=== PATIENT | female | born 2000 | race Caucasian/White ===

== ENCOUNTER → 2025-03-13 | Outpatient (CLI) | payer MEDICAID, SELFPAY ==
[2025-03-13 15:26] LABS: Hematocrit 36.6 % (37-47); Hemoglobin 12.4 g/dL (12.0-15.0); Immature Granulocytes Count 0.010 X10^3/uL (0.0-0.0); Mean Corp Hgb Conc 33.9 g/dL (32-36); Mean Corpuscular Volume 84.5 fL (81-99); Mean Platelet Vol. 11.3 fl (6.2-12.0); NRBC Flagged by Analyzer 0 % (0-5); Platelet Count 237 K/mm3 (150-450); RBC Distribution Width CV 12.7 % (11.6-14.6); RBC Distribution Width SD 39.0 fl (35.1-43.9); Red Blood Count 4.33 M/mm3 (4.2-5.4); White Blood Count 8.1 K/mm3 (4.4-11.0)
[2025-03-13 16:07] LABS: AST(SGOT) 18 U/L (<=31); Alanine Aminotransfer ALT/SGPT 19 U/L (<=34); Albumin, Serum 4.3 g/dL (3.5-5.0); Alkaline Phosphatase 61 U/L (35-104); Anion Gap 12 (5-15); BUN 18 mg/dL (4-19); BUN/Creat Ratio 22.8 RATIO (10-20); Calcium,Total 9.1 mg/dL (7.6-11.0); Carbon Dioxide 24.4 mmol/L (21.0-32.0); Chloride 103 mmol/L (98-108); Globulin 2.5 g/dL (2.2-4.2); Glucose 78 mg/dL (70-99); Potassium 3.9 mmol/L (3.3-5.1)
[2025-03-13 17:31] LABS: Ferritin 15 ng/mL (22-378); Vitamin B12 306 pg/mL (180-914); Vitamin D,25 Hydroxy 17.7 ng/mL (30-100)
[2025-03-15 19:04] LABS: Iron 60 ug/dL (50-170); Iron Binding Capacity,Total 363 ug/dL (250-450); Iron Binding Capacity,Unsat 303 ug/dL (228-428)
== END | disposition home or self-care (01) ==
LOC: MTLAB 13:31
PROVIDERS: PCP Internal Medicine; Referring Provider Internal Medicine; Visit Provider Internal Medicine
DX: D50.9 Iron deficiency anemia, unspecified (principal); E53.8 Deficiency of other specified B group vitamins; E55.9 Vitamin D deficiency, unspecified
CPT/HCPCS: 36415; 80053; 82306; 82607; 82728; 83540; 83550; 85025

== ENCOUNTER → 2025-03-20 | Outpatient (CLI) | payer MEDICAID, SELFPAY ==
--- OUTSIDE RECORDS SUMMARY | 2025-03-20 07:25 | XMS RPT_ITS | CCD ---
Author Organization [facility] Care Team Providers Care Licensed Psychologist Manager Name Role Phone HUMPHREYS, IRIS K Unavailable Unavailable REFERRED, SELF Unavailable Unavailable HUMPHREYS, IRIS K Unavailable Unavailable HUMPHREYS, IRIS K Unavailable Unavailable REFERRED, SELF Unavailable Unavailable HUMPHREYS, IRIS K Unavailable Unavailable KYLE HARVEY Unavailable Unavailable REFERRED, SELF Unavailable Unavailable HUMPHREYS, IRIS K Unavailable Unavailable PRIMARY [id number] RN1, [id number] Unavailable Un available Roberto Kylah Unavailable Unavailable Crawford, Kylah D Unavailable Unavailable Ubaldo Cope Unavailable Unavailable CrawfordKylah Unavailable Unavailable Crawford, Kylah D Unavailable Unavailable Ubaldo Cope Unavailable Unavailable Vangie Joseph Unavailable Unavailable HUBERT MADRIGAL RN ASHLND 1, [id number] Unavaila ble Unavailable Crawford, Kylah D Unavailable Unavailable Crawford, Kylah D Unavailable Unavailable Unavailable Unavailable Unavailable Kylah Connell Unavailable Ubaldo Cope Unavailable Kylah Connell Unavailable Latoya Rae Unavailable Unavailable Vangie Joseph Unavailable Fatou Bray Unavailable Unavailable Dr. Vangie Joseph Attending Unavailable Ms. Kylah Connell Primary Care Unavailab Dr. Vangie Caro Referring Unavailable Ms. Kylah Connell Primary Care Unavailab Dr. Vangie Caro Referring Unavailable Dr. Vangie Joseph Attending Unavailable Ms. Kylah Connell Primary Care Unavailab Dr. Latoya Guevara Referring Unav Dr. Latoya Bruce Attending Unav ailable Ko, Ms. Kylah Amira Primary Care Unavailab guru Joseph, Dr. Tucker Referring Unavailable Opal, Dr. Tucker Attending Unavailable Ko, Ms. Kylah Amira Primary Care Unavailab le Butch, Dr. Latoya Geller Referring Unav ailable Rae, Dr. Latoya Geller Attending Unav ailable Rae, Dr. Latoya Geller Admitting Unav ailable Opal, Dr. Tucker Attending Unavailable Connell, Ms. Kylah Amira Primary Care Unavailab le Ko CURB BUILDER-SMASH HAND, Kylah D Primary Care Provider [phone] Ko CURB BUILDER-JOSEFINA, Kylah D Unavailable Ko CURB BUILDER-JOSEFINA, Kylah D Unavailable Vangie Joseph Attending Unavailable Connell, Ms. Kylah Amira Primary Care Unavailab Vangie Caro Referring Unavailable Vangie Joseph Attending Unavailable Connell, Ms. Kylah Amira Primary Care Unavailab Vangie Caro Referring Unavailable Vangie Joseph Attending Unavailable Connell, Ms. Kylah Amira Primary Care Unavailab Vangie Caro Referring Unavailable Vangie Joseph Attending Unavailable Connell, Ms. Kylah Amira Primary Care Unavailab Vangie Caro Referring Unavailable Vangie Joseph Referring Unavailable Vangie Joseph Attending Unavailable Connell, Ms. Kyalh Amira Primary Care Unavailab guru Bray, Dr. Fatou Jain Admitting Un available Ashlee, Dr. Fatou Jain Attending Un available Bray, Dr. Fatou Jain Referring Un available Connell, Ms. Kylah Amira Primary Care Unavailab Vangie Caro Attending Unavailable Connell, Ms. Kylah Amira Primary Care Unavailab Vangie Caro Referring Unavailable Vangie Joseph Attending Unavailable Connell, Ms. Kylah Amira Primary Care Unavailab Vangie Caro Attending Unavailable Connell, Ms. Kylah Amira Primary Care Unavailab Vangie Caro Attending Unavailable Connell, Ms. Kylah Amira Primary Care Unavailab Vangie Caro Attending Unavailable Vangie Joseph Referring Unavailable Connell, Ms. Kylah Amira Primary Care Unavailab Vangie Caro Referring Unavailable Vangie Joseph Attending Unavailable Connell, Ms. Kylah Amira Primary Care Unavailab Vangie Caro Referring Unavailable Vangie Joseph Attending Unavailable Connell, Ms. Kylah Amira Primary Care Unavailab Vangie Caro Attending Unavailable Connell, Ms. Kylah Amira Primary Care Unavailab Vangie Caro Referring Unavailable Crawford SMASH HAND, Kylah Amira Primary Care Provider KO KYLAH Admitting Unavailable CONNELL, KYLAH Referring Unavailable KYLAH WILLARD Attending Unavailable CRAWFORD, KYLAH AMIRA Primary Care Unavailable CONNELL, KYLAH D Primary Care Unavailable CONNELL, KYLAH D Primary Care Unavailable Unavailable Primary Care Provider Unavailabl e Connell SMASH HAND, Kylah D Primary Care Provider CONNELL, KYLAH D Primary Care Unavailable CIBALLI, RAYGAN L Attending Unavailable SELF, SELF Referring Unavailable Connell CURB BUILDER-SMASH HAND, Kylah D Primary Care Provider Connell CURB BUILDER-SMASH HAND, Kylah D Unavailable Connell CURB BUILDER-SMASH HAND, Kylah D Unavailable DANIELLE GARVIN Attending Unavailab le Crawford SMASH HAND, Kylah Amira Primary Care Provider [phone] ZEUS PRADO Referring Unavailable CIBALLI, RAYGAN Attending Unavailable SELF, SELF Referring Unavailable CIBALLI, RAYGAN Attending Unavailable SELF, SELF Referring Unavailable CIBALLI, RAYGAN Attending Unavailable CONNELL, KYLAH D Primary Care Unavailable CIBALLI, RAYGAN Attending Unavailable CIBALLI, RAYGAN Referring Unavailable Connell CURB BUILDER-SMASH HAND, Kylah D Primary Care Provider Connell CURB BUILDER-SMASH HAND, Kylah D Unavailable Connell CURB BUILDER-SMASH HAND, Kylah D Unavailable DANIELLE GARVIN Attending Unavailab le CRAWFORD, KYLAH AMIRA Primary Care Unavailable DANIELLE GARVIN Attending Unavailab le CRAWFORD, KYLAH AMIRA Primary Care Unavailable CONNELL, KYLAH D Primary Care Unavailable MINESH WILKINSON Attending Unavailable CONNELL, KYLAH D Attending Unavailable CONNELL, KYLAH D Primary Care Unavailable CONNELL, KYLAH D Attending Unavailable CONNELL, KYLAH D Primary Care Unavailable RAUL DOTY Attending Unavailable CONNELL, KYLAH D Primary Care Unavailable RICHARD ARAIZA Attending Unavailable CONNELL, KYLAH D Primary Care Unavailable TavallozeNichoRichard Primary Care Unavailable Connell, Kylah D Referring Unavailable Connell, Kylah D Attending Unavailable Tavallaee, Richard Referring Unavailable Richard Araiza Attending Unavailable Richard Araiza Primary Care Unavailable Assessment, Health Risk Referring Unavaila ble Assessment, Health Risk Attending Unavaila ble Health, Employee Attending Provider [phone] Assessment, Health Risk Attending Provider Unava ilable Assessment, Health Risk Referring Provider Unava ilable Phill BETANCOURT, Dr. Ramos Primary Care Provider Phill BETANCOURT, Dr. Ramos Attending Provider Phill BETANCOURT, Dr. Ramos Referring Provider Allergies Allergy Classification Reported Allergen(s) Allergy Type Date of Onset Reaction(s) Facility (3 sources) OTHER; Translations: [OTHER] Propensity to adverse reactions (disorder) 0 [facility] Medications Current Medications Medication Drug Class(es) Dates Sig (Normalized) Sig (Original) [id number] 200 actuat albuterol 0.09 mg/actuat metered dose inhaler (20 sources) beta2-Adrenergic Agonist Start: 10-20-2021 take 2 puff(s) by inhalation every four hours albuterol 90 mcg/actuation inhaler Inhale 2 puffs every 4 hours if needed (costochondritis) . 0 10/20/2021 Active Start: 10-20-2021 take 2 puff(s) by in halation every four hours as needed Albuterol Sulfate HFA 108 (90 Base) MCG/ACT Inhalation Aerosol Solution INHALE 2 PUFFS EVERY 4 HOURS NEEDED Quantity: 1 Refills: 0 Ordered: 20-Oct-2021 Kylah Hubbard Start : 20-Oct-2021 Active alpha-tocopherol acetate 30 unt / ascorbic acid 100 mg / beta carotene 1000 unt / calcium carbonate 200 mg / calcium pantothenate 7 mg / cholecalciferol 400 unt / docusate sodium 25 mg / ferrous fumarate 29 mg / folic acid 1 mg / niacinamide 15 mg / pyridoxine hydrochloride 20 mg / riboflavin 3 mg / thiamine 3 mg / vitamin b12 0.012 mg / zinc oxide 20 mg oral tablet (1 source) Vitamin B12, Vitamin D, Vitamin C take 1 tablet by mouth once daily Plus Iron oral tablet ; 1 tab(s) orally once a day Quantity: 0 Refills: 0 Ordered: 02-Jun-2022 Hyacinth Bajwa Generic Substitution Allowed benzoyl peroxide 100 mg/ml medicated liquid soap (17 sources) Start: benzoyl peroxide (Benzac AC) 10 % external wash Indications: Acne, unspecified acne type Apply topically 2 times a day. 237 g 09/04/2024 Active Start: 04-21-2023 End: 04-20-2024 benzoyl peroxide (Benzac AC) 10 % external wash Indications: Acne, unspecified acne type APPLY TOPICALLY TWICE DAILY 237 g 3 05/22/2024 Active busPIRone hydrochloride 5 mg oral tablet (20 sources) Start: 10-03-2020 End: 05-03-2023 take 1 tablet by mouth three times daily as needed for anxiety busPIRone (Buspar) 5 mg tablet Indications: Anxiety Take 1 tablet (5 mg) by mouth 3 times a day as needed (anxiety). 90 tablet 02/28/2024 Active calcium carbonate 1500 mg / cholecalciferol 0.01 mg oral tablet (20 sources) Vitamin D Start: 05-03-2023 End: 08-23-2023 Calcium 600 + D,3, 600 mg-10 mcg (400 unit) tablet Start: 11-18-2020 Calcium 600+D 600-400 MG-UNIT TABS TAKE 1 TABLET Twice daily DO NOT TAKE AT SAME TIME IRON Quantity: 180 Refills: 3 Ordered: 20-Oct-2021 Kylah Merlos Start : 18-Nov-2020 Active Start: 11-18-2020 take 1 tablet by soren twice daily Calcium 600+D 600-400 MG-UNIT Oral Tablet TAKE 1 TABLET Twice daily DO NOT TAKE AT SAME TIME IRON Quantity: 180 Refills: 3 Ordered: 20-Oct-2021 Kylah Hubbard Start : 18-Nov-2020 Active Calcium Carbonate-Vit D-Min (Calcium 600+D Plus Minerals) 600-400 MG-UNIT tablet (5 sources) Start: 05-03-2023 take 1 tablet by mouth twice daily Calcium Carbonate-Vit D-Min (Calcium 600+D Plus Minerals) 600-400 MG-UNIT tablet Take 1 tablet by mouth Twice daily. 05/03/2023 Active calcium carbonate-vit D3-min 600 mg calcium- 400 unit tablet (11 sources) Start: 05-03-2023 take 1 tablet by mouth twice daily calcium carbonate-vit D3-min 600 mg calcium- 400 unit tablet Indications: Vitamin D deficiency Take 1 tablet by mouth 2 times a day. DO NOT TAKE AT SAME TIME IRON 180 each 3 05/03/2023 Active Start: 11-18-2020 End: 05-03-2023 take 1 tablet by mouth once in the morning calcium carbonate-vit D3-min 600 mg calcium- 400 unit tablet Take 1 tablet by mouth in the morning and 1 tablet in the evening. DO NOT TAKE AT SAME TIME IRON. 0 11/18/2020 05/03/2023 Discontinued (Reorder) Start: 11-18-2020 take 1 tablet by soren th once in the morning calcium carbonate-vit D3-min 600 mg calcium- 400 unit tablet Take 1 tablet by mouth in the morning and 1 tablet in the evening. DO NOT TAKE AT SAME TIME IRON. 0 11/18/2020 Active calcium carbonate-vit D3-min 600 mg-10 mcg (400 unit) Tab (2 sources) Start: 11-18-2020 take 1 tablet by mouth every twelve hours calcium carbonate-vit D3-min 600 mg-10 mcg (400 unit) Tab Take 1 tablet by mouth every 12 (twelve) hours . 11/18/2020 Active cholecalciferol 0.05 mg oral tablet (6 sources) Vitamin D Start: 09-19-2024 End: 09-19-2025 take 2 tablets by mouth once daily cholecalciferol (Vitamin D3) 50 MCG (1999 UT) tablet Indications: Vitamin D deficiency Take 2 tablets (100 mcg) by mouth once daily. 180 tablet 3 09/19/2024 09/19/2025 Active Start: 03-20-2024 End: 09-19-2024 take 1 tablet by mouth once daily cholecalciferol (Vitamin D3) 50 MCG (2000 UT) tablet Indications: Vitamin D deficiency Take 1 tablet (50 mcg) by mouth once daily. 90 tablet 3 03/20/2024 09/19/2024 Discontinued (Reorder) docusate sodium 100 mg oral capsule (1 source) Start: 07-20-2024 End: 07-30-2024 take 1 capsule by mouth twice daily docusate sodium (COLACE) 100 MG capsule Take 1 (one) capsule (100 mg total) by mouth 2 (two) times a day for 10 days . 20 capsule 07/20/2024 07/30/2024 Active drospirenone / Ethinyl Estradiol (20 sources) Progestin, Estrogen Start: 08-30-2023 End: 08-29-2024 drospirenone-ethin yl estradioL (Brittany, Ocella) 3-0.03 mg tablet Indications: Menorrhagia with regular cycle Take 1 tablet by mouth once daily. 28 tablet 11 08/30/2023 08/29/2024 Active Start: 09-15-2020 take 1 tablet by soren th once daily Drospirenone-Ethinyl Estradiol 3-0.02 MG Oral Tablet Take 1 tablet daily Quantity: 1 Refills: 12 Vangie Joseph MD Start : 15-Sep-2020 Active 28 Tablet Pack End: 08-23-2023 drospirenone-ethinyl estradi oL (Sabrina, Kusumanvi) 3-0.02 mg tablet Take 1 tablet by mouth once daily. 0 08/23/2023 Discontinued (Therapy completed) drospirenone-eth inyl estradioL (Sabrina, Gianvi) 3-0.02 mg tablet Take 1 tablet by mouth once daily. 0 Active take 1 tablet by soren th once daily Drospirenone-Ethinyl Estradiol 3-0.02 MG Oral Tablet Take 1 tablet daily Quantity: 1 Refills: 11 Ordered: 30-Oct-2021 Vangie Joseph MD Active take 1 tablet by soren th once daily Drospirenone-Ethinyl Estradiol 3-0.02 MG Oral Tablet Take 1 tablet daily Quantity: 1 Refills: 1 Ordered: 30-Sep-2021 Vangie Joseph MD Active Drospirenone-Eth inyl Estradiol TABS Quantity: 0 Refills: 0 Ordered: 23-Mar-2021 DO Active ergocalciferol 1.25 mg oral capsule (16 sources) Provitamin D2 Compound Start: 05-03-2023 ergocalciferol (ERGOCALCIFEROL) 1,250 mcg (50,000 unit) capsule Take 1 (one) capsule (50,000 Units total) by mouth twice weekly Per pt . 05/03/2023 Active Start: 05-03-2023 End: 03-20-2024 take 1 capsule by mouth every week ergocalciferol (Vitamin D-2) 1.25 MG (38645 UT) capsule Indications: Vitamin D deficiency Take 1 capsule (50,000 Units) by mouth 1 (one) time per week. 13 capsule 3 05/03/2023 03/20/2024 Discontinued (Therapy completed) take 1 capsule by mo ut every week Vitamin D (Ergocalciferol) 1.25 MG (32450 UT) Oral Capsule TAKE 2 CAPSULE Weekly Refills: 0 Active ferrous sulfate 325 mg oral tablet (20 sources) Start: 09-19-2024 take 1 tablet by mouth three times daily ferrous sulfate tablet Indications: Iron deficiency anemia, unspecified iron deficiency anemia type Take 1 tablet (325 mg) by mouth 3 times a day. 270 tablet 3 09/19/2024 Active Start: 11-14-2020 End: 09-19-2024 take 1 tablet by mouth three times daily ferrous sulfate 325 (65 FE) MG tablet Take 1 (one) tablet (325 mg total) by mouth 3 (three) times a day . 11/14/2020 Active Start: 11-14-2020 [facility] Ferrous Sulfate 325 (65 Fe) MG Oral Tablet Take 1 tablet twice daily Quantity: 180 Refills: 1 Ordered: 14-Nov-2020 Kylah Hubbard Start : 14-Nov-2020 Active Lactulose (2 sources) Osmotic Laxative Start: 07-20-2024 End: 11-06-2024 take 15 mL by mouth once daily lactulose (CHRONULAC) 20 gram/30 mL Soln Take 15 mL (10 g total) by mouth daily . 30 mL 3 07/20/2024 11/06/2024 Discontinued Start: 07-20-2024 take 15 mL by mouth once daily lactulose (CHRONULAC) 20 gram/30 mL Soln Take 15 mL (10 g total) by mouth daily . 30 mL 3 07/20/2024 Active linaclotide 0.145 mg oral capsule (1 source) Guanylate Cyclase-C Agonist Start: 11-06-2024 take 1 capsule by mouth once daily before breakfast linaCLOtide (Linzess) 145 mcg cap Take 1 (one) capsule (145 mcg total) by mouth every morning before breakfast . 30 capsule 11/06/2024 Active Start: 11-06-2024 take 1 capsule by [facility] once daily before breakfast linaCLOtide (Linzess) 145 mcg cap Take 1 (one) capsule (145 mcg total) by mouth every morning before breakfast . 30 capsule 11/06/2024 Active metroNIDAZOLE 500 mg oral tablet (3 sources) Nitroimidazole Antimicrobial Start: 03-23-2021 End: 03-30-2021 take 1 tablet by mouth twice daily metroNIDAZOLE 500 MG Oral Tablet Take 1 tablet twice daily Quantity: 14 Refills: 0 Ordered: 23-Mar-2021 Jamar Delcid DO Start : 23-Mar-2021 End : 30-Mar-2021 Active no EOTH omeprazole 40 mg delayed release oral capsule (10 sources) Proton Pump Inhibitor Start: 08-23-2023 End: 08-22-2024 take 1 capsule by mouth once daily before breakfast omeprazole (PRILOSEC) 40 MG capsule Take 1 (one) capsule (40 mg total) by mouth every morning before breakfast . 08/23/2023 Active semaglutide, weight loss, (Wegovy) 0.5 mg/0.5 mL pen injector (1 source) Start: 07-31-2024 semaglutide, weight loss, (Wegovy) 0.5 mg/0.5 mL pen injector Inject 0.5 mg under the skin every 7 days. 07/31/2024 Active Semaglutide-Weight Management (Wegovy) 0.5 MG/0.5ML Solution Auto-injector (1 source) Start: 07-31-2024 inject 0.5 mg by subcutaneous injection every week Semaglutide-Weigh t Management (Wegovy) 0.5 MG/0.5ML Solution Auto-injector Indications: Obesity (BMI 30.0-34.9) Inject 0.5 mg under the skin once a week. 2 mL 07/31/2024 Active sucralfate 1000 mg oral tablet (3 sources) Aluminum Complex Start: 09-14-2023 take 1 tablet by mouth four times daily before mealtime sucralfate (Carafate) 1 gram tablet Indications: Epigastric abdominal tenderness with rebound tenderness take 1 tablet by mouth four times a day BEFORE MEALS 120 tablet 0 09/14/2023 Active Start: 08-23-2023 take 1 tablet by soren th four times daily before mealtime sucralfate (Carafate) 1 gram tablet Indications: Epigastric abdominal tenderness with rebound tenderness Take 1 tablet (1 g) by mouth 4 times a day before meals. 120 tablet 0 08/23/2023 Active Wegovy 0.25 mg/0.5 mL Pen (2 sources) inject 0.25 mg by porter bcutaneous injection every week Wegovy 0.25 mg/0.5 mL Pen INJECT 0.25 MG UNDER THE SKIN ONCE A WEEK. Active Completed/Discontinued Medications Medication Drug Class(es) Dates Sig (Normalized) Sig (Original) amoxicillin 500 mg oral capsule (1 source) Penicillin-class Antibacterial Start: 12-17-2020 take 1 capsule by mouth twice daily Amoxicillin 500 MG Oral Capsule Take 1 capsule twice daily Quantity: 14 Refills: 0 Ordered: 17-Dec-2020 Kylah Hubbard Start : 17-Dec-2020 Active B-12 KIT (14 sources) End: 10-20-2021 B-12 KIT Quantity: 0 Refills: 0 Ordered: 20-Oct-2021 DO End : 20-Oct-2021 Complete B-12 KIT Quantit y: 0 Refills: 0 Ordered: 02-Jan-2021 DO Active betamethasone 0.5 mg/ml / clotrimazole 10 mg/ml topical cream (5 sources) Azole Antifungal, Corticosteroid Start: 12-26-2019 Clotrimazole-Betamethasone 1-0.05 % External Cream APPLY AND RUB IN A THIN FILM TO AFFECTED AREAS TWICE DAILY.(AM AND PM). Quantity: 1 Refills: 0 Kylah Hubbard Start : 26-Dec-2019 Active 45 GM Tube cephalexin 500 mg oral capsule (2 sources) Cephalosporin Antibacterial Start: 02-04-2020 take 1 capsule by mouth four times daily Cephalexin 500 MG Oral Capsule TAKE 1 CAPSULE 4 TIMES DAILY UNTIL GONE. Quantity: 28 Refills: 0 Vangie Joseph MD Start : 04-Feb-2020 Active clotrimazole 20 mg/ml vaginal cream (2 sources) Azole Antifungal Start: 04-08-2020 Clotrimazole 3 2 % Vaginal Cream INSERT 1 APPLICATORFUL INTRAVAGINALLY AT BEDTIME NIGHTLY. Quantity: 1 Refills: 0 Kylah Hubbard Start : 08-Apr-2020 Active 21 GM Tube 1 ml dexamethasone phosphate 4 mg/ml injection (1 source) Corticosteroid Start: 10-20-2021 Dexamethasone Sodium Phosphate 4 MG/ML Injection Solution INJECT 1 ML Intramuscular Quantity: 0 Refills: 0 Ordered: 20-Oct-2021 Kylah Hubbard Start : 20-Oct-2021 Complete doxycycline hyclate 100 mg oral tablet (2 sources) Tetracycline-clas s Drug Start: 01-05-2021 take 1 tablet by mouth once daily Doxycycline Hyclate 100 MG Oral Tablet TAKE 1 TABLET EVERY 12 HOURS DAILY. Quantity: 14 Refills: 0 Ordered: 05-Jan-2021 Vangie Joseph MD Start : 05-Jan-2021 Active FLUoxetine 10 mg oral capsule (7 sources) Serotonin Reuptake Inhibitor Start: 10-03-2020 take 1 capsule by mouth once daily FLUoxetine HCl - 10 MG Oral Capsule TAKE 1 CAPSULE Daily Quantity: 90 Refills: 3 Ordered: 02-Dec-2020 Kylah Hubbard Start : 03-Oct-2020 Active take 1 capsule by mouth once jody ly PROzac 20 MG Oral Capsule TAKE 1 CAPSULE Daily Refills: 0 Active ibuprofen 600 mg oral tablet (4 sources) Nonsteroidal Anti-inflammatory Drug Start: 08-24-2022 End: 05-03-2023 take 1 tablet by mouth every six hours ibuprofen 600 mg tablet Take 1 tablet (600 mg) by mouth every 6 hours. 0 08/24/2022 05/03/2023 Discontinued (Therapy completed) take 2 tablets by [facility] every eight hours as needed ibuprofen (ADVIL,MOTRIN) 200 MG tablet T daryl 2 (two) tablets (400 mg total) by mouth every 8 (eight) hours as needed . Active labetalol hydrochloride 200 mg oral tablet (2 sources) beta-Adrenergic Shanique End: 05-03-2023 take 1 tablet by mouth twice daily labetalol (Normodyne) 200 mg tablet Take 1 tablet (200 mg) by mouth 2 times a day. 0 05/03/2023 Discontinued (Therapy completed) 1 ml medroxyPROGESTERone acetate 150 mg/ml injection (3 sources) Progestin inject 1 mL by intramuscular injection every three months Depo-Provera 150 MG/ML Intramuscular Suspension INJECT 1 ML INTRAMUSCULARLY ONCE EVERY 3 MONTHS. Refills: 0 Active montelukast 10 mg oral tablet (3 sources) Leukotriene Receptor Antagonist Start: 05-29-2019 take 1 tablet by mouth at bedtime Montelukast Sodium 10 MG Oral Tablet TAKE 1 TABLET Bedtime Quantity: 90 Refills: 3 Kylah Hubbard Start : 29-May-2019 Active naproxen 500 mg oral tablet (8 sources) Nonsteroidal Anti-inflammatory Drug Start: 10-20-2021 take 1 tablet by mouth every twelve hours as needed Naproxen 500 MG Oral Tablet TAKE 1 TABLET EVERY 12 HOURS NEEDED. Quantity: 60 Refills: 0 Ordered: 20-Oct-2021 Kylah Hubbard Start : 20-Oct-2021 Active 24 hr NIFEdipine 60 mg extended release oral tablet (2 sources) Dihydropyridine Calcium Channel Shanique End: 05-03-2023 take 1 tablet by mouth twice daily NIFEdipine CC (Adalat CC) 60 mg 24 hr tablet Take 1 tablet (60 mg) by mouth 2 times a day. 0 05/03/2023 Discontinued (Therapy completed) nitrofurantoin, macrocrystals 25 mg / nitrofurantoin, monohydrate 75 mg oral capsule (1 source) Nitrofuran Antibacterial Start: 02-21-2022 take 1 capsule by mouth twice daily Nitrofurantoin Monohyd Macro 100 MG Oral Capsule TAKE 1 CAPSULE TWICE DAILY. Quantity: 20 Refills: 0 Ordered: 21-Feb-2022 Vangie Joseph MD Start : 21-Feb-2022 Active ondansetron 8 mg disintegrating oral tablet (20 sources) Serotonin-3 Receptor Antagonist Start: 02-19-2022 End: 05-03-2023 take 1 tablet by mouth every eight hours as needed ondansetron ODT (Zofran-ODT) 8 mg disintegrating tablet Take 1 tablet (8 mg) by mouth every 8 hours if needed for nausea. 0 02/19/2022 05/03/2023 Discontinued (Therapy completed) Start: 04-08-2020 take 1 tablet by soren th every eight hours Ondansetron HCl - 4 MG Oral Tablet TAKE 1 TABLET Every 8 hours PRN Nausea Quantity: 42 Refills: 0 Kylah Hubbard Start : 08-Apr-2020 Active PARoxetine hydrochloride 20 mg oral tablet (3 sources) Serotonin Reuptake Inhibitor Start: 05-29-2019 take 1 tablet by mouth once daily PARoxetine HCl - 20 MG Oral Tablet Take 1 tablet daily Quantity: 90 Refills: 3 Kylah Hubbard Start : 29-May-2019 Active phentermine hydrochloride 8 mg oral tablet (9 sources) Sympathomimetic Amine Anorectic Start: 05-22-2024 End: 06-21-2024 take 1 tablet by mouth once daily before breakfast Phentermine HCl 8 MG tablet Indications: Obesity (BMI 30.0-34.9) Take 1 tablet by mouth every morning before breakfast. 30 tablet 05/22/2024 06/07/2024 Discontinued (Side effects) Start: 04-24-2024 End: 04-24-2024 take 1 capsule by mouth once daily phentermine 30 MG capsule Indications: Obesity (BMI 30.0-34.9) Take 1 capsule by mouth daily. 30 capsule 04/24/2024 04/24/2024 Discontinued (Error) Start: 03-27-2024 End: 09-19-2024 take 1 tablet by mouth once daily phentermine (Adipex-P) 37.5 mg tablet Take 1 tablet (37.5 mg) by mouth once daily. 03/27/2024 09/19/2024 Discontinued (Therapy completed) predniSONE 10 mg oral tablet (8 sources) Start: 10-20-2021 take 3 tablets by mouth once daily predniSONE 10 MG Oral Tablet TAKE 3 TABLET Daily Quantity: 15 Refills: 0 Ordered: 20-Oct-2021 Kylah Hubbard Start : 20-Oct-2021 Active promethazine hydrochloride 25 mg oral tablet (1 source) Phenothiazine Start: 02-29-2020 take 1 tablet by mouth every six hours Promethazine HCl - 25 MG Oral Tablet TAKE 1 TABLET EVERY 6 HOURS NEEDED FOR NAUSEA. Quantity: 20 Refills: 2 Vangie Joseph MD Start : 29-Feb-2020 Active Semaglutide-Weight Management (Wegovy) 0.25 MG/0.5ML Solution Auto-injector (2 sources) Start: 06-07-2024 End: 07-31-2024 inject 0.25 mg by subcutaneous injection every week Semaglutide-Weight Management (Wegovy) 0.25 MG/0.5ML Solution Auto-injector Indications: Obesity (BMI 30.0-34.9) Inject 0.25 mg under the skin once a week. 0.5 mL 06/07/2024 07/31/2024 Discontinued (Dose adjustment (suppress cancel msg)) Start: 06-07-2024 inject 0.25 mg by porter bcutaneous injection every week Semaglutide-Weight Management (Wegovy) 0.25 MG/0.5ML Solution Auto-injector Indications: Obesity (BMI 30.0-34.9) Inject 0.25 mg under the skin once a week. 0.5 mL 06/07/2024 Active sulfamethoxazole 800 mg / trimethoprim 160 mg oral tablet (15 sources) Dihydrofolate Reductase Inhibitor Antibacterial, Sulfonamide Antimicrobial Start: 03-22-2022 take 1 tablet by mouth twice daily Sulfamethoxazole-Trimethoprim 800-160 MG Oral Tablet TAKE 1 TABLET TWICE DAILY UNTIL FINISHED. Quantity: 20 Refills: 0 Ordered: 22-Mar-2022 Vangie Joseph MD Start : 22-Mar-2022 Active Start: 05-05-2020 take 1 tablet by soren twice daily Sulfamethoxazole-Trimethoprim 800-160 MG Oral Tablet TAKE 1 TABLET TWICE DAILY UNTIL FINISHED. Quantity: 20 Refills: 0 Vangie Joseph MD Start : 05-May-2020 Active topiramate 25 mg oral tablet (2 sources) Start: 04-24-2024 End: 05-22-2024 take 1 tablet by mouth once daily Topiramate 25 MG tablet Indications: Obesity (BMI 30.0-34.9) Take 1 tablet by mouth daily. 30 tablet 04/24/2024 05/22/2024 Discontinued (Side effects) vitamin b12 1 mg/ml injectable solution (12 sources) Vitamin B12 Start: 03-11-2022 Cyanocobalamin 1000 MCG/ML Injection Solution INJECT 1 ML Intramuscular Quantity: 0 Refills: 0 Ordered: 11-Mar-2022 Kylah Hubbard Start : 11-Mar-2022 Complete Start: 10-20-2021 Cyanocobalamin 1000 MCG/ML Injection Solution INJECT 1 ML Intramuscular Quantity: 0 Refills: 0 Ordered: 20-Oct-2021 Kylah Hubbard Start : 20-Oct-2021 Complete Start: 06-26-2021 Cyanocobalamin 1000 MCG/ML Injection Solution INJECT 1 ML Intramuscular Quantity: 0 Refills: 0 Ordered: 26-Jun-2021 Kylah Hubbard Start : 26-Jun-2021 Complete Start: 05-13-2021 Cyanocobalamin 1000 MCG/ML Injection Solution INJECT 1 ML Intramuscular Quantity: 0 Refills: 0 Ordered: 13-May-2021 Kylah Hubbard Start : 13-May-2021 Complete Start: 03-23-2021 Cyanocobalamin 1000 MCG/ML Injection Solution INJECT 1 ML Intramuscular Quantity: 0 Refills: 0 Ordered: 23-Mar-2021 Britta Vásquez PA-C Start : 23-Mar-2021 Complete Start: 12-19-2020 inject 1 mL by intra muscular injection every month Cyanocobalamin 1000 MCG/ML Injection Solution INJECT 1 ML INTRAMUSCULARLY ONCE A MONTH Quantity: 0 Refills: 0 Ordered: 19-Dec-2020 Kylah Hubbard Start : 19-Dec-2020 Complete Start: 12-11-2019 Cyanocobalamin 1000 MCG/ML Injection Solution INJECT 1 ML Intramuscular Refills: 0 Roberto BOLIVARNPhongSMASH HANDKylah Start : 11-Dec-2019 Admin Requested Cyanocobalamin 1 000 MCG/ML Solution Inject intramuscularly every 30 days. Active NEGATED: Highlighted row has not occurred!No Current Medications (1 source) No Current Medic ations Problems Active Problems Problem Classification Problem Date Documented Da te Episodic/Chronic Abdominal pain (19 sources) Acute abdominal pain; Translations: [Abdominal pain, left lower quadrant] 08-23-2023 Episodic Allergic reactions (5 sources) Contact dermatitis due to plants; Translations: [Dermatitis due to plants, including poison ramesh, sumac, and oak] Episodic Anxiety disorders (20 sources) Generalized anxiety disorder; Translations: [Mixed anxiety and depressive disorder] Onset: 3 10-14-2022 Chronic Contraceptive and procreative management (20 sources) Patient encounter status; Translations: [Unspecified contraceptive management] Episodic Deficiency and other anemia (20 sources) Iron deficiency anemia; Translations: [Iron deficiency anemia, unspecified] Onset: 3 04-21-2023 Episodic Deficiency and other anemia (5 sources) Iron deficiency anemia, unspecified; Translations: [Iron deficiency anemia, unspecified] Onset: 3 Episodic Disorders of lipid metabolism (20 sources) Mixed hyperlipidemia; Translations: [Mixed hyperlipidemia] Onset: 3 04-21-2023 Chronic Esophageal disorders (10 sources) Gastroesophageal reflux disease; Translations: [Gastro-esophageal reflux disease without esophagitis] Onset: 4 08-23-2023 Chronic Essential hypertension (14 sources) Elevated blood pressure; Translations: [Unspecified essential hypertension] Chronic Headache; including migraine (20 sources) Refractory migraine with aura; Translations: [Migraine with aura, with intractable migraine, so stated, without mention of status migrainosus] Onset: 3 10-14-2022 Chronic Hemorrhoids (1 source) Hemorrhoids; Translations: [Unspecified hemorrhoids] 07-20-2024 Episodic Immunizations and screening for infectious disease (2 sources) Encounter for prophylactic Rho(D) immune globulin; Translations: [Encounter for prophylactic Rho(D) immune globulin] Onset: 2 Episodic Inflammatory diseases of female pelvic organs (9 sources) Bacterial vaginosis; Translations: [Vaginitis and vulvovaginitis, unspecified] Episodic Menstrual disorders (5 sources) Amenorrhea; Translations: [Absence of menstruation] Chronic Mood disorders (20 sources) Major depressive disorder; Translations: [Mild major depression, single episode] Onset: 3 10-14-2022 Chronic Mycoses (2 sources) Mycosis; Translations: [Yeast infection] Episodic Nutritional deficiencies (20 sources) Vitamin D deficiency; Translations: [Unspecified vitamin D deficiency] Onset: 3 04-21-2023 Chronic Nutritional deficiencies (20 sources) Cobalamin deficiency; Translations: [Other B-complex deficiencies] Onset: 3 04-21-2023 Episodic Other complications of ; puerperium affecting management of mother (1 source) Obesity complicating childbirth; Translations: [Obesity complicating childbirth] Onset: 3 Chronic Other complications of (4 sources) Urinary tract infection in ; Translations: [UTI in ] Episodic Other complications of (2 sources) Decreased movements, second trimester, not applicable or unspecified; Translations: [Decreased movements, second trimester, unsp] Onset: 2 Episodic Other endocrine disorders (12 sources) Menarche; Translations: [History of Menarche] Chronic Other gastrointestinal disorders (2 sources) Irritable bowel syndrome characterized by constipation; Translations: [Irritable bowel syndrome with constipation] Onset: 5 11-06-2024 Chronic Other gastrointestinal disorders (1 source) Irritable bowel syndrome with constipation; Translations: [Irritable bowel syndrome with constipation] Onset: 5 Chronic Other gastrointestinal disorders (1 source) Chronic constipation; Translations: [Other constipation] 07-20-2024 Episodic Other nutritional; endocrine; and metabolic disorders (6 sources) Obesity; Translations: [Obesity, unspecified] Onset: 3 04-21-2023 Chronic Other nutritional; endocrine; and metabolic disorders (6 sources) Obesity caused by energy imbalance; Translations: [Other obesity due to excess calories] Onset: 3 05-20-2023 Chronic Other nutritional; endocrine; and metabolic disorders (4 sources) Other obesity due to excess calories; Translations: [Other obesity due to excess calories] Onset: 3 Chronic Other nutritional; endocrine; and metabolic disorders (2 sources) Body mass index (BMI) 32.0-32.9, adult; Translations: [Body mass index (BMI) 32.0-32.9, adult] Onset: 3 Chronic Other nutritional; endocrine; and metabolic disorders (2 sources) Body mass index (BMI) 34.0-34.9, adult; Translations: [Body mass index (BMI) 34.0-34.9, adult] Onset: 4 Chronic Other nutritional; endocrine; and metabolic disorders (1 source) Body mass index 30+ - obesity; Translations: [Obesity, unspecified] 03-27-2024 Chronic Other nutritional; endocrine; and metabolic disorders (13 sources) Obese class I; Translations: [Obesity, unspecified] Onset: 4 03-27-2024 Chronic Other upper respiratory disease (20 sources) Seasonal allergy; Translations: [Allergic rhinitis, cause unspecified] Onset: 3 10-14-2022 Chronic Other upper respiratory infections (3 sources) Pharyngitis; Translations: [Acute pharyngitis] Episodic Residual codes; unclassified (5 sources) H/O: ; Translations: [History of ] Episodic Residual codes; unclassified (8 sources) Gestation period, 10 weeks; Translations: [ with 10 completed weeks gestation] Episodic Residual codes; unclassified (2 sources) Gestation period, 14 weeks; Translations: [14 weeks gestation of ] Episodic Residual codes; unclassified (1 source) Gestation period, 19 weeks; Translations: [19 weeks gestation of ] Episodic Residual codes; unclassified (1 source) Gestation period, 23 weeks; Translations: [23 weeks gestation of ] Episodic Residual codes; unclassified (1 source) Gestation period, 27 weeks; Translations: [27 weeks gestation of ] Episodic Residual codes; unclassified (1 source) Gestation period, 12 weeks; Translations: [ state, incidental] Episodic Residual codes; unclassified (1 source) Gestation period, 15 weeks; Translations: [ state, incidental] Episodic Residual codes; unclassified (1 source) Gestation period, 16 weeks; Translations: [ state, incidental] Episodic Residual codes; unclassified (1 source) Gestation period, 20 weeks; Translations: [ state, incidental] Episodic Residual codes; unclassified (2 sources) Gestation period, 24 weeks; Translations: [ state, incidental] Onset: 2 Episodic Residual codes; unclassified (1 source) Gestation period, 28 weeks; Translations: [ state, incidental] Episodic Residual codes; unclassified (1 source) Gestation period, 30 weeks; Translations: [ state, incidental] Episodic Residual codes; unclassified (1 source) Gestation period, 32 weeks; Translations: [ state, incidental] Episodic Residual codes; unclassified (1 source) Gestation period, 35 weeks; Translations: [ state, incidental] Episodic Residual codes; unclassified (2 sources) Gestation period, 36 weeks; Translations: [ state, incidental] Episodic Residual codes; unclassified (2 sources) Gestation period, 37 weeks; Translations: [ state, incidental] Episodic Residual codes; unclassified (2 sources) Gestation period, 38 weeks; Translations: [ state, incidental] Episodic Residual codes; unclassified (1 source) Weeks of gestation of not specified; Translations: [Weeks of gestation of not specified] Onset: 2 Episodic Residual codes; unclassified (1 source) 24 weeks gestation of ; Translations: [24 weeks gestation of ] Onset: 2 Episodic Residual codes; unclassified (1 source) 27 weeks gestation of ; Translations: [27 weeks gestation of ] Onset: 2 Episodic Unclassified (2 sources) BLOOD PRESSURE 08-20-2022 Comment on above: BLOOD PRESSURE Unclassified (2 sources) Patient encounter procedure 10-30-2021 Comment on above: YEARLY Unclassified (1 source) OB 08-20-2022 Comment on above: OB Unclassified (2 sources) IUP @ 38 WKS 08-21-2022 Comment on above: IUP @ 38 WKS Unclassified (1 source) BP CHECK 08-24-2022 Comment on above: BP CHECK Unclassified (1 source) 38 weeks gestation of 08-21-2022 Unclassified (1 source) Encounter for induction of labor 08-21-2022 Unclassified (1 source) Pre-eclampsia, 08-22-2022 Unclassified (1 source) Severe pre-eclampsia, 08-22-2022 Unclassified (1 source) Contact with and (suspected) exposure to COVID-19; Translations: [Contact with and (suspected) exposure to COVID-19] Onset: 3 Unclassified (1 source) Obesity, class 1; Translations: [Obesity, class 1] Onset: 4 Unclassified (2 sources) Closed fracture of distal end of left radius 08-14-2024 Unclassified (2 sources) New Patient Visit; Translations: [New Patient Visit] Onset: 5 Past or Other Problems Problem Classification Problem Date Documented Da te Episodic/Chronic Bacterial infection; unspecified site (20 sources) Chlamydial infection; Translations: [Unspecified chlamydial infection] Onset: 10-14-2022 Resolved: 03-20-2024 10-14-2022 Episodic Cancer of cervix (20 sources) Atypical squamous cells of undetermined significance on cervical Papanicolaou smear; Translations: [Papanicolaou smear of cervix with atypical squamous cells of undetermined significance (ASC-US)] Onset: 10-14-2022 10-14-2022 Episodic Conditions associated with dizziness or vertigo (1 source) Dizziness and giddiness; Translations: [Dizziness and giddiness] Onset: 07-09-2015 07-03-2024 Episodic Diabetes mellitus without complication (20 sources) Abnormal glucose level; Translations: [Other abnormal glucose] Onset: 10-14-2022 04-21-2023 Episodic Fracture of upper limb (6 sources) Closed fracture of distal end of left radius; Translations: [Unspecified fracture of the lower end of left radius, initial encounter for closed fracture] Onset: 08-14-2024 08-14-2024 Episodic Genitourinary symptoms and ill-defined conditions (20 sources) Abnormal urine; Translations: [Other nonspecific findings on examination of urine] Onset: 08-24-2022 Resolved: 03-20-2024 10-14-2022 Episodic Hypertension complicating ; childbirth and the puerperium (11 sources) Severe pre-eclampsia; Translations: [Severe pre-eclampsia, unspecified as to episode of care or not applicable] Onset: 04-01-2017 08-21-2022 Episodic Mood disorders (1 source) Mood disorders Onset: 05-31-2022 05-31-2022 Other aftercare (1 source) Post-discharge follow-up; Translations: [Hospital discharge follow-up] Other bone disease and musculoskeletal deformities (20 sources) Costal chondritis; Translations: [Tietze's disease] Onset: 10-14-2022 Resolved: 03-20-2024 10-14-2022 Episodic Other circulatory disease (20 sources) H/O: hypertension; Translations: [Personal history of other diseases of circulatory system] Onset: 10-14-2022 Resolved: 03-20-2024 10-14-2022 Episodic Other complications of ; puerperium affecting management of mother (1 source) Abnormality in heart rate and rhythm complicating labor and delivery; Translations: [Abnlt in heart rate and rhythm comp labor and delivery] Onset: 08-24-2022 Episodic Other complications of (20 sources) RhD negative; Translations: [Other specified complications of , antepartum condition or complication] Onset: 10-14-2022 10-14-2022 Episodic Other complications of (20 sources) Nausea and vomiting; Translations: [Unspecified vomiting of , unspecified as to episode of care or not applicable] Onset: 10-14-2022 Resolved: 03-20-2024 10-14-2022 Episodic Other complications of (1 source) Other specified related conditions, third trimester; Translations: [Oth related conditions, third trimester] Onset: 08-24-2022 Episodic Other complications of (3 sources) Vomiting of , unspecified; Translations: [Unspecified vomiting of , unspecified as to episode of care or not applicable] Onset: 10-14-2022 Resolved: 03-20-2024 03-20-2024 Episodic Other female genital disorders (20 sources) Vaginal discharge; Translations: [Leukorrhea, not specified as infective] Onset: 10-14-2022 Resolved: 03-20-2024 10-14-2022 Episodic Other inflammatory condition of skin (11 sources) Seborrheic dermatitis; Translations: [Seborrheic dermatitis, unspecified] Onset: 07-31-2019 04-06-2023 Episodic Other nutritional; endocrine; and metabolic disorders (8 sources) Weight gain; Translations: [Abnormal weight gain] Onset: 04-21-2023 04-21-2023 Episodic Other nutritional; endocrine; and metabolic disorders (2 sources) Abnormal weight gain; Translations: [Abnormal weight gain] Onset: 04-21-2023 Episodic Other nutritional; endocrine; and metabolic disorders (4 sources) Weight increased; Translations: [Abnormal weight gain] Onset: 04-21-2023 07-03-2024 Episodic Other and delivery including normal (20 sources) Urine test positive; Translations: [Delivery normal] Onset: 08-24-2022 Resolved: 03-20-2024 08-21-2022 Episodic Comment on above: 09/06/2016_39weeks 3 days_Male_7# 8oz01_39weeks 1day_Female_7# 10oz; 09/06/2016_39weeks 3 days_Male_7# 8oz01/_39weeks 1day_Female_7# 10oz01/_37weeks 2days_Male_6# 8oz; Other screening for suspected conditions (not mental disorders or infectious disease) (20 sources) Thyroid function tests abnormal; Translations: [Nonspecific abnormal results of function study of thyroid] Onset: 04-16-2022 04-21-2023 Episodic Other skin disorders (20 sources) Acne; Translations: [Other acne] Onset: 10-14-2022 04-21-2023 Episodic Other skin disorders (2 sources) Acne, unspecified; Translations: [Acne, unspecified] Onset: 10-14-2022 Episodic Residual codes; unclassified (2 sources) 38 weeks gestation of ; Translations: [38 weeks gestation of ] Onset: 08-20-2022 Episodic Residual codes; unclassified (1 source) 20 weeks gestation of ; Translations: [20 weeks gestation of ] Onset: 04-16-2022 Episodic Residual codes; unclassified (1 source) 16 weeks gestation of ; Translations: [16 weeks gestation of ] Onset: 04-16-2022 Episodic Residual codes; unclassified (1 source) Type A blood, Rh negative; Translations: [Type A blood, Rh negative] Onset: 08-24-2022 Episodic Unclassified (20 sources) Patient encounter status; Translations: [Contraceptive management] Unclassified (20 sources) Finding of menstrual bleeding; Translations: [Menstruation] Comment on above: Onset age 11 years; Unclassified (10 sources) Onset: 04-21-2023 Resolved: 09-19-2024 04-21-2023 Unclassified (1 source) Obesity, class 1; Translations: [Obesity, class 1] Onset: 07-31-2024 Urinary tract infections (20 sources) Urinary tract infectious disease; Translations: [Urinary tract infection, site not specified] Onset: 10-14-2022 Resolved: 03-20-2024 10-14-2022 Episodic NEGATED: Highlighted row has not occurred!Residual codes; unclassified (20 sources) Disease Episodic Results Test Name Value Interpretation Reference Range Facility Iron+Iron Binding Capacityon 03-15-2025 Iron [Mass/Vol] 60 ug/dL Normal 50-170 [facility] Comment on above: Order Comment: ADD I MARTÍN + IBC TO BLOOD WORK DONE ON 03/13/25 Performed By: #### L 100.0100, L506.1001, L503.0106, L503.6550, L503.6030, L500.4050 #### [facility] [address] [place], [address] IRON SATURATION 17.0 Normal 13-59 [facility] Comment on above: Order Comment: ADD I MARTÍN + IBC TO BLOOD WORK DONE ON 03/13/25 Performed By: #### L 100.0100, L506.1001, L503.0106, L503.6550, L503.6030, L500.4050 #### [facility] [address] [place], [address] TIBC 363 ug/dL Normal 250-450 [facility] Comment on above: Order Comment: ADD I MARTÍN + IBC TO BLOOD WORK DONE ON 03/13/25 Performed By: #### L 100.0100, L506.1001, L503.0106, L503.6550, L503.6030, L500.4050 #### [facility] [address] [place], [address] UIBC 303 ug/dL Normal 228-428 [facility] Comment on above: Order Comment: ADD I MARTÍN + IBC TO BLOOD WORK DONE ON 03/13/25 Performed By: #### L 100.0100, L506.1001, L503.0106, L503.6550, L503.6030, L500.4050 #### [facility] [address] [place], [address] Absolute lymphocyte countOrd ered By: Richard Araiza on 03-13-2025 Lymphocytes Auto (Unsp spec) [#/Vol] 2.28 10*3/uL 0.83-4.51 [facility] Absolute neutrophil countOrd ered By: Richard Araiza on 03-13-2025 Neutrophils (Bld) [#/Vol] 5.1 10*3/uL 2.0-7.7 [facility] Anion gap in Serum or Plasma Ordered By: Richard Araiza on 03-13-2025 Anion gap [Moles/Vol] 12 mmol/L 5-15 [facility] Automated lymphocyte count a s percentage of total leukocytesOrdered By: Richard Araiza on 03-13-2025 Lymphocytes/100 WBC Auto (Unsp spec) 28.3 % -41 [facility] BUN/creatinine ratioOrdered By: Richard Araiza on 03-13-2025 Urea nitrogen/Creatinine [Mass ratio] 22.8 mg/mg High - [facility] Basophil percentageOrdered B y: Richard Araiza on 03-13-2025 Basophils/100 WBC (Bld) 0.4 % 0-1 [facility] Bilirubin, totalOrdered By: Richard Araiza on 03-13-2025 Bilirubin [Mass/Vol] 0.30 mg/dL 0.00-1.30 [facility] CBC W/Diff, Automatedon 02-23-2024 Absolute Lymph 2.28 X10 3/uL Normal 0.83-4.51 [facility] Comment on above: Performed By: #### L 100.0100, L506.1001, L503.0106, L503.6550, L503.6030, L500.4050 #### [facility] [address] [place], [address] Absolute Neut 5.1 X10 3/uL Normal 2.0-7.7 [facility] Comment on above: Performed By: #### L 100.0100, L506.1001, L503.0106, L503.6550, L503.6030, L500.4050 #### [facility] [address] [place], [address] Basophils/100 WBC (Bld) 0.4 % Normal 0-1 [facility] Comment on above: Performed By: #### L 100.0100, L506.1001, L503.0106, L503.6550, L503.6030, L500.4050 #### [facility] [address] [place], [address] Eosinophils/100 WBC (Bld) 1.2 % Normal 0-5 [facility] Comment on above: Performed By: #### L 100.0100, L506.1001, L503.0106, L503.6550, L503.6030, L500.4050 #### [facility] [address] [place], [address] Erythrocyte distribution width (RBC) [Ratio] 12.7 % Normal 11.6-14.6 [facility] Comment on above: Performed By: #### L 100.0100, L506.1001, L503.0106, L503.6550, L503.6030, L500.4050 #### [facility] [address] [place], [address] Hematocrit (Bld) [Volume fraction] 36.6 % Low 37-47 [facility] Comment on above: Performed By: #### L 100.0100, L506.1001, L503.0106, L503.6550, L503.6030, L500.4050 #### [facility] [address] [place], [address] Hemoglobin (Bld) [Mass/Vol] 12.4 g/dL Normal 12.0-15.0 [facility] Comment on above: Performed By: #### L 100.0100, L506.1001, L503.0106, L503.6550, L503.6030, L500.4050 #### [facility] [address] [place], [address] IG% 0.100 Normal 0.0-0.9 [facility] Comment on above: Result Comment: IG% - Immature Granulocytes (promyelocytes, myelocytes and metamyelocytes) > 1% indicates that a LEFT SHIFT is Present. Performed By: #### L 100.0100, L506.1001, L503.0106, L503.6550, L503.6030, L500.4050 #### [facility] [address] [place], [address] Lymphocytes/100 WBC (Bld) 28.3 % Normal 19-41 [facility] Comment on above: Performed By: #### L 100.0100, L506.1001, L503.0106, L503.6550, L503.6030, L500.4050 #### [facility] [address] [place], [address] MCH (RBC) [Entitic mass] 28.6 pg Normal 27.0-32.0 [facility] Comment on above: Performed By: #### L 100.0100, L506.1001, L503.0106, L503.6550, L503.6030, L500.4050 #### [facility] [address] [place], [address] MCHC (RBC) [Mass/Vol] 33.9 g/dL Normal 32-36 [facility] Comment on above: Performed By: #### L 100.0100, L506.1001, L503.0106, L503.6550, L503.6030, L500.4050 #### [facility] [address] [place], [address] MCV (RBC) [Entitic vol] 84.5 fL Normal 81-99 [facility] Comment on above: Performed By: #### L 100.0100, L506.1001, L503.0106, L503.6550, L503.6030, L500.4050 #### [facility] [address] [place], [address] Monocytes/100 WBC (Bld) 6.5 % Normal 0-10 [facility] Comment on above: Performed By: #### L 100.0100, L506.1001, L503.0106, L503.6550, L503.6030, L500.4050 #### [facility] [address] [place], [address] Neutrophils/100 WBC (Bld) 63.5 % Normal 47-70 [facility] Comment on above: Performed By: #### L 100.0100, L506.1001, L503.0106, L503.6550, L503.6030, L500.4050 #### [facility] [address] [place], [address] Nucleated RBC (Bld) [#/Vol] 0 10*3/uL Normal 0-5 [facility] Comment on above: Performed By: #### L 100.0100, L506.1001, L503.0106, L503.6550, L503.6030, L500.4050 #### [facility] [address] [place], [address] Platelet mean volume (Bld) [Entitic vol] 11.3 fL Normal 6.2-12.0 [facility] Comment on above: Performed By: #### L 100.0100, L506.1001, L503.0106, L503.6550, L503.6030, L500.4050 #### [facility] [address] [place], [address] Platelets (Bld) [#/Vol] 237 10*3/uL Normal 150-450 [facility] Comment on above: Performed By: #### L 100.0100, L506.1001, L503.0106, L503.6550, L503.6030, L500.4050 #### [facility] [address] [place], [address] RBC (Bld) [#/Vol] 4.33 10*6/uL Normal 4.2-5.4 [facility] Comment on above: Performed By: #### L 100.0100, L506.1001, L503.0106, L503.6550, L503.6030, L500.4050 #### [facility] [address] [place], [address] RDW SD 39.0 fl Normal 35.1-43.9 [facility] Comment on above: Performed By: #### L 100.0100, L506.1001, L503.0106, L503.6550, L503.6030, L500.4050 #### [facility] [address] [place], [address] WBC (Bld) [#/Vol] 8.1 10*3/uL Normal 4.4-11.0 [facility] Comment on above: Performed By: #### L 100.0100, L506.1001, L503.0106, L503.6550, L503.6030, L500.4050 #### [facility] [address] [place], [address] Carbon dioxide, total [Moles /volume] in Central venous bloodOrdered By: Richard Araiza on 03-13-2025 CO2 [Moles/Vol] 24.4 mmol/L 21.0-32.0 [facility] Chloride assayOrdered By: Me lucio Araiza on 03-13-2025 Chloride [Moles/Vol] 103 mmol/L 98-108 [facility] Prof ilon 03-13-2025 Albumin [Mass/Vol] 4.3 g/dL Normal 3.5-5.0 [facility] Comment on above: Performed By: #### L 100.0100, L506.1001, L503.0106, L503.6550, L503.6030, L500.4050 #### [facility] [address] [place], [address] Albumin/Globulin [Mass ratio] 1.7 {ratio} Normal 0.9-2.4 [facility] Comment on above: Performed By: #### L 100.0100, L506.1001, L503.0106, L503.6550, L503.6030, L500.4050 #### [facility] [address] [place], [address] ALK PHOS 61 U/L Normal 35-104 [facility] Comment on above: Performed By: #### L 100.0100, L506.1001, L503.0106, L503.6550, L503.6030, L500.4050 #### [facility] [address] [place], [address] ALT [Catalytic activity/Vol] 19 U/L Normal <=34 [facility] Comment on above: Performed By: #### L 100.0100, L506.1001, L503.0106, L503.6550, L503.6030, L500.4050 #### [facility] [address] [place], [address] AST [Catalytic activity/Vol] 18 U/L Normal <=31 [facility] Comment on above: Performed By: #### L 100.0100, L506.1001, L503.0106, L503.6550, L503.6030, L500.4050 #### [facility] [address] [place], [address] Bilirubin [Mass/Vol] 0.30 mg/dL Normal 0.00-1.30 [facility] Comment on above: Performed By: #### L 100.0100, L506.1001, L503.0106, L503.6550, L503.6030, L500.4050 #### [facility] [address] [place], [address] BUN/CRE 22.8 RATIO High 10-20 [facility] Comment on above: Performed By: #### L 100.0100, L506.1001, L503.0106, L503.6550, L503.6030, L500.4050 #### [facility] [address] [place], [address] Calcium [Mass/Vol] 9.1 mg/dL Normal 7.6-11.0 [facility] Comment on above: Performed By: #### L 100.0100, L506.1001, L503.0106, L503.6550, L503.6030, L500.4050 #### [facility] [address] [place], [address] Chloride [Moles/Vol] 103 mmol/L Normal 98-108 [facility] Comment on above: Performed By: #### L 100.0100, L506.1001, L503.0106, L503.6550, L503.6030, L500.4050 #### [facility] [address] [place], [address] CO2 [Moles/Vol] 24.4 mmol/L Normal 21.0-32.0 [facility] Comment on above: Performed By: #### L 100.0100, L506.1001, L503.0106, L503.6550, L503.6030, L500.4050 #### [facility] [address] [place], [address] Creatinine [Mass/Vol] 0.77 mg/dL Normal 0.70-1.20 [facility] Comment on above: Performed By: #### L 100.0100, L506.1001, L503.0106, L503.6550, L503.6030, L500.4050 #### [facility] [address] [place], [address] GAP 12 Normal 5-15 [facility] Comment on above: Performed By: #### L 100.0100, L506.1001, L503.0106, L503.6550, L503.6030, L500.4050 #### [facility] [address] [place], [address] GFR/1.73 sq M.predicted among non-blacks MDRD (S/P/Bld) [Vol rate/Area] 110 mL/min/{1.73_m2} Normal >60 [facility] Comment on above: Result Comment: mL/m in/1.73m2 CKD-EPI Creatinine Equation (2020) Performed By: #### L 100.0100, L506.1001, L503.0106, L503.6550, L503.6030, L500.4050 #### [facility] [address] [place], [address] Globulin (S) [Mass/Vol] 2.5 g/dL Normal 2.2-4.2 [facility] Comment on above: Performed By: #### L 100.0100, L506.1001, L503.0106, L503.6550, L503.6030, L500.4050 #### [facility] [address] [place], [address] Glucose [Mass/Vol] 78 mg/dL Normal 70-99 [facility] Comment on above: Performed By: #### L 100.0100, L506.1001, L503.0106, L503.6550, L503.6030, L500.4050 #### [facility] [address] [place], [address] Potassium [Moles/Vol] 3.9 mmol/L Normal 3.3-5.1 [facility] Comment on above: Performed By: #### L 100.0100, L506.1001, L503.0106, L503.6550, L503.6030, L500.4050 #### [facility] [address] [place], [address] Sodium [Moles/Vol] 139 mmol/L Normal 133-145 [facility] Comment on above: Performed By: #### L 100.0100, L506.1001, L503.0106, L503.6550, L503.6030, L500.4050 #### [facility] [address] [place], [address] T PROT 6.8 g/dL Normal 5.9-8.4 [facility] Comment on above: Performed By: #### L 100.0100, L506.1001, L503.0106, L503.6550, L503.6030, L500.4050 #### [facility] [address] [place], [address] Urea nitrogen [Mass/Vol] 18 mg/dL Normal 4-19 [facility] Comment on above: Performed By: #### L 100.0100, L506.1001, L503.0106, L503.6550, L503.6030, L500.4050 #### [facility] [address] [place], [address] Eosinophil percentageOrdered By: Richard Ancelmoallaee on 03-13-2025 Eosinophils/100 WBC (Bld) 1.2 % 0-5 [facility] Erythrocyte distribution wid th ratioOrdered By: Richard Tavallaee on 03-13-2025 Erythrocyte distribution width (RBC) [Ratio] 12.7 % 11.6-14.6 [facility] Erythrocyte distribution wid th standard deviationOrdered By: Richard Tavallaee on 03-13-2025 Erythrocyte distribution width (RBC) [Ratio] 39.0 fl 35.1-43.9 [facility] Ferritinon 03-13-2025 Ferritin [Mass/Vol] 15 ng/mL Low 22-378 [facility] Comment on above: Performed By: #### L 100.0100, L506.1001, L503.0106, L503.6550, L503.6030, L500.4050 #### [facility] [address] [place], [address] Glomerular filtration rate ( GFR) estimation/1.73 sq m using serum, plasma, or whole bOrdered By: Richardkusum Araiza on 03-13-2025 GFR/1.73 sq M.predicted among non-blacks MDRD (S/P/Bld) [Vol rate/Area] 110 mL/min/{1.73_m2} >60 [facility] Comment on above: mL/min/1.73m2 CKD-EP I Creatinine Equation (2020) Hematocrit Auto (Bld) [Volum e fraction]Ordered By: Richard Araiza on 03-13-2025 Hematocrit (Bld) [Volume fraction] 36.6 % Low 37-47 [facility] Hemoglobin measurementOrdere d By: Richard Araiza on 03-13-2025 Hemoglobin (Bld) [Mass/Vol] 12.4 g/dL 12.0-15.0 [facility] Immature granulocytes/100 WB C Auto (Bld)Ordered By: Richard Araiza on 03-13-2025 Immature granulocytes/100 WBC (Bld) 0.100 % 0.0-0.9 [facility] Comment on above: IG% - Immature Granu locytes (promyelocytes, myelocytes and metamyelocytes) > 1% indicates that a LEFT SHIFT is Present. Iron measurement (mass/mass) Ordered By: Richard Araiza on 03-13-2025 Iron (Unsp spec) [Mass/Mass] 60 ug/dL 50-170 [facility] - Chemistry and C hemistry - challengeOrdered By: Richard Araiza on 03-13-2025 AST [Catalytic activity/Vol] 18 U/L <32 [facility] MCV (mean corpuscular volume ) determinationOrdered By: Richard Araiza on 03-13-2025 MCV (RBC) [Entitic vol] 84.5 fL 81-99 [facility] Mean corpuscular hemoglobin (MCH) determinationOrdered By: Richard Araiza on 03-13-2025 MCH (RBC) [Entitic mass] 28.6 pg 27.0-32.0 [facility] Mean corpuscular hemoglobin concentration (MCHC) determinationOrdered By: Richard Araiza on 03-13-2025 MCHC (RBC) [Mass/Vol] 33.9 g/dL 32-36 [facility] Mean platelet volume determi nationOrdered By: Richard Araiza on 03-13-2025 Platelet mean volume (Bld) [Entitic vol] 11.3 fL 6.2-12.0 [facility] Monocyte percentageOrdered B y: Richard Araiza on 03-13-2025 Monocytes/100 WBC (Bld) 6.5 % 0-10 [facility] Neutrophil percentageOrdered By: Richard Araiza on 03-13-2025 Neutrophils/100 WBC (Bld) 63.5 % 47-70 [facility] No Panel InformationOrdered By: Richard Araiza on 03-13-2025 Unsaturated Iron Binding Capacity 303 ug/dL 228-428 [facility] Nucleated red blood cell per centageOrdered By: Richard Araiza on 03-13-2025 Nucleated RBC/100 WBC (Bld) [Ratio] 0 % 0-5 [facility] Platelet countOrdered By: Me lucio Araiza on 03-13-2025 Platelets (Bld) [#/Vol] 237 10*3/uL 150-450 [facility] Potassium measurement (mass/ volume)Ordered By: Richard Araiza on 03-13-2025 Potassium (Unsp spec) [Mass/Vol] 3.9 mmol/L 3.3-5.1 [facility] RBC Auto (Bld) [#/Vol]Ordere d By: Richard Araiza on 03-13-2025 RBC (Bld) [#/Vol] 4.33 10*6/uL 4.2-5.4 [facility] Serum creatinine measurement (mass/volume)Ordered By: Richard Araiza on 03-13-2025 Creatinine [Mass/Vol] 0.77 mg/dL 0.70-1.20 [facility] Serum globulin measurementOr dered By: Richard Araiza on 03-13-2025 Globulin (S) [Mass/Vol] 2.5 g/dL 2.2-4.2 [facility] Serum glucose measurement (m ass/volume)Ordered By: Richard Araiza on 03-13-2025 Glucose [Mass/Vol] 78 mg/dL 70-99 [facility] Serum or plasma alanine fuentes otransferase (ALT) measurementOrdered By: Richard Araiza on 03-13-2025 ALT [Catalytic activity/Vol] 19 U/L <35 [facility] Serum or plasma albumin parag urement (mass/volume)Ordered By: Richard Araiza on 03-13-2025 Albumin [Mass/Vol] 4.3 g/dL 3.5-5.0 [facility] Serum or plasma albumin/glob ulin mass ratioOrdered By: Richard Araiza on 03-13-2025 Albumin/Globulin [Mass ratio] 1.7 {ratio} 0.9-2.4 [facility] Serum or plasma alkaline humberto sphatase measurementOrdered By: Richard Araiza on 03-13-2025 ALP [Catalytic activity/Vol] 61 U/L 35-104 [facility] Serum or plasma calcium parag urement (mass/volume)Ordered By: Richard Araiza on 03-13-2025 Calcium [Mass/Vol] 9.1 mg/dL 7.6-11.0 [facility] Serum or plasma ferritin berta surement (mass/volume)Ordered By: Richard Araiza on 03-13-2025 Ferritin [Mass/Vol] 15 ng/mL Low 22-378 [facility] Serum or plasma iron saturat ion measurement (mass fraction)Ordered By: Richard Araiza on 03-13-2025 Iron saturation [Mass fraction] 17.0 % 13-59 [facility] Serum or plasma urea nitroge n measurement (mass/volume)Ordered By: Richard Araiza on 03-13-2025 Urea nitrogen [Mass/Vol] 18 mg/dL 4-19 [facility] Sodium levelOrdered By: Nicho Araiza on 03-13-2025 Sodium [Moles/Vol] 139 mmol/L 133-145 [facility] Total proteinOrdered By: [facility] cassandra Araiza on 03-13-2025 Protein [Mass/Vol] 6.8 g/dL 5.9-8.4 [facility] Vitamin B12on 03-13-2025 Cobalamin (Vitamin B12) [Mass/Vol] 306 pg/mL Normal 180-914 [facility] Comment on above: Performed By: #### L 100.0100, L506.1001, L503.0106, L503.6550, L503.6030, L500.4050 #### [facility] [address] [place], [place], [id number] Vitamin B12 ser/plasOrdered By: Richard Araiza on 03-13-2025 Cobalamin (Vitamin B12) [Mass/Vol] 306 pg/mL 180-914 [facility] Vitamin D,25 Hydroxyon 03-13 Vitamin D 25-OH 17.7 ng/mL Low 30-100 [facility] Comment on above: Result Comment: Anjelica min D Status Deficiency: <20 ng/mL (50nmol/L) Insufficiency: 20-30 ng/mL (50-75 nmol/L) Sufficiency: 30-100 ng/mL (75-250 nmol/L) Toxicity: >100 ng/mL (>250 nmol/L) Performed By: #### L 100.0100, L506.1001, L503.0106, L503.6550, L503.6030, L500.4050 #### [facility] [address] [place], [place], [address] White blood cell (WBC) count Ordered By: Richard Araiza on 03-13-2025 WBC (Bld) [#/Vol] 8.1 10*3/uL 4.4-11.0 [facility] Hepatitis B Surface Antibody on 11-19-2024 HEP B Surf Ab REAC Normal [facility] Comment on above: Result Comment: <8.5 mIU/mL: Non-Reactive 8.5<= x <11.5 mIU/mL: Indeterminate >=11.5 mIU/mL: Reactive Non Reactive: Inconsistent with immunity less than <10 mIU/mL Reactive: Consistent with immunity greater than or equal to 10 mIU/mL Performed By: #### L 3890.6202 #### [facility] [place], [address] Serum hepatitis B virus surf fish antibody detectionOrdered By: [employer] on 11-19-2024 HBV surface Ab Ql (S) ROSIBEL [facility] Comment on above: <8.5 mIU/mL: Non-Krupa ctive8.5<= x <11.5 mIU/mL: Indeterminate>=11.5 mIU/mL: Reactive Non Reactive: Inconsistent with immunity less than <10 mIU/mL Reactive: Consistent with immunity greater than or equal to 10 mIU/mL CBC (INCLUDES DIFF/PLT)on Basophils (Bld) [#/Vol] 0.033 10*3/uL Normal 0-200 [facility] Comment on above: Performed By: #### 1 7306, 84391, 7600, 6399 #### [facility] [place] [address] [employer] Technician: Rashaun Monson MD Basophils/100 WBC (Bld) 0.5 % Normal [facility] Comment on above: Performed By: #### 1 7306, 81657, 7600, 6399 #### [facility] [place] [address] [employer] Technician: Rashaun Monson MD Eosinophils (Bld) [#/Vol] 0.098 10*3/uL Normal 15-500 [facility] Comment on above: Performed By: #### 1 7306, 55810, 7600, 6399 #### [facility] [place] [address] [employer] Technician: Rashaun Monson MD Eosinophils/100 WBC (Bld) 1.5 % Normal [facility] Comment on above: Performed By: #### 1 7306, 94275, 7600, 6399 #### [facility] [place] [address] [employer] Technician: Rashaun Monson MD Erythrocyte distribution width (RBC) [Ratio] 13.9 % Normal 11.0-15.0 [facility] Comment on above: Performed By: #### 1 7306, 91617, 7600, 6399 #### [facility] [place] [address] [employer] Technician: Rashaun Monson MD Hematocrit (Bld) [Volume fraction] 38.9 % Normal 35.0-45.0 [facility] Comment on above: Performed By: #### 1 73, 09037, 7600, 6399 #### [facility] [place] [address] [employer] Technician: Rashaun Monson MD Hemoglobin (Bld) [Mass/Vol] 12.9 g/dL Normal 11.7-15.5 [facility] Comment on above: Performed By: #### 1 73, 78875, 7600, 6399 #### [facility] [place] [address] [employer] Technician: Rashaun Monson MD Lymphocytes (Bld) [#/Vol] 1.866 10*3/uL Normal 850-3900 [facility] Comment on above: Performed By: #### 1 73, 40607, 7600, 6399 #### [facility] [place] [address] [employer] Technician: Rashaun Monson MD Lymphocytes/100 WBC (Bld) 28.7 % Normal [facility] Comment on above: Performed By: #### 1 7306, 59701, 7600, 6399 #### [facility] [place] [address] [employer] Technician: Rashaun Monson MD MCH (RBC) [Entitic mass] 27.9 pg Normal 27.0-33.0 [facility] Comment on above: Performed By: #### 1 7306, 08663, 7600, 6399 #### [facility] [place] [address] [employer] Technician: Rashaun Monson MD MCHC (RBC) [Mass/Vol] 33.2 g/dL Normal 32.0-36.[address] [facility] Comment on above: Result Comment: For adults, a slight decrease in the calculated MCHC value (in the range of 30 to 32 g/dL) is most likely not clinically significant; however, it should be interpreted with caution in correlation with other red cell parameters and the patient's clinical condition. Performed By: #### 1 73, 58627, 7600, 6399 #### [facility] [place] [address] [employer] Technician: Rashaun Monson MD MCV (RBC) [Entitic vol] 84.2 fL Normal 80.0-100.0 [facility] Comment on above: Performed By: #### 1 73, 02828, 7600, 6399 #### [facility] [place] [address] [employer] Technician: Rashaun Monson MD Monocytes (Bld) [#/Vol] 0.397 10*3/uL Normal 200-950 [facility] Comment on above: Performed By: #### 1 73, 31686, 7600, 6399 #### [facility] [place] [address] [employer] Technician: Rashaun Monson MD Monocytes/100 WBC (Bld) 6.1 % Normal [facility] Comment on above: Performed By: #### 1 73, 59231, 7600, 6399 #### [facility] [place] [address] [employer] Technician: Rashaun Monson MD Neutrophils (Bld) [#/Vol] 4.108 10*3/uL Normal 0926-9670 [facility] Comment on above: Performed By: #### 1 7306, 40085, 7600, 6399 #### [facility] [place] [address] [employer] Technician: Rashaun Monson MD Neutrophils/100 WBC (Bld) 63.2 % Normal [facility] Comment on above: Performed By: #### 1 73, 39148, 7600, 6399 #### [facility] [place] [address] [employer] Technician: Rashaun Monson MD Platelet mean volume (Bld) [Entitic vol] 12.3 fL Normal 7.5-12.5 [facility] Comment on above: Performed By: #### 1 7306, 15559, 7600, 6399 #### [facility] [place] [address] [employer] Technician: Rashaun Monson MD Platelets (Bld) [#/Vol] 230 10*3/uL Normal 140-400 [facility] Comment on above: Performed By: #### 1 7306, 92406, 7600, 6399 #### [facility] [place] [address] [employer] Technician: Rashaun Monson MD RBC (Bld) [#/Vol] 4.62 10*6/uL Normal 3.80-5.10 [facility] Comment on above: Performed By: #### 1 7306, 55137, 7600, 6399 #### [facility] [place] [address] [employer] Technician: Rashaun Monson MD WBC (Bld) [#/Vol] 6.5 10*3/uL Normal 3.8-10.8 [facility] Comment on above: Performed By: #### 1 7306, 80223, 7600, 6399 #### [facility] [place] [address] [employer] Technician: Rashaun Monson MD COMPREHENSIVE METABOLIC PANE L W/ANION GAPon 09-18-2024 ALBUMIN Normal [facility] Comment on above: Performed By: #### 1 7306, 12951, 7600, 6399 #### [facility] [place] [address] [employer] Technician: Rashaun Monson MD ALKALINE PHOSPHATASE Normal [facility] Comment on above: Performed By: #### 1 7306, 74851, 7600, 6399 #### [facility] [address], [address] [place] [address] Manufacturing Plant Technician: Rashaun Monson MD ALT Normal [facility] Comment on above: Performed By: #### 1 7306, 09993, 7600, 6399 #### [facility] [address], [address] [place] [address] Manufacturing [employer] Technician: Rashaun Monson MD AST Normal [facility] Comment on above: Performed By: #### 1 7306, 41055, 7600, 6399 #### [facility] [address], [address] [place] [address] Manufacturing [employer] Technician: Rashaun Monson MD BILIRUBIN, TOTAL Normal [facility] Comment on above: Performed By: #### 1 7306, 85710, 7600, 6399 #### [facility] [address], [address] [place] [address] Manufacturing [employer] Technician: Rashaun Monson MD CALCIUM Normal [facility] Comment on above: Performed By: #### 1 7306, 58279, 7600, 6399 #### [facility] [address], [address] [place] [address] Manufacturing Plant Technician: Rashaun Monson MD CARBON DIOXIDE Normal [facility] Comment on above: Performed By: #### 1 7306, 34696, 7600, 6399 #### [facility] [address], [address] [place] [address] Manufacturing Plant Technician: Rashaun Monson MD CHLORIDE Normal [facility] Comment on above: Performed By: #### 1 7306, 48184, 7600, 6399 #### [facility] [address], [address] [place] [address] Manufacturing Plant Technician: Rashaun Monson MD CREATININE Normal [facility] Comment on above: Performed By: #### 1 7306, 76715, 7600, 6399 #### [facility] [address], [address] [place] [address] Manufacturing Plant Technician: Rashaun Monson MD EGFR Normal [facility] Comment on above: Performed By: #### 1 7306, 26722, 7600, 6399 #### [facility] [place] [address] [address] , [address] [place] [address] Manufacturing Plant Technician: Rashaun Monson MD ELECTROLYTE BALANCE Normal [facility] Comment on above: Performed By: #### 1 7306, 92549, 7600, 6399 #### [facility] [place] [address] [address] , [address] [place] [address] Manufacturing Plant Technician: Rashaun Monson MD GLUCOSE Normal [facility] Comment on above: Performed By: #### 1 7306, 71573, 7600, 6399 #### [facility] [place] [address] [address] , [address] [place] [address] Manufacturing Plant Technician: Rashaun Monson MD POTASSIUM Normal [facility] Comment on above: Performed By: #### 1 7306, 99433, 7600, 6399 #### [facility] [place] [address] [address] , [address] [place] [address] Manufacturing Plant Technician: Rashaun Monson MD PROTEIN, TOTAL Normal [facility] Comment on above: Performed By: #### 1 7306, 00334, 7600, 6399 #### [facility] [place] [address] [address] , [address] [place] [address] Manufacturing Plant Technician: Rashaun Monson MD SODIUM Normal [facility] Comment on above: Performed By: #### 1 7306, 52568, 7600, 6399 #### [facility] [place] [address] [address] , [address] [place] [address] Manufacturing Plant Technician: Rashaun Monson MD UREA NITROGEN (BUN) Normal [facility] Comment on above: Performed By: #### 1 7306, 22636, 7600, 6399 #### [facility] [place] [address] [address] , [address] [place] [address] Manufacturing [employer] Technician: Rashaun Monson MD LIPID PANEL, STANDARD 08-26 CHOL/HDLC RATIO Normal [facility] Comment on above: Order Comment: FASTI NG:YES FASTING: YES Performed By: #### 1 7306, 14866, 7600, 6399 #### [facility] [address], [address] [place] [address] Manufacturing Plant Technician: Rashaun Monson MD CHOLESTEROL, TOTAL Normal [facility] Comment on above: Order Comment: FASTI NG:YES FASTING: YES Performed By: #### 1 7306, 87765, 7600, 6399 #### [facility] [address], [address] [place] [address] Manufacturing Plant Technician: Rashaun Monson MD HDL CHOLESTEROL Normal [facility] Comment on above: Order Comment: FASTI NG:YES FASTING: YES Performed By: #### 1 7306, 16194, 7600, 6399 #### [facility] [address], [address] [place] [address] Manufacturing Plant Technician: Rashaun Monson MD LDL-CHOLESTEROL Normal [facility] Comment on above: Order Comment: FASTI NG:YES FASTING: YES Performed By: #### 1 7306, 01556, 7600, 6399 #### [facility] [place] [address] [employer] Technician: Rashaun Monson MD NON HDL CHOLESTEROL Normal [facility] Comment on above: Order Comment: FASTI NG:YES FASTING: YES Performed By: #### 1 7306, 84007, 7600, 6399 #### [facility] [place] [address] [employer] Technician: Rashaun Monson MD TRIGLYCERIDES Normal [facility] Comment on above: Order Comment: FASTI NG:YES FASTING: YES Performed By: #### 1 7306, 87438, 7600, 6399 #### [facility] [place] [address] [employer] Technician: Rashaun Monson MD PTH, INTACT WITHOUT CALCIUMo n 09-18-2024 PARATHYROID HORMONE, INTACT Normal [facility] Comment on above: Performed By: #### 1 7306, 53292, 7600, 6399 #### [facility] [address], [address] [place] [address] Manufacturing Plant Technician: Rashaun Monson MD VITAMIN D,25-OH,TOTAL,IAon 0 09-18-2024 VITAMIN D,25-OH,TOTAL,IA Normal [facility] Comment on above: Performed By: #### 1 7306, 52168, 7600, 6399 #### [facility] Diagnostics [facility] [address], [address] [place] [address] Manufacturing Plant Technician: Rashaun Monson MD No Panel Informationon 08-14 1. Subtle lucency observed of the lunate fossa of the distal radius, on the oblique view of wrist series equivocal for a subtle nondisplaced fracture and further evaluation recommended with CT. MACRO: None. Signed by: Yajaira Acevedo 08/14/2024 10:27 AM Dictation workstation: [id number] MMODAL Interpreted By: Yajaira Acevedo, STUDY: Left wrist, 3 views. Left forearm, two views INDICATION: Signs/Symptoms:fall with pain. COMPARISON: None. ACCESSION NUMBER(S): [id number]; [id number] ORDERING CLINICIAN: MINESH WILKINSON FINDINGS: Subtle lucency observed of the lunate fossa of the distal radius, on the oblique view of wrist series equivocal for a subtle nondisplaced fracture and further evaluation recommended with CT. No additional fractures. No significant degenerative changes. Soft tissues are within normal limits. MMODAL Yajaira Acevedo MD - 08/14/2024 Interpreted By: Yajaira Acevedo, STUDY: Left wrist, 3 views. Left forearm, two views INDICATION: Signs/Symptoms:fall with pain. COMPARISON: None. ACCESSION NUMBER(S): [id number]; [id number] ORDERING CLINICIAN: MINESH WILKINSON FINDINGS: Subtle lucency observed of the lunate fossa of the distal radius, on the oblique view of wrist series equivocal for a subtle nondisplaced fracture and further evaluation recommended with CT. No additional fractures. No significant degenerative changes. Soft tissues are within normal limits. IMPRESSION: 1. Subtle lucency observed of the lunate fossa of the distal radius, on the oblique view of wrist series equivocal for a subtle nondisplaced fracture and further evaluation recommended with CT. MACRO: None. Signed by: Yajaira Acevedo 08/14/2024 10:27 AM Dictation workstation: [id number] [facility] Work Phone: Radiology Study observation (narrative) [facility] Work Phone: No Panel InformationOrdered By: Yajaira Acevedo on 08-14-2024 [facility] Work Phone: XR FOREARM LEFT 2 VIEWSon XR FOREARM LEFT 2 VIEWS Interpreted By: Yajaira Acevedo, STUDY: Left wrist, 3 views. Left forearm, two views INDICATION: Signs/Symptoms:fall with pain. COMPARISON: None. ACCESSION NUMBER(S): [id number]; [id number] ORDERING CLINICIAN: MINESH WILKINSON FINDINGS: Subtle lucency observed of the lunate fossa of the distal radius, on the oblique view of wrist series equivocal for a subtle nondisplaced fracture and further evaluation recommended with CT. No additional fractures. No significant degenerative changes. Soft tissues are within normal limits. IMPRESSION: 1. Subtle lucency observed of the lunate fossa of the distal radius, on the oblique view of wrist series equivocal for a subtle nondisplaced fracture and further evaluation recommended with CT. MACRO: None. Signed by: Yajaira Acevedo 08/14/2024 10:27 AM Dictation workstation: [id number] [facility] XR WRIST LEFT 3+ VIEWSon XR WRIST LEFT 3+ VIEWS Interpreted By: Yajaira Acevedo, STUDY: Left wrist, 3 views. Left forearm, two views INDICATION: Signs/Symptoms:fall with pain. COMPARISON: None. ACCESSION NUMBER(S): [id number]; [id number] ORDERING CLINICIAN: MINESH WILKINSON FINDINGS: Subtle lucency observed of the lunate fossa of the distal radius, on the oblique view of wrist series equivocal for a subtle nondisplaced fracture and further evaluation recommended with CT. No additional fractures. No significant degenerative changes. Soft tissues are within normal limits. IMPRESSION: 1. Subtle lucency observed of the lunate fossa of the distal radius, on the oblique view of wrist series equivocal for a subtle nondisplaced fracture and further evaluation recommended with CT. MACRO: None. Signed by: Yajaira Acevedo 08/14/2024 10:27 AM Dictation workstation: [id number] Normal [facility] CBC W Auto Differential pane l (Bld)on 03-19-2024 Basophils (Bld) [#/Vol] 0.03 x10*3/uL Normal 0.00-0.10 [facility] Comment on above: Performed By: #### 2 4331-1 #### ERUM KRUGER ([id number]) [facility] ([facility]) [address] [place] [address] 13936 Basophils/100 WBC (Bld) 0.6 % Normal 0.0-2.0 [facility] Comment on above: Performed By: #### 2 4331-1 #### ERUM KRUGER ([id number]) [facility] ([facility]) [address] [place] [address] 37577 Eosinophils (Bld) [#/Vol] 0.20 x10*3/uL Normal 0.00-0.70 [facility] Comment on above: Performed By: #### 2 4331-1 #### ERUM KRUGER ([id number]) [facility] ([facility]) [address] [place] [address] 34581 Eosinophils/100 WBC (Bld) 3.9 % Normal 0.0-6.0 [facility] Comment on above: Performed By: #### 2 4331-1 #### ERUM KRUGER ([id number]) [facility] ([facility]) [address] [place] [address] 62983 Erythrocyte distribution width (RBC) [Ratio] 13.7 % Normal 11.5-14.5 [facility] Comment on above: Performed By: #### 2 4331-1 #### ERMU KRUGER ([id number]) [facility] ([facility]) [address] [place] [address] 19595 Hematocrit (Bld) [Volume fraction] 39.0 % Normal 36.0-46.0 [facility] Comment on above: Performed By: #### 2 4331-1 #### ERUM KRUGER ([id number]) [facility] ([facility]) [address] [place] [address] 17689 Hemoglobin (Bld) [Mass/Vol] 12.9 g/dL Normal 12.0-16.0 [facility] Comment on above: Performed By: #### 2 4331-1 #### ERUM KRUGER ([id number]) [facility] ([facility]) [address] [place] [address] 96886 Immature granulocytes (Bld) [#/Vol] 0.00 x10*3/uL Normal 0.00-0.70 [facility] Comment on above: Performed By: #### 2 4331-1 #### ERUM KRUGER ([id number]) [facility] ([facility]) [address] [place] [address] 07513 Immature granulocytes/100 WBC (Bld) 0.0 % Normal 0.0-0.9 [facility] Comment on above: Result Comment: Janis ture Granulocyte Count (IG) includes promyelocytes, myelocytes and metamyelocytes but does not include bands. Percent differential counts (%) should be interpreted in the context of the absolute cell counts (cells/UL). Performed By: #### 2 4331-1 #### ERUM KRUGER ([id number]) [facility] ([facility]) [address] [place] [address] 76698 Lymphocytes (Bld) [#/Vol] 1.59 x10*3/uL Normal 1.20-4.80 [facility] Comment on above: Performed By: #### 2 4331-1 #### ERUM KRUGER ([id number]) [facility] ([facility]) [address] [place] [address] 91580 Lymphocytes/100 WBC (Bld) 30.6 % Normal 13.0-44.0 [facility] Comment on above: Performed By: #### 2 4331-1 #### ERUM KRUGER ([id number]) [facility] ([facility]) [address] [place] [address] 06607 MCH (RBC) [Entitic mass] 27.4 pg Normal 26.0-34.0 [facility] Comment on above: Performed By: #### 2 4331-1 #### ERUM KRUGER ([id number]) [facility] ([facility]) [address] [place] [address] 17718 MCHC (RBC) [Mass/Vol] 33.1 g/dL Normal 32.0-36.0 [facility] Comment on above: Performed By: #### 2 4331-1 #### ERUM KRUGER ([id number]) [facility] ([facility]) [address] [place] [address] 96272 MCV (RBC) [Entitic vol] 83 fL Normal 80-100 [facility] Comment on above: Performed By: #### 2 4331-1 #### ERUM KRUGER ([id number]) [facility] ([facility]) [address] [place] [address] 80638 Monocytes (Bld) [#/Vol] 0.45 x10*3/uL Normal 0.10-1.00 [facility] Comment on above: Performed By: #### 2 4331-1 #### ERUM KRUGER ([id number]) [facility] ([facility]) [address] [place] [address] 37441 Monocytes/100 WBC (Bld) 8.7 % Normal 2.0-10.0 [facility] Comment on above: Performed By: #### 2 4331-1 #### ERUM KRUGER ([id number]) [facility] ([facility]) [address] [place] [address] 52144 Neutrophils (Bld) [#/Vol] 2.92 x10*3/uL Normal 1.20-7.70 [facility] Comment on above: Result Comment: Perc ent differential counts (%) should be interpreted in the context of the absolute cell counts (cells/uL). Performed By: #### 2 4331-1 #### ERUM KRUGER ([id number]) [facility] ([facility]) [address] [place] [address] 79568 Neutrophils/100 WBC (Bld) 56.2 % Normal 40.0-80.0 [facility] Comment on above: Performed By: #### 2 4331-1 #### ERUM KRUGER ([id number]) [facility] ([facility]) [address] [place] [address] 47780 Nucleated RBC/100 WBC (Bld) [Ratio] 0.0 /100 WBCs Normal 0.0-0.0 [facility] Comment on above: Performed By: #### 2 4331-1 #### ERUM KRUGER ([id number]) [facility] ([facility]) [address] [place] [address] 64447 Platelets (Bld) [#/Vol] 248 x10*3/uL Normal 150-450 [facility] Comment on above: Performed By: #### 2 4331-1 #### ERUM KRUGER ([id number]) [facility] ([facility]) [address] [place] [address] 83707 RBC (Bld) [#/Vol] 4.71 x10*6/uL Normal 4.00-5.20 [facility] Comment on above: Performed By: #### 2 4331-1 #### ERUM KRUGER ([id number]) [facility] ([facility]) [address] [place] [address] 82643 WBC (Bld) [#/Vol] 5.2 x10*3/uL Normal 4.4-11.3 [facility] Comment on above: Performed By: #### 2 4331-1 #### ERUM KRUGER ([id number]) [facility] ([facility]) [address] [place] [address] 96323 Calcidiolon 03-19-2024 25-hydroxyvitamin D3 [Mass/Vol] 17 ng/mL Low 30-100 [facility] Comment on above: Order Comment: Defic iency: < 20 ng/mlInsufficiency: 20-29 ng/mlSufficiency: 30-100 ng/mlThis assay accurately quantifies the sum of Vitamin D3, 25-Hydroxy and Vitamin D2,25-Hydroxy. Performed By: #### 2 4331-1 #### ERUM KRUGER ([id number]) [facility] ([facility]) [address] [place] [address] Cobalaminson 03-19-2024 Cobalamin (Vitamin B12) [Mass/Vol] 208 pg/mL Low 211-911 [facility] Comment on above: Performed By: #### 2 4331-1 #### ERUM KRUGER ([id number]) [facility] ([facility]) [address] [place] [address] Comprehensive metabolic 2000 panelon 03-19-2024 Albumin BCP dye [Mass/Vol] 4.4 g/dL Normal 3.4-5.0 [facility] Comment on above: Performed By: #### 2 4331-1 #### ERUM KRUGER ([id number]) [facility] ([facility]) [address] [place] [address] ALP [Catalytic activity/Vol] 54 U/L Normal 33-110 [facility] Comment on above: Performed By: #### 2 4331-1 #### ERUM KRUGER ([id number]) [facility] ([facility]) [address] [place] [address] 19765 ALT With P-5'-P [Catalytic activity/Vol] 13 U/L Normal 7-45 [facility] Comment on above: Result Comment: Kareen ents treated with Sulfasalazine may generate falsely decreased results for ALT. Performed By: #### 2 4331-1 #### ERUM KRUGER ([id number]) [facility] ([facility]) [address] [place] [address] 46935 Anion gap [Moles/Vol] 10 mmol/L Normal 10-20 [facility] Comment on above: Performed By: #### 2 4331-1 #### ERUM KRUGER ([id number]) [facility] ([facility]) [address] [place] [address] 23417 AST With P-5'-P [Catalytic activity/Vol] 14 U/L Normal 9-39 [facility] Comment on above: Performed By: #### 2 4331-1 #### ERUM KRUGER ([id number]) [facility] ([facility]) [address] [place] [address] Bilirubin [Mass/Vol] 0.3 mg/dL Normal 0.0-1.2 [facility] Comment on above: Performed By: #### 2 4331-1 #### ERUM KRUGER ([id number]) [facility] ([facility]) [address] [place] [address] 04615 Calcium [Mass/Vol] 9.1 mg/dL Normal 8.6-10.3 [facility] Comment on above: Performed By: #### 2 4331-1 #### ERUM KRUGER ([id number]) [facility] ([facility]) [address] [place] [address] 93804 Chloride [Moles/Vol] 108 mmol/L High 98-107 [facility] Comment on above: Performed By: #### 2 4331-1 #### ERUM KRUGER ([id number]) [facility] ([facility]) [address] [place] [address] 41437 CO2 [Moles/Vol] 25 mmol/L Normal 21-32 [facility] Comment on above: Performed By: #### 2 4331-1 #### ERUM KRUGER ([id number]) [facility] ([facility]) [facility] [place] [address] Creatinine [Mass/Vol] 0.62 mg/dL Normal 0.50-1.05 [facility] Comment on above: Performed By: #### 2 4331-1 #### ERUM KRUGER ([id number]) [facility] ([facility]) [address] [place] [address] 02359 GFR/1.73 sq M.predicted MDRD (S/P/Bld) [Vol rate/Area] mL/min/{1.73_m2} Normal >60 [facility] Comment on above: Result Comment: Calc ulations of estimated GFR are performed using the 2020 CKD-EPI Study Refit equation without the race variable for the IDMS-Traceable creatinine methods. https://jasn.asnjournals.org/content/early/ASN.2020 178258 Performed By: #### 2 4331-1 #### ERUM KRUGER ([id number]) [facility] ([facility]) [address] [place] [address] 00411 Glucose [Mass/Vol] 89 mg/dL Normal 74-99 [facility] Comment on above: Performed By: #### 2 4331-1 #### ERUM KRUGER ([id number]) [facility] ([facility]) [address] [place] [address] 71987 Potassium [Moles/Vol] 4.1 mmol/L Normal 3.5-5.3 [facility] Comment on above: Performed By: #### 2 4331-1 #### ERUM KRUGER ([id number]) [facility] ([facility]) [address] [place] [address] 76578 Protein [Mass/Vol] 6.8 g/dL Normal 6.4-8.2 [facility] Comment on above: Performed By: #### 2 4331-1 #### ERUM KRUGER ([id number]) [facility] ([facility]) [address] [place] [address] 47116 Sodium [Moles/Vol] 139 mmol/L Normal 136-145 [facility] Comment on above: Performed By: #### 2 4331-1 #### ERUM KRUGER ([id number]) [facility] ([facility]) [address] [place] [address] 12387 Urea nitrogen [Mass/Vol] 17 mg/dL Normal 6-23 [facility] Comment on above: Performed By: #### 2 4331-1 #### ERUM KRUGER ([id number]) [facility] ([facility]) [address] [place] [address] 06454 Cortisolon 03-19-2024 Cortisol [Mass/Vol] 7.1 ug/dL Normal 2.5-20.0 [facility] Comment on above: Performed By: #### 3 016-3 #### ERUM KRUGER ([id number]) [facility] ([facility]) [address] [place] [address] 34341 Ferritinon 03-19-2024 Ferritin [Mass/Vol] 25 ng/mL Normal 8-150 [facility] Comment on above: Performed By: #### 3 016-3 #### ERUM KRUGER ([id number]) [facility] ([facility]) [address] [place] [address] 10667 Folateon 03-19-2024 Folate [Mass/Vol] 10.4 ng/mL Normal >5.0 [facility] Comment on above: Order Comment: Low < 3.4Borderline 3.4-5.0Normal >5.0Patients receiving more than 5 mg/day of biotin may have interference in test results. A sample should be taken no sooner than eight hours after previous dose. Contact the testing laboratory for additional information. Performed By: #### 2 4331-1 #### ERUM KRUGER ([id number]) [facility] ([facility]) [address] [place], [place] [address] HbA1c (Bld) [Mass fraction]o n 03-19-2024 Average glucose Estimated from glycated hemoglobin (Bld) [Mass/Vol] 91 mg/dL Normal Not Established [facility] Comment on above: Order Comment: TSH t esting is performed using different testing methodology at [facility] than at other [facility]. Direct result comparisons should only be made within the same method. Performed By: #### 3 016-3 #### ERUM KRUGER ([id number]) [facility] ([facility]) [address] [place] [address] 52948 Hemoglobin A1c/Hemoglobin.to randy 03-19-2024 HbA1c (Bld) [Mass fraction] 4.8 % Normal see below [facility] Comment on above: Order Comment: TSH t esting is performed using different testing methodology at [facility] than at other [facility]. Direct result comparisons should only be made within the same method. Performed By: #### 3 016-3 #### ERUM KRUGER ([id number]) [facility] ([facility]) [address] [place] [address] 47895 Iron and Iron binding capaci ty panelon 03-19-2024 Iron [Mass/Vol] 37 ug/dL Normal 35-150 [facility] Comment on above: Performed By: #### 3 016-3 #### ERUM KRUGER ([id number]) [facility] ([facility]) [address] [place] [address] Iron binding capacity [Mass/Vol] 381 ug/dL Normal 240-445 [facility] Comment on above: Performed By: #### 3 016-3 #### ERUM KRUGER ([id number]) [facility] ([facility]) [address] [place] [address] Iron binding capacity.unsaturated [Mass/Vol] 344 ug/dL Normal 110-370 [facility] Comment on above: Performed By: #### 3 016-3 #### ERUM KRUGER ([id number]) [facility] ([facility]) [address] [place] [address] 31503 Iron saturation [Mass fraction] 10 % Low 25-45 [facility] Comment on above: Performed By: #### 3 016-3 #### ERUM KRUGER ([id number]) [facility] ([facility]) [facility] [place] [address] Lipid 1996 panelon 4 Cholesterol [Mass/Vol] 169 mg/dL Normal 0-199 [facility] Comment on above: Result Comment: Age Desirable Borderline High High 0-19 Y 0 - 169 170 - 199 >/= 200 20-24 Y 0 - 189 190 - 224 >/= 225 >24 Y 0 - 199 200 - 239 >/= 240 All ranges are based on fasting samples. Specific therapeutic targets will vary based on patient-specific cardiac risk. Pediatric guidelines reference:Pediatrics 2011, 128(S5).Adult guidelines reference: NCEP ATPIII Guidelines,YANETH 2001, 258:2486-97 Venipuncture immediately after or during the administration of Metamizole may lead to falsely low results. Testing should be performed immediately prior to Metamizole dosing. Performed By: #### 3 016-3 #### ERUM KRUGER ([id number]) [facility] ([facility]) [facility] [place] [address] Cholesterol in HDL [Mass/Vol] 35.0 mg/dL Normal [facility] Comment on above: Result Comment: Age Very Low Low Normal High 0-19 Y < 35 < 40 40-45 ---- 20-24 Y ---- < 40 >45 ---- >24 Y ---- < 40 40-60 >60 Performed By: #### 3 016-3 #### ERUM KRUGER ([id number]) [facility] ([facility]) [facility] [place] [address] Cholesterol in LDL [Mass/Vol] 74 mg/dL Normal <=119 [facility] Comment on above: Result Comment: Near Borderline AGE Desirable Optimal High High Very High 0-19 Y 0 - 109 --- 110-129 >/= 130 ---- 20-24 Y 0 - 119 --- 120-159 >/= 160 ---- >24 Y 0 - 99 100-129 130-159 160-189 >/=190 Performed By: #### 3 016-3 #### ERUM KRUGER ([id number]) [facility] ([facility]) [address] [place] [address] 31905 Cholesterol in VLDL [Mass/Vol] 60 mg/dL High 0-40 [facility] Comment on above: Performed By: #### 3 016-3 #### ERUM KRUGER ([id number]) [facility] ([facility]) [address] [place] [address] 80575 CHOLESTEROL/HDL RATIO 4.8 Normal [facility] Comment on above: Result Comment: Ref Values Desirable < 3.4 High Risk > 5.0 Performed By: #### 3 016-3 #### ERUM KRUGER ([id number]) [facility] ([facility]) [address] [place] [address] 42260 NON HDL CHOLESTEROL 134 mg/dL Normal 0-149 [facility] Comment on above: Result Comment: Age Desirable Borderline High High Very High 0-19 Y 0 - 119 120 - 144 >/= 145 >/= 160 20-24 Y 0 - 149 150 - 189 >/= 190 ---- >24 Y 30 mg/dL above LDL Cholesterol goal Performed By: #### 3 016-3 #### ERUM KRUGER ([id number]) [facility] ([facility]) [facility] [place] [address] Triglyceride [Mass/Vol] 302 mg/dL High 0-149 [facility] Comment on above: Result Comment: Age Desirable Borderline High High Very High 0 D-90 D 19 - 174 ---- ---- ---- 91 D- 9 Y 0 - 74 75 - 99 >/= 100 ---- 10-19 Y 0 - 89 90 - 129 >/= 130 ---- 20-24 Y 0 - 114 115 - 149 >/= 150 ---- >24 Y 0 - 149 150 - 199 200- 499 >/= 500 Venipuncture immediately after or during the administration of Metamizole may lead to falsely low results. Testing should be performed immediately prior to Metamizole dosing. Performed By: #### 3 016-3 #### ERUM KRUGER ([id number]) [facility] ([facility]) [address] [place] [address] Parathyrin.intacton 03-19-20 Parathyrin.intact [Mass/Vol] 81.4 pg/mL Normal 18.5-88.0 [facility] Comment on above: Performed By: #### 3 016-3 #### ERUM KRUGER ([id number]) [facility] ([facility]) [address] [place] [address] Thyrotropinon 03-19-2024 TSH Qn 0.79 m[IU]/L Normal 0.44-3.98 [facility] Comment on above: Order Comment: TSH t esting is performed using different testing methodology at [facility] than at other [facility]. Direct result comparisons should only be made within the same method. Performed By: #### 2 4331-1 #### ERUM KRUGER ([id number]) [facility] ([facility]) [address] [place], [place] [address] Thyroxine.freeon 03-19-2024 Free T4 [Mass/Vol] 0.90 ng/dL Normal 0.61-1.12 [facility] Comment on above: Order Comment: Thyro xine Free testing is performed using different testing methodology at [facility] than at [facility]. Direct result comparisons should only be made within the same method.Biotin can cause falsely elevated free T4 results. Patients taking a Biotin dose of up to 10 mg/day should refrain from taking Biotin for 24 hours before sample collection. Patient taking a Biotin dose of >10 mg/day should consult with their physician or the laboratory before the blood draw. Performed By: #### 2 4331-1 #### ERUM KRUGER ([id number]) [facility] ([facility]) [address] [place] [address] Triiodothyronine.freeon 02-23 Free T3 [Mass/Vol] 3.4 pg/mL Normal 2.3-4.2 [facility] Comment on above: Performed By: #### 3 016-3 #### ERUM KRUGER ([id number]) [facility] ([facility]) [address] [place], [place] [address] US Pelvison 10-18-2023 1. Normal transabdominal pelvic ultrasound. MACRO: None Signed by: Rigo Watts 10/18/2023 2:58 PM Dictation workstation: [id number] [facility] MMODAL Interpreted By: Rigo Watts, STUDY: US PELVIS; 10/18/2023 9:02 am INDICATION: Signs/Symptoms:PELVIC PAIN. COMPARISON: None. ACCESSION NUMBER(S): [id number] ORDERING CLINICIAN: KYLAH CONNELL TECHNIQUE: Multiple multiplanar static martin scale, color and spectral waveform sonographic images of the pelvis were obtained. Transabdominal ultrasound was performed. FINDINGS: UTERUS: The uterus measures 5.3 cm x 4.2 cm x 8.4 cm. The uterine myometrium appears normal. ENDOMETRIUM: The endometrium measures a thickness of 0.9 cm, which is normal. RIGHT ADNEXA: The right ovary measures 2.8 cm x 2.1 cm x 3.4 cm and demonstrates normal flow. No gross right adnexal masses are seen, no hydrosalpinx. LEFT ADNEXA: The left ovary measures 2.2 cm x 1.9 cm x 3.3 cm and demonstrates normal flow. No gross left adnexal masses are seen, no hydrosalpinx. CUL DE SAC: No free fluid [facility] MMODAL Rigo Watts MD - 10/18/2023 Interpreted By: Rigo Watts, STUDY: US PELVIS; 10/18/2023 9:02 am INDICATION: Signs/Symptoms:PELVIC PAIN. COMPARISON: None. ACCESSION NUMBER(S): [id number] ORDERING CLINICIAN: KYLAH CONNELL TECHNIQUE: Multiple multiplanar static martin scale, color and spectral waveform sonographic images of the pelvis were obtained. Transabdominal ultrasound was performed. FINDINGS: UTERUS: The uterus measures 5.3 cm x 4.2 cm x 8.4 cm. The uterine myometrium appears normal. ENDOMETRIUM: The endometrium measures a thickness of 0.9 cm, which is normal. RIGHT ADNEXA: The right ovary measures 2.8 cm x 2.1 cm x 3.4 cm and demonstrates normal flow. No gross right adnexal masses are seen, no hydrosalpinx. LEFT ADNEXA: The left ovary measures 2.2 cm x 1.9 cm x 3.3 cm and demonstrates normal flow. No gross left adnexal masses are seen, no hydrosalpinx. CUL DE SAC: No free fluid IMPRESSION: 1. Normal transabdominal pelvic ultrasound. MACRO: None Signed by: Rigo Watts 10/18/2023 2:58 PM Dictation workstation: [id number] [facility] Work Phone: Radiology Study observation (narrative) [facility] Work Phone: US PelvisOrdered By: Rigo Watts on 10-18-2023 [facility] Work Phone: Androstenedioneon 04-23-2023 Androstenedione [Mass/Vol] 0.571 ng/mL Normal 0.260-2.140 [facility] Comment on above: Result Comment: INTERPRETIVE INFORMATION: Androstenedione, Females 18 years and older Post-menopausal: 0.13-0.82 ng/mL REFERENCE INTERVAL: Androstenedione by TMS Access complete set of age- and/or gender-specific reference intervals for this test in the [facility] Test Directory ([employer]). This test was developed and its performance characteristics determined by [facility]. It has not been cleared or approved by the US Food and Drug Administration. This test was performed in a CLIA certified laboratory and is intended for clinical purposes. Performed By: [facility] [address] [place] [address] [employer] Tender: Ahmet Russell MD, PhD CLIA Number: [id number] Performed By: #### 5 0190-8 #### ERUM KRUGER ([id number]) [facility] ([facility]) [address] [place] [address] 74450 CBC W Auto Differential pane l (Bld)on 04-23-2023 Basophils (Bld) [#/Vol] 0.02 x10*3/uL Normal 0.00-0.10 [facility] Comment on above: Performed By: #### 2 4331-1 #### ERUM KRUGER ([id number]) [facility] ([facility]) [address] [place] [address] 72219 Basophils/100 WBC (Bld) 0.4 % Normal 0.0-2.0 [facility] Comment on above: Performed By: #### 2 4331-1 #### ERUM KRUGER ([id number]) [facility] ([facility]) [address] [place] [address] 35274 Eosinophils (Bld) [#/Vol] 0.08 x10*3/uL Normal 0.00-0.70 [facility] Comment on above: Performed By: #### 2 4331-1 #### ERUM KRUGER ([id number]) [facility] ([facility]) [address] [place] [address] 50379 Eosinophils/100 WBC (Bld) 1.4 % Normal 0.0-6.0 [facility] Comment on above: Performed By: #### 2 4331-1 #### ERUM KRUGER ([id number]) [facility] ([facility]) [address] [place] [address] 87633 Erythrocyte distribution width (RBC) [Ratio] 13.1 % Normal 11.5-14.5 [facility] Comment on above: Performed By: #### 2 4331-1 #### ERUM KRUGER ([id number]) [facility] ([facility]) [address] [place] [address] 74634 Hematocrit (Bld) [Volume fraction] 39.5 % Normal 36.0-46.0 [facility] Comment on above: Performed By: #### 2 4331-1 #### ERUM KRUGER ([id number]) [facility] ([facility]) [address] [place] [address] 47244 Hemoglobin (Bld) [Mass/Vol] 13.0 g/dL Normal 12.0-16.0 [facility] Comment on above: Performed By: #### 2 4331-1 #### ERUM KRUGER ([id number]) [facility] ([facility]) [address] [place] [address] 80211 Immature granulocytes (Bld) [#/Vol] 0.00 x10*3/uL Normal 0.00-0.70 [facility] Comment on above: Performed By: #### 2 4331-1 #### ERUM KRUGER ([id number]) [facility] ([facility]) [address] [place] [address] 67943 Immature granulocytes/100 WBC (Bld) 0.0 % Normal 0.0-0.9 [facility] Comment on above: Result Comment: Janis ture Granulocyte Count (IG) includes promyelocytes, myelocytes and metamyelocytes but does not include bands. Percent differential counts (%) should be interpreted in the context of the absolute cell counts (cells/UL). Performed By: #### 2 4331-1 #### ERUM KRUGER ([id number]) [facility] ([facility]) [address] [place] [address] 39808 Lymphocytes (Bld) [#/Vol] 1.68 x10*3/uL Normal 1.20-4.80 [facility] Comment on above: Performed By: #### 2 4331-1 #### ERUM KRUGER ([id number]) [facility] ([facility]) [address] [place] [address] 24094 Lymphocytes/100 WBC (Bld) 29.8 % Normal 13.0-44.0 [facility] Comment on above: Performed By: #### 2 4331-1 #### ERUM KRUGER ([id number]) [facility] ([facility]) [address] [place] [address] 29018 MCH (RBC) [Entitic mass] 27.4 pg Normal 26.0-34.0 [facility] Comment on above: Performed By: #### 2 4331-1 #### ERUM KRUGER ([id number]) [facility] ([facility]) [address] [place] [address] 19062 MCHC (RBC) [Mass/Vol] 32.9 g/dL Normal 32.0-36.0 [facility] Comment on above: Performed By: #### 2 4331-1 #### ERUM KRUGER ([id number]) [facility] ([facility]) [address] [place] [address] 83297 MCV (RBC) [Entitic vol] 83 fL Normal 80-100 U [facility] Comment on above: Performed By: #### 2 4331-1 #### ERUM KRUGER ([id number]) [facility] ([facility]) [address] [place] [address] 25688 Monocytes (Bld) [#/Vol] 0.32 x10*3/uL Normal 0.10-1.00 [facility] Comment on above: Performed By: #### 2 4331-1 #### ERUM KRUGER ([id number]) [facility] ([facility]) [address] [place] [address] 45176 Monocytes/100 WBC (Bld) 5.7 % Normal 2.0-10.0 [facility] Comment on above: Performed By: #### 2 4331-1 #### ERUM KRUGER ([id number]) [facility] ([facility]) [address] [place] [address] 61472 Neutrophils (Bld) [#/Vol] 3.53 x10*3/uL Normal 1.20-7.70 [facility] Comment on above: Result Comment: Perc ent differential counts (%) should be interpreted in the context of the absolute cell counts (cells/uL). Performed By: #### 2 4331-1 #### ERUM KRUGER ([id number]) [facility] ([facility]) [address] [place] [address] 14956 Neutrophils/100 WBC (Bld) 62.7 % Normal 40.0-80.0 [facility] Comment on above: Performed By: #### 2 4331-1 #### ERUM KRUGER ([id number]) [facility] ([facility]) [address] [place] [address] 50047 Nucleated RBC/100 WBC (Bld) [Ratio] 0.0 /100 WBCs Normal 0.0-0.0 [facility] Comment on above: Performed By: #### 2 4331-1 #### ERUM KRUGER ([id number]) [facility] ([facility]) [address] [place] [address] 66096 Platelet mean volume (Bld) [Entitic vol] 11.4 fL Normal 7.5-11.5 [facility] Comment on above: Performed By: #### 2 4331-1 #### ERUM KRUGER ([id number]) [facility] ([facility]) [address] [place] [address] 07176 Platelets (Bld) [#/Vol] 263 x10*3/uL Normal 150-450 [facility] Comment on above: Performed By: #### 2 4331-1 #### ERUM KRUGER ([id number]) [facility] ([facility]) [address] [place] [address] 50877 RBC (Bld) [#/Vol] 4.75 x10*6/uL Normal 4.00-5.20 [facility] Comment on above: Performed By: #### 2 4331-1 #### ERUM KRUGER ([id number]) [facility] ([facility]) [address] [place] [address] 32745 WBC (Bld) [#/Vol] 5.6 x10*3/uL Normal 4.4-11.3 [facility] Comment on above: Performed By: #### 2 4331-1 #### ERUM KRUGER ([id number]) [facility] ([facility]) [address] [place] [address] 55464 Calcidiolon 04-23-2023 25-hydroxyvitamin D3 [Mass/Vol] 17 ng/mL Low 30-100 [facility] Comment on above: Order Comment: Defic iency: < 20 ng/ml Insufficiency: 20-29 ng/ml Sufficiency: 30-100 ng/ml This assay accurately quantifies the sum of Vitamin D3, 25-Hydroxy and Vitamin D2,25-Hydroxy. Performed By: #### 1 989-3 #### ERUM KRUGER ([id number]) [facility] ([facility]) [address] [place] [address] Cobalaminson 04-23-2023 Cobalamin (Vitamin B12) [Mass/Vol] 282 pg/mL Normal 211-911 [facility] Comment on above: Performed By: #### 2 132-9 #### ERUM KRUGER ([id number]) [facility] ([facility]) [address] [place] [address] Comprehensive metabolic 2000 panelon 04-23-2023 Albumin BCP dye [Mass/Vol] 4.2 g/dL Normal 3.4-5.0 [facility] Comment on above: Performed By: #### 2 4331-1 #### ERUM KRUGER ([id number]) [facility] ([facility]) [address] [place] [address] 96702 ALP [Catalytic activity/Vol] 57 U/L Normal 33-110 [facility] Comment on above: Performed By: #### 2 4331-1 #### ERUM KRUGER ([id number]) [facility] ([facility]) [address] [place] [address] 77099 ALT With P-5'-P [Catalytic activity/Vol] 12 U/L Normal 7-45 [facility] Comment on above: Result Comment: Kareen ents treated with Sulfasalazine may generate falsely decreased results for ALT. Performed By: #### 2 4331-1 #### ERUM KRUGER ([id number]) [facility] ([facility]) [address] [place] [address] 10340 Anion gap [Moles/Vol] 11 mmol/L Normal 10-20 [facility] Comment on above: Performed By: #### 2 4331-1 #### ERUM KRUGER ([id number]) [facility] ([facility]) [address] [place] [address] AST With P-5'-P [Catalytic activity/Vol] 14 U/L Normal 9-39 [facility] Comment on above: Performed By: #### 2 4331-1 #### ERUM KRUGER ([id number]) [facility] ([facility]) [address] [place] [address] Bilirubin [Mass/Vol] 0.4 mg/dL Normal 0.0-1.2 [facility] Comment on above: Performed By: #### 2 4331-1 #### ERUM KRUGER ([id number]) [facility] ([facility]) [address] [place] [address] 43025 Calcium [Mass/Vol] 9.1 mg/dL Normal 8.6-10.3 [facility] Comment on above: Performed By: #### 2 4331-1 #### ERUM KRUGER ([id number]) [facility] ([facility]) [address] [place] [address] Chloride [Moles/Vol] 107 mmol/L Normal 98-107 [facility] Comment on above: Performed By: #### 2 4331-1 #### ERUM KRUGER ([id number]) [facility] ([facility]) [address] [place] [address] CO2 [Moles/Vol] 25 mmol/L Normal 21-32 [facility] Comment on above: Performed By: #### 2 4331-1 #### ERUM KRUGER ([id number]) [facility] ([facility]) [address] [place] [address] 65928 Creatinine [Mass/Vol] 0.62 mg/dL Normal 0.50-1.05 [facility] Comment on above: Performed By: #### 2 4331-1 #### ERUM KRUGER ([id number]) [facility] ([facility]) [address] [place] [address] GFR/1.73 sq M.predicted MDRD (S/P/Bld) [Vol rate/Area] mL/min/{1.73_m2} Normal >60 [facility] Comment on above: Result Comment: Calc ulations of estimated GFR are performed using the 2020 CKD-EPI Study Refit equation without the race variable for the IDMS-Traceable Creatinine Methods. https://jasn.asnjournals.org/content/early/ASN.2020 426789 Performed By: #### 2 4331-1 #### ERUM KRUGER ([id number]) [facility] ([facility]) [address] [place] [address] 00715 Glucose [Mass/Vol] 84 mg/dL Normal 74-99 [facility] Comment on above: Performed By: #### 2 4331-1 #### ERUM KRUGER ([id number]) [facility] ([facility]) [address] [place] [address] 49139 Potassium [Moles/Vol] 4.2 mmol/L Normal 3.5-5.3 [facility] Comment on above: Performed By: #### 2 4331-1 #### ERUM KRUGER ([id number]) [facility] ([facility]) [address] [place] [address] 44667 Protein [Mass/Vol] 6.7 g/dL Normal 6.4-8.2 [facility] Comment on above: Performed By: #### 2 4331-1 #### ERUM KRUGER ([id number]) [facility] ([facility]) [address] [place] [address] 12264 Sodium [Moles/Vol] 139 mmol/L Normal 136-145 [facility] Comment on above: Performed By: #### 2 4331-1 #### ERUM KRUGER ([id number]) [facility] ([facility]) [address] [place] [address] 14057 Urea nitrogen [Mass/Vol] 16 mg/dL Normal 6-23 [facility] Comment on above: Performed By: #### 2 4331-1 #### ERUM KRUGER ([id number]) [facility] ([facility]) [address] [place] [address] Cortisolon 04-23-2023 Cortisol [Mass/Vol] 6.4 ug/dL Normal 2.5-20.0 [facility] Comment on above: Result Comment: Evan Accepted result Performed By: #### 2 143-6 #### ARCELIA Pandey ([id number]) [facility] ([facility]) [id number] [place] [address] 70210 Dehydroepiandrosteroneon DHEA [Mass/Vol] 2.217 ng/mL Normal 1.330-7.780 [facility] Comment on above: Result Comment: INTERPRETIVE INFORMATION: Dehydroepiandrosterone, Females 18 years and older: Postmenopausal: 0.60-5.73 ng/mL REFERENCE INTERVAL: Dehydroepiandrosterone by TMS Access complete set of age- and/or gender-specific reference intervals for this test in the [employer] [facility] ([employer]). This test was developed and its performance characteristics determined by [facility]. It has not been cleared or approved by the US Food and Drug Administration. This test was performed in a CLIA certified laboratory and is intended for clinical purposes. Performed By: [facility] [address] [place] [address] [employer] Tender: Ahmet Russell MD, PhD [place] Number: [id number] Performed By: #### 5 0190-8 #### ERUM KRUGER ([id number]) [facility] ([facility]) [address] [place] [address] 16845 Estrogenon 04-23-2023 Estrogen [Mass/Vol] 62 pg/mL Normal [facility] Comment on above: Order Comment: Perfo rmed at: - Lab[address] [id number] Director: Mckinley Gonzales MD, Phone: [phone] Result Comment: Prep ubertal < 40 Female Cycle: 1-10 Days 16 - 328 11-20 Days 34 - 501 21-30 Days 48 - 350 Post-Menopausal 40 - 244 Performed By: #### 5 0190-8 #### ERUM KRUGER ([id number]) [facility] ([facility]) [address] [place], [place] [address] Ferritinon 04-23-2023 Ferritin [Mass/Vol] 18 ng/mL Normal 8-150 [facility] Comment on above: Performed By: #### 2 276-4 #### ERUM KRUGER ([id number]) [facility] ([facility]) [address] [place] [address] Folateon 04-23-2023 Folate [Mass/Vol] 15.4 ng/mL Normal >5.0 [facility] Comment on above: Order Comment: Low < 3.4 Borderline 3.4-5.0 Normal >5.0 Patients receiving more than 5 mg/day of biotin may have interference in test results. A sample should be taken no sooner than eight hours after previous dose. Contact the testing laboratory for additional information. Performed By: #### 2 284-8 #### ERUM KRUGER ([id number]) [facility] ([facility]) [address] [place] [address] Follitropinon 04-23-2023 Follitropin Qn 6.3 IU/L Normal [facility] Comment on above: Result Comment: resu lt [facility] Ref Values Follicular 2.0-12.0 IU/L Mid-Cycle 12.0-25.0 IU/L Luteal Phase 2.0-12.0 IU/L Menopause 30.0-150.0 IU/L Pre-puberty 50% Adult IU/L Adult Male 2.0-10.0 IU/L Infants 0.0-1.0 IU/L Performed By: #### 5 0190-8 #### ERUM KRUGER ([id number]) [facility] ([facility]) [address] [place], [place] [address] HbA1c (Bld) [Mass fraction]o n 04-23-2023 Average glucose Estimated from glycated hemoglobin (Bld) [Mass/Vol] 97 mg/dL Normal Not Established [facility] Comment on above: Performed By: #### 4 548-4 #### ERUM KRUGER ([id number]) [facility] ([facility]) [address] [place] [address] Hemoglobin A1c/Hemoglobin.to randy 04-23-2023 HbA1c (Bld) [Mass fraction] 5.0 % Normal see below [facility] Comment on above: Performed By: #### 4 548-4 #### ERUM KRUGER ([id number]) [facility] ([facility]) [address] [place] [address] Iron and Iron binding capaci ty panelon 04-23-2023 Iron [Mass/Vol] 66 ug/dL Normal 35-150 [facility] Comment on above: Performed By: #### 5 0190-8 #### ERUM KRUGER ([id number]) [facility] ([facility]) [address] [place] [address] Iron binding capacity [Mass/Vol] 409 ug/dL Normal 240-445 [facility] Comment on above: Performed By: #### 5 0190-8 #### ERUM KRUGER ([id number]) [facility] ([facility]) [address] [place] [address] 81420 Iron binding capacity.unsaturated [Mass/Vol] 343 ug/dL Normal 110-370 [facility] Comment on above: Performed By: #### 5 0190-8 #### ERUM KRUGER ([id number]) [facility] ([facility]) [facility] [place] [address] Iron saturation [Mass fraction] 16 % Low 25-45 [facility] Comment on above: Performed By: #### 5 0190-8 #### ERUM KRUGER ([id number]) [facility] ([facility]) [address] [place] [address] 47007 Lipid 1996 panelon 3 Cholesterol [Mass/Vol] 172 mg/dL Normal 0-199 [facility] Comment on above: Result Comment: Age Desirable Borderline High High 0-19 Y 0 - 169 170 - 199 >/= 200 20-24 Y 0 - 189 190 - 224 >/= 225 >24 Y 0 - 199 200 - 239 >/= 240 All ranges are based on fasting samples. Specific therapeutic targets will vary based on patient-specific cardiac risk. Pediatric guidelines reference:Pediatrics 2011, 128(S5).Adult guidelines reference: NCEP ATPIII Guidelines,YANETH 2001, 258:2486-97 Venipuncture immediately after or during the administration of Metamizole may lead to falsely low results. Testing should be performed immediately prior to Metamizole dosing. Performed By: #### 2 4331-1 #### ERUM KRUGER ([id number]) [facility] ([facility]) [address] [place] [address] 25992 Cholesterol in HDL [Mass/Vol] 40.0 mg/dL Normal [facility] Comment on above: Result Comment: Age Very Low Low Normal High 0-19 Y < 35 < 40 40-45 ---- 20-24 Y ---- < 40 >45 ---- >24 Y ---- < 40 40-60 >60 Performed By: #### 2 4331-1 #### ERUM KRUGER ([id number]) [facility] ([facility]) [address] [place] [address] 37958 Cholesterol in LDL [Mass/Vol] 99 mg/dL Low 110-150 [facility] Comment on above: Result Comment: Near Borderline AGE Desirable Optimal High High Very High 0-19 Y 0 - 109 --- 110-129 >/= 130 ---- 20-24 Y 0 - 119 --- 120-159 >/= 160 ---- >24 Y 0 - 99 100-129 130-159 160-189 >/=190 Performed By: #### 2 4331-1 #### ERUM KRUGER ([id number]) [facility] ([facility]) [address] [place] [address] 02450 Cholesterol in VLDL [Mass/Vol] 33 mg/dL Normal 0-40 [facility] Comment on above: Performed By: #### 2 4331-1 #### ERUM KRUGER ([id number]) [facility] ([facility]) [address] [place] [address] 02507 CHOLESTEROL/HDL RATIO 4.3 Normal [facility] Comment on above: Result Comment: Ref Values Desirable < 3.4 High Risk > 5.0 Performed By: #### 2 4331-1 #### ERUM KRUGER ([id number]) [facility] ([facility]) [address] [place] [address] 67422 NON HDL CHOLESTEROL 132 mg/dL Normal 0-149 [facility] Comment on above: Result Comment: Age Desirable Borderline High High Very High 0-19 Y 0 - 119 120 - 144 >/= 145 >/= 160 20-24 Y 0 - 149 150 - 189 >/= 190 ---- >24 Y 30 mg/dL above LDL Cholesterol goal Performed By: #### 2 4331-1 #### ERUM KRUGER ([id number]) [facility] ([facility]) [address] [place], [place] [address] Triglyceride [Mass/Vol] 163 mg/dL High 0-149 [facility] Comment on above: Result Comment: Age Desirable Borderline High High Very High 0 D-90 D 19 - 174 ---- ---- ---- 91 D- 9 Y 0 - 74 75 - 99 >/= 100 ---- 10-19 Y 0 - 89 90 - 129 >/= 130 ---- 20-24 Y 0 - 114 115 - 149 >/= 150 ---- >24 Y 0 - 149 150 - 199 200- 499 >/= 500 Venipuncture immediately after or during the administration of Metamizole may lead to falsely low results. Testing should be performed immediately prior to Metamizole dosing. Performed By: #### 2 4331-1 #### ERUM KRUGER ([id number]) [facility] ([facility]) [address] [place] [address] Lutropinon 04-23-2023 Lutropin Qn 4.1 IU/L [facility] Comment on above: Result Comment: resu lt LH Reference Values Follicular Phase 1.9-12.5 IU/L Mid-Cycle 8.7-76.3 IU/L Luteal Phase 0.5-16.9 IU/L Post Menopause 5.0-55.2 IU/L Children 0- 6.0 IU/L Adult Male 18-70 years 1.5- 9.3 IU/L Adult Male >70 years 3.1-34.6 IU/L Performed By: #### 5 0190-8 #### ERUM KRUGER ([id number]) [facility] ([facility]) [address] [place], [place] [id number] Parathyrin.intacton 04-23-20 Parathyrin.intact [Mass/Vol] 46.8 pg/mL Normal 18.5-88.0 [facility] Comment on above: Result Comment: resu lt Performed By: #### 5 0190-8 #### ERUM KRUGER ([id number]) [facility] ([facility]) [facility] [place] [address] Progesteroneon 04-23-2023 Progesterone [Mass/Vol] 0.6 ng/mL Normal [facility] Comment on above: Result Comment: resu lt Ref Values Male <0.3- 1.2 Follicular Phase <0.3- 1.4 Luteal Phase 3.3-25.6 Mid-Luteal Phase 4.4-28.0 Postmenopausal <0.3- 0.7 Females: 1st Trimester 11.2- 90.0 2nd Trimester 25.6- 89.4 3RD Trimester 48.4-422.5 Patients receiving DHEA-S supplements may show false elevation of progesterone for results near 1.0 ng/mL. Contact laboratory at [phone] if alternative testing is needed. Performed By: #### 5 0190-8 #### ERUM KRUGER ([id number]) [facility] ([facility]) [address] [place] [address] Prolactinon 04-23-2023 Prolactin [Mass/Vol] 3.7 ug/L Normal 3.0-20.0 [facility] Comment on above: Result Comment: resu lt Performed By: #### 5 0190-8 #### ERUM KRUGER ([id number]) [facility] ([facility]) [address] [place] [address] Somatotropinon 04-23-2023 Somatotropin [Mass/Vol] 2.65 ng/mL Normal 0.05-8.00 [facility] Comment on above: Result Comment: Perf ormed By: [employer] [address] [place] [address] [employer] Tender: Ahmet Russell MD, PhD CLIA Number: [id number] Performed By: #### 5 0190-8 #### ERUM KRUGER ([id number]) [facility] ([facility]) [address] [place], [place] [phone] Testosterone Free/Testostero ne.total [Mass fraction]on 04-23-2023 Testosterone [Mass/Vol] 14 ng/dL Normal 2-45 U [facility] Comment on above: Result Comment: For additional information, please refer to http://education.Slyce/faq/ [email or web address] (This link is being provided for informational/ educational purposes only.) This test was developed and its analytical performance characteristics have been determined by [place]. It has not been cleared or approved by the U.S. Food and Drug Administration. This assay has been validated pursuant to the CLIA regulations and is used for clinical purposes. Performed By: #### 2 4331-1 #### ERUM KRUGER ([id number]) [facility] ([facility]) [address] [place], [place] [address] Testosterone Free [Mass/Vol] 1.6 pg/mL Normal 0.1-6.4 [facility] Comment on above: Result Comment: This test was developed and its analytical performance characteristics have been determined by [place]. It has not been cleared or approved by the U.S. Food and Drug Administration. This assay has been validated pursuant to the CLIA regulations and is used for clinical purposes. Performed By: #### 2 4331-1 #### ERUM KRUGER ([id number]) [facility] ([facility]) [address] [place], [place] [address] Thyrotropinon 04-23-2023 TSH Qn 0.83 m[IU]/L Normal 0.44-3.98 [facility] Comment on above: Order Comment: TSH t esting is performed using different testing methodology at [facility] than at other [facility]. Direct result comparisons should only be made within the same method. Performed By: #### 3 016-3 #### ERUM KRUGER ([id number]) [facility] ([facility]) [address] [place], [place] [address] Thyroxine.freeon 04-23-2023 Free T4 [Mass/Vol] 0.89 ng/dL Normal 0.61-1.12 [facility] Comment on above: Order Comment: Thyro xine Free testing is performed using different testing methodology at [facility] than at other [facility]. Direct result comparisons should only be made within the same method. Biotin can cause falsely elevated free T4 results. Patients taking a Biotin dose of up to 10 mg/day should refrain from taking Biotin for 24 hours before sample collection. Patient taking a Biotin dose of >10 mg/day should consult with their physician or the laboratory before the blood draw. Performed By: #### 3 024-7 #### ERUM KRUGER ([id number]) [facility] ([facility]) [address] [place] [address] Triiodothyronine.freeon 03-27 Free T3 [Mass/Vol] 3.4 pg/mL Normal 2.3-4.2 [facility] Comment on above: Result Comment: resu lt Performed By: #### 5 0190-8 #### ERUM KRUGER ([id number]) [facility] ([facility]) [facility] [place] [id number] [employer]OWER[employer] SUPERVISOR - Visiton 09-17-2022 [employer]OWER[employer] SUPERVISOR - Visit Chief Complaint Patient is here for her 4 week post visit. Patient had a vaginal delivery of a male infant on 08/13/22 at 37 weeks 2 days, infant weighted 6 # 8 oz. Patient is currently bottle feeding. Patient would not like to discuss control options. Patient has not resumed sexual activity. Patient denies post depression. Patient has no other concerns at this time. History of Present IllnessPatient presents for checkup. She is bottlefeeding. Her had a vasectomy. She is currently on blood pressure medications due to preeclampsia. She voices no complaints and is doing well. Review of Systems Review of Systems: Constitutional: No fever or chills Respiratory: No shortness of breath, or cough Cardiovascular: No chest pain or syncope Breasts: No breast pain, no masses, no nipple discharge Gastrointestinal: No nausea, vomiting, or diarrhea, no abdominal pain Genitourinary: No dysuria or frequency Gynecology: Negative except as noted in history of present illness All other: All other systems reviewed and negative for complaint Active Problems Abnormal fasting glucose (790.29) (R73.01) Abnormal urine (791.9) (R82.90) Acne (706.1) (L70.9) Anxiety (300.00) (F41.9) ASCUS with positive high risk HPV cervical (795.01,795.05) (R87.610,R87.810) Blood pressure check (V81.1) (Z01.30) Borderline abnormal thyroid function test (794.5) (R94.6) Chlamydia infection (079.98) (A74.9) Contraceptive management (V25.9) (Z30.9) Costochondritis (733.6) (M94.0) Depression, major, single episode, mild (296.21) (F32.0) Encounter for initial prescription of contraceptive pills (V25.01) (Z30.011) History of hypertension (V12.59) (Z86.79) Iron deficiency anemia (280.9) (D50.9) Migraine with aura, intractable (346.01) (G43.119) Mixed hyperlipidemia (272.2) (E78.2) Nausea and vomiting during (643.90) (O21.9) Rh negative, 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) (O26.899,Z67.91) Screen for STD (sexually transmitted disease) (V74.5) (Z11.3) Screening for cervical cancer (V76.2) (Z12.4) Seasonal allergies (477.9) (J30.2) UTI (urinary tract infection) (599.0) (N39.0) Vaginal discharge (623.5) (N89.8) Vitamin B12 deficiency (266.2) (E53.8) Vitamin D deficiency (268.9) (E55.9) Past Medical History History of Abnormal urine (791.9) (R82.90) History of Encounter for routine gynecological examination (V72.31) (Z01.419) 10/30/2021: ASC-US, HPV positive History of Menstruation Onset age 11 years History of Normal vaginal delivery (650) (O80) 09/06/2016_39weeks 3days_Male_7# 8oz 08/18/2020_39weeks 1day_Female_7# 10oz 08/13/2022_37weeks 2days_Male_6# 8oz Surgical History History of Colposcopy 11/25/2021 Family History Family history of cardiac arrhythmia (V17.49) (Z82.49) Family history of hypertension (V17.49) (Z82.49) Family history of asthma (V17.5) (Z82.5) Family history of cardiac arrest (V17.49) (Z82.49) Family history of cardiac disorder (V17.49) (Z82.49) Family history of cerebrovascular accident (CVA) (V17.1) (Z82.3) Family history of diabetes mellitus (V18.0) (Z83.3) Social History Denies alcohol consumption (V49.89) (Z78.9) Does not use illicit drugs (V49.89) (Z78.9) Never smoked tobacco (V49.89) (Z78.9) Sexually active Allergies No Known Drug Allergies Recorded By: Amanda Butterfield; 04/13/2019 12:24:42 PM Current Meds busPIRone HCl - 5 MG Oral Tablet; TAKE 1 TABLET 3 times daily PRN anxiety; Therapy: 03Oct2020 to (Evaluate:18Jan2022) Requested for: 20Oct2021; Last Rx:20Oct2021 Ordered Rx By: Kylah Connell; Dispense: 90 Days ; #:270 Tablet; Refill: 0;For: Anxiety; GRACE = N; Verified Transmission to [facility] #[id number]; Last Updated By: [employer]; 10/20/2021 9:22:32 AM Drospirenone-Ethinyl Estradiol 3-0.02 MG Oral Tablet; Take 1 tablet daily Requested for: 30Oct2021; Last Rx:30Oct2021 Ordered Rx By: Vangie Joseph; Dispense: 28 Days ; #:1 X 28 Tablet Pack; Refill: 11;For: Contraceptive management; RGACE = N; Verified Transmission to [facility] #[id number]; Last Updated By: [employer]; 10/30/2021 9:52:50 AM Albuterol Sulfate HFA 108 (90 Base) MCG/ACT Inhalation Aerosol Solution; INHALE 2 PUFFS EVERY 4 HOURS NEEDED; Therapy: 20Oct2021 to (Last Rx:20Oct2021) Requested for: 20Oct2021 Ordered Rx By: Kylah Connell; Dispense: 0 Days ; #:1 X 18 GM Inhaler; Refill: 0;For: Costochondritis; GRACE = N; Verified Transmission to [facility] #[id number]; Last Updated By: [employer]; 10/20/2021 9:22:30 AM Ferrous Sulfate 325 (65 Fe) MG Oral Tablet; TAKE 1 TABLET 3 TIMES DAILY; Therapy: 14Nov2020 to (Evaluate:15Oct2022) Requested for: 20Oct2021; Last Rx:20Oct2021 Ordered Rx By: Kylah Connell; Dispense: 90 Days ; #:270 Tablet; Refill: 3;For: Iron deficiency anemia; GRACE = N; Verified Transmission to [facility] #[id number]; Last Updated By: [employer]; 10/20/2021 9:09:18 AM Ondansetron 8 MG Oral Tablet Disintegrating; dissolve 1 tab under tongue every 8 hours as needed f (more content not included)... Normal [employer] SUPERVISOR - Office Visiton [employer] SUPERVISOR - Office Visit Diagnoses/Problems Assessed Blood pressure check (V81.1) (Z01.30) Provider Impressions 1. Pressure check Patient encouraged to monitor blood pressures at home and to continue the blood pressure medications. Patient to follow-up in 3 weeks for checkup Chief Complaint Patient is here for blood pressure check. Patient does have some questions regarding her blood pressure medication. History of Present IllnessPatient presents for blood pressure check [place] [facility] [place] She voices no complaints and is doing well. Is currently on Procardia and labetalol. Review of Systems Review of Systems: Constitutional: No fever or chills Respiratory: No shortness of breath, or cough Cardiovascular: No chest pain or syncope Breasts: No breast pain, no masses, no nipple discharge Gastrointestinal: No nausea, vomiting, or diarrhea, no abdominal pain Genitourinary: No dysuria or frequency Gynecology: Negative except as noted in history of present illness All other: All other systems reviewed and negative for complaint Active Problems Problems Abnormal fasting glucose (790.29) (R73.01) Abnormal urine (791.9) (R82.90) Acne (706.1) (L70.9) Anxiety (300.00) (F41.9) ASCUS with positive high risk HPV cervical (795.01,795.05) (R87.610,R87.810) Borderline abnormal thyroid function test (794.5) (R94.6) Chlamydia infection (079.98) (A74.9) Contraceptive management (V25.9) (Z30.9) Costochondritis (733.6) (M94.0) Depression, major, single episode, mild (296.21) (F32.0) Encounter for initial prescription of contraceptive pills (V25.01) (Z30.011) History of hypertension (V12.59) (Z86.79) Iron deficiency anemia (280.9) (D50.9) Migraine with aura, intractable (346.01) (G43.119) Mixed hyperlipidemia (272.2) (E78.2) Nausea and vomiting during (643.90) (O21.9) Rh negative, 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) (O26.899,Z67.91) Screen for STD (sexually transmitted disease) (V74.5) (Z11.3) Screening for cervical cancer (V76.2) (Z12.4) Seasonal allergies (477.9) (J30.2) UTI (urinary tract infection) (599.0) (N39.0) Vaginal discharge (623.5) (N89.8) Vitamin B12 deficiency (266.2) (E53.8) Vitamin D deficiency (268.9) (E55.9) Past Medical History Problems History of Abnormal urine (791.9) (R82.90) Resolved Date: 23 Mar 2021 History of Encounter for routine gynecological examination (V72.31) (Z01.419) Resolved Date: 19 Nov 2021 10/30/2021: ASC-US, HPV positive History of Menstruation Onset age 11 years History of Normal vaginal delivery (650) (O80) 09/06/2016_39weeks 3days_Male_7# 8oz 08/18/2020_39weeks 1day_Female_7# 10oz Surgical History Problems History of Colposcopy 11/25/2021 Family History Mother Family history of cardiac arrhythmia (V17.49) (Z82.49) Family history of hypertension (V17.49) (Z82.49) Sister Family history of asthma (V17.5) (Z82.5) Grandparent Family history of cardiac arrest (V17.49) (Z82.49) Family history of cardiac disorder (V17.49) (Z82.49) Family history of cerebrovascular accident (CVA) (V17.1) (Z82.3) Family history of diabetes mellitus (V18.0) (Z83.3) Social History Problems Denies alcohol consumption (V49.89) (Z78.9) Does not use illicit drugs (V49.89) (Z78.9) Never smoked tobacco (V49.89) (Z78.9) Sexually active Allergies Medication No Known Drug Allergies Recorded By: Amanda Butterfield; 04/13/2019 12:24:42 PM Current Meds Medication NameInstruction Albuterol Sulfate HFA 108 (90 Base) MCG/ACT Inhalation Aerosol SolutionINHALE 2 PUFFS EVERY 4 HOURS NEEDED busPIRone HCl - 5 MG Oral TabletTAKE 1 TABLET 3 times daily PRN anxiety Calcium 600+D 600-400 MG-UNIT TABSTAKE 1 TABLET Twice daily DO NOT TAKE AT SAME TIME IRON Drospirenone-Ethinyl Estradiol 3-0.02 MG Oral TabletTake 1 tablet daily Ferrous Sulfate 325 (65 Fe) MG Oral TabletTAKE 1 TABLET 3 TIMES DAILY. Ondansetron 8 MG Oral Tablet Disintegratingdissolve 1 tab under tongue every 8 hours as needed for nausea. Sulfamethoxazole-Trimet hoprim 800-160 MG Oral TabletTAKE 1 TABLET TWICE DAILY UNTIL FINISHED. Vitals Vital Signs Recorded: [id number] 03:17PM [id number] Fhctxjraj01 Height5 ft 6 in Erpcne64.3 kg BMI Zltaxovzpq60.57 kg/m2 BSA Calculated1.9 Tobacco Useb) No Physical Exam General: No acute distress Eye: Intraocular movements are intact HEENT: Normocephalic Respiratory: Respirations are nonlabored Gastrointestinal: Nondistended Musculoskeletal: Normal range of motion Neurologic: Alert and oriented x3 Psychiatric: Cooperative, appropriate mood and affect. Signatures Electronically signed by : Vangie Joseph MD; Aug 27 2022 3:26PM EST (Author) Normal [employer] Tobacco Screening.on 023 Tobacco use status [facility]PHS b) [address] [facility] [place] [address] Work Phone: Order Reconciliationon 08-24 Order Reconciliation Page 1 Discharge Reconciliation Document Reconciliation Type: Discharge requested on behalf of Jhoana Erickson (Advanced Practice Nurse) done by Jhoana Erickson ([facility]) Discharge - Reconciliation: 24-Aug-2022 13:16 by: Jhoana Erickson ([employer]) Home Medications EnteredHOME MEDICATIONS AT DISCHARGE DateReconciliation Comment/ Additional Information Plus Iron oral tablet 1 tab(s) orally once a day 02-Jun-2022 13:22 Discontinued; Discontinue from ORM Plus Iron oral tablet is not required Current OrdersDateHOME MEDICATIONS AT DISCHARGE DateReconciliation Comment/ Additional Information Acetaminophen Tablet (TYLENOL)DOSE = 975 mg Oral Every 6 HoursClinician Notes: Give with Ibuprofen. 21-Aug-2022 12:05 Acetaminophen is not required Benzocaine 20% - Menthol 0.5% Topical [place] (DERMOPLAST)DOSE = 1 application(s) Topical 4 Times a Day, PRN DiscomfortApply to Perianal Area 21-Aug-2022 12:05 Benzocaine 20% - Menthol 0.5% Topical is not required Bisacodyl Rectal Suppository (DULCOLAX)DOSE = 10 mg Rectal Daily, PRN Severe constipation 21-Aug-2022 12:05 Bisacodyl Rectal is not required Calcium Gluconate Injectable DOSE = 1 gram(s) IntraVenous Push Once, PRN Magnesium toxicityClinician Notes: IV push over 5 minutes 20-Aug-2022 23:24 Calcium Gluconate Injectable is not required Carboprost IntraMuscular (HEMABATE)DOSE = 250 microgram(s) IntraMuscular Once, PRN post bleeding in non-asthmatic patientClinician Notes: Consult provider prior to administration. 21-Aug-2022 12:05 Carboprost IntraMuscular is not required diphenhydrAMINE Capsule (BENADRYL)DOSE = 25 mg Oral Every 6 Hours, PRN Itching 21-Aug-2022 12:05 diphenhydrAMINE is not required hydrALAZINE (APRESOLINE) Injectable DOSE = 5 mg IntraVenous Push Once, PRN Acute-onset, severe HTN w/out known, suspected CADClinician Notes: Consult provider prior to administration. Push over more than 2 minutes. Systolic greater than or equal to 16 21-Aug-2022 12:05 hydrALAZINE (APRESOLINE) Injectable is not required Ibuprofen Tablet (ADVIL, MOTRIN)DOSE = 600 mg Oral Every 6 HoursClinician Notes: Give with Acetaminophen. 21-Aug-2022 12:05 ibuprofen 600 mg oral tablet 1 tab(s) orally every 6 hours 24-Aug-2022 13:15 Prescription is created for ibuprofen 600 mg oral tablet Labetalol Tablet (TRANDATE)DOSE = 200 mg Oral 2 Times a Day 24-Aug-2022 09:52 labetalol 200 mg oral tablet 1 tab(s) orally 2 times a day 24-Aug-2022 13:15 Prescription is created for labetalol 200 mg oral tablet Labetalol Injectable (TRANDATE)DOSE = 20 mg IntraVenous Push Once, PRN Acute-onset, sev HTN w/o active asthma, rob<60Clinician Notes: Consult provider prior to administration. Push over more than 2 minutes. Systolic greater than or equal to 160 OR 21-Aug-2022 12:05 Labetalol Injectable is not required Lactated Ringers Infusion IV Bag Volume = 1,000 mL Run at: 125 mL/hr IntraVenous 21-Aug-2022 12:05 Lactated Ringers Infusion is not required Lanolin Topical Ointment (LANSINOH)DOSE = 1 application(s) Topical Every 24 Hours, PRN Dry SkinApply to NippleClinician Notes: After and PRN 21-Aug-2022 12:05 Lanolin Topical is not required Loperamide Capsule (IMODIUM)DOSE = 4 mg Oral Every 2 Hours, PRN If Carboprost given or loose stoolsClinician Notes: Max dose of 16mg / 24 hours 21-Aug-2022 12:05 Loperamide is not required Magnesium Hydroxide -Al Hydrox -Simethicone Oral Liquid (MAALOX)DOSE = 30 mL Oral Every 4 Hours, PRN Indigestion 21-Aug-2022 12:05 Magnesium Hydroxide -Al Hydrox -Simethicone Oral Liquid is not required Magnesium Hydroxide Oral Liquid CONCENTRATE (MILK OF MAGNESIA)DOSE = 10 mL Oral Every 24 Hours, PRN Constipation#2 21-Aug-2022 12:05 Magnesium Hydroxide Oral Liquid CONCENTRATE is not required Magnesium Sulfate 20 gram/ Sterile Water 500 mL Infusion with Bolus from Bag IntraVenous INITIAL Bolus = 0 gram(s) infused over 20 minutesDose Rate: 2 g/hrAdmin Rate = 50 mL/hrClinician Notes: Continuous pulse ox throughout IV bolus. 20-Aug-2022 23:24 Magnesium Sulfate 20 gram/ Sterile Water 500 mL Infusion with Bolus from Bag is not required Measles -Mumps -Rubella (Live) MMR Vaccine DOSE = 0.5 mL SubCutaneous Once, PRN if patient screen is non- immune or equivocalClinician Notes: administer if patient screen is non- immune or equivocal 21-Aug-2022 12:05 Measles -Mumps -Rubella (Live) MMR Vaccine is not required medroxyPROGESTERone Injectable (PROVERA)DOSE = 150 mg IntraMuscular Once, PRN contraceptionClinician Notes: Before DischargeNotes from Pharmacy: Low Risk Hazardous Drug- Single Nitrile Glove 21-Aug-2022 12:05 medroxyPROGESTERone Injectable is not required Methylergonovine Injectable (METHERGINE)DOSE = 0.2 mg IntraMuscular Once, PRN PPH in pts w/o HTN or receiving ART for HIV mgmt.Clinician Notes: Consult provider prior to administration.Notes from Pharmacy: Reproductive Risk - Single Nitrile (more content not included)... Normal [facility] ANTIBODY IDENT.on 08-23-2022 ANTIBODY IDENT. ANTI-D Normal [facility] Comment on above: Result Comment: ANTI -D DUE TO RHOGAM Performed By: #### A BID #### [facility] [address] [place] [address] Clinical Event Note-BP Cuff and Home Monitoringon 08-23-2022 Clinical Event Note-BP Cuff and Home Monitoring Clinical Event: Clinical Event Note: TopicBP Cuff and Home Monitoring Details Patient meets criteria for home monitoring of blood pressure post discharge. Met with patient to assess for availability of home BP monitor. Patient does not have access to BP monitor at home. Pt agreed to order home BP monitor from [employer]. Large BP monitor delivered to room. Patient educated on how to use BP monitor, recording BPs on home monitoring log and s/sx to report to her provider. Pt verbalized understanding the above information. Electronic Signatures: Ana Luisa Vann (RN) (Signed 23-Aug-2022 11:06) Authored: Clinical Event Note Last Updated: 23-Aug-2022 11:06 by Ana Luisa Vann (RN) Normal [facility] Daily Progress Note - OB-Pos t-partumon 08-23-2022 Daily Progress Note - TY-Zcju-rwhpgz Current Stage: Stage: Post- Subjective Data: Post : Ambulate: Yes Flatus: Yes Tolerate Diet: Yes Lochia: Light Desired Contraception: planned vasectomy - Contraception options reviewed, including risks and benefits. : Pt seen at the bedside in NAD. Denies ROWLEY, N/V, RUQ pain, vision changes. Denies CP, SOB, calf pain, fever, passage of large clots. Objective Information: Objective Information: T PRBPMAPSpO2 [id number] 7% Date/Time08/23 16: 16: 16: 16: 16: 16:42 Range(36.1C - 37C ) (70 - 115 ) (10 - 18 ) (118 - 155 )/ (73 - 102 ) (89 - 120 ) (95% - 98% ) Highest temp of 37 C was recorded at 08/23 8:11 Pain reported at 08/23 12:45: 2 = Mild ---- Intake and Output ----- Mn/Dy/Year TimeIntakeOutputW[facility] Aug 22, 2022 10:00 [id number] The Intake and Output Totals for the last 24 hours are: IntakeOutputNet [id number] Physical Exam: Constitutional: alert, oriented Obstetric: abdomen appropriately tender, fundus firm below umbilicus Respiratory/Thorax: normal respiratory effort, on room air Gastrointestinal: +BS, +flatus Musculoskeletal: WILSON Extremities: no erythema, edema, or tenderness to palpation of b/l calves Neurological: no deficits Psychological: appropriate affect Skin: no rashes or lesions Assessment and Plan: Assessment: 21 y/o now PPD#2 (08/22) from sPEC s/p Mg - Dx by severe range BPs requiring IV treatment - s/p IV hydral 5/10, labetalol 20mg (2100 on 08/20) - Asx - Nifedipine 90mg daily , continue to monitor BPs, currently normotensive - HELLP labs neg x2, P:C 0.28 S/P on 08/21 - Doing well, pain well controlled with PO meds, afebrile, tolerating diet - Anti-emetics PRN and bowel regimen ordered - Continue routine care - PRN cs - PPBC: s/p vasectomy - Hgb 11.1 - Rh - , for PP rhogam if indicated Maternal Well Being - E.coli UTI x2 this , DICKSON negative this admission - f/u urine cx DVT ppx - DVT risk score 3 - Ambulation, SCDs Dispo - Anticipate discharge on PPD#3 if continues to meet milestones - Plan for BP check in 2-7d, visit in 4-6wks MARY Villegas Plan of Care Reviewed With: Plan of Care Reviewed With: patient Electronic Signatures: Amanda Krishnan (PAC) (Signed 23-Aug-2022 16:55) Authored: Current Stage, Subjective Data, Objective Data, Assessment and Plan, Note Completion Last Updated: 23-Aug-2022 16:55 by Amanda Krishnan (PAC) Normal [facility] Daily Progress Note - OB-Pos t-partumon 08-22-2022 Daily Progress Note - [id number]-mdgzlf Current Stage: Stage: Post- Subjective Data: Post : : No acute events overnight. Tolerating diet, VB light and improving. Pain well-controlled. Denies ROWLEY, vision changes, RUQ pain, N/V, CP, SOB Objective Information: Objective Information: T PRBPMAPSpO2 [id number] 8% Date/Time08/22 5: 6: 6: 6: 6: 6:45 Range(36.2C - 37C ) (77 - 127 ) (10 - 18 ) (115 - 172 )/ (56 - 117 ) (79 - 139 ) (94% - 100% ) Highest temp of 37 C was recorded at 08/21 8:30 Pain reported at 08/22 6:45: 2 = Mild ---- Intake and Output ----- Mn/Dy/Year [facility] 2022 6:00 [id number] Aug 21, 2022 10:00 [id number] Aug 21, 2022 2:00 [id number] The Intake and Output Totals for the last 24 hours are: [facility] [id number] Physical Exam: Constitutional: NAD Obstetric: Fundus firm, below umbilicus Head/Neck: Normal, cephalic, atraumatic Respiratory/Thorax: Normal work of breathing, lungs CTAB Cardiovascular: RRR Gastrointestinal: Soft, nondistended, nontender Musculoskeletal: Normal extremities Neurological: No focal deficits, reflexes 1+ Psychological: Appropriate mood and affect Skin: No rashes, no lesions Medications: Medications: Continuous Medications --------- 1. Lactated Ringers Infusion: 1000 mL IntraVenous 2. Magnesium Sulfate 20 gram/ Sterile Water 500 mL Infusion with Bolus from Ba g/hr IntraVenous Scheduled Medications --------- 1. Acetaminophen: 975 mg Oral Every 6 Hours 2. Diphtheria - Tetanus - Pertussis (BOOSTRIX) Vaccine: 0.5 mL IntraMuscular Once 3. Ibuprofen: 600 mg Oral Every 6 Hours 4. NIFEdipine (PROCARDIA XL) Extended Release: 60 mg Oral Daily PRN Medications --------- 1. Benzocaine 20% - Menthol 0.5% Topical: 1 application(s) Topical 4 Times a Day 2. Bisacodyl Rectal: 10 mg Rectal Daily 3. Calcium Gluconate Injectable: 1 gram(s) IntraVenous Push Once 4. Carboprost IntraMuscular: 250 microgram(s) IntraMuscular Once 5. diphenhydrAMINE: 25 mg Oral Every 6 Hours 6. hydrALAZINE (APRESOLINE) Injectable: 5 mg IntraVenous Push Once 7. Labetalol Injectable: 20 mg IntraVenous Push Once 8. Lanolin Topical: 1 application(s) Topical Every 24 Hours 9. Loperamide: 4 mg Oral Every 2 Hours 10. Magnesium Hydroxide -Al Hydrox -Simethicone Oral Liquid: 30 mL Oral Every 4 Hours 11. Magnesium Hydroxide Oral Liquid CONCENTRATE: 10 mL Oral Every 24 Hours 12. Measles -Mumps -Rubella (Live) MMR Vaccine: 0.5 mL SubCutaneous Once 13. medroxyPROGESTERone Injectable: 150 mg IntraMuscular Once 14. Methylergonovine Injectable: 0.2 mg IntraMuscular Once 15. Metoclopramide Injectable: 10 mg IntraVenous Push Every 6 Hours 16. miSOPROStol Rectal: 800 microgram(s) Rectal Once 17. NIFEdipine (PROCARDIA) Immediate Release: 10 mg Oral Once 18. Ondansetron Injectable: 4 mg IntraVenous Push Every 6 Hours 19. Polyethylene Glycol: 17 gram(s) Oral 2 Times a Day 20. Sodium Chloride 0.9% Injectable Flush: 10 mL IntraVenous Flush Every 12 Hours and as Needed 21. Tranexamic Acid Injectable: 1000 mg IntraVenous Push Once 22. Witch Chloé Topical: 1 application(s) Topical 5 Times a Day Conditional Medication Orders --------- 1. Oxytocin Injectable: 10 unit(s) IntraMuscular Once Assessment and Plan: Assessment: 21 y/o now PPD#1 (08/22) from [facility], now on 24 hours of PP Mg for sPEC. sPEC - Dx by severe range BPs requiring IV treatment - s/p IV hydral 5/10, labetalol 20mg (2100 on 08/20) - Asx - Increased to nifedipine 90mg daily this AM, continue to monitor BPs - HELLP labs neg x2, P:C 0.28 - Mg @ 2g/hr for 24hrs S/P on 08/21 - Doing well, pain well controlled with PO meds, afebrile, tolerating diet - Anti-emetics PRN and bowel regimen ordered - Continue routine care - PRN cs - PPBC: s/p vasectomy Maternal Well Being - E.coli UTI x2 this , DICKSON negative this admission DVT ppx - DVT risk score 2 - Ambulation when Mg discontinued, SCDs Dispo - Anticipate discharge on PPD#3 if continues to meet milestones - Plan for BP check in 2-7d, visit in 4-6wks Discussed with Dr. Handley. Demetrice Cruz MD OBGYN PGY-4 Vocayala/Ben Attestation: Note Completion: I am a: Resident/Fellow Attending AttestationI saw and evaluated the patient. I personally obtained the evans and critical portions of the history and physical exam or was physically present for evans and critical portions performed by the resident/fellow. I reviewed the resident/fellows documentation and discussed the patient with the resident/fellow. I agree with the resident/fellows medical decision making as documented in the note. I personally evaluated the patient [id number] Electronic (more content not included)... Normal [facility] Admission Risk Screen - OBon 08-21-2022 Admission Risk Screen - OB Allergies: Allergies: No Known Allergies: Patient Verification: New W ID Band Applied in my Departmentyes Patient Identity Verified Bydriver's license/state ID ID Band FULL Name, include Middle, spelling matches patient's ID used for verificationyes ID Band Matches Patient ID used for Verficationyes ID Band MRN Matches EMR MRNyes Visitor Restriction: Coronavirus Visitor Restriction: Reasonable restrictions to in-person visitors will be observed due to current coronavirus pandemic. Travel History: COVID-19 Screening Completedno exposure or symptoms Travel or Exposure Past 30 DaysNO travel to International locations in the past 30 days Advance Directive: Advance Directive/DNRno Advance Directive Information Givenpatient/family declined Oliveros Fall Screen: History of falling (immediate or previous)no (0) Secondary Diagnosisyes (15) Intravenous Therapy/ Heparin/Saline Lockyes (20) Gait/Transferringnormal /bedrest/wheelchair (0) Ambulatory Aidsnone/bedrest/nurse assist (0) Mental Statusoriented to own ability (0) Score: Low risk (<25). Moderate risk (25-44). High risk (>44).35 Oliveros InterventionsMODERATE INTERVENTIONS: *Low Interventions Plus: * falls risk band/sticker applied to patient, *yellow non-skid footwear, *instruct to call for assistance before getting out of bed, *bed/chair/bedside commode/toilet alarms, *sensory devices/ambulatory aides available and in reach, *medications reviewed for potential side effects and care planning. Functional screen: Functional Screen: In the recent/past 2-4 weeks, patient or family have noticedno issues that require a rehabilitation consult at this time Learning Assessment (Patient): Patient is Able to be Assessed for Learningyes Factors Influencing Readiness to Learnpain Factors that Impact Ability to Learnnone Devices/Methods Used to Communicateglasses Learning Preferencesskill demonstration; verbal instruction Cultural Considerationsnone Developmental Considerationsnone Hinduism Considerationsnone Learning Assessment (Other Learner): Other learner availableno Nutrition Risk Screen: Nutrition Risk Screenno indicators present Nutrition Consult needed this visitno Can Patient Participate in Room Serviceyes [facility]: [facility] [place] the past 12 months, you worried that your food would run out before you got money to buy pop Within the past 12 months, the food you bought just didn't last and you didn't have money to get pop Pain Screen: Pain Control Method: Laborepidural Pain Control Method: Postpartummedication Pain Scalenumerical 0-10 Pain Scale Educationteaching provided Acceptable Pain Level7 = Severe Expression of Pain (nonverbal)none Chronic Painno Skin - Gilbert Scale: Gilbert Scale (daily): Gilbert: Sensory Perception (response to environment)(4) no impairment Gilbert: Moisture (degree skin exposed to moisture)(4) rarely moist Gilbert: Activity (ability to walk)(3) walks occasionally Gilbert: Mobility (amount/control of body movement)(4) no limitation Gilbert: Nutrition (quality of food intake)(3) adequate Gilbert: Friction and Shear(3) no apparent problem Gilbert: Score21 Pressure Injury Present on Admissionno Spiritual Screen: Are there any cultural, spiritual, latter day practices/values/needs that are important for us to knowno Depression Screen: During the past month, have you often been bothered by feeling down, depressed or hopelessno During the past month, have you often had little interest or pleasure in doing thingsno Have you had any thoughts of harming anyone elseno [place] Suicide: Risk Screen Not Applicable/Able to Answerable to be screened In the Past Month: Have you wished you were or could go to sleep and not wake upno In the Past Month: Have you had any actual thoughts of killing yourselfno Lifetime: Have you ever done, started to do, or prepared to do anything to end your lifeno [place] Suicide Risknegative Family Violence Screen: Are you or have you been threatened or abused physically, emotionally, or sexually by anyoneyes 3 years old Do you feel UNSAFE going back to the place where you are livingno Clinical assessment: Are there any apparent signs of injuries/behaviors that could be related to abuse/neglectno Social Service Consult for abuse/neglect needed this visitno Vaccinations: Vaccination - Influenza Vaccination Screen: Is it flu season (between and October 22)Yes Screening for identified contraindications to influenza vaccination patient/caregiver refusal Vaccination - Pneumonia Vaccination Screen: Patient has received a previous pneumonia vaccine:no/unknown... Immunocompetent persons with underlying chronic conditions or reside in termite control servicer care facilitiesnone of these conditions Persons with Functional or Anatomic Asplenianone of these condit (more content not included)... Normal [facility] CBCon 08-21-2022 Erythrocyte distribution width (RBC) [Ratio] 13.1 % Normal 11.5 - 14.5 [facility] Comment on above: Performed By: #### C BC #### [facility] [address] [place] [address] Hematocrit (Bld) [Volume fraction] 32.8 % Low 36.0 - 46.0 [facility] Comment on above: Performed By: #### C BC #### [facility] [address] [place] [address] Hemoglobin (Bld) [Mass/Vol] 11.1 g/dL Low 12.0 - 16.0 [facility] Comment on above: Performed By: #### C BC #### [facility] [address] [place] [address] MCHC (RBC) [Mass/Vol] 33.8 g/dL Normal 32.0 - 36.0 [facility] Comment on above: Performed By: #### C BC #### [facility] [address] [place] [address] MCV (RBC) [Entitic vol] 87 fL Normal 80 - 100 U [facility] Comment on above: Performed By: #### C BC #### [facility] [address] [place] [address] NUCLEATED RBC 0.0 /100 WBC Normal 0.0-0.0 [facility] Comment on above: Performed By: #### C BC #### [facility] [address] [place] [address] Platelets (Bld) [#/Vol] 215 10*3/uL Normal 150 - 450 [facility] Comment on above: Performed By: #### C BC #### [facility] [address] [place] [address] RBC 3.75 x10E12/L Low 4.00 - 5.20 [facility] Comment on above: Performed By: #### C BC #### [facility] [address] [place] [address] WBC (Bld) [#/Vol] 13.0 10*3/uL High 4.4 - 11.3 [facility] Comment on above: Performed By: #### C BC #### [facility] [address] [place] [address] COMPREHENSIVE PANELon 2022 Albumin [Mass/Vol] 3.0 g/dL Low 3.4 - 5.0 [facility] Comment on above: Performed By: #### C MP #### [facility] [address] [place] [address] ALP [Catalytic activity/Vol] 69 U/L Normal 33 - 110 [facility] Comment on above: Performed By: #### C MP #### [facility] [address] [place] [address] ALT [Catalytic activity/Vol] 7 U/L Normal 7 - 45 [facility] Comment on above: Result Comment: Kareen ents treated with Sulfasalazine may generate falsely decreased results for ALT. Performed By: #### C MP #### [facility] [address] [place] [address] Anion gap [Moles/Vol] 14 mmol/L Normal 10 - 20 [facility] Comment on above: Performed By: #### C MP #### [facility] [address] [place] [address] AST [Catalytic activity/Vol] 11 U/L Normal 9 - 39 [facility] Comment on above: Performed By: #### C MP #### [facility] [address] [place] [address] Bilirubin [Mass/Vol] 0.2 mg/dL Normal 0.0 - 1.2 [facility] Comment on above: Performed By: #### C MP #### [facility] [address] [place] [address] Calcium [Mass/Vol] 7.5 mg/dL Low 8.6 - 10.6 [facility] Comment on above: Performed By: #### C MP #### [facility] [address] [place] [address] Chloride [Moles/Vol] 105 mmol/L Normal 98 - 107 [facility] Comment on above: Performed By: #### C MP #### [place] [address] [place] [address] Creatinine [Mass/Vol] 0.55 mg/dL Normal 0.50 - 1.05 [facility] Comment on above: Performed By: #### C MP #### [place] [address] [place] [address] eGFR FEMALE >90 Normal >90 [facility] Comment on above: Result Comment: CALC ULATIONS OF ESTIMATED GFR ARE PERFORMED USING THE 2020 CKD-EPI STUDY REFIT EQUATION WITHOUT THE RACE VARIABLE FOR THE IDMS-TRACEABLE CREATININE METHODS. https://jasn.asnjournals.org/content//ASN.2020 756284 Performed By: #### C MP #### [facility] [address] [place] [address] Glucose [Mass/Vol] 75 mg/dL Normal 74 - 99 [facility] Comment on above: Performed By: #### C MP #### [facility] [address] [place] [address] HCO3 (Bld) [Moles/Vol] 21 mmol/L Normal 21 - 32 [facility] Comment on above: Performed By: #### C MP #### [facility] [address] [place] [address] Potassium [Moles/Vol] 4.0 mmol/L Normal 3.5 - 5.3 [facility] Comment on above: Performed By: #### C MP #### [facility] [address] [place] [address] Protein [Mass/Vol] 5.1 g/dL Low 6.4 - 8.2 [facility] Comment on above: Performed By: #### C MP #### [facility] [address] [place] [address] Sodium [Moles/Vol] 136 mmol/L Normal 136 - 145 [facility] Comment on above: Performed By: #### C MP #### [facility] [address] [place] [address] Urea nitrogen [Mass/Vol] 10 mg/dL Normal 6 - 23 [facility] Comment on above: Performed By: #### C MP #### [facility] [address] [place] [address] Clinical Event Note-AROMon 0 08-21-2022 Clinical Event Note-AROM Clinical Event: Clinical Event Note: TopicAROM Details Denies ROWLEY, CP, SOB, RUQ pain, vision changes. Epidural infusing SVE 5/60/-2, AROM clear baseline 130s, mod variability, - accels, - decels cat every 2-5 min cat 1FHT, cEFM sPEC, cont nifed 30, asym, no s/s Mg toxicity Kayla Aguilera MD, PGY-3 Electronic Signatures: Kayla Aguilera ( (Resident)) (Signed 21-Aug-2022 04:53) Authored: Clinical Event Note Last Updated: 21-Aug-2022 04:53 by Kayla Aguilera (Resident)) Normal [facility] Clinical Event Note-Mag chec katie 08-21-2022 Clinical Event Note-Mag check Clinical Event: Clinical Event Note: TopicMag check Details S; Patient feeling tired but well. Denies ROWLEY, vision changes, CP, SOB, or RUQ pain. NAD A&O x3 RRR CTAB ROM grossly normal DTRs 2+ Appropriate affect A/P: 21 y/o now PPD 0 from , now on 24 hours of PP Mg for sPEC. sPEC -Diagnosed by severe range BPs requiring IV treatment -s/p IV hydral /10, labetalol 20mg (2100 on 08/20) -Continue nifed 60mg -HELLP labs neg x2, P:C 0.28 -Mg @ 2g/hr until 11:45 Stable for transfer to Mac 5 Karyna Vega MD, PGY-1 Electronic Signatures: Karyna Vega ( (Resident)) (Signed 21-Aug-2022 19:19) Authored: Clinical Event Note Last Updated: 21-Aug-2022 19:19 by Karyna Vega ( (Resident)) Normal [facility] Clinical Event Note-SVEon Clinical Event Note-SVE Clinical Event: Clinical Event Note: TopicSVE Details Desires epidural prior to AROM, but feeling pressure and desires SVE SVE /-2, latent baseline 130s, mod variability, + accels, - decels irregular ctx cat 1 FHT, cEFM sPEC, asym, continue Mg, UOP adequate Kayla Aguilera MD, PGY-3 Electronic Signatures: Kayla Aguilera ( (Resident)) (Signed 21-Aug-2022 02:38) Authored: Clinical Event Note Last Updated: 21-Aug-2022 02:38 by Kayla Aguilera ( (Resident)) Normal [facility] Covid 19 Resultson 3 SARS-CoV-2 (COVID-19) RNA PIOTR+probe Ql (Unsp spec) NEGATIVE COVID-19 Test Coronaviruses are common world-wide and are the cause of many common colds. SARS-COV2 is a new coronavirus that began circulating worldwide in 2019 so we are calling it COVID-19. It has been estimated that four out of five patients with COVID-19 will recover at home without the need for medical attention. Symptoms of COVID-19 may include cough, fever, shortness of breath, loss of taste or smell and other flu-like symptoms including chills, sore muscles, sore throat, and headache. Severe illness is more common in older people and people with other health problems such as high blood pressure, obesity, and immune system problems. If the test is positive, you have COVID-19. You will be contacted by the ordering physicians office and instructed to remain on home isolation, in accordance with CDC guidelines. You may also be contacted by the [facility] to see if any of your close contacts may have been exposed to the virus and need to quarantine. If the test is negative, you likely do not have COVID-19 at this time, but you still may have a different illness that can spread to other people (like Influenza, or the Flu) and could still be at risk for getting COVID-19. We recommend that you stay away from other people to limit the spread of illness until your symptoms are improving and you are fever-free for 24 hours without the use of fever lowering medications such as acetaminophen or ibuprofen. No test is 100% accurate so if you are still concerned you may have COVID-19, talk to your doctor about the need to continue to stay away from others. Medicines Unless your provider told you not to use the following: Acetaminophen (Tylenol and others) is generally safe. Anti-inflammatory medications, such as Ibuprofen (Advil or Motrin) or Naproxen (Aleve) can also be used. Vdee-bfe-erawarr cough and cold medicines can be used according to the instructions on the package. Some gouc-xup-ptclyij medicines also contain acetaminophen. Make sure you are not taking more than your recommended dose. For those not hospitalized, there is no specific treatment available for this illness. Antibiotics do not treat Coronaviruses. Follow-Up Follow up with your doctor by scheduling a virtual visit or consider follow-up at one of our urgent care fever clinics. If you are having difficulty breathing, or are very weak and having difficulty standing, this is a medical emergency. Call 911 or have someone take you to the nearest emergency room immediately. If possible, wear a facemask. Additional guidance from the CDC for patients who tested POSITIVE for COVID-19 How to isolate: Isolate yourself in a specific room at home and limit your contact with others. Use a separate bathroom from other members of the household, when possible. Leave home only to get essential medical care. Do not go to work, school or public areas. Avoid using public transportation, ride-sharing, or taxis. Restrict contact with pets and other animals. If you must care for your pet or be around animals while you are sick, wash your hands before and after your interaction and wear a facemask. Make sure that shared spaces in the home have good airflow, such as by an air conditioner or an opened window, weather permitting. Personal Hygiene Procedures: Wear a face mask when in the same room as other people or pets. If a face mask interferes with your breathing, others should wear a mask when sharing space with you. Frequent hand-washing: wash your hands with soap and water for at least 20 seconds. If soap and water are not available, use alcohol-based hand lockstitch topstitcher. Avoid touching your eyes, nose, and mouth with unwashed hands. Household Hygiene Procedures: Avoid sharing personal household items such as dishes, glassware, cups, eating utensils, towels or bedding with other people or pets in your home. After use, these items should be washed with soap and hot water. Disinfect all high-touch surfaces every day with antibacterial cleaning solutions such as Lysol wipes, bleach, cleansers, etc. High-touch surfaces include tabletops, doorknobs, bathroom fixtures, toilets, phones, keyboards, tablets and bedside tables. Immediately clean any surfaces that may have blood, poop or body fluids on them, using antibacterial cleaning solutions such as Lysol wipes, bleach, cleansers, etc. If clothing or bedding come into contact with blood, poop or body fluids, they should be washed immediately. Follow the directions on the laundry detergent and clothing labels but hot water is recommended when possible. Stopping home isolation precautions: If possible, consult your doctor before stopping home isolation precautions. According to the CDC, you can discontinue home isolation precautions when you have met both of these criteria: Your fever and respiratory symptoms have been gone for 24 brien (more content not included)... Normal [facility] Cult, Urineon 08-21-2022 Bacteria identified Cx Nom (U) [id number] 1200 [place] Work Phone: Daily Progress Note - OB-Pos t-partumon 08-21-2022 Daily Progress Note - [id number] Current Stage: Stage: Post- Subjective Data: Post : : Doing well, pain adequately controlled. Denies sx PEC, no shortness of breath or chest pain. Bottle feeding. Objective Information: Objective Information: T PRBPMAPSpO2 [id number] 98% Date/Time08/21 16: 18: 17: 17: 17: 18:25 Range(36.2C - 37C ) (77 - 127 ) (14 - 19 ) (115 - 172 )/ (56 - 117 ) (79 - 139 ) (94% - 100% ) Highest temp of 37 C was recorded at 08/21 8:30 Pain reported at 08/21 13:29: 0 = None ---- Intake and Output ----- Mn[facility] Aug 21, 2022 2:00 [id number] Aug 21, 2022 6:00 [id number] Aug 20, 2022 10:00 [id number] The Intake and Output Totals for the last 24 hours are: [facility] [id number] Physical Exam: Constitutional: NAD Head/Neck: Normal, cephalic, atraumatic Respiratory/Thorax: Normal work of breathing, lungs CTAB Cardiovascular: RRR Gastrointestinal: Soft non tender non distended, uterus firm below umbilicus Musculoskeletal: Normal extremities Neurological: No focal deficits, reflexes 2+ Psychological: Appropriate mood and affect Skin: No rashes, no lesions Recent Lab Results: Results: CBC: 08/21/2022 01:26 \ Hgb / \ 11.1 L / WBC Plt 13.0 H 215 / Hct \ / 32.8 L \ RBC: 3.75 L MCV: 87 CMP: 08/21/2022 05:28 NA+ Cl- BUN / 136 105 10 / --------- Glucose ---- 75 K+ HCO3- Creat \ 4.0 21 0.55 \ \ T Bili / \ 0.2 / AST x ---- x ALT 11 x ---- x 7 / Alk P \ / 69 \ Calcium : 7.5 L Anion Gap : 14 Albumin : 3.0 L T Protein : 5.1 L Assessment and Plan: Assessment: 21 y/o now PPD 0 from , now on 24 hours of PP Mg for sPEC. Post - Bottle feeding - Pain well controlled - Lochia light - Pain well controlled sPEC - Diagnosed by severe range BPs requiring IV treatment - s/p IV hydral 5/10, labetalol 20mg (2100 on 08/20) - nifedipine 30 mg ER daily (08/21), will increase to 60 mg daily given persistent mild range BPs - HELLP labs neg x2, P:C 0.28 - Mg @ 2g/hr Maternal Well Being - E.coli UTI x2 this , DICKSON pending Contraception - s/p partner vasectomy D/w Dr. Dereje Juárez MD PGY-3, Obstetrics and Gynecology Attestation: Note Completion: I am a: Resident/Fellow Attending AttestationI saw and evaluated the patient. I personally obtained the evans and critical portions of the history and physical exam or was physically present for evans and critical portions performed by the resident/fellow. I reviewed the resident/fellows documentation and discussed the patient with the resident/fellow. I agree with the resident/fellows medical decision making as documented in the note. I personally evaluated the patient [id number] Electronic Signatures: Mary Juárez (Resident)) (Signed 21-Aug-2022 18:50) Authored: Current Stage, Subjective Data, Objective Data, Assessment and Plan, Note Completion Nuzhat Reyez (Fellow)) (Signed 21-Aug-2022 23:45) Authored: Assessment and Plan, Note Completion Co-Signer: Current Stage, Subjective Data, Objective Data, Assessment and Plan, Note Completion Last Updated: 21-Aug-2022 23:45 by Nuzhat Reyez (Fellow)) Normal [facility] Delivery Recordon 08-21-2022 Delivery Record Lab Tests/Results: Labs: Labs: Blood Typed Date: 20-Aug-2022 Blood Type: A negative Blood Type Comments: Selected manually 'A negative' at 21-Aug-2022 00:31 Antibody Screen Results: negative Rhogam Comments: Selected manually 'A negative' at 21-Aug-2022 00:31 Chlamydia Date: 19-Feb-2022 Chlamydia Results: negative Chlamydia Comments: Selected manually 'negative' at 21-Aug-2022 00:31 Gonorrhea Date: 19-Feb-2022 Gonorrhea Results: negative Gonorrhea Comments: Selected manually 'negative' at 21-Aug-2022 00:31 Group B Strep Date: 06-Aug-2022 Strep Results: negative GCT (dd-mmm-yy): 11-Jun-2022 GCT result: 84 HBsAG Date: 10-Mar-2022 HBsAG Results: negative Hemoglobin A1C (dd-mmm-yy): 10-Mar-2022 Hemoglobin A1C: 5 % Estimated Average Glucose: 97 HIV Date: 10-Mar-2022 HIV Results: negative Rubella Date: 10-Mar-2022 Rubella Results: immune Rubella Comments: Result Value POSITIVE Syphilis (mmm-dd-yyyy): 21-Aug-2022 Syphilis Results: negative Urine Spot (dd-mmm-yy): 20-Aug-2022 Total Protein/Creatinine Ratio: 0.28 Delivery Information: Level Vial Sealer Information: Baby's Post Discharge Care Provider (Provider Name, Address and Phone Number) [facility] A Delivery Information: Baby A Delivery: Rupture of Membranes date/[id number] 04:40 Amniotic Fluid Colorclear Delivery Typevaginal delivery Delivery Locationlabor and delivery Delivery Date/[id number]-[id number]-9673 11:44 Length of Time of ROM (rounded down to nearest hour)7 Sexmale Identification Band [id number] Electronic Transponder [id number] ID Bands Verified bySophie Espana RN, Sophie Olson RN 4th ID band toFOB Weight (kg)2.94 kilogram(s) Length (cm)48.5 centimeter(s) Head Circumference (cm)36 centimeter(s) Delivery of Placenta (hh:mm)11:50 Baby A: Placenta disposalsent to pathology 1 Min: Heart Rat[place] than 100 beats/min Respiratory Rategood, crying Muscle Tonewell flexed Reflex Irritabilitycough or sneeze Colorbody pink, extremities blue 1 Minute Score, Baby A9 Apgars assessed byHarlan Mariscal RN 5 Min: Heart Rat[place]ore than 100 beats/min Respiratory Rategood, crying Muscle Tonewell flexed Reflex Irritabilitycough or sneeze Colorbody pink, extremities blue 5 Minute Score, Baby A9 Apgars assessed byHarlan Mariscal RN Resuscitation Efforts: Vigorous at Birthyes Baby A: Transfer Baby A: Transfer toRemains with mother Baby A: Labs sentCord Blood Workup (Type/Rh/Antibody), G6PD Delivery Team: Baby NurseS. Davey RIVERA Electronic Signatures: Sienna Espana (RN) (Signed 21-Aug-2022 13:25) Authored: Lab Tests/Results, [place] Delivery Information Last Updated: 21-Aug-2022 13:25 by Sienna Espana (RN) Normal [facility] Discharge Planning [id number] 0 08-21-2022 Discharge Planning Note2 Discharge Planning: Anticipated Discharge [id number] Discharge Planning Date and Time: 08/21/2022 @ 1940 Nursing Note/Admission/Health Maintenance: D: Patient admitted to the Mother/Infant unit from Labor & Delivery Patient admitted for or s/p: care Patient lives at home. Patient was independent with ambulation and ADL's prior to admission. Patients caregiver/help after discharge will be family. Home going needs anticipated at this time: none Upon arrival, admitting assessment completed. See flowsheets. Stable upon admission. Discharge folder handouts and/or brochures given to patient/caregiver and reviewed with them. E: Discharge planning initiated. P: Continue to assess home going/discharge needs. Coordinate with interdisciplinary team as needed. Signature: Sophie Mera RN Date and Time: 08/24/22 @ 1653 Nursing Note/Discharge: D: According to plan, patient discharged to home with and infant Instructions printed and reviewed, see Discharge Instructions sheet. Teaching provided on new medications, self care, signs and symptoms to report, PI sheets, and follow-up appointment. Patient verbalized understanding and denies any questions at time of discharge. Patient instructed to call MD/LIP with any additional questions after discharge. E: Discharge teaching complete and patient is prepared for discharge. P: Patient sent home with written and verbal instructions via transport in stable condition. Signature: Aurelia Gallagher RN Assessment: Discharge Planning Assessment [id number] Lives Withspouse; dependent child(osei)(1) Living Arrangementshouse(1) [facility]) Resource/Environmental Concernsnone(1) [place] Services Anticipated at Transitionnone(1) Discharge Documentation: Discharge/Transfer Date/[id number] 16:53 Discharged Accompanied Bysignificant other/partner Transportation Methodprivate car Discharge Modeambulatory Code StatusCode Status order at time of discharge: Full Code Discharge Order Writtenyes [place] DNR Form Sent with Patient and/or Familyn/a Valuables/Medications/B elongings Returnedyes Final Disposition.Home Electronic Signatures: Rocio Mera (RN) (Signed 21-Aug-2022 21:12) Authored: Discharge Planning, Assessment, Discharge Documentation Aurelia Gallagher (RN) (Signed 24-Aug-2022 17:33) Authored: Discharge Planning, Discharge Documentation Last Updated: 24-Aug-2022 17:33 by Aurelia Gallagher (RN) References: 1. Data Referenced From Patient Profile - OB v3 21-Aug-2022 00:14 Normal [facility] Discharge [id number] 023 Discharge Profile2 Discharge Orders: Anticipated Discharge Date: Anticipated Discharge [id number] DNAR: Code Status at Discharge: Full Code : Activity: Return to normal activity as tolerated. Provider FINAL REVIEW of Orders: Final Review: Final Review of Medication Reconciliation and Orders Completedby CURB BUILDER Reviewing ProviderYOBANI Donovan at 24-Aug-2022 13:14:56 Appointments: Follow-Up Appointment 01: Physician/Dept/ServiceO B: Vangie Joseph Scheduled Date/[id number]-[id number]-1574 15:15 [facility] [address] [place] [address] Phone [phone] CommentsPlease bring your insurance card, photo id, a list of medication in the original bottle, any co-pays you may have, and the discharge summary Other Clinician Instructions: Other Instructions: Nursing InstructionsThe [place] Academy of Pediatrics recommends that pacifier use is best avoided during the initiation of and used only after is well established. In some infants, early pacifier use may interfere with establishment of good practices, whereas in others it may indicate the presence of a problem that requires intervention. Use of a pacifier may cause problems with latching, and lead to decreased milk supply by missing feeding opportunities. Pacifiers may be used during painful procedures, but are not otherwise recommended while the infant is learning to breastfeed. Other Clinician InstructionsAny woman can have complications after a including a blood clot, a heart problem, hypertensive disorder/eclampsia, depression, hemorrhage, or infection. Notify all providers of your delivery date up to one year after .* Call 911 or go to nearest emergency room right away if you have: PAIN or pressure in chest; OBSTRUCTED breathing or shortness of breath; SEIZURES; THOUGHTS of hurting yourself or someone else; heart palpitations/racing; change in alertness/confusion. Call your provider if you have: BLEEDING, soaking through a pad/hour, or blood clots the size of an egg or bigger; INCISION (episiotomy stitches or site) that is not healing (increased redness, pain, drainage/pus, or separation) if you had one; RED or swollen leg/calf that is painful or warm to touch, especially in one leg more than the other; TEMPERATURE of 100.4 F or higher or chills; HEADACHE that does not get better with medicine, rest or hydration, or bad headache with vision changes like spots or flashing lights; increased swelling of face, hands or legs; severe cramps or upper right belly pain; red or swollen breast that is painful or warm to touch; an unusual, foul odor from your vaginal discharge; pain, burning, or difficulty during urination; severe constipation (more than 5 days); feelings of depression (such as depressed mood, loss of interest in enjoyable things, unable to care for yourself, trouble sleeping, lack of appetite, or feeling worthless). If you cant reach your provider or symptoms worsen, call 911 or go to nearest emergency room. *Information obtained from [facility]: Save Your Life: Get Care for These POST- Warning Signs Electronic Signatures: Lizzy Earl (PT ACC REP) (Signed 24-Aug-2022 16:47) Authored: Discharge Orders, Appointments Rocio Mera (RN) (Signed 21-Aug-2022 21:11) Authored: Discharge Orders, Other Clinician Instructions, Gold Form - Glazing Department Supervisor Summary Jhoana Erickson (CURB BUILDER-SMASH HAND) (Signed 24-Aug-2022 13:14) Authored: Discharge Orders, , Provider FINAL REVIEW of Orders Last Updated: 24-Aug-2022 16:47 by Lizzy Earl (PT ACC REP) Normal [facility] Laboratory - Blood bankon ABO group Nom (Bld) A MG-EYEGLASS FITTER-MAC [address] [place] Work Phone: Blood group antibody screen Ql Negative OP-CECKR-PJM [address] [place] Work Phone: Rh immune globulin screen (Bld) [Interp] Negative MG-OBGYN-M AC [address] [place] Work Phone: Comment on above: Review your Rh Negat regis female patient's potential need for Rh Immune Globulin (RhIg)administration. Laboratory - Chemistry and C hemistry - challengeon 08-21-2022 Albumin BCP dye [Mass/Vol] 3.0 g/dL below low threshold 3.4 - 5.0 LM-FLYAK-ZVX [address] [place] Work Phone: ALP [Catalytic activity/Vol] 69 U/L 33 - 110 XN-LNLWB-ZXY [address] [place] Work Phone: ALT With P-5'-P [Catalytic activity/Vol] 7 U/L 7 - 45 RS-SEKEU-YTY [address] [place] Work Phone: Comment on above: Patients treated wit h Sulfasalazine may generate falsely decreased results for ALT. Anion gap [Moles/Vol] 14 mmol/L 10 - 20 MG- OBGYN-MAC [address] [place] Work Phone: AST With P-5'-P [Catalytic activity/Vol] 11 U/L 9 - 39 OC-NFYUQ-ZQR [address] [place] Work Phone: Bilirubin [Mass/Vol] 0.2 mg/dL 0.0 - 1.2 MG-O BGYN-MAC [address] [place] Work Phone: Calcium [Mass/Vol] 7.5 mg/dL below low threshold 8.6 - 10.6 SA-BTAFR-NBS [address] [place] Work Phone: Chloride [Moles/Vol] 105 mmol/L 98 - 107 MG-O BGYN-MAC [address] [place] Work Phone: CO2 [Moles/Vol] 21 mmol/L 21 - 32 MG-OBGYN- MAC [address] [place] Work Phone: Creatinine [Mass/Vol] 0.55 mg/dL See Below MG- OBGYN-MAC [address] [place] Work Phone: Comment on above: Reference Range: 0.5 0 - 1.05 Glucose [Mass/Vol] 75 mg/dL 74 - 99 MG-OBG YN-MAC [address] [place] Work Phone: Potassium [Moles/Vol] 4.0 mmol/L 3.5 - 5.3 MG- OBGYN-MAC [address] [place] Work Phone: Protein [Mass/Vol] 5.1 g/dL below low threshold 6.4 - 8.2 FA-XQVAA-LUM [address] [place] Work Phone: Sodium [Moles/Vol] 136 mmol/L 136 - 145 MG-OBG YN-MAC [address] [place] Work Phone: Urea nitrogen [Mass/Vol] 10 mg/dL 6 - 23 JV-WRVJP-IQQ [address] [place] Work Phone: Laboratory - Hematology and Cell countson 08-21-2022 Erythrocyte distribution width (RBC) [Ratio] 13.1 % See Below LE-EIYAT-TEA [address] [place] Work Phone: Comment on above: Reference Range: 11. 5 - 14.5 Hematocrit (Bld) [Volume fraction] 32.8 % below low threshold See Below HQ-NDVEP-LHE [address] [place] Work Phone: Comment on above: Reference Range: 36. 0 - 46.0 Hemoglobin (Bld) [Mass/Vol] 11.1 g/dL below low threshold See Below ZX-VSAIB-WAH [address] [place] Work Phone: Comment on above: Reference Range: 12. 0 - 16.0 MCHC (RBC) [Mass/Vol] 33.8 g/dL See Below MG- OBGYN-MAC [address] [place] Work Phone: Comment on above: Reference Range: 32. 0 - 36.0 MCV (RBC) [Entitic vol] 87 fL 80 - 100 M G-OBGYN-MAC [address] [place] Work Phone: Platelets (Bld) [#/Vol] 215 10*3/uL 150 - 450 OM-OSAWE-ECU [address] [place] Work Phone: RBC (Bld) [#/Vol] 3.75 {x10E12/L} below low threshold See Below NR-ZSCWH-FHD [address] [place] Work Phone: Comment on above: Reference Range: 4.0 0 - 5.20 WBC (Bld) [#/Vol] 13.0 10*3/uL above high threshold 4.4 - 11.3 CD-VYPGR-ICM [address] [place] Work Phone: No Panel Informationon 08-21 KX-HATUG-SXC [address] [place] Work Phone: >90 >90 IX-KPUUI-WEM [address] [place] Work Phone: Comment on above: CALCULATIONS OF LORIE MATED GFR ARE PERFORMED USING THE 2020 CKD-EPI STUDY REFIT EQUATION WITHOUT THE RACE VARIABLE FOR THE IDMS-TRACEABLE CREATININE METHODS.https://jasn.asnjournals.org/content// ASN.7721284648 0.0 {/100_WBC} 0.0-0.0 MG-OBGYN-M AC [address] [place] Work Phone: ORDER RECD ZC-IEJAK-JEU [address] [place] Work Phone: Order Reconciliationon 08-21 Order Reconciliation Page 1 Transfer Reconciliation Document Reconciliation Type: Transfer requested on behalf of Awilda Cruz (Resident) done by Awilda Cruz ( (Resident)) Transfer - Reconciliation: 21-Aug-2022 12:02 by: Awilda Cruz ( (Resident)) Pre-Transfer OrdersDateReconciliatio n Comment/ Additional InformationPost Transfer OrdersDateStop Medications Acetaminophen Tablet (TYLENOL)DOSE = 975 mg Oral Once 21-Aug-2022 00:38 Acetaminophen Rectal Suppository (TYLENOL)DOSE = 650 mg Rectal Once, PRN Initial pain mgmt following deliveryClinician Notes: Administer in the OR. 20-Aug-2022 23:23 Discontinue/Cancel Acetaminophen Rectal Suppository (TYLENOL)DOSE = 650 mg Rectal Once, PRN Initial pain mgmt following deliveryClinician Notes: Administer in the OR. 20-Aug-2022 23:23 21-Aug-2022 12:02 Calcium Gluconate Injectable DOSE = 1 gram(s) IntraVenous Push Once, PRN Magnesium toxicityClinician Notes: IV push over 5 minutes 20-Aug-2022 23:24 Reviewed and Reconciled Calcium Gluconate Injectable DOSE = 1 gram(s) IntraVenous Push Once, PRN Magnesium toxicityClinician Notes: IV push over 5 minutes 20-Aug-2022 23:24 20-Aug-2023 23:59 Carboprost IntraMuscular (HEMABATE)DOSE = 250 microgram(s) IntraMuscular Once, PRN post bleeding in non-asthmatic patientClinician Notes: Consult provider prior to administration. 20-Aug-2022 23:23 Discontinue/Cancel Carboprost IntraMuscular (HEMABATE)DOSE = 250 microgram(s) IntraMuscular Once, PRN post bleeding in non-asthmatic patientClinician Notes: Consult provider prior to administration. 20-Aug-2022 23:23 21-Aug-2022 12:02 Diphtheria - Tetanus - Pertussis (BOOSTRIX) Vaccine DOSE = 0.5 mL IntraMuscular OnceClinician Notes: :: Prior to Discharge; Order entered from Admission Screen. 21-Aug-2022 00:22 Reviewed and Reconciled Diphtheria - Tetanus - Pertussis (BOOSTRIX) Vaccine DOSE = 0.5 mL IntraMuscular OnceClinician Notes: :: Prior to Discharge; Order entered from Admission Screen. 21-Aug-2022 00:22 21-Aug-2023 23:59 hydrALAZINE (APRESOLINE) Injectable DOSE = 5 mg IntraVenous Push Once, PRN Acute-onset, severe HTN w/out known, suspected CADClinician Notes: Consult provider prior to administration. Push over more than 2 minutes. Systolic greater than or equal to 16 20-Aug-2022 23:23 Discontinue/Cancel hydrALAZINE (APRESOLINE) Injectable DOSE = 5 mg IntraVenous Push Once, PRN Acute-onset, severe HTN w/out known, suspected CADClinician Notes: Consult provider prior to administration. Push over more than 2 minutes. Systolic greater than or equal to 16 20-Aug-2022 23:23 21-Aug-2022 12:02 Labetalol Injectable (TRANDATE)DOSE = 20 mg IntraVenous Push Once, PRN Acute-onset, sev HTN w/o active asthma/ rob<60Clinician Notes: Consult provider prior to administration. Push over more than 2 minutes. Systolic greater than or equal to 160 OR 20-Aug-2022 23:23 Discontinue/Cancel Labetalol Injectable (TRANDATE)DOSE = 20 mg IntraVenous Push Once, PRN Acute-onset, sev HTN w/o active asthma/ rob<60Clinician Notes: Consult provider prior to administration. Push over more than 2 minutes. Systolic greater than or equal to 160 OR 20-Aug-2022 23:23 21-Aug-2022 12:02 Levonorgestrel (LILETTA) 52 mg Implant Device (LILETTA)DOSE = 52 mg IntraUterine Once, PRN ContraceptionNotes from Pharmacy: Low Risk Hazardous Drug- Single Nitrile Glove 20-Aug-2022 23:23 Discontinue/Cancel Levonorgestrel (LILETTA) 52 mg Implant Device (LILETTA)DOSE = 52 mg IntraUterine Once, PRN ContraceptionNotes from Pharmacy: Low Risk Hazardous Drug- Single Nitrile Glove 20-Aug-2022 23:23 21-Aug-2022 12:02 Loperamide Capsule (IMODIUM)DOSE = 4 mg Oral Every 2 Hours, PRN If Carboprost given or loose stoolsClinician Notes: Max dose of 16mg / 24 hours 20-Aug-2022 23:23 Discontinue/Cancel Loperamide Capsule (IMODIUM)DOSE = 4 mg Oral Every 2 Hours, PRN If Carboprost given or loose stoolsClinician Notes: Max dose of 16mg / 24 hours 20-Aug-2022 23:23 21-Aug-2022 12:02 Magnesium Sulfate 20 gram/ Sterile Water 500 mL Infusion with Bolus from Bag IntraVenous INITIAL Bolus = 0 gram(s) infused over 20 minutesDose Rate: 2 g/hrAdmin Rate = 50 mL/hrClinician Notes: Continuous pulse ox throughout IV bolus. 20-Aug-2022 23:24 Reviewed and Reconciled Magnesium Sulfate 20 gram/ Sterile Water 500 mL Infusion with Bolus from Bag IntraVenous INITIAL Bolus = 0 gram(s) infused over 20 minutesDose Rate: 2 g/hrAdmin Rate = 50 mL/hrClinician Notes: Continuous pulse ox throughout IV bolus. 20-Aug-2022 23:24 20-Aug-2023 23:59 metFORMIN (GLUCOPHAGE) TabletDOSE = 500 mg Oral 2 Times a Day With Meals 21-Aug-2022 06:55 Methylergonovine Injectable (METHERGINE)DOSE = 0.2 mg IntraMuscular Once, PRN PPH in pts w/o HTN or receiving ART for HIV mgmt.Clinician Notes: Consult provider prior to administration.Notes from Pharmacy: Reproductive Risk - Single Nitrile Glove 20-Aug-2022 23:23 Discontinue/Cancel Me (more content not included)... Normal [facility] Order Reconciliation Page 1 Admission Reconciliation Document Reconciliation Type: Admission requested on behalf of Kayla Aguilera (Resident) done by Kayla Aguilera ( (Resident)) Admission - Reconciliation: 21-Aug-2022 05:38 by: Kayla Aguilera ( (Resident)) Home MedicationsEnteredLast Dose TakenReconciled with current Order Reconciliation Comment/ Additional Information Plus Iron oral tablet 1 tab(s) orally once a [id number] Reviewed and Held Additional Current Orders Acetaminophen Rectal Suppository (TYLENOL)DOSE = 650 mg Rectal Once, PRN Initial pain mgmt following deliveryClinician Notes: Administer in the OR. Calcium Gluconate Injectable DOSE = 1 gram(s) IntraVenous Push Once, PRN Magnesium toxicityClinician Notes: IV push over 5 minutes Carboprost IntraMuscular (HEMABATE)DOSE = 250 microgram(s) IntraMuscular Once, PRN post bleeding in non-asthmatic patientClinician Notes: Consult provider prior to administration. Diphtheria - Tetanus - Pertussis (BOOSTRIX) Vaccine DOSE = 0.5 mL IntraMuscular OnceClinician Notes: :: Prior to Discharge; Order entered from Admission Screen. hydrALAZINE (APRESOLINE) Injectable DOSE = 5 mg IntraVenous Push Once, PRN Acute-onset, severe HTN w/out known, suspected CADClinician Notes: Consult provider prior to administration. Push over more than 2 minutes. Systolic greater than or equal to 160 OR Diastolic greater than or equal to 110. Contraindication: coronary artery disease (CAD); Caution in suspected CAD. Labetalol Injectable (TRANDATE)DOSE = 20 mg IntraVenous Push Once, PRN Acute-onset, sev HTN w/o active asthma/ rob<60Clinician Notes: Consult provider prior to administration. Push over more than 2 minutes. Systolic greater than or equal to 160 OR Diastolic greater than or equal to 110. Contraindications: active asthma, heart disease, heart failure, maternal bradycardia < 60. Lactated Ringers Infusion IV Bag Volume = 1,000 mL Run at: 75 mL/hr IntraVenous Lactated Ringers IV Bolus DOSE = 500 mL Once, PRN resuscitationInfuse over 30 minute(s) Lactated Ringers IV Bolus DOSE = 500 mL Once, PRN If patient is given an EpiduralInfuse over 30 minute(s)Clinican Notes: Give 30 minutes prior to Epidural catheter placement Levonorgestrel (LILETTA) 52 mg Implant Device (LILETTA)DOSE = 52 mg IntraUterine Once, PRN ContraceptionNotes from Pharmacy: Low Risk Hazardous Drug- Single Nitrile Glove Loperamide Capsule (IMODIUM)DOSE = 4 mg Oral Every 2 Hours, PRN If Carboprost given or loose stoolsClinician Notes: Max dose of 16mg / 24 hours Magnesium Sulfate 20 gram/ Sterile Water 500 mL Infusion with Bolus from Bag IntraVenous INITIAL Bolus = 0 gram(s) infused over 20 minutesDose Rate: 2 g/hrAdmin Rate = 50 mL/hrClinician Notes: Continuous pulse ox throughout IV bolus. Blood pressure, pulse, respirations and pulse oximetry every 15 minutes first hour of Magnesium Sulfate administration, then every hour.Notes from Pharmacy: DOSE Rate = 2 g/hr = 50 mL/hr. Methylergonovine Injectable (METHERGINE)DOSE = 0.2 mg IntraMuscular Once, PRN PPH in pts w/o HTN or receiving ART for HIV mgmt.Clinician Notes: Consult provider prior to administration.Notes from Pharmacy: Reproductive Risk - Single Nitrile Glove miSOPROStol Rectal Tablet (Cytotec)DOSE = 800 microgram(s) Rectal Once, PRN post bleedingClinician Notes: Consult provider prior to administration.Notes from Pharmacy: Reproductive Risk - Single Nitrile Glove NIFEdipine (PROCARDIA XL) Extended Release Tablet, Extended ReleaseDOSE = 30 mg Oral Daily NIFEdipine (PROCARDIA) Immediate Release CapsuleDOSE = 10 mg Oral Once, PRN Acute-onset, severe HTN w/out IV access/ pref oralClinician Notes: Consult provider prior to administration. Systolic greater than or equal to 160 OR Diastolic greater than or equal to 110. Capsules administered orally and swallowed whole; Do not puncture or crush; Do not administer sublingually. Ondansetron Injectable (ZOFRAN)DOSE = 4 mg IntraVenous Push Once, PRN Nausea & Vomiting Oxytocin 30 units/ NaCL 0.9% 500 mL Infusion with Bolus from Bag IntraVenous (PITOCIN)INITIAL Bolus = 600 milliunits/min infused over 30 minutesDose Rate: 60 milliunits/minAdmin Rate = 60 mL/hrStop After 1 DosesClinician Notes: 600 milliunits/min x 30 mins., then 60 milliunits/min for the remainder of the bag. Begin infusion at delivery of (s).Notes from Pharmacy: DOSE Rate = 60 milliunits/min = 60 mL/hr.Reproductive Risk - Single Nitrile Glove Oxytocin 30 units/ NaCL 0.9% 500 mL Infusion with Bolus from Bag IntraVenous (PITOCIN)INITIAL Bolus = 600 milliunits/min infused over 30 minutesDose Rate: 60 milliunits/minAdmin Rate = 60 mL/hrStop After 1 DosesClinician Notes: Conditional order. 600 milliunits/min x 30 mins., then 60 milliunits/min for the remainder of the bag. Consult Provider prior to administration.Notes from Pharmacy: DOSE Rate = 60 (more content not included)... Normal [facility] Patient Profile - OB v3on Patient Profile - OB v3 Profile: Initial Info: How to be AddressedBeth (1) Spoken Language PreferredEnglish (1) Source of Informationpatient Reason for admission this visitexpected delivery Wants Family/Rep Notified of Admissionn/a; family present Notify PCPnotify PCP Informed of Patient Visiting Rightsyes Arrived Fromhospital Patient Belongingsnone Home Meds have been Reviewed and Verified with Patient/Familyyes Medications Brought to Hospitalno Info: Gravida3 (1) Term Deliveries2 (1) Deliveries0 (1) Abortions0 (1) Living Children2 (1) Patient stated [id number] Calculation of EGA based on patient stated EDD38.3 Records availableyes Trimester Care Initiatedfirst Care ProviderOpal BETANCOURT Current Riskspreeclampsia Previous live (any gestational age)yes Most Recent Live [id number] All Previous Delivery Type(s)vaginal delivery All Previous /Delivery Complicationspostpartum hemorrhage Planno Baby's Post Discharge Care Provider (Provider Name, Address and Phone Number) Christoph BETANCOURT/ [facility] Feedingbreastmilk and formula Benefits of Breast Milk DiscussionThe benefits of exclusive breast milk feeding and the risk of adding formula have been discussed with patient / mother. Discussion Date / [id number] 00:16 Previous Experienceno General Health: Current Weight in kg85.9 kilogram(s) Current Weight in chx656.3 pound(s) Weight Methodstated Scale Typestanding Pre Weight (lb)165 pound(s) Total Weight Gain (lb)24 pound(s) Height in feet5 feet Height in inches5.94 inch(es) Height in cm167.4 centimeter(s) Height Methodstated BMI (kg/m2)30.653 square meter Patient or Family Member Reaction to Anesthesiano previous reaction Blood Avoidance/Restrictionsn one Previous Transfusion Reactionnot applicable Rsp Based Care: How would you like to participate in your carekeep me informed What is the number one concern for you during this hospitalizationprior PPH and baby's response to mag What is the most important thing we can do to support you during this hospitalizationno Is there anything we need to know to best care for youdad to cut the cord Substance: Smoking Statusnever smoker (2) Alcohol Usedenies(2) Drug Usedenies (2) Health Mgmt: Symptoms/Conditions Managed at [place] Barriers to Managing Healthnone Relationship/Environ: Primary Source of Support/Comfortchild(re n); significant other(1) Lives Withspouse; dependent child(osei)(3) Living Arrangementshouse(3) Significant Exposurenone(1) Resource/Environmental Concernsnone [facility] Anticipated at Transitionnone Additional Information: Information Review: Allergies and Significant Events have been Reviewed and Verified with Patient/Familyyes Allergy, Intolerance, Adverse Event: Allergies: No Known Allergies: Active Electronic Signatures: Gena Samuel (NICOLE) (Signed 21-Aug-2022 00:18) Authored: Initial Info, Info, General Health, Rsp Based Care, Substance, Health Mgmt, Relationship/Environ, Additional Information Last Updated: 21-Aug-2022 00:18 by Gena Samuel (INCOLE) References: 1. Data Referenced From Patient Profile - OB v3 20-Aug-2022 15:24 2. Data Referenced From History and Physical - OB 20-Aug-2022 18:01 3. Data Referenced From Discharge Planning Note2 20-Aug-2022 15:28 Normal [facility] REQUEST-LEUKOREDUCED RED NEGRA LSon 08-21-2022 REQUEST-LEUKOREDUCED RED CELLS ORDER RECD Normal [facility] Comment on above: Performed By: #### C MP #### [facility] [address] [place] [id number] SYPHILIS SCREENING WITH REFL EXon 08-21-2022 SYPHILIS TOTAL AB Non-Reactive Normal NONREACTIVE [facility] Comment on above: Result Comment: No s ignificant level of Treponema pallidum antibody detected. Repeat testing in 2 to 4 weeks may be considered if early infection or incubating syphilis infection is suspected. Performed By: #### S YPHR #### [facility] [address] [place] [id number] SYPHILIS TOTAL AB Non-Reactive Normal NONREACTIVE [facility] Comment on above: Result Comment: No s ignificant level of Treponema pallidum antibody detected. Repeat testing in 2 to 4 weeks may be considered if early infection or incubating syphilis infection is suspected. Performed By: #### S YPHR #### [facility] [address] [place] [address] Lab Specimen Source Normal [facility] Comment on above: Performed By: #### S YPHR #### [facility] [address] [place] [address] T. pallidum IgG+IgM IA Ql (S) Non-Reactive See Below [id number] [address] [place] Work Phone: Comment on above: SOURCE: Reference Ra nge: NONREACTIVENo significant level of Treponema pallidum antibody detected. Repeat testing in 2 to 4 weeks may be considered if early infection or incubating syphilis infection is suspected. TYPE + SCREENon 08-21-2022 ABO TYPE A Normal [facility] Comment on above: Performed By: #### C MP #### [facility] [address] [place] [address] RH TYPE Negative Normal [facility] Comment on above: Result Comment: Revi ew your Rh Negative female patient's potential need for Rh Immune Globulin (RhIg)administration. Performed By: #### C MP #### [facility] [address] Surgical Pathology Depar tmenton 08-21-2022 [facility] Surgical Pathology Department Name KAREN NORIEGA Pathologist: DANIELA ZAMAN DO Date of Procedure: 08/21/2022 Date Received: 08/22/2022 Date Reported 08/25/2022 Submitting Physician: JANET LAWRENCE Location: [facility] Copy To/Referring/Attending: FATOU BRAY MD Other External # FINAL DIAGNOSIS A. PLACENTA: -- RELATIVELY SMALL, MATURE PLACENTA (327 GRAMS, LESS THAN 5TH PERCENTILE FOR 38 WEEKS). -- DECIDUAL ARTERIOPATHY (MURAL HYPERTROPHY). Electronically Signed Out By DANIELA ZAMAN DO/WALLACEB By the signature on this report, the individual or group listed as making the Final Interpretation/Diagnosi s certifies that they have reviewed this case. Diagnostic interpretation performed at [facility] [address] [place] [address] Clinical History: Gestational age: 38.3 Ob index: G 3, Full term 2, Cedric 0, Ab 0, Lvg 2 Maternal history: presenting as transfer from [facility] for sPEC. Pt found to have mild range BPs in the office yesterday so was sent in for delivery. She was found to be 2/50/-3 and IOL was started with CRB and cyto x1. She then developed severe range BPs requiring IV hydral 5/10 and IV labetalol 20mg. She was started on Mg and transferred to [facility] for further management. Rh neg, s/p rhogam. pre- BMI 27. Ecoli UTI x2 this , no DICKSON. Baby weight: 2.94 kg Apgars: 9 at 1 minute, 9 at 5 minutes Specific questions: Hypertensive disorder Specimens Submitted As: A: PLACENTA A: 0 CORD CLAMP Gross Description: Received fresh, labeled with the patient?s name and hospital number, with an accompanying placental record sheet, is a placenta. The placental membranes are translucent, and complete. The membrane insertion is 50% circumvallate. The point of membrane rupture is 7.5 cm from the nearest margin. The umbilical cord is pale-yellow, 25 cm in total length, and inserts in the placenta, 5.1 cm from the margin. There are up to 2 coils per 10 cm. On cut section, the cord has 3 vessels, and measures 1.5 x 1.1 cm. The placenta is discoid, 15.5 x 14.5 x 3.1 cm, and weighs 327 g without cord or membranes. The surface is blue-red, and translucent. The maternal surface is complete. The cut surface is dark red, and spongy. No additional gross abnormalities are noted. Risk Management Intern sections are submitted in 5 cassettes. IAD Summary of Cassettes: Specimen Label Site A 1 umbilical cord sections 2 membrane rolls 3 placental parenchyma, umbilical cord insertion site 4 placental parenchyma 5 placental parenchyma iad/08/23/2022 [facility] Department of Pathology [address] [place] [address] Normal [facility] Comment on above: Performed By: #### C MP #### [facility] [address] [place] [address] URINE CULTURE,BACTERIALon URINE CULTURE,BACTERIAL PATIENT: KAREN NORIEGA LOCATION: [place] [address] BILL#: [id number] : 89 AGE: SEX: F ORDERED BY: RIC VAZQUEZ SOURCE: URINE COLLECTED: 08/21/22 01:30 ANTIBIOTICS AT [facility].: RECEIVED : 08/21/22 03:26 SITE: [facility] R E S U L T S URINE CULTURE,BACTERIAL FINAL 08/22/22 08:54 NO GROWTH Normal [facility] Comment on above: Performed By: #### U RINC #### [facility] [address] [place] [address] Admission Risk Screen - OBon 08-20-2022 Admission Risk Screen - OB Allergies: Allergies: No Known Allergies: Patient Verification: New W ID Band Applied in my Departmentyes (1) Patient Identity Verified Bypatient(1) ID Band FULL Name, include Middle, spelling matches patient's ID used for verificationyes (1) ID Band Matches Patient ID used for Verficationyes (1) ID Band MRN Matches EMR MRNyes (1) Visitor Restriction: Coronavirus Visitor Restriction: Reasonable restrictions to in-person visitors will be observed due to current coronavirus pandemic. Travel History: COVID-19 Screening Completedno exposure or symptoms(1) Travel or Exposure Past 30 DaysNO travel to International locations in the past 30 days Advance Directive: Advance Directive/DNRno (1) Advance Directive Information Givenpatient/family declined (1) [place] Fall Screen: History of falling (immediate or previous)no (0) Secondary Diagnosisno (0) Intravenous Therapy/ Heparin/Saline Lockno (0) Gait/Transferringnormal /bedrest/wheelchair (0) Ambulatory Aidsnone/bedrest/nurse assist (0) Mental Statusoriented to own ability (0) Score: Low risk (<25). Moderate risk (25-44). High risk (>44).0 Oliveros InterventionsLOW INTERVENTIONS: *patient oriented to surroundings and call system, * patient/family falls education completed and documented, *patients fall status communicated during bedside handoff, *whiteboard updated, *mode of toileting discussed with patient, *bed in low position with brakes locked, *call light in reach, * non-skid footwear Functional screen: Functional Screen: In the recent/past 2-4 weeks, patient or family have noticedno issues that require a rehabilitation consult at this time Learning Assessment (Patient): Patient is Able to be Assessed for Learningyes (1) Factors Influencing Readiness to Learnmotivation to learn(2) Factors that Impact Ability to Learnnone(2) Devices/Methods Used to Communicatenone(2) Learning Preferencesverbal instruction; skill demonstration(2) Cultural Considerationsnone (2) Developmental Considerationsnone (2) Hinduism Considerationsnone (2) Learning Assessment (Other Learner): Other learner availableyes... Learnersignificant other Factors Influencing Readiness to Learnanxiety Factors that Impact Ability to Learnnone Devices/Methods Used to Communicatenone Learning Preferencesverbal instruction Cultural Considerationsnone Developmental Considerationsnone Hinduism Considerationsnone Nutrition Risk Screen: Nutrition Risk Screenno indicators present Nutrition Consult needed this visitno Can Patient Participate in Room Serviceyes Pain Screen: Pain Control Method: Laborepidural Pain Control Method: Postpartumnone Pain Scalenumerical 0-10 Pain Scale Educationteaching provided Acceptable Pain Level7 = Severe Presence of Painno Expression of Pain (nonverbal)none Lifestyle Changes/Adaptations in Response to Painno change Chronic Painno Skin - Gilbert Scale: Gilbert Scale (daily): Gilbert: Sensory Perception (response to environment)(4) no impairment Gilbert: Moisture (degree skin exposed to moisture)(4) rarely moist Gilbert: Activity (ability to walk)(4) walks frequently Gilbert: Mobility (amount/control of body movement)(4) no limitation Gilbert: Nutrition (quality of food intake)(4) excellent Gilbert: Friction and Shear(3) no apparent problem Gilbert: Score23 Pressure Injury Present on Admissionno Spiritual Screen: Are there any cultural, spiritual, latter day practices/values/needs that are important for us to knowno Do you want a visit/item from Pastoral Ca[facility]o Would you like your Relocation Commissioner/Enamel Cracker notifiedno Depression Screen: During the past month, have you often been bothered by feeling down, depressed or hopelessno (1) During the past month, have you often had little interest or pleasure in doing thingsno (1) Have you had any thoughts of harming anyone elseno (1) [place] Suicide: Risk Screen Not Applicable/Able to Answerable to be screened In the Past Month: Have you wished you were or could go to sleep and not wake upno In the Past Month: Have you had any actual thoughts of killing yourselfno Lifetime: Have you ever done, started to do, or prepared to do anything to end your lifeno [place] Suicide Risknegative Family Violence Screen: Are you or have you been threatened or abused physically, emotionally, or sexually by anyoneno (1) Do you feel UNSAFE going back to the place where you are livingno (1) Clinical assessment: Are there any apparent signs of injuries/behaviors that could be related to abuse/neglectno (1) Social Service Consult for abuse/neglect needed this visitno Vaccinations: Vaccination - Influenza Vaccination Screen: Is it flu season (between and October 22)Yes Screening for identified contraindications to influenza vaccination patient/caregiver refusal Vaccination - Pneumonia Vaccinati (more content not included)... Normal [facility] CBCon 08-20-2022 Erythrocyte distribution width (RBC) [Ratio] 13.0 % Normal 11.5 - 14.5 [facility] Comment on above: Performed By: #### C BC #### [place] [id number] Hematocrit (Bld) [Volume fraction] 34.0 % Low 36.0 - 46.0 [facility] Comment on above: Performed By: #### C BC #### [address] [address] Hemoglobin (Bld) [Mass/Vol] 11.4 g/dL Low 12.0 - 16.0 [facility] Comment on above: Performed By: #### C BC #### [address] [address] MCHC (RBC) [Mass/Vol] 33.5 g/dL Normal 32.0 - 36.0 [facility] Comment on above: Performed By: #### C BC #### [address] [address] MCV (RBC) [Entitic vol] 86 fL Normal 80 - 100 [facility] Comment on above: Performed By: #### C BC #### [address] [address] Platelets (Bld) [#/Vol] 207 10*3/uL Normal 150 - 450 [facility] Comment on above: Performed By: #### C BC #### [address] [address] RBC 3.94 x10E12/L Low 4.00 - 5.20 [facility] Comment on above: Performed By: #### C BC #### [address] [address] WBC (Bld) [#/Vol] 9.8 10*3/uL Normal 4.4 - 11.3 [facility] Comment on above: Performed By: #### C BC #### [place] [id number] COMPREHENSIVE PANELon 2022 Albumin [Mass/Vol] 3.4 g/dL Normal 3.4 - 5.0 [facility] Comment on above: Performed By: #### C MP #### [place] [id number] ALP [Catalytic activity/Vol] 86 U/L Normal 33 - 110 [facility] Comment on above: Performed By: #### C MP #### [address] [address] ALT [Catalytic activity/Vol] 9 U/L Normal 7 - 45 [facility] Comment on above: Result Comment: Kareen ents treated with Sulfasalazine may generate falsely decreased results for ALT. Performed By: #### C MP #### [place] [address] Anion gap [Moles/Vol] 12 mmol/L Normal 10 - 20 [facility] Comment on above: Performed By: #### C MP #### [address] [address] AST [Catalytic activity/Vol] 13 U/L Normal 9 - 39 [facility] Comment on above: Performed By: #### C MP #### [address] [address] Bilirubin [Mass/Vol] 0.3 mg/dL Normal 0.0 - 1.2 [facility] Comment on above: Performed By: #### C MP #### [address] [address] Calcium [Mass/Vol] 8.2 mg/dL Low 8.6 - 10.3 [facility] Comment on above: Performed By: #### C MP #### [address] [address] Chloride [Moles/Vol] 104 mmol/L Normal 98 - 107 [facility] Comment on above: Performed By: #### C MP #### [address] [address] Creatinine [Mass/Vol] 0.48 mg/dL Low 0.50 - 1.05 [facility] Comment on above: Performed By: #### C MP #### [address] [address] eGFR FEMALE >90 Normal >90 [facility] Comment on above: Result Comment: CALC ULATIONS OF ESTIMATED GFR ARE PERFORMED USING THE 2020 CKD-EPI STUDY REFIT EQUATION WITHOUT THE RACE VARIABLE FOR THE IDMS-TRACEABLE CREATININE METHODS. https://jasn.asnjournals.org/content/early/ASN.2020 032463 Performed By: #### C MP #### [address] [address] Glucose [Mass/Vol] 76 mg/dL Normal 74 - 99 [facility] Comment on above: Performed By: #### C MP #### [address] [address] HCO3 (Bld) [Moles/Vol] 22 mmol/L Normal 21 - 32 [facility] Comment on above: Performed By: #### C MP #### [address] [address] Potassium [Moles/Vol] 3.9 mmol/L Normal 3.5 - 5.3 [facility] Comment on above: Performed By: #### C MP #### [address] [address] Protein [Mass/Vol] 6.5 g/dL Normal 6.4 - 8.2 [facility] Comment on above: Performed By: #### C MP #### [address] [address] Sodium [Moles/Vol] 134 mmol/L Low 136 - 145 [facility] Comment on above: Performed By: #### C MP #### [address] [address] Urea nitrogen [Mass/Vol] 12 mg/dL Normal 6 - 23 [facility] Comment on above: Performed By: #### C MP #### [place] [address] CORONAVIRUS 2019, SCREEN ASY MPTOMATICon 08-20-2022 SARS-CoV-2 (COVID-19) RNA PIOTR+probe Ql (Unsp spec) Not detected Normal Not Detected [facility] Comment on above: Result Comment: . This test has received [facility] Emergency Use Authorization (EUA) and has been verified by [facility]. This test is only authorized for the duration of time that circumstances exist to justify the authorization of the emergency use of in vitro diagnostic tests for the detection of SARS-CoV-2 virus and/or diagnosis of COVID-19 infection under section 564(b)(1) of the Act, 21 U.S.C. 360bbb-3(b)(1), unless the authorization is terminated or revoked sooner. [facility] is certified under CLIA-88 as qualified to perform high complexity testing. Testing is performed in the [facility] laboratory located at [address] [place] [address]. SARS-CoV-2/Flu/RSV Multiplex Test: Fact sheet for providers: https://www.fda.gov/media/051932/download Fact sheet for patients: https://www.fda.gov/media/318310/download Performed By: #### T +S #### [place] [address] Lab Specimen Source Nasal, Nasopharyngeal Normal [facility] Comment on above: Performed By: #### T +S #### [place] [address] Coronavirus 2019 RNA by PCR, Screening Asymptomticon 08-20-2022 Coronavirus 2019 RNA by PCR, Screening Asymptomtic Not detected Normal See Below [facility] [address] Work Phone: Comment on above: SOURCE: Nasal, Nasop haryngealReference Range: Not Detected.This test has received FDA Emergency Use Authorization (EUA) and has been verified by [facility]. This test is only authorized for the duration of time that circumstances exist to justify the authorization of the emergency use of in vitro diagnostic tests for the detection of SARS-CoV-2 virus and/or diagnosis of COVID-19 infection under section 564(b)(1) of the Act, 21 U.S.C. 360bbb-3(b)(1), unless the authorization is terminated or revoked sooner. [facility] is certified under CLIA-88 as qualified to perform high complexity testing. Testing is performed in the [facility] laboratory located at [address] [place] [address].SARS-CoV-2/Flu/RSV Multiplex Test: Fact sheet for providers: https://www.fda.gov/media/366580/downloadFact sheet for patients: https://www.fda.gov/media/666675/download Discharge Planning [id number] 0 08-20-2022 Discharge Planning Note2 Discharge Planning: Anticipated Discharge [id number] Discharge Planning Date and Time: 08/20/22 1530 Discharge Planning initiated on admission and formally reevaluated at this time. Patient independent with ambulation and ADL's prior to admission. Additional home going needs anticipated at this time: none Handouts given to and reviewed with patient/caregiver per unit folder standards. Patient verbalizes understanding and denies any other post-discharge needs. Plan to continue to assess home going/discharge needs. Coordinate with interdisciplinary team as needed. Signature: Sofia Barajas RN Date and Time: #### According to plan, patient discharged home with #### Discharge instructions printed and reviewed. Teaching provided on new medications, self-care, signs and symptoms to report, and follow-up appointments. Patient verbalized understanding and denies any questions at time of discharge. Patient instructed to call provider with any additional questions after discharge. Signature: #### Assessment: Discharge Planning Assessment [id number] Lives Withspouse; dependent child(osei)(1) Living Arrangementshouse(1) Arrived Fromphysician office (1) Resource/Environmental Concernsnone(1) [place] Services Anticipated at Transitionnone(1) Electronic Signatures: Sofia Barajas (RN) (Signed 20-Aug-2022 15:29) Authored: Discharge Planning, Assessment Last Updated: 20-Aug-2022 15:29 by Sofia Barajas (RN) References: 1. Data Referenced From Patient Profile - OB v3 20-Aug-2022 15:24 Normal [facility] Laboratory - Blood bankon ABO group Nom (Bld) [facility] [address] Work Phone: [phone] Blood group antibody investigation (P/RBC) [Interp] ANTI-D [id number] [address] [place] Work Phone: Comment on above: ANTI-D DUE TO RHOGAM Blood group antibody screen Ql Positive [facility] [address] Work Phone: [phone] Rh immune globulin screen (Bld) [Interp] Negative [facility] [address] Work Phone: [phone] Comment on above: Review your Rh Negat regis female patient's potential need for Rh Immune Globulin (RhIg)administration. Laboratory - Chemistry and C hemistry - challengeon 08-20-2022 Albumin BCP dye [Mass/Vol] 3.4 g/dL 3.4 - 5.0 [facility] [address] Work Phone: [phone] ALP [Catalytic activity/Vol] 86 U/L 33 - 110 [facility] [address] Work Phone: [phone] ALT With P-5'-P [Catalytic activity/Vol] 9 U/L 7 - 45 [facility] [address] Work Phone: [phone] Comment on above: Patients treated wit h Sulfasalazine may generate falsely decreased results for ALT. Anion gap [Moles/Vol] 12 mmol/L 10 - 20 [facility] [address] Work Phone: [phone] AST With P-5'-P [Catalytic activity/Vol] 13 U/L 9 - 39 [facility] [address] Work Phone: [phone] Bilirubin [Mass/Vol] 0.3 mg/dL 0.0 - 1.2 [facility] [address] Work Phone: [phone] Calcium [Mass/Vol] 8.2 mg/dL below low threshold 8.6 - 10.3 [facility] [address] Work Phone: [phone] Chloride [Moles/Vol] 104 mmol/L 98 - 107 [facility] [address] Work Phone: [phone] CO2 [Moles/Vol] 22 mmol/L 21 - 32 [facility] [address] Work Phone: [phone] Creatinine [Mass/Vol] 0.48 mg/dL below low threshold See Below [facility] [address] Work Phone: [phone] Comment on above: Reference Range: 0.5 0 - 1.05 Glucose [Mass/Vol] 76 mg/dL 74 - 99 [facility] [address] Work Phone: [phone] Potassium [Moles/Vol] 3.9 mmol/L 3.5 - 5.3 [facility] [address] Work Phone: [phone] Protein [Mass/Vol] 6.5 g/dL 6.4 - 8.2 [facility] [address] Work Phone: [phone] Sodium [Moles/Vol] 134 mmol/L below low threshold 136 - 145 [facility] [address] Work Phone: [phone] Urea nitrogen [Mass/Vol] 12 mg/dL 6 - 23 [facility] [address] Work Phone: [phone] Laboratory - Hematology and Cell countson 08-20-2022 Erythrocyte distribution width (RBC) [Ratio] 13.0 % See Below [facility] [address] Work Phone: [phone] Comment on above: Reference Range: 11. 5 - 14.5 Hematocrit (Bld) [Volume fraction] 34.0 % below low threshold See Below [facility] [address] Work Phone: [phone] Comment on above: Reference Range: 36. 0 - 46.0 Hemoglobin (Bld) [Mass/Vol] 11.4 g/dL below low threshold See Below [facility] [address] Work Phone: [phone] Comment on above: Reference Range: 12. 0 - 16.0 MCHC (RBC) [Mass/Vol] 33.5 g/dL See Below [facility] [address] Work Phone: [phone] Comment on above: Reference Range: 32. 0 - 36.0 MCV (RBC) [Entitic vol] 86 fL 80 - 100 [facility] [address] Work Phone: [phone] Platelets (Bld) [#/Vol] 207 10*3/uL 150 - 450 [facility] [address] Work Phone: [phone] RBC (Bld) [#/Vol] 3.94 {x10E12/L} below low threshold See Below [facility] [address] Work Phone: [phone] Comment on above: Reference Range: 4.0 0 - 5.20 WBC (Bld) [#/Vol] 9.8 10*3/uL 4.4 - 11.3 [facility] [address] Work Phone: [phone] Panel Informationon 08-20 ORDER RECD [facility] [address] Work Phone: [phone] >90 >90 [facility] [address] Work Phone: [phone] Comment on above: CALCULATIONS OF LORIE MATED GFR ARE PERFORMED USING THE 2020 CKD-EPI STUDY REFIT EQUATION WITHOUT THE RACE VARIABLE FOR THE IDMS-TRACEABLE CREATININE METHODS.https://jasn.asnjournals.org/content/early/ ASN.1722931031 Normal [facility] [address] Work Phone: Patient Profile - OB v3on Patient Profile - OB v3 Profile: Initial Info: How to be AddressedBeth (1) Spoken Language PreferredEnglish Source of Informationpatient Reason for admission this visitexpected delivery Wants Family/Rep Notified of Admissionno Notify PCPdo not notify PCP Informed of Patient Visiting Rightsyes Limitations on Visitors/Phone Callsnone Temporary Family Living Arrangements (While Hospitalized)none needed [facility] [facility] [facility] To in Past 90 Daysnone Patient Belongingsremains with patient Home Meds have been Reviewed and Verified with Patient/Familyyes Medications Brought to Hospitalno Info: Gravida3 (2) Term Deliveries2 (2) Deliveries0 (2) Abortions0 (2) Living Children2 (2) Patient stated [id number] Calculation of EGA based on patient stated EDD38.2 Records availableyes Trimester Care Initiatedfirst Care ProviderDr. Joseph Current Risksnone Previous live (any gestational age)yes Most Recent Live [id number] All Previous Delivery Type(s)vaginal delivery All Previous /Delivery Complicationsnone, hemorrhage Planno Contraceptionnone Baby's Post Discharge Care Provider (Provider Name, Address and Phone Number) [facility] Feedingbreastmilk Benefits of Breast Milk DiscussionThe benefits of exclusive breast milk feeding and the risk of adding formula have been discussed with patient / mother. Discussion Date / [id number] 15:26 Previous Experienceyes General Health: Current Weight in kg86 kilogram(s) Current Weight in pro921.5 pound(s) Weight Methodactual (measured) Scale Typestanding Pre Weight (lb)165 pound(s) Total Weight Gain (lb)24 pound(s) Height in feet5 feet Height in inches5.91 inch(es) Height in cm167.4 centimeter(s) Height Methodstated BMI (kg/m2)30.689 square meter Patient or Family Member Reaction to Anesthesianever had anesthesia Blood Avoidance/Restrictionsn one Previous Transfusion Reactionnot applicable Rsp Based Care: How would you like to participate in your carehelp make decisions What is the number one concern for you during this hospitalizationsafe delivery What is the most important thing we can do to support you during this hospitalizationlisten to me Is there anything we need to know to best care for youno Substance: Smoking Statusnever smoker (2) Alcohol Usedenies(2) Drug Usedenies (2) Health Mgmt: Symptoms/Conditions Managed at Homenone Barriers to Managing Healthnone Relationship/Environ: Primary Source of Support/Comfortchild(re n); significant other Lives Withspouse; dependent child(osei) Living Arrangementshouse Significant Exposurenone Resource/Environmental Concernsnone [facility] Anticipated at Transitionnone Additional Information: Information Review: Allergies and Significant Events have been Reviewed and Verified with Patient/Familyyes Allergy, Intolerance, Adverse Event: Allergies: No Known Allergies: Active Electronic Signatures: Sofia Barajas (RN) (Signed 20-Aug-2022 15:28) Authored: Initial Info, Info, General Health, Rsp Based Care, Substance, Health Mgmt, Relationship/Environ, Additional Information Last Updated: 20-Aug-2022 15:28 by Sofia Barajas (RN) References: 1. Data Referenced From Patient Profile - OB v3 18-Aug-2020 06:35 2. Data Referenced From Triage Note - OB v4 20-Aug-2022 10:46 [facility] REQUEST-LEUKOREDUCED RED NEGRA LSon 08-20-2022 REQUEST-LEUKOREDUCED RED CELLS ORDER RECD [facility] Comment on above: Performed By: #### T +S #### [place] [address] Risk Screen - OB Triageon Risk Screen - OB Triage Allergies: Allergies: Allergies: No Known Allergies: Patient Verification: Patient Verification: New W ID Band Applied in my Departmentyes Patient Identity Verified Bypatient ID Band FULL Name, include Middle, spelling matches patient's ID used for verificationyes ID Band Matches Patient ID used for Verficationyes ID Band MRN Matches EMR MRNyes Travel History: Travel History: COVID-19 Screening Completedno exposure or symptoms Travel or Exposure Past 30 DaysNO travel to International locations in the past 30 days Advance Directives: Advance Directive: Advance Directive/DNRno Advance Directive Information Givenpatient/family declined Falls Risk: Oliveros Fall Screen: History of falling (immediate or previous)no (0) Secondary Diagnosisno (0) Intravenous Therapy/ Heparin/Saline Lockno (0) Gait/Transferringnormal /bedrest/wheelchair (0) Ambulatory Aidsnone/bedrest/nurse assist (0) Mental Statusoriented to own ability (0) Score: Low risk (<25). Moderate risk (25-44). High risk (>44).0 Oliveros InterventionsLOW INTERVENTIONS: *patient oriented to surroundings and call system, * patient/family falls education completed and documented, *patients fall status communicated during bedside handoff, *whiteboard updated, *mode of toileting discussed with patient, *bed in low position with brakes locked, *call light in reach, * non-skid footwear Learning Assessment (Patient): Learning Assessment (Patient): Patient is Able to be Assessed for Learningyes Factors Influencing Readiness to Learnmotivation to learn Factors that Impact Ability to Learnnone Devices/Methods Used to Communicatenone Learning Preferencesverbal instruction; skill demonstration Cultural Considerationsnone Developmental Considerationsnone Hinduism Considerationsnone Learning Assessment (Other Learner): Other learner availableno Depression/Suicide: Depression Screen: During the past month, have you often been bothered by feeling down, depressed or hopelessno During the past month, have you often had little interest or pleasure in doing thingsno Have you had any thoughts of harming anyone elseno [place] Suicide: Risk Screen Not Applicable/Able to Answerable to be screened In the Past Month: Have you wished you were or could go to sleep and not wake upno In the Past Month: Have you had any actual thoughts of killing yourselfno Lifetime: Have you ever done, started to do, or prepared to do anything to end your lifeno [place] Suicide Risknegative Family Violence: Abuse Screen: Are you or have you been threatened or abused physically, emotionally, or sexually by anyoneno Do you feel UNSAFE going back to the place where you are livingno Clinical assessment: Are there any apparent signs of injuries/behaviors that could be related to abuse/neglectno Electronic Signatures: Hyacinth Bajwa (NICOLE) (Signed 20-Aug-2022 10:52) Authored: Allergies, Patient Verification, Travel History, Advance Directives, Oliveros Fall Screen, Learning Assessment (Patient), Learning Assessment (Other Learner), Depression/Suicide, Family Violence Last Updated: 20-Aug-2022 10:52 by Hyacinth Bajwa (NICOLE) [facility] SYPHILIS SCREENING WITH REFL EXon 08-20-2022 Lab Specimen Source [facility] Comment on above: Performed By: #### S YPHR #### [facility] [address] [place] [address] T. pallidum IgG+IgM IA Ql (S) Non-Reactive See Below [id number] [address] [place] Work Phone: Comment on above: SOURCE: Reference Ra nge: NONREACTIVENo significant level of Treponema pallidum antibody detected. Repeat testing in 2 to 4 weeks may be considered if early infection or incubating syphilis infection is suspected. TOTAL PROTEIN, URINE SPOTon 08-20-2022 CREATININE,URINE 36.0 mg/dL Normal 20.0 - 320.0 [facility] Comment on above: Performed By: #### T +S #### [place] [id number] T. PROTEIN/CREAT RATIO 0.28 mg/mg Creat High 0.00 - 0.17 [facility] Comment on above: Performed By: #### T +S #### [address] [address] TOTAL PROT,URINE SPOT 10 mg/dL Normal 5 - 24 [facility] Comment on above: Performed By: #### T +S #### [address] [address] TYPE + SCREENon 08-20-2022 ABO TYPE A Normal [facility] Comment on above: Performed By: #### T +S #### [address] [address] RH TYPE Negative Normal [facility] Comment on above: Result Comment: Revi ew your Rh Negative female patient's potential need for Rh Immune Globulin (RhIg)administration. Performed By: #### T +S #### [address] [address] Total Protein, Urine Spoton 08-20-2022 Creatinine (U) [Mass/Vol] 36.0 mg/dL See Below [facility] [employer] Work Phone: Comment on above: Reference Range: 20. 0 - 320.0 Protein (U) [Mass/Vol] 10 mg/dL 5 - 24 [facility] [address] [employer] Work Phone: Protein/Creatinine (U) [Ratio] 0.28 {mg/mg_Creat} above high threshold See Below [facility] [address] Work Phone: Comment on above: Reference Range: 0.0 0 - 0.17 Triage Note - OB v4on 2022 Triage Note - OB v4 Triage: General Info: Time of Arrival on [id number]-0625 10:35 Patient arrived viaambulatory Arrived Fromphysician office Acuity Level4 Chief Complaintsent over from office for BP Source of Informationpatient Weight in kg86 kilogram(s) Weight in olc354.5 pound(s) Weight Methodactual (measured) Scale Typestanding Height in feet5 feet Height in inches5.94 inch(es) Height in cm167.4 centimeter(s) Height Methodstated BMI (kg/m2)30.689 square meter Blood Avoidance/Restrictionsn one Home Meds have been Reviewed and Verified with Patient/Familyyes Info: Gravida3 Term Deliveries2 Deliveries0 Abortions0 Living Children2 Patient stated [id number] Calculation of EGA based on patient stated EDD38.2 Records availableyes Trimester Care Initiatedfirst Care ProviderDr. Joseph Current Risksnone Previous live (any gestational age)yes All Previous /Delivery Complicationspostpartum hemorrhage Substance: Smoking Statusnever smoker Alcohol Usedenies Drug Usedenies Disposition/Disch: Dispositionadmitted to Labor and Delivery Patient Meets Criteria for Home Blood Pressure Monitorno Admission/Observation/D ischarge/Transfer Date/Vlph69-Huy-7911 15:10 Travel History: Travel or ExposureNO travel to International locations in the past 30 days Additional Information: Information Review: Allergies have been Reviewed and Verified with Patient/Familyyes Allergy, Intolerance, Adverse Event: Allergies: No Known Allergies: Active Electronic Signatures: Hyacinth Bajwa (NICOLE) (Signed 20-Aug-2022 15:31) Authored: General Info, Info, Substance, Disposition/Disch, Travel History, Additional Information Last Updated: 20-Aug-2022 15:31 by Hyacinth Bajwa (NICOLE) Normal [facility] URIC ACIDon 08-20-2022 Urate [Mass/Vol] 4.0 mg/dL Normal 2.3 - 6.7 [facility] Comment on above: Result Comment: Nannette puncture immediately after or during the administration of Metamizole may lead to falsely low results. Testing should be performed immediately prior to Metamizole dosing. Performed By: #### U YAYA #### [address] [address] Uric Acid, Serumon Urate [Mass/Vol] 4.0 mg/dL 2.3 - 6.7 [facility] [employer] Work Phone: Comment on above: Venipuncture immedia tely after or during the administration of Metamizole may lead to falsely low results. Testing should be performed immediately prior to Metamizole dosing. GROUP B STREP SCREENon 08-06 GROUP B STREP SCREEN PATIENT: KAREN NORIEGA LOCATION: [address]#: [id number] : 89 AGE: SEX: F ORDERED BY: VANGIE JOSEPH SOURCE: VAGINAL COLLECTED: 08/06/22 08:32 ANTIBIOTICS AT YAAKOV.: RECEIVED : 08/06/22 20:38 SITE: VAGINAL R E S U L T S GROUP B STREP SCREEN FINAL 08/08/22 09:37 NEGATIVE FOR GROUP B BETA STREP. Normal [facility] Comment on above: Performed By: #### G BSCR #### [facility] [address] [place] [address] Laboratory - Microbiology an d Antimicrobial susceptibilityon 08-06-2022 Bacteria identified Aer cx Nom (Genital specimen) [facility] [address] [employer] Work Phone: CBC ANEMIA PANEL WITH REFLEX ,PREGNANCYon 06-11-2022 Erythrocyte distribution width (RBC) [Ratio] 13.1 % Normal 11.5 - 14.5 [facility] Comment on above: Performed By: #### A NEMI #### [address] [address] Hematocrit (Bld) [Volume fraction] 33.9 % Low 36.0 - 46.0 [facility] Comment on above: Performed By: #### A NEMI #### [address] [address] Hemoglobin (Bld) [Mass/Vol] 11.8 g/dL Low 12.0 - 16.0 [facility] Comment on above: Performed By: #### A NEMI #### [address] [address] MCHC (RBC) [Mass/Vol] 34.8 g/dL Normal 32.0 - 36.0 [facility] Comment on above: Performed By: #### A NEMI #### [place] [id number] MCV (RBC) [Entitic vol] 87 fL Normal 80 - 100 [facility] Comment on above: Performed By: #### A NEMI #### [place] [id number] Platelets (Bld) [#/Vol] 208 10*3/uL Normal 150 - 450 [facility] Comment on above: Performed By: #### A NEMI #### [place] [id number] RBC 3.90 x10E12/L Low 4.00 - 5.20 [facility] Comment on above: Performed By: #### A NEMI #### [place] [id number] REFLEX ADDED, ANEMIA PANEL NONE Normal [facility] Comment on above: Performed By: #### A NEMI #### [place] [id number] WBC (Bld) [#/Vol] 9.0 10*3/uL Normal 4.4 - 11.3 [facility] Comment on above: Performed By: #### A NEMI #### [place] [id number] Clinical Event Noteon 2021 Clinical Event Note Clinical Event: Clinical Event Note: Details pt to triage 2 for Rhogam injection. consent and order obtained. Lot number [id number] expiration date of 03/20/2023. Administered in the right deltoid. pt tolerated well. bandaid applied Electronic Signatures: Reshma Sullivan (NICOLE) (Signed 11-Jun-2022 17:51) Authored: Clinical Event Note Last Updated: 11-Jun-2022 17:51 by Reshma Sullivan (RN) Normal [facility] GLUCOSE,1 HR SCREEN, PREGon 06-11-2022 Glucose [Mass/Vol] 84 mg/dL Normal <135 [facility] Comment on above: Result Comment: Diag nostic value with glucose loading dose of 50 g. Reference values from [place] [employer]. Diabetes Care 2015;38(Suppl.1):S8-S16 Performed By: #### G LUS1 #### [facility] [address] [place] [id number] Glucose, 1 Hour Screen, Preg nancyon 06-11-2022 Glucose 1 Hr post 50 g glucose PO [Mass/Vol] 84 mg/dL <135 [facility] [address] [employer] Work Phone: [phone] Comment on above: Diagnostic value wit h glucose loading dose of 50 g. Reference values from [place] [employer]. Diabetes Care 2015;38(Suppl.1):S8-S16 Laboratory - Blood bankon ABO group Nom (Bld) [facility] [address] [employer] Work Phone: [phone] Blood group antibody screen Ql Negative [facility] [address] [employer] Work Phone: [phone] Rh immune globulin screen (Bld) [Interp] Negative [facility] [address] [employer] Work Phone: [phone] Comment on above: Review your Rh Negat regis female patient's potential need for Rh Immune Globulin (RhIg)administration. Blood group antibody screen Ql Canceled [facility] [address] [employer] Work Phone: [phone] Laboratory - Hematology and Cell countson 06-11-2022 Erythrocyte distribution width (RBC) [Ratio] 13.1 % See Below [facility] [address] Work Phone: [phone] Comment on above: Reference Range: 11. 5 - 14.5 Hematocrit (Bld) [Volume fraction] 33.9 % below low threshold See Below [facility] [address] [employer] Work Phone: [phone] Comment on above: Reference Range: 36. 0 - 46.0 Hemoglobin (Bld) [Mass/Vol] 11.8 g/dL below low threshold See Below [facility] [address] Work Phone: [phone] Comment on above: Reference Range: 12. 0 - 16.0 MCHC (RBC) [Mass/Vol] 34.8 g/dL See Below [facility] [address] [employer] Work Phone: [phone] Comment on above: Reference Range: 32. 0 - 36.0 MCV (RBC) [Entitic vol] 87 fL 80 - 100 [facility] [address] [employer] Work Phone: [phone] Platelets (Bld) [#/Vol] 208 10*3/uL 150 - 450 [facility] [address] [employer] Work Phone: [phone] RBC (Bld) [#/Vol] 3.90 {x10E12/L} below low threshold See Below [facility] [address] [employer] Work Phone: [phone] Comment on above: Reference Range: 4.0 0 - 5.20 WBC (Bld) [#/Vol] 9.0 10*3/uL 4.4 - 11.3 [facility] [address] [employer] Work Phone: [phone] No Panel Informationon 06-11 NONE [facility] [address] [employer] Work Phone: [phone] RH IMMUNE GLOB.on 06-11-2022 RH IMMUNE GLOB. Canceled [facility] Comment on above: Order Comment: TEST RH IMMUNE GLOB. WAS CANCELLED, 06/11/2022 17:11 duplicate. Performed By: #### R HIG #### [place] [address] RH IMMUNE GLOB. Canceled [facility] Comment on above: Order Comment: TEST RH IMMUNE GLOB. WAS CANCELLED, 06/11/2022 17:04 duplicate. Performed By: #### R HIG #### [place] [id number] RH IMMUNE GLOB. ORDER RECD [facility] Comment on above: Performed By: #### T +S #### [address] [address] RH IMMUNE GLOB. Canceled Normal [facility] Comment on above: Order Comment: TEST RH IMMUNE GLOB. WAS CANCELLED, 06/11/2022 09:17 Tests to be done at [facility]. Adryan whitmorecortney rowlandonter needed. 06/11/2022 09:17 HS. Performed By: #### R [facility] #### [facility] [address] [place] [address] Rhogamon 06-11-2022 Rhogam Canceled [facility] [address] Work Phone: [phone] Rhogam ORDER RECD [facility] [address] Work Phone: [phone] Rhogam Canceled [facility] [address] [employer] Work Phone: [phone] Rhogam ORDER RECD [facility] [address] [employer] Work Phone: [phone] Rhogam Canceled [facility] [address] Work Phone: [phone] TYPE + SCREENon 06-11-2022 ABO TYPE A Normal [facility] Comment on above: Performed By: #### T +S #### [address] [address] RH TYPE Negative Normal [facility] Comment on above: Result Comment: Revi ew your Rh Negative female patient's potential need for Rh Immune Globulin (RhIg)administration. Performed By: #### T +S #### [address] [address] Daily Progress Note - OB-Ant enatal Testingon 06-02-2022 Daily Progress Note - OB- Testing Current Stage: Stage: Testing OB Dating: EDC/EGA: Final [id number] EGA27.3 Subjective Data: Antepartum: Antepartum: Presents for NST due to decreased movement in the last day. She currently feels movement since coming to labor and delivery. Objective Information: Objective Information: T PRBPMAPSpO2 [id number]/301583 8% Date/Time11/9 13: 13: 13: 13: 13: 13:19 Range(36.7C - 36.7C ) (86 - 86 ) (16 - 16 ) (136 - 136 )/ (76 - 76 ) (100 - 100 ) (98% - 98% ) Testing: NST Interpretation - Baby A: InterpretationReactive (2 15x15 accels) Assessment and Plan: Additional Dx: Decreased movements in second trimester, single or unspecified fetus: Entered Date: 02-Jun-2022 14:03 27 weeks gestation of : Entered Date: 02-Jun-2022 14:03 Assessment: 1. IUP at 27 weeks 3 days 2. Reactive NST 3. Decreased movement Electronic Signatures: Vangie Joseph) (Signed 02-Jun-2022 14:03) Authored: Current Stage, OB Dating, Subjective Data, Objective Data, Testing, Assessment and Plan, Note Completion Last Updated: 02-Jun-2022 14:03 by Vangie Joseph) [facility] Risk Screen - OB Triageon Risk Screen - OB Triage Allergies: Allergies: Allergies: No Known Allergies: Patient Verification: Patient Verification: New W ID Band Applied in my Departmentyes Patient Identity Verified Bypatient ID Band FULL Name, include Middle, spelling matches patient's ID used for verificationyes ID Band Matches Patient ID used for Verficationyes ID Band MRN Matches EMR MRNyes Travel History: Travel History: COVID-19 Screening Completedno exposure or symptoms Travel or Exposure Past 30 DaysNO travel to International locations in the past 30 days Advance Directives: Advance Directive: Advance Directive/DNRno Advance Directive Information Givenpatient/family declined Falls Risk: Oliveros Fall Screen: History of falling (immediate or previous)no (0) Secondary Diagnosisno (0) Intravenous Therapy/ Heparin/Saline Lockno (0) Gait/Transferringnormal /bedrest/wheelchair (0) Ambulatory Aidsnone/bedrest/nurse assist (0) Mental Statusoriented to own ability (0) Score: Low risk (<25). Moderate risk (25-44). High risk (>44).0 Oliveros InterventionsLOW INTERVENTIONS: *patient oriented to surroundings and call system, * patient/family falls education completed and documented, *patients fall status communicated during bedside handoff, *whiteboard updated, *mode of toileting discussed with patient, *bed in low position with brakes locked, *call light in reach, * non-skid footwear Learning Assessment (Patient): Learning Assessment (Patient): Patient is Able to be Assessed for Learningyes Factors Influencing Readiness to Learninterest in learning Factors that Impact Ability to Learnnone Devices/Methods Used to Communicatenone Learning Preferencesskill demonstration Cultural Considerationsnone Developmental Considerationsnone Hinduism Considerationsnone Learning Assessment (Other Learner): Other learner availableno Depression/Suicide: Depression Screen: During the past month, have you often been bothered by feeling down, depressed or hopelessno During the past month, have you often had little interest or pleasure in doing thingsno Have you had any thoughts of harming anyone elseno [place] Suicide: Risk Screen Not Applicable/Able to Answerable to be screened In the Past Month: Have you wished you were or could go to sleep and not wake upno In the Past Month: Have you had any actual thoughts of killing yourselfno Lifetime: Have you ever done, started to do, or prepared to do anything to end your lifeno [place] Suicide Risknegative Family Violence: Abuse Screen: Are you or have you been threatened or abused physically, emotionally, or sexually by anyoneno Do you feel UNSAFE going back to the place where you are livingno Clinical assessment: Are there any apparent signs of injuries/behaviors that could be related to abuse/neglectno Electronic Signatures: Hyacinth Bajwa (NICOLE) (Signed 02-Jun-2022 14:11) Authored: Allergies, Patient Verification, Travel History, Advance Directives, Oliveros Fall Screen, Learning Assessment (Patient), Learning Assessment (Other Learner), Depression/Suicide, Family Violence Last Updated: 02-Jun-2022 14:11 by Hyacinth Bajwa (NICOLE) [facility] Triage Note - OB v4on 2021 Triage Note - OB v4 Triage: General Info: Time of Arrival on [id number]-4850 12:55 [facility] Ac[facility] Level2 Time Acuity Level [id number]-Acc-8444 12:55 Chief Complaintdecreased movement Source of Informationpatient Pre Weight (lb)165 pound(s) Height in feet5 feet Height in inches5.94 inch(es) Height in cm167.4 centimeter(s) Height Methodstated Home Meds have been Reviewed and Verified with Patient/Familyyes Info: Gravida3 Term Deliveries2 Deliveries0 Abortions0 Living Children2 Patient stated [id number] Calculation of EGA based on patient stated EDD27.3 Records availableyes Trimester Care Initiatedfirst Substance: Smoking Statusnever smoker Alcohol Usedenies Drug Usedenies Disposition/Disch: Dispositiondischarged from facility, home with own care Patient Meets Criteria for Home Blood Pressure Monitorno Admission/Observation/D ischarge/Transfer Date/Pmwh42-Daj-7081 13:52 Discharged Accompanied Byspouse Discharge Modeambulatory Transportation Methodprivate car Travel History: Travel or ExposureNO travel to International locations in the past 30 days Additional Information: Information Review: Allergies have been Reviewed and Verified with Patient/Familyyes Allergy, Intolerance, Adverse Event: Allergies: No Known Allergies: Active Electronic Signatures: Hyacinth Bajwa (NICOLE) (Signed 02-Jun-2022 14:08) Authored: General Info, Info, Substance, Disposition/Disch, Travel History, Additional Information Last Updated: 02-Jun-2022 14:08 by Hyacinth Bajwa (NICOLE) [facility] No Panel Informationon 04-16 Normal [facility] [employer] Work Phone: Cult, Urineon 03-19-2022 Bacteria identified Cx Nom (U) Abnormal [facility] [employer] Work Phone: Office Visit (Internal Medic ine)on 03-11-2022 Follow-up visit Diagnoses/Problems Assessed 15 weeks gestation of (V22.2) (Z3A.15) Vitamin B12 deficiency (266.2) (E53.8) Iron deficiency anemia (280.9) (D50.9) Anxiety (300.00) (F41.9) Depression, major, single episode, mild (296.21) (F32.0) Abnormal fasting glucose (790.29) (R73.01) Mixed hyperlipidemia (272.2) (E78.2) Vitamin D deficiency (268.9) (E55.9) Orders Abnormal fasting glucose, Anxiety, Depression, major, single episode, mild, Iron deficiency anemia, Mixed hyperlipidemia, Vitamin B12 deficiency, Vitamin D deficiency Complete Blood Count + Differential; Status:Active; Requested for:[id number]; Perform:Lab Services - Lab To Draw (Blood Test); Due:[id number];Ordered; For:Abnormal fasting glucose, Anxiety, Depression, major, single episode, mild, Iron deficiency anemia, Mixed hyperlipidemia, Vitamin B12 deficiency, Vitamin D deficiency; Ordered By:Kylah Crawford; Comprehensive Metabolic Panel; Status:Active; Requested for:[id number]; Perform:Lab Services - Lab To Draw (Blood Test); Due:[id number];Ordered; For:Abnormal fasting glucose, Anxiety, Depression, major, single episode, mild, Iron deficiency anemia, Mixed hyperlipidemia, Vitamin B12 deficiency, Vitamin D deficiency; Ordered By:Kylah Crawford; Ferritin, Serum; Status:Active; Requested for:[id number]; Perform:Lab Services - Lab To Draw (Blood Test); Due:[id number];Ordered; For:Abnormal fasting glucose, Anxiety, Depression, major, single episode, mild, Iron deficiency anemia, Mixed hyperlipidemia, Vitamin B12 deficiency, Vitamin D deficiency; Ordered By:Kylah Crawford; Folate, Serum; Status:Active; Requested for:[id number]; Perform:Lab Services - Lab To Draw (Blood Test); Due:[id number];Ordered; For:Abnormal fasting glucose, Anxiety, Depression, major, single episode, mild, Iron deficiency anemia, Mixed hyperlipidemia, Vitamin B12 deficiency, Vitamin D deficiency; Ordered By:Kylah Crawford; Hemoglobin A1C; Status:Active; Requested for:[id number]; Perform:Lab Services - Lab To Draw (Blood Test); Due:[id number];Ordered; For:Abnormal fasting glucose, Anxiety, Depression, major, single episode, mild, Iron deficiency anemia, Mixed hyperlipidemia, Vitamin B12 deficiency, Vitamin D deficiency; Ordered By:Kylah Crawford; Iron + TIBC, Serum; Status:Active; Requested for:[id number]; Perform:Lab Services - Lab To Draw (Blood Test); Due:[id number];Ordered; For:Abnormal fasting glucose, Anxiety, Depression, major, single episode, mild, Iron deficiency anemia, Mixed hyperlipidemia, Vitamin B12 deficiency, Vitamin D deficiency; Ordered By:Kylah Crawford; Lipid Panel; Status:Active; Requested for:[id number]; Perform:Lab Services - Lab To Draw (Blood Test); Due:09Jun2023;Ordered; For:Abnormal fasting glucose, Anxiety, Depression, major, single episode, mild, Iron deficiency anemia, Mixed hyperlipidemia, Vitamin B12 deficiency, Vitamin D deficiency; Ordered By:Kylah Crawford; TSH WITH REFLEX TO FREE T4 IF ABNORMAL; Status:Active; Requested for:[id number]; Perform:Lab Services - Lab To Draw (Blood Test); Due:09Jun2023;Ordered; For:Abnormal fasting glucose, Anxiety, Depression, major, single episode, mild, Iron deficiency anemia, Mixed hyperlipidemia, Vitamin B12 deficiency, Vitamin D deficiency; Ordered By:Kylah Crawford; Vitamin B12, Serum; Status:Active; Requested for:11Mar2023; Perform:Lab Services - Lab To Draw (Blood Test); Due:09Jun2023;Ordered; For:Abnormal fasting glucose, Anxiety, Depression, major, single episode, mild, Iron deficiency anemia, Mixed hyperlipidemia, Vitamin B12 deficiency, Vitamin D deficiency; Ordered By:Kylah Crawford; Vitamin D 25-Hydroxy; Status:Active; Requested for:11Mar2023; Perform:Lab Services - Lab To Draw (Blood Test); Due:09Jun2023;Ordered; For:Abnormal fasting glucose, Anxiety, Depression, major, single episode, mild, Iron deficiency anemia, Mixed hyperlipidemia, Vitamin B12 deficiency, Vitamin D deficiency; Ordered By:Kylah Crawford; Vitamin B12 deficiency Administered: Cyanocobalamin 1000 MCG/ML Injection Solution Rx By: Kylah Crawford;For: Vitamin B12 deficiency; Dose of 1 ML; Intramuscular; GRACE = N; Administered by: Daniela Dolan TRUCK 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 SHE IS REFUSING 6 MONTH F/U TO RECHECK IRON. SHE WILL CALL IF SHE CHANGES HER MIND. WE DISCUSSED MOST COMMON SIDE EFFECTS OF PRESCRIBED MEDICATIONS. INDICATIONS, RISK, COMPLICATIONS, AND ALTERNATIVES OF MEDICATION/THERAPEUTICS WERE EXPLAINED AND DISCUSSED. PLEASE MONITOR CLOSELY FOR ANY UNTOWARD SIDE EFFECTS OR COMPLICATIONS OF MEDICATIONS. PATIENT IS STRONGLY ADVISED TO BE COMPLIANT WITH RECOMMENDATIONS. QUESTIONS AND CONCERNS WERE ADDRESSED. INSTRUCTED TO CALL, RETURN SOONER, OR GO TO THE ER, IF SYMPTOMS PERSIST OR WORSEN. THEY VOICED UNDERSTANDING AND DENIES FURTHER QUESTIONS AT THIS TIME. TIME CODE 1. PREPARATION FOR PATIENT'S VISIT (REVIEWING (more content not included)... Normal [employer] Tobacco Screening.on 022 Fall risk assessment a) No falls within the last year [facility] Work Phone: Tobacco use status CPHS b) No M [facility] Work Phone: Complete Blood Count + Diffe karla 03-10-2022 Basophils/100 WBC (Bld) 0.3 % 0.0 - 2.0 M [facility] Work Phone: Erythrocyte distribution width (RBC) [Ratio] 13.7 % See Below [facility] Work Phone: Comment on above: Reference Range: 11. 5 - 14.5 Hematocrit (Bld) [Volume fraction] 35.3 % below low threshold See Below [facility] Work Phone: Comment on above: Reference Range: 36. 0 - 46.0 Hemoglobin (Bld) [Mass/Vol] 12.5 g/dL See Below [facility] Work Phone: Comment on above: Reference Range: 12. 0 - 16.0 Lymphocytes/100 WBC (Bld) 20.6 % See Below [facility] Work Phone: Comment on above: Reference Range: 13. 0 - 44.0 MCHC (RBC) [Mass/Vol] 35.4 g/dL See Below [facility] Work Phone: Comment on above: Reference Range: 32. 0 - 36.0 MCV (RBC) [Entitic vol] 83 fL 80 - 100 M [facility] Work Phone: [phone] Monocytes/100 WBC (Bld) 4.5 % 2.0 - 10.0 M [facility] Work Phone: Neutrophils/100 WBC (Bld) 74.1 % See Below [facility] Work Phone: [phone] Comment on above: Reference Range: 40. 0 - 80.0 Platelets (Bld) [#/Vol] 217 10*3/uL 150 - 450 [facility] Work Phone: [phone] RBC (Bld) [#/Vol] 4.26 {x10E12/L} See Below [facility] Work Phone: [phone] Comment on above: Reference Range: 4.0 0 - 5.20 WBC (Bld) [#/Vol] 7.8 10*3/uL 4.4 - 11.3 [facility] Work Phone: [phone] Complete Blood Count + Differential 0.00 {x10E9/L} See Below [facility] Work Phone: Comment on above: Reference Range: 0.0 0 - 0.10 Reference Range: 0.0 0 - 0.70 Complete Blood Count + Differential 0.30 {x10E9/L} See Below [facility] Work Phone: Comment on above: Reference Range: 0.1 0 - 1.00 Complete Blood Count + Differential 1.60 {x10E9/L} See Below [facility] Work Phone: Comment on above: Reference Range: 1.2 0 - 4.80 Complete Blood Count + Differential 5.80 {x10E9/L} See Below [facility] Work Phone: Comment on above: Reference Range: 1.2 0 - 7.70 Percent differential counts (%) should be interpreted in the context of the absolute cell counts (cells/L). Complete Blood Count + Differential 0.5 % 0.0 - 6.0 [facility] Work Phone: Complete Blood Count + Differential 0.1 {/100_WBC} [facility] Work Phone: Ferritin, Serumon 03-10-2022 Ferritin [Mass/Vol] 39 ug/L 8 - 150 [facility] Work Phone: HIV 1/2 ANTIGEN/ANTIBODY SCR EEN WITH REFLEX TO CONFIRMATIONon 03-10-2022 HIV 1+2 Ab Qn (S) Non-Reactive See Below [facility] Work Phone: Comment on above: SOURCE: Reference Ra nge: NONREACTIVE HIV Ag/Ab screen is performed using the [employer] HIV Ag/Ab Combo assay which detects the presence of HIV p24 antigen as well as antibodies to HIV-1 (Group M and O) and HIV-2..No laboratory evidence of HIV infection. If acute HIV infection is suspected, consider testing for HIV RNA by PCR (viral load). Hemoglobin A1Con 03-10-2022 Glucose [Mass/Vol] 97 mg/dL [facility] Work Phone: HbA1c (Bld) [Mass fraction] 5.0 % [facility] Work Phone: Comment on above: Diagnosis of Diabete s-Adults Non-Diabetic: < or = 5.6% Increased risk for developing diabetes: 5.7-6.4% Diagnostic of diabetes: > or = 6.5%. Monitoring of Diabetes Age (y) Therapeutic Goal (%) Adults: >18 <7.0 Pediatrics: 13-18 <7.5 7-12 <8.0 0- 6 7.5-8.5 [place] [employer]. Diabetes Care 33(S1), Jul 2009. Hepatitis B Surface Antigeno n 03-10-2022 Hepatitis B Surface Antigen Non-Reactive See Below [facility] Work Phone: Comment on above: SOURCE: Reference Ra nge: NONREACTIVE Biotin interference may cause falsely decreased results. Patients taking a Biotin dose of up to 5 mg/day should refrain from taking Biotin for 24 hours before sample collection. Providers may contact their local laboratory for further information. SOURCE: Reference Ra nge: NONREACTIVE Results from patients taking biotin supplements or receiving high-dose biotin therapy should be interpreted with caution due to possible interference with this test. Providers may contact their local laboratory for further information. Laboratory - Blood bankon ABO group Nom (Bld) A [facility] Work Phone: Blood group antibody screen Ql Negative [facility] Work Phone: Rh immune globulin screen (Bld) [Interp] Negative [facility] Work Phone: Comment on above: Review your Rh Negat regis female patient's potential need for Rh Immune Globulin (RhIg)administration. Laboratory - Chemistry and C hemistry - challengeon 03-10-2022 Albumin BCP dye [Mass/Vol] 3.8 g/dL 3.4 - 5.0 [facility] Work Phone: ALP [Catalytic activity/Vol] 35 U/L 33 - 110 [facility] Work Phone: ALT With P-5'-P [Catalytic activity/Vol] 8 U/L 7 - 45 [facility] Work Phone: Comment on above: Patients treated wit h Sulfasalazine may generate falsely decreased results for ALT. Anion gap [Moles/Vol] 10 mmol/L 10 - 20 [facility] Work Phone: AST With P-5'-P [Catalytic activity/Vol] 10 U/L 9 - 39 [facility] Work Phone: Bilirubin [Mass/Vol] 0.3 mg/dL 0.0 - 1.2 [facility] Work Phone: [phone] Calcium [Mass/Vol] 8.5 mg/dL below low threshold 8.6 - 10.3 [facility] Work Phone: Chloride [Moles/Vol] 108 mmol/L above high threshold 98 - 107 [facility] Work Phone: CO2 [Moles/Vol] 24 mmol/L 21 - 32 [facility] Work Phone: Creatinine [Mass/Vol] 0.44 mg/dL below low threshold See Below [facility] Work Phone: Comment on above: Reference Range: 0.5 0 - 1.05 Glucose [Mass/Vol] 82 mg/dL 74 - 99 [facility] Work Phone: Iron [Mass/Vol] 55 ug/dL 35 - 150 [facility] Work Phone: Iron binding capacity [Mass/Vol] 348 ug/dL 240 - 445 [facility] Work Phone: Potassium [Moles/Vol] 3.9 mmol/L 3.5 - 5.3 [facility] Work Phone: Protein [Mass/Vol] 6.2 g/dL below low threshold 6.4 - 8.2 [facility] Work Phone: Sodium [Moles/Vol] 138 mmol/L 136 - 145 [facility] Work Phone: Urea nitrogen [Mass/Vol] 15 mg/dL 6 - 23 [facility] Work Phone: Lipid Panelon 03-10-2022 Cholesterol [Mass/Vol] 186 mg/dL 0 - 199 [facility] Work Phone: Comment on above: . AGE DESIRABLE BORD JOSE M HIGH HIGH 0-19 Y 0 - 169 170 - 199 >/= 200 20-24 Y 0 - 189 190 - 224 >/= 225 >24 Y 0 - 199 200 - 239 >/= 240 All ranges are based on fasting samples. Specific therapeutic targets will vary based on patient-specific cardiac risk.. Pediatric guidelines reference:Pediatrics 2011, 128(S5). Adult guidelines reference: NCEP ATPIII Guidelines, YANETH 2001, 258:2486-97. Venipuncture immediately after or during the administration of Metamizole may lead to falsely low results. Testing should be performed immediately prior to Metamizole dosing. Cholesterol in HDL [Mass/Vol] 61.0 mg/dL [facility] Work Phone: Comment on above: . AGE VERY LOW LOW N ORMAL HIGH 0-19 Y < 35 < 40 40-45 ---- 20-24 Y ---- < 40 >45 ---- >24 Y ---- < 40 40-60 >60. Cholesterol in LDL [Mass/Vol] 103 mg/dL 0 - 119 [facility] Work Phone: Comment on above: . NEAR BORD AGE ASHLEY RABLE OPTIMAL HIGH HIGH VERY HIGH 0-19 Y 0 - 109 --- 110-129 >/= 130 ---- 20-24 Y 0 - 119 --- 120-159 >/= 160 ---- >24 Y 0 - 99 100-129 130-159 160-189 >/=190. Cholesterol non HDL [Mass/Vol] 125 mg/dL 0 - 149 [facility] Work Phone: Comment on above: AGE DESIRABLE BORDER LINE HIGH HIGH VERY HIGH 0-19 Y 0 - 119 120 - 144 >/= 145 >/= 160 20-24 Y 0 - 149 150 - 189 >/= 190 ---- >24 Y 30 MG/DL ABOVE LDL CHOLESTEROL GOAL. Cholesterol.total/Ary sterol in HDL [Mass ratio] 3.0 {ratio} [facility] Work Phone: Comment on above: REF VALUESDESIRABLE < 3.4HIGH RISK > 5.0 Triglyceride [Mass/Vol] 110 mg/dL 0 - 149 M [facility] Work Phone: Comment on above: . AGE DESIRABLE BORD JOSE M HIGH HIGH VERY HIGH 0 D-90 D 19 - 174 ---- ---- ----91 D- 9 Y 0 - 74 75 - 99 >/= 100 ---- 10-19 Y 0 - 89 90 - 129 >/= 130 ---- 20-24 Y 0 - 114 115 - 149 >/= 150 ---- >24 Y 0 - 149 150 - 199 200- 499 >/= 500. Venipuncture immediately after or during the administration of Metamizole may lead to falsely low results. Testing should be performed immediately prior to Metamizole dosing. Lipid Panel 22 mg/dL 0 - 40 [facility] Work Phone: No Panel Informationon 03-10 >90 >90 [facility] Work Phone: Comment on above: CALCULATIONS OF LORIE MATED GFR ARE PERFORMED USING THE 2020 CKD-EPI STUDY REFIT EQUATION WITHOUT THE RACE VARIABLE FOR THE IDMS-TRACEABLE CREATININE METHODS.https://jasn.asnjournals.org/content/early/ ASN.8502232603 16 % below low threshold 25 - 45 [facility] Work Phone: Rubella IgG Antibodyon 03-10 Rubella virus IgG IA Ql Positive M [facility] Work Phone: Comment on above: INTERPRETATIVE COMME NT NEGATIVE: No IgG antibodies specific to Rubella detected. It is likely that the patient has not had a previous exposure to Rubella through infection or vaccination. Alternatively, the patient may have been exposed to Rubella but a failure to respond may indicate immunodeficiency. EQUIVOCAL:Equivocal results; obtain additional sample for retesting. POSITIVE: IgG antibody to Rubella detected. This may indicate that the patient was exposed to Rubella through infection or vaccination.The interpretation of serological tests should take into accountthe immunological status of the patient. Test results forpatients, including immunocompromised patients, neonates, andpediatric patients, reflect their capacity to respondimmunologically to the virus as well as their exposure to thepathogen. Patients treated with IVIG may demonstrate alteredresults in serological assays. SYPHILIS SCREENING WITH REFL EXon 03-10-2022 T. pallidum IgG+IgM IA Ql (S) Non-Reactive See Below [facility] Work Phone: Comment on above: Reference Range: NON REACTIVENo significant level of Treponema pallidum antibody detected. Repeat testing in 2 to 4 weeks may be considered if early infection or incubating syphilis infection is suspected. Vitamin B12, Serumon 022 Cobalamin (Vitamin B12) [Mass/Vol] 262 pg/mL 211 - 911 [facility] Work Phone: Cult, Urineon 02-19-2022 Bacteria identified Cx Nom (U) Abnormal [facility] [address] Work Phone: GC + Chlamydia By Amplified Detectionon 02-19-2022 C. trachomatis rRNA PIOTR+probe Ql (Unsp spec) Negative Negative [facility] [employer] Work Phone: [phone] Comment on above: The APTIMA Combo 2 a ssay is FDA-approved for Chlamydia trachomatis and Neisseria gonorrhoeae testing on female endocervical and vaginal swabs, ThinPrep liquid pap samples, male urine samples and urethral swabs. Performance characteristics for Chlamydia trachomatis and Neisseria gonorrhoeae testing on specific mxd-QME-ibemlafo sample types (female urine samples) have been validated by [facility]. This laboratory is certified by CLIA to perform high complexity testing. Samples from all other sites are not validated for this method. N. gonorrhoeae rRNA PIOTR+probe Ql (Unsp spec) Negative Negative [facility] [employer] Work Phone: [phone] Comment on above: SOURCE: Urine The AP CAMILO Combo 2 assay is FDA-approved for Chlamydia trachomatis and Neisseria gonorrhoeae testing on female endocervical and vaginal swabs, ThinPrep liquid pap samples, male urine samples and urethral swabs. Performance characteristics for Chlamydia trachomatis and Neisseria gonorrhoeae testing on specific zld-AAE-vayawlao sample types (female urine samples) have been validated by [facility]. This laboratory is certified by CLIA to perform high complexity testing. Samples from all other sites are not validated for this method. 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 Amenorrhea Follow-up in 4 weeks for new OB visit, cultures and labs. Chief Complaint PT HERE TODAY AMENORRHEA. PT STATES SHE IS HAVING SOME NAUSEA AND BREAST TENDERNESS. PT DENIES BLEEDING, CRAMPING, AND VOMITING. PT HAS NO CONCERNS AT THIS TIME. LMP 11/15/21 IN OFFICE HCG POSITIVE History of Present IllnessPatient presents stating she has not had a menstrual flow since October. She has some breast tenderness and nausea. Denies any vaginal bleeding or abdominal pain. Review of Systems Review of Systems: Constitutional: No fever or chills Respiratory: No shortness of breath, or cough Cardiovascular: No chest pain or syncope Breasts: No masses, no nipple discharge Gastrointestinal: No vomiting, or diarrhea, no abdominal pain Genitourinary: No dysuria or frequency Gynecology: Negative except as noted in history of present illness All other: All other systems reviewed and negative for complaint Active Problems Problems Abnormal fasting glucose (790.29) (R73.01) Abnormal urine (791.9) (R82.90) Acne (706.1) (L70.9) Anxiety (300.00) (F41.9) ASCUS with positive high risk HPV cervical (795.01,795.05) (R87.610,R87.810) Borderline abnormal thyroid function test (794.5) (R94.6) Chlamydia infection (079.98) (A74.9) Contraceptive management (V25.9) (Z30.9) Costochondritis (733.6) (M94.0) Depression, major, single episode, mild (296.21) (F32.0) Encounter for initial prescription of contraceptive pills (V25.01) (Z30.011) History of hypertension (V12.59) (Z86.79) Iron deficiency anemia (280.9) (D50.9) Migraine with aura, intractable (346.01) (G43.119) Mixed hyperlipidemia (272.2) (E78.2) 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, 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) (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.899,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.91) Screen for STD (sexually transmitted disease) (V74.5) (Z11.3) Screening for cervical cancer (V76.2) (Z12.4) Seasonal allergies (477.9) (J30.2) Vaginal discharge (623.5) (N89.8) Vitamin B12 deficiency (266.2) (E53.8) Vitamin D deficiency (268.9) (E55.9) Past Medical History Problems History of Abnormal urine (791.9) (R82.90) Resolved Date: 23 Mar 2021 History of Encounter for routine gynecological examination (V72.31) (Z01.419) Resolved Date: 19 Nov 2021 10/30/2021: ASC-US, HPV positive History of Menstruation Onset age 11 years History of Normal vaginal delivery (650) (O80) 09/06/2016_39weeks 3days_Male_7# 8oz 08/18/2020_39weeks 1day_Female_7# 10oz Surgical History Problems History of Colposcopy 11/25/2021 Family History Mother Family history of cardiac arrhythmia (V17.49) (Z82.49) Family history of hypertension (V17.49) (Z82.49) Sister Family history of asthma (V17.5) (Z82.5) Grandparent Family history of cardiac arrest (V17.49) (Z82.49) Family history of cardiac disorder (V17.49) (Z82.49) Family history of cerebrovascular accident (CVA) (V17.1) (Z82.3) Family history of diabetes mellitus (V18.0) (Z83.3) Social History Problems Denies alcohol consumption (V49.89) (Z78.9) Does not use illicit drugs (V49.89) (Z78.9) Never smoked tobacco (V49.89) (Z78.9) Sexually active Allergies Medication No Known Drug Allergies Recorded By: Amanda Butterfield; 04/13/2019 12:24:42 PM Current Meds Medication NameInstruction Albuterol Sulfate HFA 108 (90 Base) MCG/ACT Inhalation Aerosol SolutionINHALE 2 PUFFS EVERY 4 HOURS NEEDED busPIRone HCl - 5 MG Oral TabletTAKE 1 TABLET 3 times daily PRN anxiety Calcium 600+D 600-400 MG-UNIT Oral TabletTAKE 1 TABLET Twice daily DO NOT TAKE AT SAME TIME IRON Drospirenone-Ethinyl Estradiol 3-0.02 MG Oral TabletTake 1 tablet daily Ferrous Sulfate 325 (65 Fe) MG Oral TabletTAKE 1 TABLET 3 TIMES DAILY. Naproxen 500 MG Oral TabletTAKE 1 TABLET EVERY 12 HOURS NEEDED. predniSONE 10 MG Oral TabletTAKE 3 TABLET Daily Vitals Vital Signs Recorded: 18Jan2022 01:51PM [id number] Mflolvfks62 Height5 ft 6 in Ozgxag49.3 kg BMI Nrerftfjif31.15 kg/m2 BSA Calculated1.86 [id number] Physical Exam PHYSICAL EXAMINATION: Well-developed, well nourished, in no acute distress, alert and oriented x three, is pleasant and cooperative. HEENT: Clear. Pupils equal, round and reactive to light and accommodation. Extraocular muscles are intact. Oral mucosa pink without exudate. NECK: No lymphadenopathy, no thyromegaly. LUNGS: Clear bilaterally. HEART: Regular rate and rhythm without murmurs. ABDOMEN: Normoactive bowel sounds, soft and nontender, no guarding or rebound tenderness, no CVA tenderness. EXTREMITIES: No clubbing, cyanosis or edema. NEUROLOGIC: Cranial nerves II-XII grossly intact. : Normal external female genitalia, normal vulva, normal vagina. Normal urethral meatus, urethra and bladder. Vaginal ultrasound shows a live intrauterine at (more content not included)... 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 Pap showing ASCUS with positive high risk HPV Personally reviewed the path report from the colposcopy which is negative for dysplasia. Recommend close surveillance with Pap smears every 6 months for several years. Chief Complaint Pt here today to go over colposcopy results. Pt has no concerns at this time. History of Present IllnessPatient presents to review recent cervical biopsies due to Pap smear showing ASCUS with positive high risk HPV. She voices no complaints and is doing well. Review of Systems Review of Systems: Constitutional: No fever or chills Respiratory: No shortness of breath, or cough Cardiovascular: No chest pain or syncope Breasts: No breast pain, no masses, no nipple discharge Gastrointestinal: No nausea, vomiting, or diarrhea, no abdominal pain Genitourinary: No dysuria or frequency Gynecology: Negative except as noted in history of present illness All other: All other systems reviewed and negative for complaint Active Problems Problems Abnormal fasting glucose (790.29) (R73.01) Abnormal urine (791.9) (R82.90) Acne (706.1) (L70.9) Anxiety (300.00) (F41.9) ASCUS with positive high risk HPV cervical (795.01,795.05) (R87.610,R87.810) Borderline abnormal thyroid function test (794.5) (R94.6) Chlamydia infection (079.98) (A74.9) Contraceptive management (V25.9) (Z30.9) Costochondritis (733.6) (M94.0) Depression, major, single episode, mild (296.21) (F32.0) Encounter for initial prescription of contraceptive pills (V25.01) (Z30.011) History of hypertension (V12.59) (Z86.79) Iron deficiency anemia (280.9) (D50.9) Migraine with aura, intractable (346.01) (G43.119) Mixed hyperlipidemia (272.2) (E78.2) Rh negative, 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) (O26.899,Z67.91) Screen for STD (sexually transmitted disease) (V74.5) (Z11.3) Screening for cervical cancer (V76.2) (Z12.4) Seasonal allergies (477.9) (J30.2) Vaginal discharge (623.5) (N89.8) Vitamin B12 deficiency (266.2) (E53.8) Vitamin D deficiency (268.9) (E55.9) Past Medical History Problems History of Abnormal urine (791.9) (R82.90) Resolved Date: 23 Mar 2021 History of Encounter for routine gynecological examination (V72.31) (Z01.419) Resolved Date: 19 Nov 2021 10/30/2021: ASC-US, HPV positive History of Menstruation Onset age 11 years History of Normal vaginal delivery (650) (O80) 09/06/2016_39weeks 3days_Male_7# 8oz 08/18/2020_39weeks 1day_Female_7# 10oz Surgical History Problems History of Colposcopy 11/25/2021 Family History Mother Family history of cardiac arrhythmia (V17.49) (Z82.49) Family history of hypertension (V17.49) (Z82.49) Sister Family history of asthma (V17.5) (Z82.5) Grandparent Family history of cardiac arrest (V17.49) (Z82.49) Family history of cardiac disorder (V17.49) (Z82.49) Family history of cerebrovascular accident (CVA) (V17.1) (Z82.3) Family history of diabetes mellitus (V18.0) (Z83.3) Social History Problems Denies alcohol consumption (V49.89) (Z78.9) Does not use illicit drugs (V49.89) (Z78.9) Never smoked tobacco (V49.89) (Z78.9) Sexually active Allergies Medication No Known Drug Allergies Recorded By: Amanda Butterfield; 04/13/2019 12:24:42 PM Current Meds Medication NameInstruction Albuterol Sulfate HFA 108 (90 Base) MCG/ACT Inhalation Aerosol SolutionINHALE 2 PUFFS EVERY 4 HOURS NEEDED busPIRone HCl - 5 MG Oral TabletTAKE 1 TABLET 3 times daily PRN anxiety Calcium 600+D 600-400 MG-UNIT Oral TabletTAKE 1 TABLET Twice daily DO NOT TAKE AT SAME TIME IRON Drospirenone-Ethinyl Estradiol 3-0.02 MG Oral TabletTake 1 tablet daily Ferrous Sulfate 325 (65 Fe) MG Oral TabletTAKE 1 TABLET 3 TIMES DAILY. Naproxen 500 MG Oral TabletTAKE 1 TABLET EVERY 12 HOURS NEEDED. predniSONE 10 MG Oral TabletTAKE 3 TABLET Daily Vitals Vital Signs Recorded: 01Dec2021 09:00AM Gjhwnaam451 Qeoocfpyh30 Height5 ft 6 in Fstiaj10 kg BMI Xprxcpsycu78.33 kg/m2 BSA Calculated1.83 Physical Exam General: No acute distress Eye: Intraocular movements are intact HEENT: Normocephalic Respiratory: Respirations are nonlabored Gastrointestinal: Nondistended Musculoskeletal: Normal range of motion Neurologic: Alert and oriented x3 Psychiatric: Cooperative, appropriate mood and affect. Results/Data Surgical [id number] 11:26Vangie Gilliam NameResultFlagReference Case Surgical Pathology(Report) Name KAREN NORIEGARandy Pathologist: VIJAYA FRANKS MD Date of Procedure: 11/25/2021 Date Received: 11/25/2021 Date Reported 11/30/2021 Submitting Physician: VANGIE JOSEPH MD Location: [facility] Other External # FINAL DIAGNOSIS A. ENDOCERVIX, CURETTAGE: -- FRAGMENTS OF BENIGN ENDOCERVICAL EPITHELIUM. -- FRAGMENTS OF INACTIVE ENDOMETRIUM WITH STROMAL BREAKDOWN. B. CERVIX, 2 O'CLOCK, BIOPSY: (more content not included)... Normal [facility] LMPon 11-25-2021 Last menstrual period start date 22Nov2021 [facility] [employer] Work Phone: [phone] Panel Informationon 11-25 [facility] [employer] Work Phone: [phone] [employer] - Procedure Visiton 0 11-25-2021 [employer] - Procedure Visit Diagnoses/Problems ASCUS with positive high risk HPV cervical (795.01,795.05) (R87.610,R87.810) Provider Impressions 1. Pap showing ASCUS with positive high risk HPV 2. Colposcopy performed today Follow-up in 1 week to review biopsy results. Chief Complaint Patient is here for colp procedure. Last pap showed ASC-US, HPV positive. This is patients first abnormal pap. LMP: 11/22/21. History of Present IllnessShe presents for colposcopy due to Pap smear showing ASCUS with positive high risk HPV. Review of Systems Review of Systems: Constitutional: No fever or chills Respiratory: No shortness of breath, or cough Cardiovascular: No chest pain or syncope Breasts: No breast pain, no masses, no nipple discharge Gastrointestinal: No nausea, vomiting, or diarrhea, no abdominal pain Genitourinary: No dysuria or frequency Gynecology: Negative except as noted in history of present illness All other: All other systems reviewed and negative for complaint Active Problems Problems Abnormal fasting glucose (790.29) (R73.01) Abnormal urine (791.9) (R82.90) Acne (706.1) (L70.9) Anxiety (300.00) (F41.9) Borderline abnormal thyroid function test (794.5) (R94.6) Chlamydia infection (079.98) (A74.9) Contraceptive management (V25.9) (Z30.9) Costochondritis (733.6) (M94.0) Depression, major, single episode, mild (296.21) (F32.0) Encounter for initial prescription of contraceptive pills (V25.01) (Z30.011) History of hypertension (V12.59) (Z86.79) Iron deficiency anemia (280.9) (D50.9) Migraine with aura, intractable (346.01) (G43.119) Mixed hyperlipidemia (272.2) (E78.2) Rh negative, 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) (O26.899,Z67.91) Screen for STD (sexually transmitted disease) (V74.5) (Z11.3) Screening for cervical cancer (V76.2) (Z12.4) Seasonal allergies (477.9) (J30.2) Vaginal discharge (623.5) (N89.8) Vitamin B12 deficiency (266.2) (E53.8) Vitamin D deficiency (268.9) (E55.9) Past Medical History Problems History of Abnormal urine (791.9) (R82.90) Resolved Date: 23 Mar 2021 History of Encounter for routine gynecological examination (V72.31) (Z01.419) Resolved Date: 19 Nov 2021 10/30/2021: ASC-US, HPV positive History of Menstruation Onset age 11 years History of Normal vaginal delivery (650) (O80) 09/06/2016_39weeks 3days_Male_7# 8oz 08/18/2020_39weeks 1day_Female_7# 10oz Surgical History Problems History of Colposcopy 11/25/2021 Family History Mother Family history of cardiac arrhythmia (V17.49) (Z82.49) Family history of hypertension (V17.49) (Z82.49) Sister Family history of asthma (V17.5) (Z82.5) Grandparent Family history of cardiac arrest (V17.49) (Z82.49) Family history of cardiac disorder (V17.49) (Z82.49) Family history of cerebrovascular accident (CVA) (V17.1) (Z82.3) Family history of diabetes mellitus (V18.0) (Z83.3) Social History Problems Denies alcohol consumption (V49.89) (Z78.9) Does not use illicit drugs (V49.89) (Z78.9) Never smoked tobacco (V49.89) (Z78.9) Sexually active Allergies Medication No Known Drug Allergies Recorded By: Amanda Butterfield; 04/13/2019 12:24:42 PM Current Meds Medication NameInstruction Albuterol Sulfate HFA 108 (90 Base) MCG/ACT Inhalation Aerosol SolutionINHALE 2 PUFFS EVERY 4 HOURS NEEDED busPIRone HCl - 5 MG Oral TabletTAKE 1 TABLET 3 times daily PRN anxiety Calcium 600+D 600-400 MG-UNIT Oral TabletTAKE 1 TABLET Twice daily DO NOT TAKE AT SAME TIME IRON Drospirenone-Ethinyl Estradiol 3-0.02 MG Oral TabletTake 1 tablet daily Ferrous Sulfate 325 (65 Fe) MG Oral TabletTAKE 1 TABLET 3 TIMES DAILY. Naproxen 500 MG Oral TabletTAKE 1 TABLET EVERY 12 HOURS NEEDED. predniSONE 10 MG Oral TabletTAKE 3 TABLET Daily Vitals Vital Signs Recorded: 25Nov2021 11:05AM Zxidxvgn978 Wskjalqhz80 Height5 ft 6 in Yglvbd91 kg BMI Qmkwcshthl08.33 kg/m2 BSA Calculated1.83 [id number] Procedure Colposcopy Indication: atypical squamous cells of undetermined significance and HPV +: . Procedure Note: Evaluation of Vulva and Vagina: Normal Cervix Fully Visualized? Yes SCJ Fully Visualized? Yes Any Acetowhite Changes? Yes Procedures: endocervical curettage was performed and biopsies taken of the cervix. Hemostasis was obtained with Monsel's solution and silver nitrate. Patient Status: the patient tolerated the procedure well. Complications: there were no complications. Colposcopic Impression: low grade. Low grade features: thin/translucent acetowhite. Signatures Electronically signed by : Vangie Joseph MD; Nov 25 2021 11:27AM EST (Author) Normal Touchworks LMPon 10-30-2021 Last menstrual period start date 19Oct2021 [facility] [address] [employer] Work Phone: Laboratory - Cytologyon Cytology report Cyto stain.thin prep Doc (Cvx/Vag) [facility] [employer] Work Phone: [employer] - Office Visiton [employer] - Office Visit Diagnoses/Problems Assessed Encounter for routine gynecological examination () (Z01.419) Contraceptive management (V25.9) (Z30.9) Orders Renew: Drospirenone-Ethinyl Estradiol 3-0.02 MG Oral Tablet; 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 Annual 2. Contraceptive counseling Will renew the control pills. Follow-up in 1 year or as needed. Chief Complaint Patient is here for yearly exam. Patient does not do self breast exams regularly. LMP 10/19/21 Pt has no questions at this time. CONTROL RENEWED History of Present IllnessPresents for annual exam. She voices no complaints and is doing well. Denies any bowel or bladder problems. Denies any breast problems. She is doing well on the control pills. Review of Systems Review of Systems: Constitutional: No fever or chills Respiratory: No shortness of breath, or cough Cardiovascular: No chest pain or syncope Breasts: No breast pain, no masses, no nipple discharge Gastrointestinal: No nausea, vomiting, or diarrhea, no abdominal pain Genitourinary: No dysuria or frequency Gynecology: Negative except as noted in history of present illness All other: All other systems reviewed and negative for complaint Active Problems Problems Abnormal fasting glucose (790.29) (R73.01) Abnormal urine (791.9) (R82.90) Acne (706.1) (L70.9) Anxiety (300.00) (F41.9) Borderline abnormal thyroid function test (794.5) (R94.6) Chlamydia infection (079.98) (A74.9) Contraceptive management (V25.9) (Z30.9) Costochondritis (733.6) (M94.0) Depression, major, single episode, mild (296.21) (F32.0) Encounter for initial prescription of contraceptive pills (V25.01) (Z30.011) Encounter for routine gynecological examination (V7.) (Z01.419) History of hypertension (V12.59) (Z86.79) Iron deficiency anemia (280.9) (D50.9) Migraine with aura, intractable (346.01) (G43.119) Mixed hyperlipidemia (272.2) (E78.2) Rh negative, 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) (O26.899,Z67.91) Screen for STD (sexually transmitted disease) (V74.5) (Z11.3) Screening for cervical cancer (V76.2) (Z12.4) Seasonal allergies (477.9) (J30.2) Vaginal discharge (623.5) (N89.8) Vitamin B12 deficiency (266.2) (E53.8) Vitamin D deficiency (268.9) (E55.9) Past Medical History Problems History of Abnormal urine (791.9) (R82.90) Resolved Date: 23 Mar 2021 History of Menstruation Onset age 11 years History of Normal vaginal delivery (650) (O80) 09/06/2016_39weeks 3days_Male_7# 8oz 08/18/2020_39weeks 1day_Female_7# 10oz Surgical History Problems No history of surgery Family History Mother Family history of cardiac arrhythmia (V17.49) (Z82.49) Family history of hypertension (V17.49) (Z82.49) Sister Family history of asthma (V17.5) (Z82.5) Grandparent Family history of cardiac arrest (V17.49) (Z82.49) Family history of cardiac disorder (V17.49) (Z82.49) Family history of cerebrovascular accident (CVA) (V17.1) (Z82.3) Family history of diabetes mellitus (V18.0) (Z83.3) Social History Problems Denies alcohol consumption (V49.89) (Z78.9) Does not use illicit drugs (V49.89) (Z78.9) Never smoked tobacco (V49.89) (Z78.9) Sexually active Allergies Medication No Known Drug Allergies Recorded By: Amanda Butterfield; 04/13/2019 12:24:42 PM Current Meds Medication NameInstruction Albuterol Sulfate HFA 108 (90 Base) MCG/ACT Inhalation Aerosol SolutionINHALE 2 PUFFS EVERY 4 HOURS NEEDED busPIRone HCl - 5 MG Oral TabletTAKE 1 TABLET 3 times daily PRN anxiety Calcium 600+D 600-400 MG-UNIT Oral TabletTAKE 1 TABLET Twice daily DO NOT TAKE AT SAME TIME IRON Drospirenone-Ethinyl Estradiol 3-0.02 MG Oral TabletTake 1 tablet daily Ferrous Sulfate 325 (65 Fe) MG Oral TabletTAKE 1 TABLET 3 TIMES DAILY. Naproxen 500 MG Oral TabletTAKE 1 TABLET EVERY 12 HOURS NEEDED. predniSONE 10 MG Oral TabletTAKE 3 TABLET Daily Vitals Vital Signs Recorded: 30Oct2021 09:25AM Povfgssz593 Pbdoyufgi08 [id number] Physical Exam PHYSICAL EXAMINATION: Well-developed, well nourished, in no acute distress, alert and oriented x three, is pleasant and cooperative. HEENT: Clear. Pupils equal, round and reactive to light and accommodation. Extraocular muscles are intact. Oral mucosa pink without exudate. NECK: No lymphadenopathy, no thyromegaly. BREASTS: Symmetric, no palpable masses. No nipple discharge or retraction. LUNGS: Clear bilaterally. HEART: Regular rate and rhythm without murmurs. ABDOMEN: Normoactive bowel sounds, soft and nontender, no guarding or rebound tenderness, no CVA tenderness. EXTREMITIES: No clubbing, cyanosis or edema. NEUROLOGIC: Cranial nerves II-XII grossly intact. : Normal external (more content not included)... Normal [facility] Office Visit (Internal Medic ine)on 10-20-2021 Follow-up visit Diagnoses/Problems Assessed Depression, major, single episode, mild (296.21) (F32.0) Anxiety (300.00) (F41.9) Costochondritis (733.6) (M94.0) Vitamin B12 deficiency (266.2) (E53.8) Iron deficiency anemia (280.9) (D50.9) Mixed hyperlipidemia (272.2) (E78.2) Abnormal fasting glucose (790.29) (R73.01) Borderline abnormal thyroid function test (794.5) (R94.6) Vitamin D deficiency (268.9) (E55.9) Migraine with aura, intractable (346.01) (G43.119) Orders Abnormal fasting glucose Hemoglobin A1C; Status:Active; Requested for:19Feb2022; Perform:Lab Services - Lab To Draw (Blood Test); Due:20May2022;Ordered; For:Abnormal fasting glucose; Ordered By:Kylah Crawford; Anxiety Renew: busPIRone HCl - 5 MG Oral Tablet; TAKE 1 TABLET 3 times daily PRN anxiety Rx By: Kylah Crawford; Dispense: 90 Days ; #:270 Tablet; Refill: 0;For: Anxiety; GRACE = N; [facility] [place] ; Last Updated By: [address] [employer]; 10/20/2021 9:22:32 AM Costochondritis Start: Albuterol Sulfate HFA 108 (90 Base) MCG/ACT Inhalation Aerosol Solution; INHALE 2 PUFFS EVERY 4 HOURS NEEDED Rx By: Kylah Crawford; Dispense: 0 Days ; #:1 X 18 GM Inhaler; Refill: 0;For: Costochondritis; GRACE = N; [facility] [place] ; Last Updated By: [address] [employer]; 10/20/2021 9:22:30 AM Xray Chest 2 View PA + Lateral; Status:Hold For - Scheduling; Requested for:20Oct2021; Perform:[facility]; Due:18Jan2022;Ordered; For:Costochondritis; Ordered By:Kylah Crawford; Radiologist to Determine Optimal Study : Y What are the patient's signs and symptoms? : COSTOCHONDRITIS PAIN Start: Naproxen 500 MG Oral Tablet; TAKE 1 TABLET EVERY 12 HOURS NEEDED Rx By: Kylah Crawford; Dispense: 30 Days ; #:60 Tablet; Refill: 0;For: Costochondritis; GRACE = N; Verified Transmission to [facility] [employer] ; Last Updated By: [address] [employer]; 10/20/2021 9:22:29 AM Start: predniSONE 10 MG Oral Tablet; TAKE 3 TABLET Daily Rx By: Kylah Crawford; Dispense: 5 Days ; #:15 Tablet; Refill: 0;For: Costochondritis; GRACE = N; Verified [facility] to [facility] ; Last Updated By: [address] [employer]; 10/20/2021 9:22:30 AM Administer: Dexamethasone Sodium Phosphate 4 MG/ML Injection Solution; INJECT 1 ML Intramuscular; To Be Done: 20Oct2021 Rx By: Kylah Crawford;For: Costochondritis; GRACE = N; Request Administration Iron deficiency anemia Renew: Ferrous Sulfate 325 (65 Fe) MG Oral Tablet; TAKE 1 TABLET 3 TIMES DAILY Rx By: Kylah Crawford; Dispense: 90 Days ; #:270 Tablet; Refill: 3;For: Iron deficiency anemia; GRACE = N; Verified Transmission to [address]; Last Updated By: Una Javier; 10/20/2021 9:09:18 AM Complete Blood Count + Differential; Status:Active; Requested for:19Feb2022; Perform:Lab Services - Lab To Draw (Blood Test); Due:20May2022;Ordered; For:Iron deficiency anemia; Ordered By:Kylah Crawford; Comprehensive Metabolic Panel; Status:Active; Requested for:19Feb2022; Perform:Lab Services - Lab To Draw (Blood Test); Due:20May2022;Ordered; For:Iron deficiency anemia; Ordered By:Kylah Crawford; Ferritin, Serum; Status:Active; Requested for:19Feb2022; Perform:Lab Services - Lab To Draw (Blood Test); Due:20May2022;Ordered; For:Iron deficiency anemia; Ordered By:Kylah Crawford; Iron + TIBC, Serum; Status:Active; Requested for:19Feb2022; Perform:Lab Services - Lab To Draw (Blood Test); Due:20May2022;Ordered; For:Iron deficiency anemia; Ordered By:Kylah Crawford; Mixed hyperlipidemia Lipid Panel; Status:Active; Requested for:19Feb2022; Perform:Lab Services - Lab To Draw (Blood Test); Due:20May2022;Ordered; For:Mixed hyperlipidemia; Ordered By:Kylah Crawford; Vitamin B12 deficiency Administer: Cyanocobalamin 1000 MCG/ML Injection Solution; INJECT 1 ML Intramuscular; To Be Done: 20Oct2021 Rx By: Kylah Crawford;For: Vitamin B12 deficiency; GRACE = N; Request Administration Vitamin B12, Serum; Status:Active; Requested for:19Feb2022; Perform:Lab Services - Lab To Draw (Blood Test); Due:20May2022;Ordered; For:Vitamin B12 deficiency; Ordered By:Kylah Crawford; Vitamin D deficiency Renew: Calcium 600+D 600-400 MG-UNIT Oral Tablet; TAKE 1 TABLET Twice daily DO NOT TAKE AT SAME TIME IRON Rx By: Klyah Crawford; Dispense: 90 Days ; #:180 Tablet; Refill: 3;For: Vitamin D deficiency; GRACE = N; [facility] [facility]; Last Updated By: Una Javier; 10/20/2021 9:22:31 AM Patient Discussion/Summary F/U 4 MONTHS WITH FASTING LABS OK FOR MONTHLY B12 INJECTIONS Provider Impressions USE ICE TO AFFECTED AREA 20 MINUTES ON/20 MINUTES OFF. TAKE PO NAPROXEN AND PREDNISONE. CXR ORDERED. WE DISCUSSED MOST COMMON SIDE EFFECTS OF PRESCRIBED MEDICATIONS. INDICATIONS, RISK, COMPLICATIONS, AND ALTERNATIVES OF MEDICATION/THERAPEUTICS WERE EXPLAINED AND DISCUSSED. PLEASE MONITOR CLOSELY FOR ANY UNTOWARD SIDE EFFECTS OR COMPLICATIONS OF MEDICATIONS. PATIENT IS STRONGLY ADVISED (more content not included)... Normal [employer] Tobacco Screening.on 022 Adult depression screening assessment No [facility] Work Phone: Fall risk assessment a) No falls within the last year [facility] Work Phone: Tobacco use status CPHS b) No M [facility] Work Phone: Complete Blood Count + Dalila jakublizette 10-19-2021 Basophils/100 WBC (Bld) 0.4 % 0.0 - 2.0 M [facility] Work Phone: Erythrocyte distribution width (RBC) [Ratio] 14.0 % See Below [facility] Work Phone: Comment on above: Reference Range: 11. 5 - 14.5 Hematocrit (Bld) [Volume fraction] 41.9 % See Below [facility] Work Phone: Comment on above: Reference Range: 36. 0 - 46.0 Hemoglobin (Bld) [Mass/Vol] 14.2 g/dL See Below [facility] Work Phone: Comment on above: Reference Range: 12. 0 - 16.0 Lymphocytes/100 WBC (Bld) 22.4 % See Below [facility] Work Phone: Comment on above: Reference Range: 13. 0 - 44.0 MCHC (RBC) [Mass/Vol] 33.9 g/dL See Below [facility] Work Phone: [phone] Comment on above: Reference Range: 32. 0 - 36.0 MCV (RBC) [Entitic vol] 83 fL 80 - 100 M [facility] Work Phone: [phone] Monocytes/100 WBC (Bld) 4.2 % 2.0 - 10.0 M [facility] Work Phone: [phone] Neutrophils/100 WBC (Bld) 72.2 % See Below [facility] Work Phone: [phone] Comment on above: Reference Range: 40. 0 - 80.0 Platelets (Bld) [#/Vol] 226 10*3/uL 150 - 450 [facility] Work Phone: [phone] RBC (Bld) [#/Vol] 5.04 {x10E12/L} See Below [facility] Work Phone: [phone] Comment on above: Reference Range: 4.0 0 - 5.20 WBC (Bld) [#/Vol] 7.6 10*3/uL 4.4 - 11.3 [facility] Work Phone: [phone] Complete Blood Count + Differential 0.00 {x10E9/L} See Below [facility] Work Phone: Comment on above: Reference Range: 0.0 0 - 0.10 Complete Blood Count + Differential 0.10 {x10E9/L} See Below [facility] Work Phone: Comment on above: Reference Range: 0.0 0 - 0.70 Complete Blood Count + Differential 0.30 {x10E9/L} See Below [facility] Work Phone: Comment on above: Reference Range: 0.1 0 - 1.00 Complete Blood Count + Differential 1.70 {x10E9/L} See Below [facility] Work Phone: Comment on above: Reference Range: 1.2 0 - 4.80 Complete Blood Count + Differential 5.50 {x10E9/L} See Below [facility] Work Phone: Comment on above: Reference Range: 1.2 0 - 7.70 Percent differential counts (%) should be interpreted in the context of the absolute cell counts (cells/L). Complete Blood Count + Differential 0.8 % 0.0 - 6.0 [facility] Work Phone: Complete Blood Count + Differential 0.1 {/100_WBC} [facility] Work Phone: Laboratory - Chemistry and C hemistry - challengeon 10-19-2021 Iron [Mass/Vol] 69 ug/dL 35 - 150 [facility] Work Phone: Iron binding capacity [Mass/Vol] 450 ug/dL above high threshold 240 - 445 [facility] Work Phone: No Panel Informationon 10-19 15 % below low threshold 25 - 45 [facility] Work Phone: T3 - Free Triiodothyronine, Serumon 10-19-2021 Free T3 [Mass/Vol] 3.4 pg/mL 2.3 - 4.2 [facility] Work Phone: T4 - Free Thyroxine, Serumon 10-19-2021 Free T4 [Mass/Vol] 0.82 ng/dL See Below [facility] Work Phone: Comment on above: Reference Range: 0.6 1 - 1.12 Thyroxine Free testing is performed using different testing methodology at [facility] than at other [facility]. Direct result comparisons should only be made within the same method.. Biotin can cause falsely elevated free T4 results. Patients taking a Biotin dose of up to 10 mg/day should refrain from taking Biotin for 24 hours before sample collection. Patient taking a Biotin dose of >10 mg/day should consult with their physician or the laboratory before the blood draw. TSH - Thyroid Stimulating Ho rmone, Serumon 10-19-2021 TSH Qn 0.70 m[IU]/L See Below [facility] Work Phone: Comment on above: Reference Range: 0.4 4 - 3.98 TSH testing is performed using different testing methodology at [facility] than at other [facility]. Direct result comparisons should only be made within the same method. Vitamin B12, Serumon 022 Cobalamin (Vitamin B12) [Mass/Vol] 231 pg/mL 211 - 911 [facility] Work Phone: Vitamin D 25-Hydroxyon 10-19 25-hydroxyvitamin D3 [Mass/Vol] 32 ng/mL [facility] Work Phone: Comment on above: .DEFICIENCY: < 20 NG /MLINSUFFICIENCY: 20-29 NG/MLSUFFICIENCY: 30-100 NG/MLTHIS ASSAY ACCURATELY QUANTIFIES THE SUM OFVITAMIN D3, 25-HYDROXY AND VIT D2,25-HYDROXY. GC + Chlamydia By Amplified Detectionon 08-07-2021 C. trachomatis rRNA PIOTR+probe Ql (Unsp spec) Negative Negative [facility] [employer] Work Phone: Comment on above: The APTIMA Combo 2 a ssay is FDA-approved for Chlamydia trachomatis and Neisseria gonorrhoeae testing on female endocervical and vaginal swabs, ThinPrep liquid pap samples, male urine samples and urethral swabs. Performance characteristics for Chlamydia trachomatis and Neisseria gonorrhoeae testing on specific aei-DCG-iaicrbfm sample types (female urine samples) have been validated by [facility]. This laboratory is certified by CLIA to perform high complexity testing. Samples from all other sites are not validated for this method. N. gonorrhoeae rRNA PIOTR+probe Ql (Unsp spec) Negative Negative [facility] [address] Work Phone: Comment on above: SOURCE: Urine The AP CAMILO Combo 2 assay is FDA-approved for Chlamydia trachomatis and Neisseria gonorrhoeae testing on female endocervical and vaginal swabs, ThinPrep liquid pap samples, male urine samples and urethral swabs. Performance characteristics for Chlamydia trachomatis and Neisseria gonorrhoeae testing on specific ldc-GWH-ssgyyjwh sample types (female urine samples) have been validated by [facility]. This laboratory is certified by CLIA to perform high complexity testing. Samples from all other sites are not validated for this method. LMPon 08-07-2021 Last menstrual period start date 31Jul2021 [facility] [address] Work Phone: [phone] Cult, Urineon 03-23-2021 Bacteria identified Cx Nom (U) [facility] [address] Work Phone: [phone] GC + Chlamydia By Amplified Detectionon 03-23-2021 C. trachomatis rRNA PIOTR+probe Ql (Unsp spec) Negative Negative [facility] Work Phone: [phone] Comment on above: The APTIMA Combo 2 a ssay is FDA-approved for Chlamydia trachomatis and Neisseria gonorrhoeae testing on female endocervical and vaginal swabs, ThinPrep liquid pap samples, male urine samples and urethral swabs. Performance characteristics for Chlamydia trachomatis and Neisseria gonorrhoeae testing on specific lxa-FTH-rdqjklfz sample types (female urine samples) have been validated by [facility]. This laboratory is certified by CLIA to perform high complexity testing. Samples from all other sites are not validated for this method. N. gonorrhoeae rRNA PIOTR+probe Ql (Unsp spec) Negative Negative [facility] Work Phone: [phone] Comment on above: SOURCE: Urine The AP CAMILO Combo 2 assay is FDA-approved for Chlamydia trachomatis and Neisseria gonorrhoeae testing on female endocervical and vaginal swabs, ThinPrep liquid pap samples, male urine samples and urethral swabs. Performance characteristics for Chlamydia trachomatis and Neisseria gonorrhoeae testing on specific kwk-EGR-rxeyehxj sample types (female urine samples) have been validated by [facility]. This laboratory is certified by CLIA to perform high complexity testing. Samples from all other sites are not validated for this method. IO UA (automated w/o microsc opy)on 03-23-2021 IO UA (automated w/o microscopy) Bloody [facility] [address] Work Phone: [phone] IO UA (automated w/o microscopy) Red [facility] Work Phone: [phone] IO Wet Mounton 03-23-2021 IO Wet [place] none [facility] [address] Work Phone: [phone] IO [place] Negative [facility] [address] Work Phone: [phone] IO Wet [place] Positive [facility] [address] Work Phone: [phone] IO Wet [place] vaginal [facility] [address] Work Phone: [phone] LMPon 03-23-2021 Last menstrual period start date [id number] [facility] [address] Work Phone: [phone] Tobacco Screening.on 021 Fall risk assessment a) No falls within the last year [facility] Work Phone: Tobacco use status CPHS b) No M [facility] Work Phone: Complete Blood Count + Diffe rentialon 02-02-2021 Basophils/100 WBC (Bld) 0.7 % 0.0 - 2.0 [facility] Work Phone: Erythrocyte distribution width (RBC) [Ratio] 15.8 % above high threshold See Below [facility] Work Phone: Comment on above: Reference Range: 11. 5 - 14.5 Hematocrit (Bld) [Volume fraction] 39.3 % See Below [facility] Work Phone: Comment on above: Reference Range: 36. 0 - 46.0 Hemoglobin (Bld) [Mass/Vol] 12.9 g/dL See Below [facility] Work Phone: Comment on above: Reference Range: 12. 0 - 16.0 Lymphocytes/100 WBC (Bld) 32.4 % See Below [facility] Work Phone: Comment on above: Reference Range: 13. 0 - 44.0 MCHC (RBC) [Mass/Vol] 33.0 g/dL See Below [facility] Work Phone: Comment on above: Reference Range: 32. 0 - 36.0 MCV (RBC) [Entitic vol] 81 fL 80 - 100 M [facility] Work Phone: [phone] Monocytes/100 WBC (Bld) 8.4 % 2.0 - 10.0 M [facility] Work Phone: [phone] Neutrophils/100 WBC (Bld) 56.8 % See Below [facility] Work Phone: [phone] Comment on above: Reference Range: 40. 0 - 80.0 Platelets (Bld) [#/Vol] 222 10*3/uL 150 - 450 [facility] Work Phone: [phone] RBC (Bld) [#/Vol] 4.84 {x10E12/L} See Below [facility] Work Phone: [phone] Comment on above: Reference Range: 4.0 0 - 5.20 WBC (Bld) [#/Vol] 5.1 10*3/uL 4.4 - 11.3 [facility] Work Phone: [phone] Complete Blood Count + Differential 0.00 {x10E9/L} See Below [facility] Work Phone: [phone] Comment on above: Reference Range: 0.0 0 - 0.10 Complete Blood Count + Differential 0.10 {x10E9/L} See Below [facility] Work Phone: [phone] Comment on above: Reference Range: 0.0 0 - 0.70 Complete Blood Count + Differential 0.40 {x10E9/L} See Below [facility] Work Phone: [phone] Comment on above: Reference Range: 0.1 0 - 1.00 Complete Blood Count + Differential 1.70 {x10E9/L} See Below [facility] Work Phone: Comment on above: Reference Range: 1.2 0 - 4.80 Complete Blood Count + Differential 2.90 {x10E9/L} See Below [facility] Work Phone: Comment on above: Reference Range: 1.2 0 - 7.70 Percent differential counts (%) should be interpreted in the context of the absolute cell counts (cells/L). Complete Blood Count + Differential 1.7 % 0.0 - 6.0 [facility] Work Phone: Complete Blood Count + Differential 0.2 {/100_WBC} [facility] Work Phone: Ferritin, Serumon 02-02-2021 Ferritin [Mass/Vol] 10 ug/L 8 - 150 [facility] Work Phone: Laboratory - Chemistry and C hemistry - challengeon 02-02-2021 Albumin BCP dye [Mass/Vol] 4.3 g/dL 3.4 - 5.0 [facility] Work Phone: ALP [Catalytic activity/Vol] 52 U/L 33 - 110 [facility] Work Phone: ALT With P-5'-P [Catalytic activity/Vol] 14 U/L 7 - 45 [facility] Work Phone: Comment on above: Patients treated wit h Sulfasalazine may generate falsely decreased results for ALT. Anion gap [Moles/Vol] 11 mmol/L 10 - 20 [facility] Work Phone: AST With P-5'-P [Catalytic activity/Vol] 12 U/L 9 - 39 [facility] Work Phone: Bilirubin [Mass/Vol] 0.4 mg/dL 0.0 - 1.2 [facility] Work Phone: [phone] Calcium [Mass/Vol] 9.4 mg/dL 8.6 - 10.3 [facility] Work Phone: [phone] Chloride [Moles/Vol] 107 mmol/L 98 - 107 [facility] Work Phone: [phone] CO2 [Moles/Vol] 27 mmol/L 21 - 32 [facility] Work Phone: [phone] Creatinine [Mass/Vol] 0.75 mg/dL See Below [facility] Work Phone: Comment on above: Reference Range: 0.5 0 - 1.05 Glucose [Mass/Vol] 89 mg/dL 74 - 99 [facility] Work Phone: Iron [Mass/Vol] 40 ug/dL 35 - 150 [facility] Work Phone: Iron binding capacity [Mass/Vol] 430 ug/dL 240 - 445 [facility] Work Phone: Potassium [Moles/Vol] 3.9 mmol/L 3.5 - 5.3 [facility] Work Phone: Protein [Mass/Vol] 6.9 g/dL 6.4 - 8.2 [facility] Work Phone: Sodium [Moles/Vol] 141 mmol/L 136 - 145 [facility] Work Phone: Urea nitrogen [Mass/Vol] 21 mg/dL 6 - 23 [facility] Work Phone: Lipid Panelon 02-02-2021 Cholesterol [Mass/Vol] 185 mg/dL 0 - 199 [facility] Work Phone: Comment on above: . AGE DESIRABLE BORD JOSE M HIGH HIGH 0-19 Y 0 - 169 170 - 199 >/= 200 20-24 Y 0 - 189 190 - 224 >/= 225 >24 Y 0 - 199 200 - 239 >/= 240 All ranges are based on fasting samples. Specific therapeutic targets will vary based on patient-specific cardiac risk.. Pediatric guidelines reference:Pediatrics 2011, 128(S5). Adult guidelines reference: NCEP ATPIII Guidelines, YANETH 2001, 258:2486-97. Venipuncture immediately after or during the administration of Metamizole may lead to falsely low results. Testing should be performed immediately prior to Metamizole dosing. Cholesterol in HDL [Mass/Vol] 45.0 mg/dL [facility] Work Phone: Comment on above: . AGE VERY LOW LOW N ORMAL HIGH 0-19 Y < 35 < 40 40-45 ---- 20-24 Y ---- < 40 >45 ---- >24 Y ---- < 40 40-60 >60. Cholesterol in LDL [Mass/Vol] 121 mg/dL above high threshold 0 - 119 [facility] Work Phone: Comment on above: . NEAR BORD AGE ASHLEY RABLE OPTIMAL HIGH HIGH VERY HIGH 0-19 Y 0 - 109 --- 110-129 >/= 130 ---- 20-24 Y 0 - 119 --- 120-159 >/= 160 ---- >24 Y 0 - 99 100-129 130-159 160-189 >/=190. Cholesterol non HDL [Mass/Vol] 140 mg/dL 0 - 149 [facility] Work Phone: Comment on above: AGE DESIRABLE BORDER LINE HIGH HIGH VERY HIGH 0-19 Y 0 - 119 120 - 144 >/= 145 >/= 160 20-24 Y 0 - 149 150 - 189 >/= 190 ---- >24 Y 30 MG/DL ABOVE LDL CHOLESTEROL GOAL. Cholesterol.total/Ary sterol in HDL [Mass ratio] 4.1 {ratio} [facility] Work Phone: Comment on above: REF VALUESDESIRABLE < 3.4HIGH RISK > 5.0 Triglyceride [Mass/Vol] 93 mg/dL 0 - 149 M [facility] Work Phone: Comment on above: . AGE DESIRABLE BORD JOSE M HIGH HIGH VERY HIGH 0 D-90 D 19 - 174 ---- ---- ----91 D- 9 Y 0 - 74 75 - 99 >/= 100 ---- 10-19 Y 0 - 89 90 - 129 >/= 130 ---- 20-24 Y 0 - 114 115 - 149 >/= 150 ---- >24 Y 0 - 149 150 - 199 200- 499 >/= 500. Venipuncture immediately after or during the administration of Metamizole may lead to falsely low results. Testing should be performed immediately prior to Metamizole dosing. Lipid Panel 19 mg/dL 0 - 40 [facility] Work Phone: No Panel Informationon 02-02 >60 >60 [facility] Work Phone: Comment on above: CALCULATIONS OF LORIE MATED GFR ARE PERFORMED USING THE MDRD STUDY EQUATION FOR THE IDMS-TRACEABLE CREATININE METHODS. CLIN CHEM 2007;53:766-72 9 % below low threshold 25 - 45 [facility] Work Phone: T3 - Free Triiodothyronine, Serumon 02-02-2021 Free T3 [Mass/Vol] Canceled [facility] Work Phone: Free T3 [Mass/Vol] 3.2 pg/mL 2.3 - 4.2 [facility] Work Phone: T4 - Free Thyroxine, Serumon 02-02-2021 Free T4 [Mass/Vol] Canceled [facility] Work Phone: Comment on above: Thyroxine Free testi ng is performed using different testing methodology at [facility] than at other [facility]. Direct result comparisons should only be made within the same method.. Biotin can cause falsely elevated free T4 results. Patients taking a Biotin dose of up to 10 mg/day should refrain from taking Biotin for 24 hours before sample collection. Patient taking a Biotin dose of >10 mg/day should consult with their physician or the laboratory before the blood draw. Free T4 [Mass/Vol] 1.00 ng/dL See Below [facility] Work Phone: Comment on above: Reference Range: 0.6 1 - 1.12 Thyroxine Free testing is performed using different testing methodology at [facility] than at other [facility]. Direct result comparisons should only be made within the same method.. Biotin can cause falsely elevated free T4 results. Patients taking a Biotin dose of up to 10 mg/day should refrain from taking Biotin for 24 hours before sample collection. Patient taking a Biotin dose of >10 mg/day should consult with their physician or the laboratory before the blood draw. TSH - Thyroid Stimulating Ho rmone, Serumon 02-02-2021 TSH Qn Canceled [facility] Work Phone: Comment on above: TSH testing is perfo rmed using different testing methodology at [facility] than at other [facility]. Direct result comparisons should only be made within the same method. TSH Qn 0.85 m[IU]/L See Below [facility] Work Phone: Comment on above: Reference Range: 0.4 4 - 3.98 TSH testing is performed using different testing methodology at [facility] than at other [facility]. Direct result comparisons should only be made within the same method. Vitamin B12, Serumon 021 Cobalamin (Vitamin B12) [Mass/Vol] 306 pg/mL 211 - 911 [facility] Work Phone: Vitamin D 25-Hydroxyon 02-02 25-hydroxyvitamin D3 [Mass/Vol] 26 ng/mL Abnormal [facility] Work Phone: Comment on above: .DEFICIENCY: < 20 NG /MLINSUFFICIENCY: 20-29 NG/MLSUFFICIENCY: 30-100 NG/MLTHIS ASSAY ACCURATELY QUANTIFIES THE SUM OFVITAMIN D3, 25-HYDROXY AND VIT D2,25-HYDROXY. GC + Chlamydia By Amplified Detectionon 01-30-2021 C. trachomatis rRNA PIOTR+probe Ql (Unsp spec) Negative Negative [facility] [address] Work Phone: Comment on above: The APTIMA Combo 2 a ssay is FDA-approved for Chlamydia trachomatis and Neisseria gonorrhoeae testing on female endocervical and vaginal swabs, ThinPrep liquid pap samples, male urine samples and urethral swabs. Performance characteristics for Chlamydia trachomatis and Neisseria gonorrhoeae testing on specific yht-SQJ-fyvvouqc sample types (female urine samples) have been validated by [facility]. This laboratory is certified by CLIA to perform high complexity testing. Samples from all other sites are not validated for this method. N. gonorrhoeae rRNA PIOTR+probe Ql (Unsp spec) Negative Negative [facility] [address] Work Phone: Comment on above: SOURCE: Urine The AP CAMILO Combo 2 assay is FDA-approved for Chlamydia trachomatis and Neisseria gonorrhoeae testing on female endocervical and vaginal swabs, ThinPrep liquid pap samples, male urine samples and urethral swabs. Performance characteristics for Chlamydia trachomatis and Neisseria gonorrhoeae testing on specific lue-VDK-qwajwplj sample types (female urine samples) have been validated by [facility]. This laboratory is certified by CLIA to perform high complexity testing. Samples from all other sites are not validated for this method. GC + Chlamydia By Amplified Detectionon 01-02-2021 C. trachomatis rRNA PIOTR+probe Ql (Unsp spec) Positive Abnormal Negative [facility] [address] Work Phone: [phone] Comment on above: The APTIMA Combo 2 a ssay is FDA-approved for Chlamydia trachomatis and Neisseria gonorrhoeae testing on female endocervical and vaginal swabs, ThinPrep liquid pap samples, male urine samples and urethral swabs. Performance characteristics for Chlamydia trachomatis and Neisseria gonorrhoeae testing on specific lue-BSL-epftcfbn sample types (female urine samples) have been validated by [facility]. This laboratory is certified by CLIA to perform high complexity testing. Samples from all other sites are not validated for this method. N. gonorrhoeae rRNA PIOTR+probe Ql (Unsp spec) Negative Negative [facility] [address] Work Phone: [phone] Comment on above: SOURCE: Urine The AP CAMILO Combo 2 assay is FDA-approved for Chlamydia trachomatis and Neisseria gonorrhoeae testing on female endocervical and vaginal swabs, ThinPrep liquid pap samples, male urine samples and urethral swabs. Performance characteristics for Chlamydia trachomatis and Neisseria gonorrhoeae testing on specific uku-APC-esmvewir sample types (female urine samples) have been validated by [facility]. This laboratory is certified by CLIA to perform high complexity testing. Samples from all other sites are not validated for this method. IO Wet [place] 01-02-2021 IO Wet Mount Negative [facility] [address] Work Phone: [phone] LMPon 01-02-2021 Last menstrual period start date [id number] [facility] [address] Work Phone: [phone] Tobacco use status CPHS b) No [facility] [address] Work Phone: [phone] Tobacco Screening.on 021 Fall risk assessment a) No falls within the last year [facility] Work Phone: Tobacco use status CPHS b) [facility] [address] Work Phone: Tobacco Screening. b) No [facility] Work Phone: Tobacco Screening.on 021 Fall risk assessment b) One or more fall s in the last year [facility] Work Phone: Tobacco Screening. b) No [facility] Work Phone: Glucose, 1 [facility] Screen, [facility] Glucose 1 Hr post 50 g glucose PO [Mass/Vol] 104 mg/dL <135 [facility] [address] Work Phone: [phone] Comment on above: Diagnostic value wit h glucose loading dose of 50 g. Reference values from [place] [employer]. Diabetes Care 2015;38(Suppl.1):S8-S16 Hematology 05-22-2020 Blood group antibody screen Ql Negative [facility] [address] Work Phone: [phone] Hematocrit (Bld) [Volume fraction] 33.3 % below low threshold See Below [facility] [address] Work Phone: [phone] Comment on above: Reference Range: 36. 0 - 46.0 Hemoglobin (Bld) [Mass/Vol] 11.7 g/dL below low threshold See Below [facility] [address] Work Phone: [phone] Comment on above: Reference Range: 12. 0 - 16.0 MCV (RBC) [Entitic vol] 88 fL 80 - 100 [facility] [address] Work Phone: [phone] Platelets (Bld) [#/Vol] 204 {x10E9/L} 150 - 450 [facility] [address] Work Phone: [phone] RBC (Bld) [#/Vol] 3.79 {x10E12/L} below low threshold See Below [facility] [address] Work Phone: [phone] Comment on above: Reference Range: 4.0 0 - 5.20 WBC (Bld) [#/Vol] 8.2 {x10E9/L} 4.4 - 11.3 [facility] [address] Work Phone: [phone] Metabolic Panelon 05-22-2020 Glucose [Mass/Vol] 68 mg/dL below low threshold 74 - 99 [facility] [address] Work Phone: [phone] Otheron 05-22-2020 Erythrocyte distribution width (RBC) [Ratio] 14.2 % See Below [facility] [address] Work Phone: [phone] Comment on above: Reference Range: 11. 5 - 14.5 MCHC (RBC) [Mass/Vol] 35.0 g/dL See Below [facility] [address] Work Phone: [phone] Comment on above: Reference Range: 32. 0 - 36.0 NONE [facility] [address] Work Phone: [phone] Rhogamon 05-22-2020 Rhogam ORDER RECD [facility] [address] Work Phone: Otheron 04-04-2020 Interpreted by: MICHELLE TAYLOR04/04/20 11:11MRN: [id number] Name: JATINDER NORIEGABETH STUDY: OB COMPLETE 04/04/2020 10:30 am INDICATION:19 y/o F with DATES & ANATOMY EDC: 08/24/20. COMPARISON:None. ORDERING CLINICIAN:VANGIE JOSEPH TECHNIQUE:Routine ultrasound of the pelvis was performed. Evaluation of thefemale pelvis was performed by transabdominal approach. Staticimages were obtained for remote interpretation. FINDINGS: BPD 4.8 cm, 20 w 4 dHC 17 x 8 cm, 20 w 2 dAC 14.9 cm, 20 w 1 dFL 3.2 cm, 20 w 1 d Composite GA (by ultrasound) 19 w 5 dEDD (by ultrasound) 1EFW (estimated weight) 339 g at the 74th percentile by LMP PRESENTATION: CephalicPLACENTAL LOCATION: AnteriorFETAL HEART RATE: 147 bpmHEART (FOUR-CHAMBER): SeenTHREE-VESSEL CORD: SeenUMBILICAL CORD INSERTION: SeenFETAL BLADDER: SeenFETAL STOMACH: SeenFETAL SPINE: SeenFETAL KIDNEYS: SeenDIAPHRAGM: SeenLATERAL VENTRICLE: SeenAMNIOTIC FLUID INDEX: Within normal limits.CERVICAL LENGTH: 4.4 cm, closed. IMPRESSION:Single live intrauterine gestation corresponding to 19 w 5 d. EDDis 08/21/2020.Normal visualized anatomy.Electronically signed by: SALEEM TAYLOR 04/04/20 11:11 Normal [facility] [address] Work Phone: Cult, Urineon 04-01-2020 Bacteria identified Cx Nom (U) MICRSLT Abnormal [facility] [address] Work Phone: Comment on above: PATIENT: OLENA NORIEGA LOCATION: [facility]#: [id number] : 89 AGE: SEX: F ORDERED BY: MERLENE BERRIOS: URINE COLLECTED: 04/01/20 19:44ANTIBIOTICS AT YAAKOV.: RECEIVED : 04/02/20 13:31SITE: R E S U L T S URINE CULTURE,BACTERIAL FINAL 04/04/20 09:33 ISOLATE1 : Escherichia coli >100,000 CFU/ML Organism E coli Antibiotic BP INTRP Ampicillin S Ceftriaxone S Cefotaxime S Cefazolin S Ciprofloxacin S Nitrofurantoin S Gentamicin S Levofloxacin S Piperc/Tazobact S Trimeth/Sulfa S Tetracycline S S=SUSCEPTIBLE I=INTERMEDIATE R=RESISTANT SDD=SUSCEPTIBLE DOSE DEPENDENT NS=NONSUSCEPTIBLEX=REPORTED IN ERROR Ordering Provider: C HAD AGUSTINA [id number] URINALYSIS WITH CULTURE IF I NDICATEDon 04-01-2020 Appearance (U) HAZY CLEAR [facility] [address] Work Phone: [phone] Comment on above: Ordering Provider: C HAD AGUSTINA 22463 Color (U) Rosina See Below [facility] [address] Work Phone: [phone] Comment on above: Reference Range: STR AW,YELLOW Ordering Provider: C HAD AGUSTINA [id number] Glucose Ql (U) Negative NEGATIVE [facility] [address] Work Phone: [phone] Comment on above: Ordering Provider: C HAD AGUSTINA 01303 Ketones Ql (U) 20(1+) Abnormal NEGATIVE [facility] [address] Work Phone: [phone] Comment on above: Ordering Provider: C HAD AGUSTINA 61403 Leukocyte esterase Test strip Ql (U) MODERATE(2+) Abnormal NEGATIVE [facility] [address] Work Phone: [phone] Comment on above: Ordering Provider: C HAD AGUSTINA 28901 pH (U) 5.0 [pH] 5.0 - 8.0 [facility] [address] Work Phone: [phone] Comment on above: Ordering Provider: C HAD AGUSTINA 51605 Protein (U) [Mass/Vol] 30(1+) Abnormal NEGATIVE [facility] [address] Work Phone: [phone] Comment on above: Ordering Provider: C HAD AGUSTINA 04557 RBC (U) [#/Vol] SMALL(1+) Abnormal NEGATIVE [facility] [address] Work Phone: [phone] Comment on above: Ordering Provider: C HAD AGUSTINA 10745 Specific gravity (U) [Rel density] 1.020 1 See Below [facility] [address] Work Phone: [phone] Comment on above: Reference Range: 1.0 05 - 1.035 Ordering Provider: C HAD AGUSTINA 79843 URINALYSIS WITH CULTURE IF INDICATED Negative NEGATIVE [facility] [address] Work Phone: [phone] Comment on above: Ordering Provider: C HAD AGUSTINA 46306 URINALYSIS WITH CULTURE IF INDICATED 2.0 mg/dL above high threshold 0.0 - 1.9 [facility] [address] Work Phone: [phone] Comment on above: Due to a manufacturi ng issue, low positive urobilinogen results may be falsely positive. Correlate with urine bilirubin and additional clinical/laboratory findings to assess the risk of hemolytic anemia or liver disease. If clinically indicated, repeat testing with an alternate method is available by contacting the laboratory within 24 hours..Some pigments and medications may cause a false positive urobilinogen. Ordering Provider: C HAD AGUSTINA 43137 Urinalysis, Microscopicon Bacteria LM.HPF (Urine sed) [#/Area] 3+ Abnormal [facility] [address] Work Phone: [phone] Comment on above: Ordering Provider: C HAD AGUSTINA 06047 Urinalysis, Microscopic >182 Abnormal 0-5 [facility] [address] Work Phone: [phone] Comment on above: Ordering Provider: C HAD AGUSTINA 60607 Urinalysis, Microscopic OCC [facility] [address] Work Phone: [phone] Comment on above: Ordering Provider: C HAD AGUSTINA 25999 Urinalysis, Microscopic 4 {/HPF} 0-5 [facility] [address] Work Phone: [phone] Comment on above: Ordering Provider: C HAD AGUSTINA 05725 Urinalysis, Microscopic 2 {/HPF} [facility] [address] Work Phone: [phone] Comment on above: Ordering Provider: C HAD AGUSTINA 20918 Urinalysis, Microscopic 4+ [facility] [address] Work Phone: Comment on above: Ordering Provider: Mallorie BERRIOS 73817 GC + Chlamydia By Amplified Detectionon 03-19-2020 C. trachomatis rRNA PIOTR+probe Ql (Unsp spec) Negative Negative [facility] [address] Work Phone: N. gonorrhoeae rRNA PIOTR+probe Ql (Unsp spec) Negative Negative [facility] [address] Work Phone: Comment on above: SOURCE: Urine Cult, Urineon 02-29-2020 Bacteria identified Cx Nom (U) PATIENT: KAREN NORIEGA LOCATION: [facility] BILL#: [id number] : 89 AGE: SEX: F ORDERED BY: CAT JOSEPH: URINE COLLECTED: 02/29/20 09:10ANTIBIOTICS AT YAAKOV.: RECEIVED : 02/29/20 22:50SITE: Clean Catch/Voided R E S U L T S URINE CULTURE,BACTERIAL FINAL 03/03/20 11:37 ISOLATE1 : Escherichia coli >100,000 CFU/ML Or ganism E coli Antibiotic BP INTRP Am picillin S Ceftriaxone S Cefotaxime S Cefazolin S Ciprofloxacin S Nitrofurantoin S Gentamicin S Levofloxacin S Piperc/Tazobact S Trimeth/Sulfa S Tetracycline S S=SUSCEPTIBLE I=INTERMEDIATE R=RESISTANT SDD=SUSCEPTIBLE DOSE DEPENDENT NS=NONSUSCEPTIBLEX=REPO RTED IN ERROR Abnormal [facility] [address] Work Phone: Cult, Urineon 02-01-2020 Bacteria identified Cx Nom (U) PATIENT: KAREN NORIEGA LOCATION: [facility] BILL#: [id number] : 89 AGE: SEX: F ORDERED BY: CAT JOSEPH: URINE COLLECTED: 02/01/20 09:02ANTIBIOTICS AT YAAKOV.: RECEIVED : 02/02/20 00:48SITE: Clean Catch/Voided R E S U L T S URINE CULTURE,BACTERIAL FINAL 02/04/20 15:13 ISOLATE1 : Escherichia coli >100,000 CFU/ML Or ganism E coli Antibiotic BP INTRP Am picillin S Ceftriaxone S Cefotaxime S Cefazolin S Ciprofloxacin S Nitrofurantoin S Gentamicin S Levofloxacin S Piperc/Tazobact S Trimeth/Sulfa S Tetracycline S S=SUSCEPTIBLE I=INTERMEDIATE R=RESISTANT SDD=SUSCEPTIBLE DOSE DEPENDENT NS=NONSUSCEPTIBLEX=REPO RTED IN ERROR Abnormal [facility] [place] [address] [employer] Work Phone: GC + Chlamydia By Amplified Detectionon 02-01-2020 C. trachomatis rRNA PIOTR+probe Ql (Unsp spec) NOT DETECTED See Below [facility] [address] [employer] Work Phone: Comment on above: Reference Range: NOT DETECTEDPerformance characteristics for Chlamydia trachomatis testing on female urine samples has been validated by [facility]. Testing on this sample type is not FDA-approved, but such approval is not necessary. This laboratory is certified by CLIA to perform high complexity testing. N. gonorrhoeae rRNA PIOTR+probe Ql (Unsp spec) NOT DETECTED See Below [facility] [address] [employer] Work Phone: Comment on above: SOURCE: UrineReferen ce Range: NOT DETECTEDPerformance characteristics for Neisseria gonorrhoeae testing on female urine samples has been validated by [facility]. Testing on this sample type is not FDA-approved, but such approval is not necessary. This laboratory is certified by CLIA to perform high complexity testing. HIV Antigen/Antibody Screeno n 02-01-2020 HIV Antigen/Antibody Screen NONREACTIVE See Below [facility] [address] [employer] Work Phone: Comment on above: SOURCE: Reference Ra nge: NONREACTIVE HIV Ag/Ab screen is performed using the [employer] HIV Ag/Ab Combo assay which detects the presence of HIV p24 antigen as well as antibodies to HIV-1 (Group M and O) and HIV-2. SOURCE: Reference Ra nge: NONREACTIVE Results from patients taking biotin supplements or receiving high-dose biotin therapy should be interpreted with caution due to possible interference with this test. Providers may contact their local laboratory for further information. SOURCE: Reference Ra nge: NONREACTIVE Biotin interference may cause falsely decreased results. Patients taking a Biotin dose of up to 5 mg/day should refrain from taking Biotin for 24 hours before sample collection. Providers may contact their local laboratory for further information. Hematologyon 02-01-2020 ABO group Nom (Bld) A [facility] [employer] Work Phone: [phone] Blood group antibody screen Ql Negative [facility] [employer] Work Phone: [phone] Hematocrit (Bld) [Volume fraction] 37.2 % See Below [facility] [employer] Work Phone: [phone] Comment on above: Reference Range: 36. 0 - 46.0 Hemoglobin (Bld) [Mass/Vol] 12.7 g/dL See Below [facility] [employer] Work Phone: [phone] Comment on above: Reference Range: 12. 0 - 16.0 MCV (RBC) [Entitic vol] 83 fL 80 - 100 [facility] [employer] Work Phone: [phone] Platelets (Bld) [#/Vol] 203 {x10E9/L} 150 - 450 [facility] [employer] Work Phone: [phone] RBC (Bld) [#/Vol] 4.47 {x10E12/L} See Below [facility] [employer] Work Phone: [phone] Comment on above: Reference Range: 4.0 0 - 5.20 Rh immune globulin screen (Bld) [Interp] Negative [facility] [place] [address] [employer] Work Phone: [phone] Comment on above: Review your Rh Negat regis female patient's potential need for Rh Immune Globulin (RhIg)administration. WBC (Bld) [#/Vol] 6.4 {x10E9/L} 4.4 - 11.3 [facility] [address] [employer] Work Phone: [phone] IO HCG, Urine Test on 02-01-2020 HCG ( test) Ql (U) Positive Abnormal [facility] [employer] Work Phone: [phone] Comment on above: Medline [id number] 3Exp:01/21/2021 Otheron 02-01-2020 Erythrocyte distribution width (RBC) [Ratio] 13.8 % See Below [facility] [address] [employer] Work Phone: [phone] Comment on above: Reference Range: 11. 5 - 14.5 MCHC (RBC) [Mass/Vol] 34.0 g/dL See Below [facility] [employer] Work Phone: [phone] Comment on above: Reference Range: 32. 0 - 36.0 NONE [facility] [address] [employer] Work Phone: Rubella IgG Antibodyon 01-31 Rubella virus IgG IA Ql Positive [facility] [address] [employer] Work Phone: [phone] Comment on above: SOURCE: INTERPRETATI VE COMMENT NEGATIVE: No IgG antibodies specific to Rubella detected. It is likely that the patient has not had a previous exposure to Rubella through infection or vaccination. Alternatively, the patient may have been exposed to Rubella but a failure to respond may indicate immunodeficiency. EQUIVOCAL:Equivocal results; obtain additional sample for retesting. POSITIVE: IgG antibody to Rubella detected. This may indicate that the patient was exposed to Rubella through infection or vaccination.The interpretation of serological tests should take into accountthe immunological status of the patient. Test results forpatients, including immunocompromised patients, neonates, andpediatric patients, reflect their capacity to respondimmunologically to the virus as well as their exposure to thepathogen. Patients treated with IVIG may demonstrate alteredresults in serological assays. SYPHILIS SCREENING WITH REFL EXon 02-01-2020 T. pallidum IgG+IgM IA Ql (S) NONREACTIVE See Below [facility] [employer] Work Phone: [phone] Comment on above: SOURCE: Reference Ra nge: NONREACTIVENo significant level of Treponema pallidum antibody detected. Repeat testing in 2 to 4 weeks may be considered if early infection or incubating syphilis infection is suspected. Complete Blood Count + Diffe rentialon 12-10-2019 Basophils (Bld) [#/Vol] 0.00 {x10E9/L} See Rowena bowles [facility] Work Phone: Comment on above: Reference Range: 0.0 0 - 0.10 Basophils/100 WBC (Bld) 0.5 % 0.0 - 2.0 M [facility] Work Phone: Eosinophils (Bld) [#/Vol] 0.10 {x10E9/L} See Below [facility] Work Phone: Comment on above: Reference Range: 0.0 0 - 0.70 Eosinophils/100 WBC (Bld) 1.4 % 0.0 - 6.0 [facility] Work Phone: Erythrocyte distribution width (RBC) [Ratio] 14.1 % See Below [facility] Work Phone: Comment on above: Reference Range: 11. 5 - 14.5 Hematocrit (Bld) [Volume fraction] 40.7 % See Below [facility] Work Phone: Comment on above: Reference Range: 36. 0 - 46.0 Hemoglobin (Bld) [Mass/Vol] 13.8 g/dL See Below [facility] Work Phone: Comment on above: Reference Range: 12. 0 - 16.0 Lymphocytes (Bld) [#/Vol] 1.90 {x10E9/L} See Below [facility] Work Phone: Comment on above: Reference Range: 1.2 0 - 4.80 Lymphocytes/100 WBC (Bld) 27.0 % See Below [facility] Work Phone: Comment on above: Reference Range: 13. 0 - 44.0 MCHC (RBC) [Mass/Vol] 33.9 g/dL See Below [facility] Work Phone: Comment on above: Reference Range: 32. 0 - 36.0 MCV (RBC) [Entitic vol] 83 fL 80 - 100 M [facility] Work Phone: [phone] Monocytes (Bld) [#/Vol] 0.60 {x10E9/L} See Rowena bowles [facility] Work Phone: Comment on above: Reference Range: 0.1 0 - 1.00 Monocytes/100 WBC (Bld) 8.1 % 2.0 - 10.0 M [facility] Work Phone: Neutrophils (Bld) [#/Vol] 4.40 {x10E9/L} See Below [facility] Work Phone: Comment on above: Reference Range: 1.2 0 - 7.70 Percent differential counts (%) should be interpreted in the context of the absolute cell counts (cells/L). Neutrophils/100 WBC (Bld) 63.0 % See Below [facility] Work Phone: Comment on above: Reference Range: 40. 0 - 80.0 Platelets (Bld) [#/Vol] 225 {x10E9/L} 150 - 450 [facility] Work Phone: RBC (Bld) [#/Vol] 4.88 {x10E12/L} See Below [facility] Work Phone: Comment on above: Reference Range: 4.0 0 - 5.20 WBC (Bld) [#/Vol] 6.9 {x10E9/L} 4.4 - 11.3 [facility] Work Phone: Hemoglobin A1Con 12-10-2019 HbA1c (Bld) [Mass fraction] 100 {MG/DL} [facility] Work Phone: HbA1c (Bld) [Mass fraction] 5.1 % [facility] Work Phone: Comment on above: Diagnosis of Diabete s-Adults Non-Diabetic: < or = 5.6% Increased risk for developing diabetes: 5.7-6.4% Diagnostic of diabetes: > or = 6.5%. Monitoring of Diabetes Age (y) Therapeutic Goal (%) Adults: >18 <7.0 Pediatrics: 13-18 <7.5 7-12 <8.0 0- 6 7.5-8.5 [employer]. Diabetes Care 33(S1), Jul 2009. Metabolic Panelon 12-10-2019 ALP [Catalytic activity/Vol] 76 U/L 33 - 110 [facility] Work Phone: [phone] Anion gap [Moles/Vol] 10 mmol/L 10 - 20 [facility] Work Phone: [phone] Bilirubin [Mass/Vol] 0.5 mg/dL 0.0 - 1.2 [facility] Work Phone: [phone] Calcium [Mass/Vol] 9.3 mg/dL 8.6 - 10.3 [facility] Work Phone: [phone] Chloride [Moles/Vol] 107 mmol/L 98 - 107 [facility] Work Phone: [phone] CO2 [Moles/Vol] 25 mmol/L 21 - 32 [facility] Work Phone: [phone] Creatinine [Mass/Vol] 0.77 mg/dL See Below [facility] Work Phone: [phone] Comment on above: Reference Range: 0.5 0 - 1.05 Glucose [Mass/Vol] 91 mg/dL 74 - 99 [facility] Work Phone: [phone] Potassium [Moles/Vol] 3.8 mmol/L 3.5 - 5.3 [facility] Work Phone: [phone] Protein [Mass/Vol] 6.7 g/dL 6.4 - 8.2 [facility] Work Phone: [phone] Sodium [Moles/Vol] 138 mmol/L 136 - 145 [facility] Work Phone: [phone] Urea nitrogen [Mass/Vol] 17 mg/dL 6 - 23 [facility] Work Phone: Otheron 12-10-2019 Albumin BCP dye [Mass/Vol] 4.2 g/dL 3.4 - 5.0 [facility] Work Phone: [phone] ALT With P-5'-P [Catalytic activity/Vol] 13 U/L 7 - 45 [facility] Medicine Work Phone: [phone] Comment on above: Patients treated wit h Sulfasalazine may generate falsely decreased results for ALT. AST With P-5'-P [Catalytic activity/Vol] 25 U/L 9 - 39 [facility] Work Phone: [phone] [facility] Work Phone: Comment on above: CALCULATIONS OF LORIE MATED GFR ARE PERFORMED USING THE MDRD STUDY EQUATION FOR THE IDMS-TRACEABLE CREATININE METHODS. CLIN CHEM 2007;53:766-72 Thyroidon 12-10-2019 TSH Qn 0.96 {mIU/L} See Below [facility] Work Phone: Comment on above: Reference Range: 0.4 4 - 3.98 Note new pediatric reference range as of 09/27/2019. TSH testing is performed using different testing methodology at [facility] than at [facility]. Direct result comparisons should only be made within the same method. Vitamin B12, Serumon 020 Cobalamin (Vitamin B12) [Mass/Vol] 316 pg/mL 211 - 911 [facility] Work Phone: CMPon 04-12-2019 Albumin [Mass/Vol] 4.3 g/dL Normal 3.4-5.0 [facility] Comment on above: Performed By: #### 8 [id number] #### SUSANA Urinalysis Automated Subsection [facility] [place] [id number] Albumin/Globulin [Mass ratio] 1.7 {ratio} Normal 1.1-1.9 [facility] Comment on above: Performed By: #### 8 [id number] #### SUSANA Urinalysis Automated Subsection [facility] [place] [address] Alk Phos 64 Int._Unit/L Normal 33-110 [facility] Comment on above: Performed By: #### 8 [id number] #### SUSANA Urinalysis Automated Subsection [facility] [place] [address] ALT [Catalytic activity/Vol] 17 Int._Unit/L Normal 7-45 [facility] Comment on above: Performed By: #### 8 [id number] #### SUSANA Urinalysis Automated Subsection [facility] [place] [address] Anion gap [Moles/Vol] 13 mmol/L Normal 10-20 [facility] Comment on above: Performed By: #### 8 [id number] #### SUSANA Urinalysis Automated Subsection [address] [place] [address] AST [Catalytic activity/Vol] 15 Int._Unit/L Normal 9-39 [facility] Comment on above: Performed By: #### 8 [id number] #### SUSANA Urinalysis Automated Subsection [address] [place] [address] Bili Total 0.24 mg/dL Normal 0.00-1.20 [facility] Comment on above: Performed By: #### 8 [id number] #### SUSANA Urinalysis Automated Subsection [address] [place] [address] Calcium [Mass/Vol] 9.5 mg/dL Normal 8.5-10.7 [facility] Comment on above: Performed By: #### 8 [id number] #### SUSANA Urinalysis Automated Subsection [address] [place] [address] Chloride [Moles/Vol] 107 mmol/L Normal 98-107 [facility] Comment on above: Performed By: #### 8 [id number] #### SUSANA Urinalysis Automated Subsection [address] [place] [address] CO2 [Moles/Vol] 22.0 mmol/L Normal 21.0-32.0 [facility] Comment on above: Performed By: #### 8 [id number] #### SUSANA Urinalysis Automated Subsection [address] [place], [place] [id number] Creatinine [Mass/Vol] 0.7 mg/dL Normal 0.5-1.1 [facility] Comment on above: Performed By: #### 8 [id number] #### SUSANA Urinalysis Automated Subsection [address] [place] [address] Globulin (S) [Mass/Vol] 3.0 g/dL Normal 2.0-4.0 S [facility] Comment on above: Performed By: #### 8 [id number] #### SUSANA Urinalysis Automated Subsection [address] [place] [address] Glucose [Mass/Vol] 90 mg/dL Normal 70-99 [facility] Comment on above: Performed By: #### 8 [id number] #### SUSANA Urinalysis Automated Subsection [address] [place] [address] Potassium [Moles/Vol] 3.9 mmol/L Normal 3.5-5.3 [facility] Comment on above: Performed By: #### 8 [id number] #### S[facility] Urinalysis Automated Subsection [address] [place] [address] Protein [Mass/Vol] 6.8 g/dL Normal 6.4-8.2 [facility] Comment on above: Performed By: #### 8 [id number] #### SUSANA Urinalysis Automated Subsection [facility] [place] [address] Sodium [Moles/Vol] 138 mmol/L Normal 136-145 [facility] Comment on above: Performed By: #### 8 [id number] #### SUSANA Urinalysis Automated Subsection [facility] [place] [address] Urea nitrogen [Mass/Vol] 16 mg/dL Normal 6-23 [facility] Comment on above: Performed By: #### 8 [id number] #### SUSANA Urinalysis Automated Subsection [facility] [place] [address] Urea nitrogen/Creatinine [Mass ratio] 22.9 ratio Normal 5.4-30.0 [facility] Comment on above: Performed By: #### 8 [id number] #### SUSANA Urinalysis Automated Subsection [facility] [place] [address] Vit B12on 04-12-2019 Cobalamin (Vitamin B12) [Mass/Vol] 385 pg/mL Normal 180-914 [facility] Comment on above: Performed By: #### 2 [id number] #### SUSANA RemHemo [address] [place] [address] Vitamin D 25 Hydroxyon 04-12 Vitamin D 25 Hydroxy 25.0 ng/mL Low 30.0-100.0 [facility] Comment on above: Performed By: #### 2 [id number] #### SUSANA [address] [place] [address] eGFRon 04-12-2019 GFR/1.73 sq M predicted among non-blacks MDRD (S/P/Bld) [Vol rate/Area] mL/min/{1.73_m2} Normal [facility] Comment on above: Order Comment: Order added by Discern Expert. Performed By: #### 8 [id number] #### SUSANA Urinalysis Automated Subsection [address] [place] [address] Vit B12on 01-11-2019 Cobalamin (Vitamin B12) [Mass/Vol] 369 pg/mL Normal 180-914 [facility] Comment on above: Performed By: #### 8 [id number] #### SUSANA Urinalysis Automated Subsection [address] [place] [id number] Vitamin D 25 Hydroxyon 01-11 Vitamin D 25 Hydroxy 26.0 ng/mL Low 30.0-100.0 [facility] Comment on above: Performed By: #### 8 [id number] #### SUSANA Urinalysis Automated Subsection [address] [place] [address] MRI Brain w/ + w/o Contrasto n 11-15-2018 MRI Brain w/ + w/o Contrast Exam Date/Time: 11/15/2018 16:00 EDT Reason for Exam: MIGRAINE HEADACHES WITH AURA;Other (please specify) Report STUDY: MRI Brain w/ + w/o Contrast; 11/15/2018 4:00 pm INDICATION: Other (please specify). Blurred vision, tunnel vision, dizziness, head pain. COMPARISON: None. ACCESSION NUMBER(S): [id number] ORDERING CLINICIAN: Kylah Crawford TECHNIQUE: Axial T2, FLAIR, DWI, gradient echo T2 and sagittal and coronal T1 weighted images of brain were acquired. Post contrast T1 weighted images were acquired after administration of 16 mL gadobenate (Multihance) gadolinium based intravenous contrast. FINDINGS: CSF Spaces: The ventricles, sulci and basal cisterns are normal. Parenchyma: There is no diffusion restriction abnormality to suggest acute infarct. The brain parenchyma is normal with no infarct, hemorrhage or mass. Brain enhances normally. Paranasal Sinuses and Mastoids: Visualized paranasal sinuses and mastoid air cells are unremarkable. IMPRESSION: Normal MRI of the brain. FINAL REPORT Dictated: 11/15/2018 5:27 pm Shane Garay MD Signed (Electronic Signature): 11/15/2018 5:27 pm Signed by: Shane Garay MD Technologist: DC Normal [facility] Auto Diffon 10-03-2018 Basophils (Bld) [#/Vol] 0.0 E3/mcL Normal 0.0-0.2 S [facility] Comment on above: Order Comment: Order Added by Discern Expert. Performed By: #### 2 [id number] #### SUSANA Urinalysis Manual Subsection [facility] [place] [address] Basophils/100 WBC (Bld) 0.6 % Normal 0.0-2.0 S [facility] Comment on above: Order Comment: Order Added by Discern Expert. Performed By: #### 2 [id number] #### SUSANA Urinalysis Manual Subsection [facility] [place] [address] Eos Absolute 0.1 E3/mcL Normal 0.0-0.7 [facility] Comment on above: Order Comment: Order Added by Discern Expert. Performed By: #### 2 [id number] #### SUSANA Urinalysis Manual Subsection [facility] [place] [address] Eosinophils/100 WBC (Bld) 1.4 % Normal 0.0-11.0 [facility] Comment on above: Order Comment: Order Added by Discern Expert. Performed By: #### 2 [id number] #### SUSANA Urinalysis Manual Subsection [facility] [place] [address] Lymphocytes (Bld) [#/Vol] 1.8 E3/mcL Normal 1.2-3.4 [facility] Comment on above: Order Comment: Order Added by Discern Expert. Performed By: #### 2 [id number] #### SUSANA Urinalysis Manual Subsection [facility] [place] [address] Lymphocytes/100 WBC (Bld) 29.5 % Normal 20.0-55.0 [facility] Comment on above: Order Comment: Order Added by Discern Expert. Performed By: #### 2 [id number] #### SUSANA Urinalysis Manual Subsection [facility] [place] [address] Braxton Absolute 0.3 E3/mcL Normal 0.0-0.7 [facility] Comment on above: Order Comment: Order Added by Discern Expert. Performed By: #### 2 [id number] #### SUSANA Urinalysis Manual Subsection [address] [place] [address] Monocytes/100 WBC (Bld) 5.7 % Normal 0.0-10.0 [facility] Comment on above: Order Comment: Order Added by Discern Expert. Performed By: #### 2 [id number] #### SUSANA Urinalysis Manual Subsection [address] [place] [address] Neutro Absolute 3.9 E3/mcL Normal 1.4-6.5 [facility] Comment on above: Order Comment: Order Added by Discern Expert. Performed By: #### 2 [id number] #### SUSANA Urinalysis Manual Subsection [address] [place] [address] Neutro Auto 62.8 % Normal 37.0-75.0 [facility] Comment on above: Order Comment: Order Added by Discern Expert. Performed By: #### 2 [id number] #### SUSANA Urinalysis Manual Subsection [address] [place] [address] CBC w/ Auto Diffon 9 Erythrocyte distribution width (RBC) [Ratio] 14.1 % Normal 11.5-14.5 [facility] Comment on above: Performed By: #### 2 [id number] #### SUSANA Urinalysis Manual Subsection [address] [place] [address] Hematocrit (Bld) [Volume fraction] 42.3 % Normal 36.0-48.0 [facility] Comment on above: Performed By: #### 2 [id number] #### SUSANA Urinalysis Manual Subsection [address] [place] [address] Hemoglobin (Bld) [Mass/Vol] 14.2 g/dL Normal 12.0-16.0 [facility] Comment on above: Performed By: #### 2 [id number] #### SUSANA Urinalysis Manual Subsection [address] [place] [address] MCH (RBC) [Entitic mass] 28.2 pg Normal 27.0-31.0 [facility] Comment on above: Performed By: #### 2 [id number] #### SUSANA Urinalysis Manual Subsection [address] [place] [address] MCHC (RBC) [Mass/Vol] 33.5 g/dL Normal 33.0-37.0 [facility] Comment on above: Performed By: #### 2 [id number] #### SUSANA Urinalysis Manual Subsection [address] [place] [address] MCV (RBC) [Entitic vol] 84.2 fL Normal 78.0-100.0 [facility] Comment on above: Performed By: #### 2 [id number] #### SUSANA Urinalysis Manual Subsection [address] [place] [address] Platelet mean volume (Bld) [Entitic vol] 9.9 fL Normal 7.4-11.0 [facility] Comment on above: Performed By: #### 2 [id number] #### SUSANA Urinalysis Manual Subsection [facility] [place] [address] Platelets (Bld) [#/Vol] 229 E3/mcL Normal 130-400 [facility] Comment on above: Performed By: #### 2 [id number] #### SUSANA Urinalysis Manual Subsection [facility] [place] [address] RBC (Bld) [#/Vol] 5.02 E6/mcL Normal 3.90-5.40 [facility] Comment on above: Performed By: #### 2 [id number] #### SUSANA Urinalysis Manual Subsection [facility] [place] [address] WBC (Bld) [#/Vol] 6.1 E3/mcL Normal 3.6-11.0 [facility] Comment on above: Performed By: #### 2 [id number] #### SUSANA Urinalysis Manual Subsection [facility] [place] [address] CMPon 10-03-2018 Albumin [Mass/Vol] 4.7 g/dL Normal 3.4-5.0 [facility] Comment on above: Performed By: #### 8 [id number] #### SUSANA Urinalysis Automated Subsection [facility] [place] [address] Albumin/Globulin [Mass ratio] 2.0 {ratio} High 1.1-1.9 [facility] Comment on above: Performed By: #### 8 [id number] #### SUSANA Urinalysis Automated Subsection [facility] [place] [address] Alk Phos 57 Int._Unit/L Normal 33-110 [facility] Comment on above: Performed By: #### 8 [id number] #### SUSANA Urinalysis Automated Subsection [facility] [place] [address] ALT [Catalytic activity/Vol] 12 Int._Unit/L Normal 7-45 [facility] Comment on above: Performed By: #### 8 [id number] #### SUSANA Urinalysis Automated Subsection [facility] [place] [address] Anion gap [Moles/Vol] 5 mmol/L Low 10-20 [facility] Comment on above: Performed By: #### 8 [id number] #### SUSANA Urinalysis Automated Subsection [facility] [place] [address] AST [Catalytic activity/Vol] 13 Int._Unit/L Normal 9-39 [facility] Comment on above: Performed By: #### 8 [id number] #### SUSANA Urinalysis Automated Subsection [facility] [place] [address] Bili Total 0.47 mg/dL Normal 0.00-1.20 [facility] Comment on above: Performed By: #### 8 [id number] #### SUSANA Urinalysis Automated Subsection [facility] [place] [address] Calcium [Mass/Vol] 9.5 mg/dL Normal 8.5-10.7 [facility] Comment on above: Performed By: #### 8 [id number] #### SUSANA Urinalysis Automated Subsection [facility] [place] [address] Chloride [Moles/Vol] 110 mmol/L High 98-107 [facility] Comment on above: Performed By: #### 8 [id number] #### SUSANA Urinalysis Automated Subsection [facility] [place] [address] CO2 [Moles/Vol] 26.0 mmol/L Normal 21.0-32.0 [facility] Comment on above: Performed By: #### 8 [id number] #### SUSANA Urinalysis Automated Subsection [facility] [place] [address] Creatinine [Mass/Vol] 0.8 mg/dL Normal 0.5-1.1 [facility] Comment on above: Performed By: #### 8 [id number] #### SUSANA Urinalysis Automated Subsection [facility] [place] [address] Globulin (S) [Mass/Vol] 2.0 g/dL Normal 2.0-4.0 [facility] Comment on above: Performed By: #### 8 [id number] #### SUSANA Urinalysis Automated Subsection [address] [place] [address] Glucose [Mass/Vol] 95 mg/dL Normal 70-99 [facility] Comment on above: Performed By: #### 8 [id number] #### SUSANA Urinalysis Automated Subsection [address] [place] [address] Potassium [Moles/Vol] 3.8 mmol/L Normal 3.5-5.3 [facility] Comment on above: Performed By: #### 8 [id number] #### SUSANA Urinalysis Automated Subsection [address] [place] [address] Protein [Mass/Vol] 7.1 g/dL Normal 6.4-8.2 [facility] Comment on above: Performed By: #### 8 [id number] #### SUSANA Urinalysis Automated Subsection [address] [place] [address] Sodium [Moles/Vol] 137 mmol/L Normal 136-145 [facility] Comment on above: Performed By: #### 8 [id number] #### SUSANA Urinalysis Automated Subsection [address] [place] [address] Urea nitrogen [Mass/Vol] 15 mg/dL Normal 6-23 [facility] Comment on above: Performed By: #### 8 [id number] #### SUSANA Urinalysis Automated Subsection [address] [place] [address] Urea nitrogen/Creatinine [Mass ratio] 18.8 ratio Normal 5.4-30.0 [facility] Comment on above: Performed By: #### 8 [id number] #### SUSANA Urinalysis Automated Subsection [address] [place] [address] Ferritinon 10-03-2018 Ferritin [Mass/Vol] 9.0 ng/mL Normal 8.0-150.0 [facility] Comment on above: Performed By: #### 2 [id number] #### SUSANA Urinalysis Manual Subsection [facility] [place] [address] Folateon 10-03-2018 Folate Lvl 21.40 ng/mL Normal >=5.00 [facility] Comment on above: Result Comment: The WHO Technical Consultation on folate and vitamin B12 deficiencies has determined that deficient folate concentrations are considered to be less than 4ng/ml. Performed By: #### 2 [id number] #### SUSANA Urinalysis Manual Subsection [address] [place] [address] Free T4on 10-03-2018 Free T4 [Mass/Vol] 1.10 ng/dL Normal 0.58-1.64 [facility] Comment on above: Performed By: #### 2 [id number] #### SUSANA Urinalysis Manual Subsection [address] [place] [address] [id number] 10-03-2018 HbA1c (Bld) [Mass fraction] 5.0 % Normal 4.0-6.3 [facility] Comment on above: Performed By: #### 2 [id number] #### SUSANA Urinalysis Manual Subsection [address] [place] [address] Ironon 10-03-2018 Iron [Mass/Vol] 78 microgram/dL Normal 35-150 [facility] Comment on above: Performed By: #### 8 [id number] #### SUSANA Urinalysis Automated Subsection [address] [place] [address] Iron Testson 10-03-2018 Iron Sat 18 Normal 11-46 [facility] Comment on above: Performed By: #### 8 [id number] #### SUSANA Urinalysis Automated Subsection [address] [place] [address] TIBC 438 microgram/dL Normal >=250 [facility] Comment on above: Performed By: #### 8 [id number] #### SUSANA Urinalysis Automated Subsection [facility] [place] [address] Transferrin [Mass/Vol] 313 mg/dL Normal 200-360 [facility] Comment on above: Performed By: #### 8 [id number] #### SUSANA Urinalysis Automated Subsection [facility] [place] [address] Lipid Profileon 10-03-2018 Cholesterol [Mass/Vol] 144 mg/dL Normal 0-169 [facility] Comment on above: Result Comment: TOTA L CHOLEESTEROL: <200 NORMAL 200 - 239 BORDERLINE HIGH >240 HIGH Performed By: #### 8 [id number] #### SUSANA Urinalysis Automated Subsection [address] [place] [address] Cholesterol in HDL [Mass/Vol] 40 mg/dL Normal 40-45 [facility] Comment on above: Performed By: #### 8 [id number] #### SUSANA Urinalysis Automated Subsection [address] [place] [address] Cholesterol in LDL [Mass/Vol] 85 mg/dL Normal 0-130 [facility] Comment on above: Result Comment: <100 OPTIMAL 100-129 NEAR / ABOVE OPTIMAL 130-159 BORDERLINE HIGH 160-189 HIGH >190 VERY HIGH CALC LDL NOT VALID WHEN TRIGLYCERIDE IS >400 MG/DL Performed By: #### 8 [id number] #### SUSANA Urinalysis Automated Subsection [address] [place] [address] Cholesterol in VLDL [Mass/Vol] 19 mg/dL Normal 0-40 [facility] Comment on above: Performed By: #### 8 [id number] #### SUSANA Urinalysis Automated Subsection [address] [place] [address] Triglyceride [Mass/Vol] 93 mg/dL Normal 0-149 [facility] Comment on above: Result Comment: AGE DESIRABLE BORDERLINE HIGH 91 D - 9 Y 0 - 74 75 - 99 > 100 10 - 19 Y 0 - 89 90 - 129 > 130 20 -24 Y 0 - 114 115 - 149 > 150 > 25 0 - 149 150 - 199 200 - 499 Performed By: #### 8 [id number] #### SUSANA Urinalysis Automated Subsection [address] [place] [address] TSHon 10-03-2018 TSH Qn 0.56 mcIU/mL Normal 0.30-5.60 [facility] Comment on above: Performed By: #### 2 [id number] #### SUSANA Urinalysis Manual Subsection [facility] [place] [address] Vit B12on 10-03-2018 Cobalamin (Vitamin B12) [Mass/Vol] 223 pg/mL Normal 180-914 [facility] Comment on above: Performed By: #### 2 [id number] #### SUSANA Urinalysis Manual Subsection [facility] [place] [address] Vitamin D 25 Hydroxyon 10-03 Vitamin D 25 Hydroxy 24.0 ng/mL Low 30.0-100.0 [facility] Comment on above: Performed By: #### 2 [id number] #### SUSANA Urinalysis Manual Subsection [address] [place] [address] eGFRon 10-03-2018 GFR/1.73 sq M predicted among non-blacks MDRD (S/P/Bld) [Vol rate/Area] mL/min/{1.73_m2} Normal [facility] Comment on above: Order Comment: Order added by Discern Expert. Performed By: #### 8 [id number] #### SUSANA Urinalysis Automated Subsection [facility] [place] [address] C Urineon 10-01-2018 C Urine Final Report: 80,000 cfu/ml Enterobacter aerogenes ORGANISM: Entaer SUSCEPTIBILITY RESULTS Antibiotic BRANDON Dilutn BRANDON Interp ORGANISM: Entaer Amox/Cla : <=8/4 R* Amp : >16 R Amp/Sul : >16/8 R Cefaz : <=8 R* Cefo : <=2 S Ceftaz : <=1 S Ceftri : <=8 S Cefur : <=4 R* Cipro : <=1 S Gent : <=4 S Levo : <=2 S Sena : <=1 S Nitro : <=32 S Pip/Anton : <=16 S Tetra : >8 R Tobra : <=4 S SXT : <=2/38 S [facility] Comment on above: Performed By: #### 2 [id number] #### SUSANA Urinalysis Manual Subsection [facility] [place] [address] Auto Diffon 09-29-2018 Basophils (Bld) [#/Vol] 0.0 E3/mcL Normal 0.0-0.2 [facility] Comment on above: Order Comment: Order Added by Discern Expert. Performed By: #### 2 [id number] #### SUSANA RemHemo [address] [place] [address] Basophils/100 WBC (Bld) 0.6 % Normal 0.0-2.0 [facility] Comment on above: Order Comment: Order Added by Discern Expert. Performed By: #### 2 [id number] #### SUSANA RemHemo [address] [place] [address] Eos Absolute 0.0 E3/mcL Normal 0.0-0.7 [facility] Comment on above: Order Comment: Order Added by Discern Expert. Performed By: #### 2 [id number] #### SUSANA RemHemo [address] [place] [address] Eosinophils/100 WBC (Bld) 0.4 % Normal 0.0-11.0 [facility] Comment on above: Order Comment: Order Added by Discern Expert. Performed By: #### 2 [id number] #### SUSANA RemHemo [address] [place] [address] Lymphocytes (Bld) [#/Vol] 1.7 E3/mcL Normal 1.2-3.4 [facility] Comment on above: Order Comment: Order Added by Discern Expert. Performed By: #### 2 [id number] #### SUSANA RemHemo [address] [place] [address] Lymphocytes/100 WBC (Bld) 23.5 % Normal 20.0-55.0 [facility] Comment on above: Order Comment: Order Added by Discern Expert. Performed By: #### 2 [id number] #### SUSANA RemHemo [address] [place] [address] Braxton Absolute 0.4 E3/mcL Normal 0.0-0.7 [facility] Comment on above: Order Comment: Order Added by Discern Expert. Performed By: #### 2 [id number] #### SUSANA RemHemo [address] [place] [address] Monocytes/100 WBC (Bld) 5.3 % Normal 0.0-10.0 [facility] Comment on above: Order Comment: Order Added by Discern Expert. Performed By: #### 2 [id number] #### SUSANA RemHemo [address] [place] [address] Neutro Absolute 5.2 E3/mcL Normal 1.4-6.5 [facility] Comment on above: Order Comment: Order Added by Discern Expert. Performed By: #### 2 [id number] #### SUSANA RemHemo [address] [place] [address] Neutro Auto 70.2 % Normal 37.0-75.0 [facility] Comment on above: Order Comment: Order Added by Discern Expert. Performed By: #### 2 [id number] #### SUSANA RemHemo [address] [place] [address] BMPon 09-29-2018 Anion gap [Moles/Vol] 10 mmol/L Normal 10-20 [facility] Comment on above: Performed By: #### 2 [id number] #### SUSANA RemChem [address] [place] [address] Calcium [Mass/Vol] 9.5 mg/dL Normal 8.5-10.7 [facility] Comment on above: Performed By: #### 2 [id number] #### SUSANA RemChem [address] [place] [address] Chloride [Moles/Vol] 108 mmol/L High 98-107 [facility] Comment on above: Performed By: #### 2 [id number] #### SUASNA RemChem [address] [place] [address] CO2 [Moles/Vol] 24.0 mmol/L Normal 21.0-32.0 [facility] Comment on above: Performed By: #### 2 605455 #### SUSANA [employer] [address] [place] [address] Creatinine [Mass/Vol] 0.7 mg/dL Normal 0.5-1.1 [facility] Comment on above: Performed By: #### 2 750332 #### SUSANA [employer] [address] [place] [address] Glucose [Mass/Vol] 101 mg/dL High 70-99 [facility] Comment on above: Performed By: #### 2 473776 #### SUSANA [employer] [address] [place] [address] Potassium [Moles/Vol] 3.6 mmol/L Normal 3.5-5.3 [facility] Comment on above: Performed By: #### 2 [id number] #### SUSANA Pritchett[employer] [address] [place] [address] Sodium [Moles/Vol] 138 mmol/L Normal 136-145 [facility] Comment on above: Performed By: #### 2 [id number] #### SUSANA [employer] [address] [place] [address] Urea nitrogen [Mass/Vol] 12 mg/dL Normal 6-23 [facility] Comment on above: Performed By: #### 2 [id number] #### SSUANA [employer] [address] [place] [address] Urea nitrogen/Creatinine [Mass ratio] 17.1 ratio Normal 5.4-30.0 [facility] Comment on above: Performed By: #### 2 [id number] #### SUSANA [address]rit[address] [address] CBC w/ Auto Diffon Erythrocyte distribution width (RBC) [Ratio] 13.7 % Normal 11.5-14.5 [facility] Comment on above: Performed By: #### 2 590235 #### SUSANA PritchettHemo [address] [place] [address] Hematocrit (Bld) [Volume fraction] 39.8 % Normal 36.0-48.0 [facility] Comment on above: Performed By: #### 2 367421 #### SUSANA PritchettHemo [address] [place] [address] Hemoglobin (Bld) [Mass/Vol] 13.5 g/dL Normal 12.0-16.0 [facility] Comment on above: Performed By: #### 2 779700 #### SUSANAAshutosh PritchettHemo [address] [place] [address] MCH (RBC) [Entitic mass] 28.4 pg Normal 27.0-31.0 [facility] Comment on above: Performed By: #### 2 140686 #### SUSANA PritchettHemo [address] [place] [address] MCHC (RBC) [Mass/Vol] 34.0 g/dL Normal 33.0-37.0 [facility] Comment on above: Performed By: #### 2 [id number] #### SUSANA PritchettHemo [address] [place] [address] MCV (RBC) [Entitic vol] 83.6 fL Normal 78.0-100.0 [facility] Comment on above: Performed By: #### 2 656321 #### SUSANA YarelyHemo [address] [place] [address] Platelet mean volume (Bld) [Entitic vol] 9.8 fL Normal 7.4-11.0 [facility] Comment on above: Performed By: #### 2 240998 #### SUSANA Prit[address]ttH[address] [address] Platelets (Bld) [#/Vol] 226 E3/mcL Normal 130-400 [facility] Comment on above: Performed By: #### 2 [id number] #### SUSANA YarelyHemo [address] [place] [address] RBC (Bld) [#/Vol] 4.76 E6/mcL Normal 3.90-5.40 [facility] Comment on above: Performed By: #### 2 976468 #### SUSANA Paul[address] [address] WBC (Bld) [#/Vol] 7.4 E3/mcL Normal 3.6-11.0 [facility] Comment on above: Performed By: #### 2 894148 #### SUSANA YarelyHemo [address] [place] [address] Ethanolon 09-29-2018 Ethanol [Mass/Vol] mg/dL Normal <=10 [facility] Comment on above: Performed By: #### 2 [id number] #### SUSANAAshutosh PritchettHemo [address] [place] [address] Troponin-Ion 09-29-2018 Troponin I.cardiac [Mass/Vol] ng/mL Normal .00-.03 [facility] Comment on above: Performed By: #### 2 615891 #### SUSANA YarelyHemo [facility] [place] [address] U BhCG Qlton 09-29-2018 HCG.beta subunit Qn Negative Normal Neg [facility] Comment on above: Performed By: #### 2 [id number] #### SUSANA Urinalysis Manual Subsection [address] [place] [address] U Drug Screenon 09-29-2018 U Amph Scr Negative Normal Negative [facility] Comment on above: Performed By: #### 2 [id number] #### SUSANA RemHemo [address] [place] [address] U Niharika Scr Negative Normal Negative [facility] Comment on above: Performed By: #### 2 636309 #### SUSANA RemHemo [address] [place] [address] U Benzodia Scr Negative Normal Negative [facility] Comment on above: Performed By: #### 2 324421 #### SUSANA RemHemo [address] [place] [address] U Cannab Scr Negative Normal Negative [facility] Comment on above: Performed By: #### 2 550592 #### SUSANA RemHemo [address] [place] [address] U Cocaine Scr Negative Normal Negative [facility] Comment on above: Performed By: #### 2 [id number] #### SUSANA RemHemo [address] [place] [address] U Opiate Scr Negative Normal Negative [facility] Comment on above: Performed By: #### 2 590244 #### SUSANA RemHemo [address] [place] [address] U PCP Scr Negative Normal Negative [facility] Comment on above: Performed By: #### 2 759731 #### SUSANA RemHemo [address] [place] [address] UA Completeon 09-29-2018 Color (U) Yellow Normal Yellow [facility] Comment on above: Performed By: #### 8 [id number] #### SUSANA Urinalysis Automated Subsection [address] [place] [address] Glucose (U) [Mass/Vol] Negative Normal Negative [facility] Comment on above: Performed By: #### 8 [id number] #### SUSANA Urinalysis Automated Subsection [address] [place] [address] Ketones Ql (U) Negative Normal Negative [facility] Comment on above: Performed By: #### 8 [id number] #### SUSANA Urinalysis Automated Subsection [facility] [place] [address] RBC (U) [#/Vol] 0-3 Normal 0-3 [facility] Comment on above: Performed By: #### 8 [id number] #### SUSANA Urinalysis Automated Subsection [address] [place] [address] UA Blood Negative Normal Negative [facility] Comment on above: Performed By: #### 8 [id number] #### SUSANA Urinalysis Automated Subsection [facility] [place] [address] UA Bacteria Trace Abnormal None [facility] Comment on above: Performed By: #### 8 [id number] #### SUSANA Urinalysis Automated Subsection [facility] [place] [address] UA Clarity SltCloudy Abnormal Clear [facility] Comment on above: Performed By: #### 8 [id number] #### SUSANA Urinalysis Automated Subsection [address] [place] [address] UA Leuk Est 2+ Abnormal Negative [facility] Comment on above: Performed By: #### 8 [id number] #### SUSANA Urinalysis Automated Subsection [facility] [place] [address] UA Mucous Occasional Abnormal Trace [facility] Comment on above: Performed By: #### 8 [id number] #### SUSANA Urinalysis Automated Subsection [facility] [place] [address] UA Nitrite Negative Normal Negative [facility] Comment on above: Performed By: #### 8 [id number] #### SUSANA Urinalysis Automated Subsection [facility] [place] [address] UA pH 7.0 Normal 4.6-8.0 [facility] Comment on above: Performed By: #### 8 [id number] #### SUSANA Urinalysis Automated Subsection [facility] [place] [address] UA Protein Negative Normal Negative [facility] Comment on above: Performed By: #### 8 [id number] #### SUSANA Urinalysis Automated Subsection [address] [place] [address] UA Spec Grav 1.017 Normal 1.003-1.030 [facility] Comment on above: Performed By: #### 8 [id number] #### SUSANA Urinalysis Automated Subsection [address] [place] [address] UA Squam Epithelial 5-10 Abnormal 0-5 [facility] Comment on above: Performed By: #### 8 [id number] #### SUSANA Urinalysis Automated Subsection [address] [place] [address] UA Transitional Epithelial 0-2 Normal 0-2 [facility] Comment on above: Performed By: #### 8 [id number] #### SUSANA Urinalysis Automated Subsection [address] [place] [address] UA Urobilinogen Negative Normal [facility] Comment on above: Result Comment: Due to a manufacturing issue, low positive urobilinogen results may be fasely positive. Correlate with urine bilirubin and additional clinical/laboratory findings to assess the risk of hemolytic anemia or liver disease. If clinically indicated, repeat testing with an alternate method is available by contacting the laboratory within 24 hours. Performed By: #### 8 [id number] #### SUSANA Urinalysis Automated Subsection [address] [place] [address] UA WBC 20-50 Abnormal 0-5 [facility] Comment on above: Performed By: #### 8 [id number] #### SUSANA Urinalysis Automated Subsection [address] [place] [address] Urobilinogen Qn (U) Negative Normal Negative [facility] Comment on above: Performed By: #### 8 [id number] #### SUSANA Urinalysis Automated Subsection [address] [place] [address] XR Chest 2 Viewson 9 XR Chest 2 Views Exam Date/Time: 09/29/2018 10:42 EST Reason for Exam: Chest pain Report STUDY: XR Chest 2 Views; 09/29/2018 10:42 am INDICATION: Chest pain. COMPARISON: 08/10/2011 ACCESSION NUMBER(S): [id number] ORDERING CLINICIAN: Cuauhtemoc Esparza FINDINGS: PA and lateral views of the chest were obtained. Cardiac monitoring leads are seen over the chest. No focal infiltrate, pleural effusion or pneumothorax is identified. The cardiac silhouette is within normal limits for size. IMPRESSION: No focal infiltrate or pneumothorax. FINAL REPORT Dictated: 09/29/2018 10:55 am Faustino Grande MD Signed (Electronic Signature): 09/29/2018 10:55 am Signed by: Faustino Grande MD Technologist: [facility] eGFRon 09-29-2018 GFR/1.73 sq M predicted among non-blacks MDRD (S/P/Bld) [Vol rate/Area] mL/min/{1.73_m2} [facility] Comment on above: Order Comment: Order added by Discern Expert. Performed By: #### 1 [id number] #### SUSANA [place] [id number] Progress Noteon 09-02-2017 [employer] Authentication Interface Message Text Patient ID: Karen Noriega is a 17 y.o. female. Her chief complaint(s)include: Chest Pain (rib cage pain).Assessment:1. Costochondritis, acutePlan:Karen was seen today for chest pain.Diagnoses and all orders for this visit:Costochondritis, acute- naproxen (NAPROSYN) 500 MG tablet; Take 1 tablet PO twice a day X 5 days,then take 1 tablet PO Q AM X 5 days, then ! Tablet PO twice a day as needed.Discussed with Karen. Reassurance.Return for well check and as needed.Subjective:She is accompanied by her friend of family.Chest PainThis problem is new. The duration has been 1 day.The onset has been gradual. The course is gradually worsening.The patient's symptoms have included decreased appetite, difficulty sleeping andcongestion. The patient's symptoms have included no fever, no decreased fluidintake and no rhinorrhea. Location: left lower ribcage. The symptoms areaggravated by coughing and sneezing. The previous interventions includeibuprofen.Review of SystemsCardiovascular: Positive for chest pain.Objective:Physical ExamNursing note reviewed.Constitutional : Vital signs are normal. She appears well, well-developed andwell-nourished. She is cooperative. No distress.Pulmonary/Ches t: Effort normal. There is normal air entry. No accessory muscleusage or stridor. She has no decreased breath sounds. She has no wheezes. Shehas no rhonchi. She has no rales. Exhibits tenderness. Exhibits no deformity andno retraction.Vitals reviewed: Blood pressure 138/72, pulse 103, temperature 37.1 C (98.8 F), temperature source Temporal, weight 77.1 kg, last menstrual [id number]/02/2017. Normal [facility] Progress Noteon 05-13-2017 [employer] Authentication Interface Message Text Patient ID: Karen Noriega is a 16 y.o. female. Her chief complaint(s)include: Pharyngitis (headache).Assessment:1 . Acute pharyngitis, unspecified etiology2. Sore throatResults for orders placed or performed in visit on 05/13/17POCT rapid strep A antigenResult Value Ref Range Strep A Antigen None Detected None DetectedPlan:Karen was seen today for pharyngitis.Diagnoses and all orders for this visit:Acute pharyngitis, unspecified etiologySore throat- POCT rapid strep A antigen- Strep culture (Clinic Collect)supportive care, hydration, will call with resultsReturn if symptoms worsen or fail to improve.Subjective:The patient's reason for visit is Sore throat. She is accompanied by hermother.PharyngitisTh e onset has been acute. The duration has been 1 day. The pattern iscontinuous. The course is unchanging. Characterized by aching and pain withswallowing. Aggravated by eating and drinking.Symptoms are relieved by nothing.The patient's symptoms have included ear pain, congestion and rhinorrhea. Thepatient's symptoms have included no chills, no fatigue, no fever, no decreasedappetite, no decreased fluid intake, no headaches, no eye discharge, no eyeredness, no sneezing, no swollen lymph nodes, no neck pain, no neck stiffness,no chest pain, no difficulty breathing, no shortness of breath, no wheezing, nostridor, no cough, no abdominal pain, no nausea, no vomiting, no diarrhea, nodecreased urination, no muscle aches, no joint pain and no rash.The patient has been exposed to sick contacts with common cold at home . Thepatient's home management has included nothing.Primary Care Review of SystemsObjective:Physic al ExamConstitutional: Vital signs are normal. She appears well, well-developed andwell-nourished. She is active and cooperative. Non-toxic appearance. Nodistress.HENT:Head: Normocephalic and atraumatic.Right Ear: Tympanic membrane and external ear normal.Left Ear: Tympanic membrane and external ear normal.Nose: Congestion present.Mouth/Throat: Mucous membranes are moist. Dentition is normal. Pharynx swellingand pharynx erythema present. No oropharyngeal exudate. Tonsils are 1+ on theright. Tonsils are 1+ on the left. Tonsillar exudate. Pharynx is abnormal.Eyes: Conjunctivae are normal.Neck: Normal range of motion and full passive range of motion without pain. Necksupple. No adenopathy. No tenderness is present.Cardiovascular: Normal rate and regular rhythm.No murmur heard.Pulmonary/Chest: Effort normal and breath sounds normal. There is normal airentry. No stridor. No respiratory distress. Air movement is not decreased. Notransmitted upper airway sounds.Neurological: She is alert.Skin: Capillary refill takes less than 3 seconds. No rash noted. Skin is warmand dry.Vitals reviewed: Blood pressure 122/64, pulse 97, temperature 37.1 C (98.8 F),temperature source Temporal, weight 75.2 kg, last menstrual period 04/13/2017. Normal [facility] Strep Cultureon 05-13-2017 Strep Culture Is this specimen buffy ng sent to an external lab?->NoStrep Culture: Beta Streptococcus not Group A Source: THRSW Collected: 05/13/17 14:46 Site: Throat swab Received : 05/13/17 20:15Strep Culture FINAL 05/16/17 09:38 Beta Streptococcus not Group A Normal [facility] Comment on above: Performed By: #### S TREP ####[address] [id number] Lipid Panelon 04-01-2017 Cholesterol 151 mg/dL Normal 0-199 [facility] Comment on above: Order Comment: Is th is specimen being sent to an external lab?->No Result Comment: Ashley rable <200 mg/dLBorderline 200-239 mg/dLHigh Risk >239 mg/dL Performed By: #### L IPID ####[address] [id number] Cholesterol in VLDL mass conc 22 mg/dL Normal [facility] Comment on above: Order Comment: Is th is specimen being sent to an external lab?->No Performed By: #### L IPID ####[address] [id number] HDL Cholesterol 44 mg/dL Normal [facility] Comment on above: Order Comment: Is th is specimen being sent to an external lab?->No Result Comment: Male < 40mg/dL High RiskFemale < 50mg/dL High RiskMale & Female > 60mg/dL Low Risk Performed By: #### L IPID ####[address] [id number] LDL Cholesterol 85 mg/dl Normal 0-129 [facility] Comment on above: Order Comment: Is th is specimen being sent to an external lab?->No Result Comment: Ashley rable <130 mg/dLBorderline 130-159 mg/dLHigh Risk >159 mg/dl Performed By: #### L IPID ####[address] [id number] Triglyceride 110 mg/dL Normal [facility] Comment on above: Order Comment: Is th is specimen being sent to an external lab?->No Result Comment: Norm al <150 mg/dlBorderline 150-199 mg/dlHigh 200-500 mg/dlVery High >500 mg/dlResult invalid if not a fasting specimen. Performed By: #### L IPID ####[address] [id number] Progress Noteon 04-01-2017 [employer] Authentication Interface Message Text Patient ID: Karen Noriega is a 16 y.o. female. Her chief complaint(s)include: 16 YEAR WELL CHILD.Assessment:1. Encounter for routine child health examination without abnormal findings2. Exercise counseling3. Encounter for dietary counseling and surveillance4. Need for vaccination5. Screening for lipoid disorders6. History of high blood pressurePlan:Karen was seen today for 16 year well child.Diagnoses and all orders for this visit:Encounter for routine child health examination without abnormal findings- Behavioral/Emotional Assessment w Score - PHQ-9 - passed- Hearing Screening - passed- Anticipatory guidance discussed: health and nutrition, school and careergoals, safe driving/biking, avoid tobacco/drug/experiment ation, sexual healthand safety, mental health, dental hygiene, screen time, physical activity- patient not interested in STI screening or contraceptives at this timeExercise counselingEncounter for dietary counseling and surveillanceNeed for vaccination- HPV 9 valent vaccine IM susp- Meningococcal conjugate ACWY vaccine (MENACTRA)- meningococcal group B vaccine (BEXSERO)- components and side effects reviewed with mother - agreeable, will wait on hepA today.- needs second bexsero in 1 monthScreening for lipoid disorders- Lipid panelBlood pressure stable per report, SP usually in 130s - will monitor, recommendedfollow up with [facility] in about 1 month (around 05/01/2017) for 2nd men B shot; 1 year welldarío.Subjective:HP I Comments: 7 month old baby - Que Zheng (Patient of Dr. Hawthorne) -fathers baby uses drugs and is not involved in his care, lives with mother whohelps out with babyMaternal family history of heart disease - grand parens with heart attack andstroke before 55The patient's reason for visit is Well Check 16 Year. She is accompanied by hermother.16 YEAR WELL CHILDHome:Karen has an adult to turn to for help and is permitted and able to makeindependent decisions. Karen has no home risk identified.Education:[employer] Is in 12th grade and is doing well. (Wants to be a forensicanthropologist) Eating:Karen eats regular meals including fruits and vegetables, limits fast food(at work), drinks non-sweetened liquids (pop at work), has a calcium source, hasconcerns about body appearance and has dieted in the last year (trying to loosebaby weight). Karen does not eat breakfast (some days) and does not have aneating risk identified.Activities & Sports:She has friends, has a job (works every day), performs at least 1 hour ofphysical activity daily (self-defense class and runs) and engages in screen timeless than 2 hours daily.Drugs:She uses tobacco (has tried vaping). She does not use drugs and does not usealcohol.Safety:She has a violence free home and uses seat belt. She does not have peerrelationships free from violence and does not use phone/text while driving.Sex:Karen is sexually active and engages in vaginal sex. STD screening offeredand declined.Her sexual partners are males. She identifies as heterosexual. Pauline uses condoms. Typically, she uses condoms as her current contraceptivemethod. She has previously been : yesShe has not had an STD.Suicidality:She has ways to cope with stress and displays self-confidence. She has nodepression, has no anxiety, has no suicidal ideation and has no homicidalideation.Menst ruationLast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 Kylah D Crawford Work Phone: [address] Work Phone: 12-01-2021 09:00-0400 Systolic blood pressure 130 mm[Hg] Kylah D Crawford Work Phone: [address] Work Phone: 11-25-2021 11:05-0400 Body height 167.64 cm Kylah D Crawford Work Phone: [address] Work Phone: 11-25-2021 11:05-0400 Body mass index (BMI) [Ratio] 26.33 kg/m2 Kylah D Crawford Work Phone: [address] Work Phone: 11-25-2021 11:05-0400 Body surface area Derived from formula 1.83 m2 Kylah D Crawford Work Phone: [address] Work Phone: 11-25-2021 11:05-0400 Body weight 74 kg Kylah D Crawford Work Phone: [address] Work Phone: 11-25-2021 11:05-0400 Diastolic blood pressure 82 mm[Hg] Kylah D Crawford Work Phone: [address] Work Phone: 11-25-2021 11:05-0400 Systolic blood pressure 138 mm[Hg] Kylah D Crawofrd Work Phone: [address] Work Phone: 10-30-2021 09:25-0400 Diastolic blood pressure 90 mm[Hg] Kylah D Crawford Work Phone: [address] Work Phone: 10-30-2021 09:25-0400 Systolic blood pressure 132 mm[Hg] Kylah D Crawford Work Phone: [address] Work Phone: 10-20-2021 09:00-0400 Body height 167.64 cm Kylah D Crawford Work Phone: [facility] Work Phone: 10-20-2021 09:00-0400 Body mass index (BMI) [Ratio] 25.99 kg/m2 Kylah D Crawford Work Phone: [facility] Work Phone: 10-20-2021 09:00-0400 Body surface area Derived from formula 1.82 m2 Kylah D Crawford Work Phone: [facility] Work Phone: 10-20-2021 09:00-0400 Body weight 73.03 kg Kylah D Crawford Work Phone: [facility] Work Phone: 10-20-2021 09:00-0400 Diastolic blood pressure 78 mm[Hg] Kylah Kusum Crawford Work Phone: [facility] Work Phone: 10-20-2021 09:00-0400 Heart rate 84 /min Kylah Kusum Crawford Work Phone: [facility] Work Phone: 10-20-2021 09:00-0400 Systolic blood pressure 130 mm[Hg] Kylah Kusum Crawford Work Phone: [facility] Work Phone: 08-07-2021 10:59-0500 Body height 167.64 cm Kylah Kusum Crawford Work Phone: [place] [address] [place] Work Phone: 08-07-2021 10:59-0500 Body mass index (BMI) [Ratio] 26.65 kg/m2 Kylah Kusum Crawford Work Phone: [place] [address] [place] Work Phone: 08-07-2021 10:59-0500 Body surface area Derived from formula 1.84 m2 Kylah Kusum Crawford Work Phone: [place] [address] [place] Work Phone: 08-07-2021 10:59-0500 Body temperature 96.9 [degF] Kylah Noe Crawford Work Phone: [facility] [address] [place] Work Phone: 08-07-2021 10:59-0500 Body weight 74.9 kg Kylah Noe Crawford Work Phone: [place] [address] [place] Work Phone: 08-07-2021 10:59-0500 Diastolic blood pressure 82 mm[Hg] Kylah Kusum Crawford Work Phone: [place] [address] [place] Work Phone: 08-07-2021 10:59-0500 Systolic blood pressure 136 mm[Hg] Kylah Kusum Crawford Work Phone: [place] [address] [place] Work Phone: 03-23-2021 11:16-0400 Body height 167.64 cm Kylah D Crawford Work Phone: [place] [address] [place] Work Phone: 03-23-2021 11:16-0400 Body mass index (BMI) [Ratio] 26.47 kg/m2 Kylah Kusum Crawford Work Phone: [place] [address] [place] Work Phone: 03-23-2021 11:16-0400 Body surface area Derived from formula 1.84 m2 Kylah Kusum Crawford Work Phone: [place] [address] [place] Work Phone: 03-23-2021 11:16-0400 Body temperature 97.7 [degF] Kylah Kusum Crawford Work Phone: [place] [address] [place] Work Phone: 03-23-2021 11:16-0400 Body weight 74.4 kg Kylah Kusum Crawford Work Phone: [place] [address] [place] Work Phone: 03-23-2021 11:16-0400 Diastolic blood pressure 92 mm[Hg] Kylah Kusum Crawford Work Phone: [place] [address] [place] Work Phone: 03-23-2021 11:16-0400 Systolic blood pressure 140 mm[Hg] Kylah Noe Crawford Work Phone: [place] [address] [place] Work Phone: 01-30-2021 09:55-0400 Body height 167.64 cm Kylah D Crawford Work Phone: [place] [address] [place] Work Phone: 01-30-2021 09:55-0400 Body mass index (BMI) [Ratio] 27.26 kg/m2 Kylah D Crawford Work Phone: [place] [address] [place] Work Phone: 01-30-2021 09:55-0400 Body surface area Derived from formula 1.86 m2 Kylah D Crawford Work Phone: [place] [address] [place] Work Phone: 01-30-2021 09:55-0400 Body temperature 97.2 [degF] Kylah D Crawford Work Phone: [address] Work Phone: 01-30-2021 09:55-0400 Body weight 76.6 kg Kylah D Crawford Work Phone: [place] [address] [place] Work Phone: 01-30-2021 09:55-0400 Diastolic blood pressure 76 mm[Hg] Kylah D Crawford Work Phone: [place] [address] [place] Work Phone: 01-30-2021 09:55-0400 Systolic blood pressure 128 mm[Hg] Kylah D Crawford Work Phone: [place] [address] [place] Work Phone: 01-02-2021 09:57-0400 Body height 167.64 cm Kylah D Crawford Work Phone: [place] [address] [place] Work Phone: 01-02-2021 09:57-0400 Body mass index (BMI) [Ratio] 27.33 kg/m2 Kylah D Crawford Work Phone: [address] Work Phone: 01-02-2021 09:57-0400 Body surface area Derived from formula 1.86 m2 Kylah Orrkins Work Phone: [address] Work Phone: 01-02-2021 09:57-0400 Body temperature 97.8 [degF] Kylah Kusum OrrCrawford Work Phone: [address] Work Phone: 01-02-2021 09:57-0400 Body weight 76.8 kg Kylah Kusum OrrCrawford Work Phone: [address] Work Phone: 01-02-2021 09:57-0400 Diastolic blood pressure 82 mm[Hg] Kylah Orrkins Work Phone: [address] Work Phone: 01-02-2021 09:57-0400 Systolic blood pressure 140 mm[Hg] Kylah Orrkins Work Phone: [address] Work Phone: 12-02-2020 08:09-0400 Body height 167.64 cm Kylah Orrkins Work Phone: [facility] Work Phone: 12-02-2020 08:09-0400 Body mass index (BMI) [Ratio] 27.44 kg/m2 Kylah Orrkins Work Phone: [facility] Work Phone: 12-02-2020 08:09-0400 Body surface area Derived from formula 1.87 m2 Kylah Orrkins Work Phone: [facility] Work Phone: 12-02-2020 08:09-0400 Body weight 77.11 kg Kylah Orrkins Work Phone: [facility] Work Phone: 12-02-2020 08:09-0400 Diastolic blood pressure 74 mm[Hg] Kylah Crawford Work Phone: [facility] Work Phone: 12-02-2020 08:09-0400 Heart rate 80 /min Kylah Crawford Work Phone: [facility] Work Phone: 12-02-2020 08:09-0400 Systolic blood pressure 132 mm[Hg] Kylah Crawford Work Phone: [facility] Work Phone: 10-07-2020 12:18-0400 BMI (Body Mass Index) 28.22 kg/m2 Vangie Baig [address] [place] Work Phone: 10-07-2020 12:18-0400 Body Temperature 96.8 [degF] Vangie [address] [place] Work Phone: 10-07-2020 12:18-0400 Body weight 79.3 kg Vangie noe [address] [place] Work Phone: 10-07-2020 12:18-0400 BP Diastolic 80 mm[Hg] Vangie [address] [place] Work Phone: 10-07-2020 12:18-0400 BP Systolic 120 mm[Hg] Vangie [address] Work Phone: 10-07-2020 12:18-0400 BSA (Body Surface Area) 1.89 m2 Vangie Baig [address] Work Phone: 10-07-2020 12:18-0400 Height 167.64 cm Vangie [address] Work Phone: 10-03-2020 16:37-0500 BMI (Body Mass Index) 28.41 kg/m2 Vangie Opal Bernal [place] Work Phone: 10-03-2020 16:37-0500 Body weight 79.83 kg Vangie Bernal [place] Work Phone: 10-03-2020 16:37-0500 BP Diastolic 80 mm[Hg] Vangie Bernal [place] Work Phone: 10-03-2020 16:37-0500 BP Systolic 128 mm[Hg] Vangie Bernal [place] Work Phone: 10-03-2020 16:37-0500 BSA (Body Surface Area) 1.89 m2 Vangie Bernal [place] Work Phone: 10-03-2020 16:37-0500 Height 167.64 cm Vangie Bernal [place] Work Phone: 10-03-2020 16:37-0500 Pulse (Heart Rate) 80 /min Vangie Bernal [place] Work Phone: 09-15-2020 12:20-0500 BMI (Body Mass Index) 28.61 kg/m2 Vangie Bernal [place] Work Phone: 09-15-2020 12:20-0500 Body Temperature 96.8 [degF] Vangie Bernal [place] Work Phone: 09-15-2020 12:20-0500 Body weight 80.4 kg Vangie Bernal [place] Work Phone: 09-15-2020 12:20-0500 BP Diastolic 70 mm[Hg] Vangie Bernal [place] Work Phone: 09-15-2020 12:20-0500 BP Systolic 132 mm[Hg] Vangie Bernal [place] Work Phone: 09-15-2020 12:20-0500 BSA (Body Surface Area) 1.9 m2 Vangie [address] Work Phone: 09-15-2020 12:20-0500 Height 167.64 cm Vangie noe [address] Work Phone: 05-27-2020 16:06-0500 BMI (Body Mass Index) 29.36 kg/m2 Vangie Bernal [place] Work Phone: 05-27-2020 16:06-0500 Body Temperature 97.8 [degF] [address] Work Phone: 05-27-2020 16:06-0500 Body weight 82.5 kg Vangie Bernal [place] Work Phone: 05-27-2020 16:06-0500 BP Diastolic 72 mm[Hg] Vangie [address] Work Phone: 05-27-2020 16:06-0500 BP Systolic 146 mm[Hg] Vangie Bernal [place] Work Phone: 05-27-2020 16:06-0500 BSA (Body Surface Area) 1.92 m2 Vangie [address] Work Phone: 05-27-2020 16:06-0500 Height 167.64 cm Vnagie noe [address] Work Phone: 05-09-2020 11:15-0400 BMI (Body Mass Index) 29.18 kg/m2 Vangie Bernal [place] Work Phone: 05-09-2020 11:15-0400 Body Temperature 96.9 [degF] [address] Work Phone: Comment on above: Method: Temporal 05-09-2020 11:15-0400 Body weight 82 kg Vangie noe [address] Work Phone: 05-09-2020 11:15-0400 BP Diastolic 80 mm[Hg] Vangie Bernal [place] Work Phone: Comment on above: Location: LUE; Position: Sitting 05-09-2020 11:15-0400 BP Systolic 130 mm[Hg] Vangie Bernal [place] Work Phone: Comment on above: Location: LUE; Position: Sitting 05-09-2020 11:15-0400 BSA (Body Surface Area) 1.92 m2 Vangie Bernal [place] Work Phone: 05-09-2020 11:15-0400 Height 167.64 cm Vangie Bernal [place] Work Phone: 04-08-2020 11:30-0400 BMI (Body Mass Index) 28.89 kg/m2 Vangie Bernal [place] Work Phone: 04-08-2020 11:30-0400 Body weight 81.19 kg Vangie Bernal [place] Work Phone: 04-08-2020 11:30-0400 BP Diastolic 84 mm[Hg] Vangie Bernal [place] Work Phone: 04-08-2020 11:30-0400 BP Systolic 124 mm[Hg] Vangie Bernal [place] Work Phone: 04-08-2020 11:30-0400 BSA (Body Surface Area) 1.91 m2 Vangie Bernal [place] Work Phone: 04-08-2020 11:30-0400 Height 167.64 cm Vangie Bernal [place] Work Phone: 04-08-2020 11:30-0400 Pulse (Heart Rate) 100 /min Vangie Bernal [place] Work Phone: 04-04-2020 12:27-0400 BMI (Body Mass Index) 28.64 kg/m2 Vangie [address] Work Phone: 04-04-2020 12:27-0400 Body Temperature 97.3 [degF] [address] Work Phone: 04-04-2020 12:27-0400 Body weight 80.5 kg Vangie noe [address] Work Phone: 04-04-2020 12:27-0400 BP Diastolic 72 mm[Hg] Vangie [address] Work Phone: 04-04-2020 12:27-0400 BP Systolic 124 mm[Hg] Vangie [address]e [address] Work Phone: 04-04-2020 12:27-0400 BSA (Body Surface Area) 1.9 m2 Vangie [address] Work Phone: 04-04-2020 12:27-0400 Height 167.64 cm Vangie noe [address] Work Phone: 03-14-2020 11:10-0400 BMI (Body Mass Index) 28.36 kg/m2 Vangie Baig [address] Work Phone: 03-14-2020 11:10-0400 Body Temperature 97.8 [degF] Vangie [address] Work Phone: 03-14-2020 11:10-0400 Body weight 79.7 kg Vangie noe [address] Work Phone: 03-14-2020 11:10-0400 BP Diastolic 64 mm[Hg] Vangie [address]e [address] Work Phone: 03-14-2020 11:10-0400 BP Systolic 122 mm[Hg] Vangie [address]e [address] Work Phone: 03-14-2020 11:10-0400 BSA (Body Surface Area) 1.89 m2 Vangie Bernal [place] Work Phone: 03-14-2020 11:10-0400 Height 167.64 cm Vangie Bernal [place] Work Phone: 02-29-2020 11:02-0400 BMI (Body Mass Index) 28.54 kg/m2 Vangie Bernal [place] Work Phone: 02-29-2020 11:02-0400 Body Temperature 98 [degF] V[address] Work Phone: 02-29-2020 11:02-0400 Body weight 80.2 kg Vangie Bernal [place] Work Phone: 02-29-2020 11:02-0400 BP Diastolic 78 mm[Hg] Vangie Bernal [place] Work Phone: 02-29-2020 11:02-0400 BP Systolic 118 mm[Hg] Vangie Bernal [place] Work Phone: 02-29-2020 11:02-0400 BSA (Body Surface Area) 1.9 m2 Vangie Bernal [place] Work Phone: 02-29-2020 11:02-0400 Height 167.64 cm Vangie Bernal [place] Work Phone: 02-01-2020 10:59-0400 BMI (Body Mass Index) 29.46 kg/m2 Vangie Bernal [place] Work Phone: 02-01-2020 10:59-0400 Body Temperature 97.7 [degF] V[address] Work Phone: 02-01-2020 10:59-0400 Body weight 82.8 kg Vangie Maddox Work Phone: 02-01-2020 10:59-0400 BP Diastolic 74 mm[Hg] Vangie Maddox Work Phone: 02-01-2020 10:59-0400 BP Systolic 132 mm[Hg] Vangie Maddox Work Phone: 02-01-2020 10:59-0400 BSA (Body Surface Area) 1.92 m2 Vangie Maddox Work Phone: 02-01-2020 10:59-0400 Height 167.64 cm Vangie Maddox Work Phone: 05-29-2019 16:06-0500 BMI (Body Mass Index) 33.25 kg/m2 Kylah Crawford [facility] Work Phone: 05-29-2019 16:06-0500 Body weight 93.44 kg Kylah Crawford [facility] Work Phone: 05-29-2019 16:06-0500 BP Diastolic 74 mm[Hg] Kylah Crawford [facility] Work Phone: Comment on above: Location: RUE; Position: Sitting 05-29-2019 16:06-0500 BP Systolic 128 mm[Hg] Kylah Crawford [facility] Work Phone: Comment on above: Location: RUE; Position: Sitting 05-29-2019 16:06-0500 BSA (Body Surface Area) 2.03 m2 Kylah Crawford [facility] Work Phone: 05-29-2019 16:06-0500 Height 167.64 cm Kylah Roberto [facility] Work Phone: 05-29-2019 16:06-0500 Pulse (Heart Rate) 82 /min Kylah Roberto [facility] Work Phone: 05-29-2019 16:06-0500 98 1 Kylah Crawford [facility] Work Phone: Comment on above: 2-20 Weight Percentile 05-29-2019 16:06-0500 75 1 Kylah Crawford [facility] Work Phone: Comment on above: 2-20 Stature Percentile 05-29-2019 16:06-0500 96 1 Kylah Orrkins [facility] Work Phone: Comment on above: BMI Percentile 04-13-2019 10:30-0400 BP Diastolic 84 mm[Hg] [id number] HUBERT MADRIGAL RN ASHLND [address] [employer] Work Phone: 04-13-2019 10:30-0400 BP Systolic 122 mm[Hg] [id number] HUBERT MADRIGAL RN ASHLND [address] [employer] Work Phone: 04-13-2019 10:30-0400 Pulse (Heart Rate) 80 /min [id number] HUBERT MADRIGAL RN ASHLND [address] [employer] Work Phone: 04-13-2019 10:30-0400 Respiratory Rate 18 /min [id number] HUBERT MADRIGAL RN ASHLND 1 [employer] Work Phone: Encounters Encounter Date Encounter Type Care Provider Facility Start: 03-18-2025 ambulatory Richard Araiza Facil ity:[facility] Start: 03-13-2025 End: 03-13-[address] Richard Araiza MD [facility] [place] Work Phone: Start: 03-13-2025 End: 03-13-2025 ambulatory Richard Araiza Facility:[facility] Start: 11-19-2024 Registered [employer] HE[employer] RIS K ASSESSMENT -Employee Health Start: 11-19-2024 ambulatory Health Risk Assessment Facility:[facility] Start: 11-19-2024 Registered [employer]OY[employer] HE[employer] -Employee Health Start: 11-06-2024 End: 11-06-2024 Office outpatient visit 15 minutes Danielle Garvin [employer] Work Phone: [facility] Comment on above: Irritable bowel synd julia with constipation (Primary Dx) Start: 11-06-2024 End: 11-06-2024 ambulatory [facility] Start: 09-19-2024 End: 09-19-2024 ambulatory RICHARD M [facility] Ambulatory Start: 09-19-2024 End: 09-19-2024 Office outpatient visit 25 minutes Richard Araiza MD Work Phone: [facility] Comment on above: Iron deficiency anem ia, unspecified iron deficiency anemia type (Primary Dx); Vitamin B12 deficiency; Vitamin D deficiency Start: 08-16-2024 End: 08-16-2024 Office outpatient new 45 minutes Raul Doty MD Work Phone: [facility] Comment on above: Other closed intra-a rticular fracture of distal end of left radius, initial encounter (Primary Dx) Start: 08-16-2024 End: 08-16-2024 ambulatory [facility] Ambulatory Start: 08-14-2024 End: 08-14-2024 Emergency department patient visit Minesh Wilkinson DO Work Phone: [facility] Emergency Medicine Comment on above: Closed fracture of d istal end of left radius, unspecified fracture morphology, initial encounter (Primary Dx) Start: 07-31-2024 ambulatory KYLAH CONNELL [facility] Start: 07-31-2024 End: 07-31-2024 Office outpatient visit 15 minutes Rolando Rosario PA-C Work Phone: [facility] Comment on above: Obesity (BMI 30.0-34 .9) (Primary Dx) Start: 07-20-2024 End: 07-20-2024 [facility] Start: 07-20-2024 End: 07-20-2024 Office outpatient new 30 minutes Danielle Garvin [employer] Work Phone: [facility] Comment on above: Chronic constipation (Primary Dx); Abdominal pain, unspecified abdominal location; Hemorrhoids, unspecified hemorrhoid type Start: 06-14-2024 ambulatory DANIELLE GARVIN [facility] Ambulatory Start: 06-07-2024 End: 06-07-2024 Office outpatient visit 15 minutes Raygan L Ciballi PA-C Work Phone: [facility] Comment on above: Obesity (BMI 30.0-34 .9) (Primary Dx) Start: 06-07-2024 ambulatory KYLAH CONNELL [facility] Start: 05-22-2024 End: 05-22-2024 Office outpatient visit 15 minutes Raygan L Ciballi PA-C Work Phone: [facility] Comment on above: Obesity (BMI 30.0-34 .9) (Primary Dx) Start: 05-22-2024 ambulatory SELF SELF [facility] Start: 04-24-2024 End: 04-24-2024 Office outpatient visit 15 minutes Raygan L Ciballi PA-C Work Phone: [facility]ariat[facility] Comment on above: Obesity (BMI 30.0-34 .9) (Primary Dx) Start: 04-24-2024 ambulatory [facility] Start: 04-05-2024 End: 04-05-2024 Office outpatient visit 15 minutes Kylah Connell [employer] Work Phone: [facility] Comment on above: Depression, major, s abundio episode, mild (CMS-HCC) (Primary Dx); Anxiety Start: 04-05-2024 End: 04-05-2024 ambulatory [facility] Start: 03-27-2024 End: 03-27-2024 Office outpatient new 30 minutes Raygan L Ciballi PA-C Work Phone: [facility] Comment on above: Obesity (BMI 30-39.9 ) (Primary Dx) Start: 03-27-2024 ambulatory [facility] Start: 03-20-2024 End: 03-20-2024 Office outpatient visit 25 minutes Kylah Connell [employer] Work Phone: [facility] Comment on above: Vitamin D deficiency (Primary Dx); Iron deficiency anemia, unspecified iron deficiency anemia type; Mixed hyperlipidemia Start: 03-20-2024 End: 03-20-2024 ambulatory [facility] Ambulatory Start: 03-19-2024 ambulatory [facility] Start: 10-18-2023 End: 10-18-2023 Subsequent hospital visit by physician Bo Sanchez [facility] Comment on above: Pelvic pain Start: 08-23-2023 End: 08-23-2023 Office outpatient visit 25 minutes Kylah Connell [employer] Work Phone: [facility] Comment on above: Gastroesophageal ref lux disease, unspecified whether esophagitis present (Primary Dx); Epigastric abdominal tenderness with rebound tenderness Start: 05-20-2023 End: 05-24-2023 ambulatory [facility] Start: 05-20-2023 End: 05-20-2023 Nutrition therapy Kylah Connell [employer] Work Phone: [facility] Comment on above: Class 1 obesity due to excess calories without serious comorbidity with body mass index (BMI) of 32.0 to 32.9 in adult Start: 05-03-2023 End: 05-03-2023 Office outpatient visit 25 minutes Kylah Connell [employer] Work Phone: [facility] Comment on above: Anxiety (Primary Dx) ; Vitamin D deficiency; Vitamin B12 deficiency; Mixed hyperlipidemia; Iron deficiency anemia, unspecified iron deficiency anemia type Start: 04-23-2023 End: 04-23-2023 ambulatory [facility] Start: 04-21-2023 End: 04-21-2023 Office outpatient visit 25 minutes Kylah Connell [employer] Work Phone: [facility] Comment on above: Acne, unspecified ac ne type (Primary Dx); Borderline abnormal thyroid function test; Vitamin B12 deficiency; Vitamin D deficiency; Iron deficiency anemia, unspecified iron deficiency anemia type; Abnormal fasting glucose; Mixed hyperlipidemia; Weight gain; Class 1 obesity without serious comorbidity with body mass index (BMI) of 32.0 to 32.9 in adult, unspecified obesity type Start: 01-12-2023 ambulatory Vangie Joseph Facility:[id number] Start: 11-02-2022 ambulatory Vangie Joseph Facility:[id number] Start: 09-17-2022 ambulatory Vangie Joseph Facility:[id number] Start: 08-27-2022 FUV, Provider: Vangie Joseph, Status: Pen, Time: 3:15 PM Kylah Connell Work Phone: [id number] [address] [place] Work Phone: Start: 08-27-2022 Office outpatient vi sit 15 minutes Kylah Connell Work Phone: [employer] Work Phone: Start: 08-27-2022 ambulatory Vangie Joseph Facility:[id number] Start: 08-26-2022 Chart Update Kylah Connell Work Phone: [id number] [address] [place] Work Phone: Start: 08-21-2022 End: 08-24-2022 Evaluation and management of inpatient Fatou Bray [facility] 5 Rm [id number] Start: 08-20-2022 Chart Update Kylah Connell Work Phone: [employer] Work Phone: Start: 08-20-2022 End: 08-20-2022 ambulatory Ms. Kylah Melissa Ko Facility:[id number] Start: 08-20-2022 End: 08-20-2022 Evaluation and management of inpatient Latoya Rae [facility] L[facility]D 403 Start: 08-20-[address] Vangie Joseph [facility] ty:[id number] Start: 08-13-2022 EPVOB, Provider: Vangie Joseph, Status: Pen, Time: 8:30 AM Kylah Connell Work Phone: [employer] Work Phone: Start: 08-13-2022 Office outpatient vi sit 15 minutes Kylah D Connell Work Phone: [facility] [address] Work Phone: Start: 08-13-2022 ambulatory Vangie Joseph Facility:[id number] Start: 08-12-2022 AUDIT Kylah Connell Work Phone: [facility] [address] Work Phone: Start: 08-09-2022 Chart Update Kylah Connell Work Phone: [facility] [address] Work Phone: Start: 08-06-2022 Office outpatient vi sit 15 minutes Kylah Connell Work Phone: [facility] [address] [place] Work Phone: Start: 08-06-2022 ambulatory Vangie Joseph Facility:[id number] Start: 07-30-2022 EPVOB, Provider: Vangie Joseph, Status: Pen, Time: 9:30 AM Kylah Connell Work Phone: [facility] [employer] Work Phone: Start: 07-30-2022 ambulatory Vangie Joseph Facility:[id number] Start: 07-29-2022 AUDIT Kylah Connell Work Phone: [facility] [employer] Work Phone: Start: 07-09-2022 Office outpatient vi sit 15 minutes Kylah Connell Work Phone: [facility] [place] [address] [place] Work Phone: Start: 07-09-2022 ambulatory Vangie Joseph Facility:[id number] Start: 06-25-2022 Office outpatient vi sit 15 minutes Kylah Connell Work Phone: [facility] [place] [address] [place] Work Phone: Start: 06-25-2022 ambulatory Vangie Joseph Facility:[id number] Start: 06-11-2022 End: 06-11-2022 ambulatory Ms. Kylah Connell Facility:[id number] Start: 06-11-[address] Vangie Joseph [facility] ty:[id number] Start: 06-11-2022 Office outpatient vi sit 15 minutes Kylah D Crawford Work Phone: [facility] [address] Work Phone: Start: 06-04-2022 ambulatory Vangie Joseph Facility:[id number] Start: 06-02-2022 End: 06-02-2022 ambulatory Ms. Kylah Connell Facility:[id number] Start: 05-14-2022 Office outpatient vi sit 15 minutes Kylah Kusum Crawford Work Phone: [facility] [address] Work Phone: Start: 05-14-2022 ambulatory Vangie Joseph Facility:[id number] Start: 04-16-2022 Chart Update Kylah D Crawford Work Phone: [facility] [address] Work Phone: Start: 04-16-2022 ambulatory Ms. Kylah Connell Facility:[id number] Start: 03-19-2022 Office outpatient vi sit 15 minutes Kylah D Crawford Work Phone: [facility] [address] Work Phone: Start: 03-11-2022 Office outpatient vi sit 15 minutes Kylah D Crawford Work Phone: [facility] Work Phone: Start: 02-21-2022 AUDIT Kylah D Crawford Work Phone: [facility] [address] Work Phone: Start: 01-18-2022 Office outpatient vi sit 15 minutes Kylah D Crawford Work Phone: [facility] [address] Work Phone: Start: 12-01-2021 AUDIT Kylah D Crawford Work Phone: [facility] [address] Work Phone: Start: 12-01-2021 EPVOB, Provider: Vangie Joseph, Status: Art, Time: 9:00 AM Kylah Kusum Crawford Work Phone: [place] [address] [place] Work Phone: Start: 11-30-2021 Chart Update Kylah Kusum Crawford Work Phone: [place] [address] [place] Work Phone: Start: 11-25-2021 Patient encounter procedure Kylah Kusum OrrCrawford Work Phone: [place] [address] [place] Work Phone: Start: 11-16-2021 Chart Update Kylah Kusum Crawford Work Phone: [place] [address] [place] Work Phone: Start: 10-30-2021 Periodic preventive med est patient 18-39 yrs Kylah Crawford Work Phone: [place] [address] [place] Work Phone: Start: 10-20-2021 Office outpatient vi sit 25 minutes Kylah Kusum OrrCrawford Work Phone: [facility] Work Phone: Start: 10-16-2021 AUDIT Kylah Kusum Crawford Work Phone: [facility] Work Phone: Start: 09-30-2021 AUDIT Kylah Kusum Crawford Work Phone: [place] [address] [place] Work Phone: Start: 08-10-2021 Chart Update Kylah Kusum Crawford Work Phone: [place] [address] [place] Work Phone: Start: 08-07-2021 Office outpatient vi sit 15 minutes Kylah Kusum Crawford Work Phone: [place] [address] [place] Work Phone: Start: 06-26-2021 Patient encounter procedure Kylah Orrkins Work Phone: [facility] Work Phone: Start: 05-13-2021 Patient encounter procedure Kylah Kusum Crawford Work Phone: [facility] Work Phone: Start: 03-24-2021 Chart Update Kylah Kusum Crawford Work Phone: [facility] [address] Work Phone: Start: 03-23-2021 Office outpatient vi sit 15 minutes Kylah Noe Roberto Work Phone: [facility] [address] Work Phone: Start: 03-23-2021 Patient encounter procedure Kylah Kusum Roberto Work Phone: [facility] Work Phone: Start: 02-04-2021 Chart Update Kylah Noe Crawford Work Phone: [facility] Work Phone: Start: 02-03-2021 Chart Update Kylah Noe Crawford Work Phone: [facility] Work Phone: Start: 02-01-2021 Chart Update Kylah Kusum Roberto Work Phone: [facility] [address] Work Phone: Start: 01-05-2021 AUDIT Kylah Crawford Work Phone: [facility] [address] Work Phone: Start: 12-19-2020 Patient encounter procedure Kylah Crawford Work Phone: [facility] Work Phone: Start: 10-07-2020 Patient encounter procedure Vangie Joseph [facility] [address] Work Phone: Start: 10-03-2020 Patient encounter procedure Vangie Joseph [facility] [address] Work Phone: Start: 09-15-2020 Patient encounter procedure Vangie Joseph [facility] [address] Work Phone: Start: 08-27-2020 Patient encounter procedure Vangie Joseph [facility] [address] Work Phone: Start: 08-13-2020 Patient encounter procedure Vangie Bernal [place] Work Phone: Start: 08-06-2020 Patient encounter procedure Vangie Bernal [place] Work Phone: Start: 07-30-2020 Patient encounter procedure Vangie Bernal [place] Work Phone: Start: 07-16-2020 Patient encounter procedure Vangie [facility] Work Phone: Start: 07-04-2020 Patient encounter procedure Vangie [facility] Work Phone: Start: 06-18-2020 Patient encounter procedure Vangie [facility] Work Phone: Start: 06-06-2020 Patient encounter procedure Vangie [facility] Work Phone: Start: 05-27-2020 Patient encounter procedure Vangie [facility] Work Phone: Start: 05-09-2020 Patient encounter procedure Vangie [facility] Work Phone: Start: 05-02-2020 Patient encounter procedure Vangie Bernal [place] Work Phone: Start: 04-08-2020 Patient encounter procedure Vangie Bernal [place] Work Phone: Start: 04-04-2020 Patient encounter procedure Vangie Bernal [place] Work Phone: Start: 03-24-2020 Patient encounter procedure Vangie Bernal [place] Work Phone: Start: 03-14-2020 Patient encounter procedure Vangie Bernal [place] Work Phone: Start: 02-29-2020 Patient encounter procedure Vangie Bernal [place] Work Phone: Start: 02-01-2020 Patient encounter procedure Vangie Joseph [facility] [address] Work Phone: Start: 12-26-2019 Patient encounter procedure Vangie Joseph [facility] [address] Work Phone: Start: 12-20-2019 Patient encounter procedure Vangie Joseph [place] [address] [place] Work Phone: Start: 12-11-2019 Patient encounter procedure Kylah Crawford [facility] Work Phone: Start: 12-04-2019 Patient encounter procedure Kylah Crawford [facility] Work Phone: Start: 08-03-2019 Patient encounter procedure Kylah Crawford [facility] Work Phone: Start: 06-26-2019 Patient encounter procedure [id number] PRIMARY [id number] RN1 [facility] Work Phone: Start: 05-29-2019 Patient encounter procedure Kylah Crawford [facility] Work Phone: Start: 05-01-2019 Patient encounter procedure Kylah Crawford [facility] Work Phone: Start: 09-02-2017 End: 09-02-2017 Ambulatory [facility] Start: 05-13-2017 End: 05-13-2017 Ambulatory [facility] Start: 04-01-2017 End: 04-01-2017 Ambulatory [facility] Patient encounter status Kylah ramirez Work Phone: [facility] [address] Work Phone: End: 11-19-2021 Patient encounter status Kylah Crawford Work Phone: [facility] [address] Work Phone: Comment on above: 10/30/2021: ASC-US, HPV positive; RhD negative Kylah Crawford [facility] [address] Work Phone: Procedures Date Procedure Procedure Detail Performing Clinician Start: 03-13-2025 Total iron binding c apacity measurement Health Assessment Start: 03-13-2025 Vitamin D, 25-hydrox y measurement Health Assessment Comment on above: Vitamin D StatusDefi ciency: <20 ng/mL (50nmol/L)Insufficiency: 20-30 ng/mL (50-75 nmol/L)Sufficiency: 30-100 ng/mL (75-250 nmol/L)Toxicity: >100 ng/mL (>250 nmol/L) Start: 09-17-2024 Lipid 1996 panel - S vernell or Plasma Richard Araiza MD Work Phone: Start: 08-14-2024 Radex forearm 2 views C marybeth Wilkinson DO Work Phone: Start: 06-08-2024 Microscopic observat ion [Identifier] in Cervix by Cyto stain Minesh Wilkinson DO Work Phone: Start: 04-05-2024 Follow-up visit Follow-up KYLAH CHEEMA Start: 03-19-2024 Lipid 1996 panel - S vernell or Plasma Kylah Connell [employer] Work Phone: Start: 10-18-2023 Us pelvic nonobstetr ic real-time image complete Kylah Connell [employer] Work Phone: Start: 04-23-2023 ANDROSTENEDIONE KYLAH KIM Start: 04-23-2023 CBC W Auto Different ial panel - Blood KYLAH CONNELL Start: 04-23-2023 Comprehensive metabo lic 2000 panel - Serum or Plasma KYLAH CONNELL Start: 04-23-2023 CORTISOL KYLAH CONNELL Start: 04-23-2023 Cyanocobalamin vitamin b-12 KYLAH CONNELL Start: 04-23-2023 DHEA KYLAH CONNELL Start: 04-23-2023 ESTROGENS, TOTAL KYLAH CO NLEY Start: 04-23-2023 Ferritin [Mass/volum e] in Serum or Plasma KYLAH CONNELL Start: 04-23-2023 FOLATE KYLAH CONNELL Start: 04-23-2023 FOLLICLE STIMULATING HORMONE KYLAH CONNELL Start: 04-23-2023 GROWTH HORMONE KYLAH SEAMAN EY Start: 04-23-2023 Hemoglobin A1c/Hemoglobin.total in Blood KYLAH CONNELL Start: 04-23-2023 IRON AND TIBC KYLAH MCLEAN Y Start: 04-23-2023 Lipid panel KYLAH CONNELL Start: 04-23-2023 LUTEINIZING HORMONE KYLAH CONNELL Start: 04-23-2023 PROGESTERONE KYLAH CONNELL Start: 04-23-2023 PROLACTIN KYLAH CONNELL Start: 04-23-2023 PTH, INTACT KYLAH CONNELL Start: 04-23-2023 TESTOSTERONE,FREE AND TOTAL KYLAH CONNELL Start: 04-23-2023 Thyrotropin [Units/v olume] in Serum or Plasma KYLAH CONNELL Start: 04-23-2023 THYROXINE, FREE KYLAH KIM Start: 04-23-2023 TRIIODOTHYRONINE, FREE KYLAH CONNELL Start: 04-23-2023 VITAMIN D 25-HYDROXY,TOTAL KYLAH CONNELL Start: 04-23-2023 Lipid 1996 panel - S vernell or Plasma Kylah Connell [employer] Work Phone: Start: 09-17-2022 care only separate procedure Kylah Noe Connell Work Phone: Start: 08-21-2022 Antibody screen Vangie nazario Comment on above: Performed By: #### C MP #### [facility] [id number] [place] [id number] Start: 08-20-[address] Hossein Joseph Comment on above: Performed By: #### T +S #### [place] [id number] Start: 06-11-2022 End: 06-11-[address] Vangie Joseph Comment on above: Performed By: #### T +S #### [address] [id number] Order Comment: TEST ANTIBODY SCREEN GROUP TEST WAS CANCELLED, 06/11/2022 09:17 Tests to be done at [facility]. Adryan quiroga needed. 06/11/2022 09:17 HS. Performed By: #### A BSCG #### [facility] [id number] [place] [address] Start: 03-10-2022 Lipid 1996 panel - S vernell or Plasma Kylah Connell [employer] Work Phone: Start: 11-09-2021 Adult depression scr eening assessment Kylah Willard RD Start: 10-30-2021 Microscopic observat ion [Identifier] in Cervix by Cyto stain Kylah Connell [employer] Work Phone: Start: 10-07-2020 Ultrasound Pelvis Transabdominal With Transvaginal Vangie Joseph Start: 10-03-2020 Hemoglobin glycosylated a1c Vangie Joseph Start: 10-03-2020 TSH WITH REFLEX TO F REE T4 IF ABNORMAL Vangie Joseph Start: 05-02-2020 Antibody Screen Group Test Vangie Joseph Start: 05-02-2020 Complete Blood Count Anemia Panel with reflex Vangie Joseph Start: 05-02-2020 Culture bacterial quanttative colony count urine Vangie Joseph Start: 05-02-2020 Glucose post glucose dose Vangie Joseph Start: 05-02-2020 Rhogam Vangie Fuentes an Start: 02-01-2020 Antibody hiv-1 Vangie Al lman Start: 02-01-2020 Antibody rubella Vangie Joseph Start: 02-01-2020 Complete Blood Count Anemia Panel with reflex Vangie Joseph Start: 02-01-2020 Culture bacterial quanttative colony count urine Vangie Joseph Start: 02-01-2020 Hepatitis c antibody Ja alex Joseph Start: 02-01-2020 Iaad ia hepatitis b surface antigen Vangie Joseph Start: 02-01-2020 Iadna chlamydia trac homatis amplified probe tq Vangie Joseph Start: 02-01-2020 SYPHILIS SCREENING W ITH REFLEX Vangie Joseph Start: 02-01-2020 Type and Screen Vangie Boykin mansi Start: 12-11-2019 Comprehensive metabo lic 2000 panel Kylah Crawford Start: 12-11-2019 Cyanocobalamin vitamin b-12 Kylah Crawford Start: 12-04-2019 25 hydroxy includes fractions if performed Kylah Crawford Start: 12-04-2019 Lipid panel Kylah Crawford Start: 05-29-2019 1 25 dihydroxy inclu mignon fractions if performed Kylah Crawford Start: 05-29-2019 Blood count complete auto&auto difrntl wbc Kylah Crawford Start: 05-29-2019 Comprehensive metabo lic 2000 panel Kylah Crawford Start: 05-29-2019 Cyanocobalamin vitamin b-12 Kylah Crawford Start: 05-29-2019 Hemoglobin glycosylated a1c Kylah Crawford Start: 05-29-2019 TSH WITH REFLEX TO F REE T4 IF ABNORMAL Kylah Crawford Colposcopy Kylah Crawford Work Phone: Comment on above: 11/25/2021; History of No histor y of surgery [id number] HUBERT MADRIGAL RN ASHLND 1 No history of surgery Kylah Crawford Work Phone: Plan of Treatment Date Care Activity Detail Author Start: 2049 Zoster Vaccines (1 of 2) Zoster Vaccines (1 of 2) [facility] Start: 08-24-2032 DTaP/Tdap/Td Vaccines (9 - Td or Tdap) DTaP/Tdap/Td Vaccines (9 - Td or Tdap) [facility] Start: 08-24-2032 Tetanus vaccination [facility] Start: 09-17-2029 Lipid panel Lipid Panel [facility] Start: 03-19-2029 Lipid panel Lipid Panel [facility] Start: 04-23-2028 Lipid panel Lipid Panel [facility] Start: 06-08-2027 Screening for malignant neoplasm of cervix [facility] Start: 03-10-2027 Lipid panel Lipid Panel [facility] Start: 09-08-2026 DTaP/Tdap/Td Vaccines (8 - Td or Tdap) DTaP/Tdap/Td Vaccines (8 - Td or Tdap) [facility] Start: 09-08-2026 Tetanus vaccination TETANUS [facility] Start: 01-09-2025 End: 01-09-2025 Patient encounter procedure 01/09/2025 9:30 AM EDT Office Visit [facility] [address] [place] [id number] Danielle Garvin, [employer] [address] [place] [address] [facility] Start: 10-30-2024 Screening for malignant neoplasm of cervix [facility] Start: 09-19-2024 End: 09-19-2025 25-hydroxyvitamin D3 [Mass/volume] in Serum or Plasma Vitamin D 25-Hydroxy,Total (for eval of Vitamin D levels) Lab Routine Vitamin D deficiency Expected: 09/19/2024 (Approximate), Expires: 09/19/2025 [facility] Work Phone: Comment on above: Expected: 09/19/2024 (Approximate), Expi res: 09/19/2025 Start: 09-19-2024 End: 09-19-2025 CBC W Auto Differential panel - Blood CBC and Auto Differential Lab Routine Iron deficiency anemia, unspecified iron deficiency anemia type Expected: 09/19/2024 (Approximate), Expires: 09/19/2025 [facility] Work Phone: Comment on above: Expected: 09/19/2024 (Approximate), Expi res: 09/19/2025 Start: 09-19-2024 End: 09-19-2025 Cobalamin (Vitamin B12) [Mass/volume] in Serum or Plasma Vitamin B12 Lab Routine Vitamin B12 deficiency Expected: 09/19/2024 (Approximate), Expires: 09/19/2025 [facility] Service Area Work Phone: Comment on above: Expected: 09/19/2024 (Approximate), Expi res: 09/19/2025 Start: 09-19-2024 End: 09-19-2025 Comprehensive metabolic 2000 panel - Serum or Plasma Comprehensive Metabolic Panel Lab Routine Iron deficiency anemia, unspecified iron deficiency anemia type Vitamin B12 deficiency Vitamin D deficiency Expected: 09/19/2024 (Approximate), Expires: 09/19/2025 [facility] Work Phone: Comment on above: Expected: 09/19/2024 (Approximate), Expi res: 09/19/2025 Start: 09-19-2024 End: 09-19-2025 Ferritin [Mass/volume] in Serum or Plasma Ferritin Lab Routine Iron deficiency anemia, unspecified iron deficiency anemia type Expected: 09/19/2024 (Approximate), Expires: 09/19/2025 [facility] Work Phone: Comment on above: Expected: 09/19/2024 (Approximate), Expi res: 09/19/2025 Start: 09-07-2024 End: 09-07-2024 Patient encounter procedure 09/07/2024 1:30 PM EST Office Visit [facility] [address] [facility] [place] [id number] Danielle Garvin, JOSEFINA [address] [place] [address] [facility] Start: 09-04-2024 End: 09-04-2024 Patient encounter procedure 09/04/2024 2:20 PM EST Office Visit [facility] [address] [place] [address] Kylah Connell, [employer] [address] [place] [address] [facility] Medicine Start: 08-23-2024 End: 08-23-2024 Patient encounter procedure 08/23/2024 1:45 PM EST Office Visit [facility] [address] [place] [address] Raul Doty MD [address] [place] [address] [facility] Start: 08-17-2024 End: 08-17-2024 Patient encounter procedure 08/17/2024 10:15 AM EST Office Visit [facility] [address] [place] [address] Raul Doty MD [address] [place] [address] [facility] Start: 07-03-2024 End: 07-03-2024 Patient encounter procedure 07/03/2024 2:45 PM EST Office Visit [facility] [address] [place] [address], [place] [address] Rolando Rosario PA-C [address] [place] [phone] [facility] Start: 06-26-2024 End: 06-26-2024 Patient encounter procedure 06/26/2024 1:30 PM EST Office Visit [facility] [address] [facility] [place] [address] Rolando Rosario PA-C [address] [place] [address] [facility] Start: 06-20-2024 End: 03-20-2025 25-hydroxyvitamin D3 [Mass/volume] in Serum or Plasma Vitamin D 25-Hydroxy,Total (for eval of Vitamin D levels) Lab Routine Vitamin D deficiency Expected: 06/20/2024 (Approximate), Expires: 03/20/2025 [facility] Work Phone: Comment on above: Expected: 06/20/2024 (Approximate), Expi res: 03/20/2025 Start: 06-20-2024 End: 03-20-2025 CBC W Auto Differential panel - Blood CBC and Auto Differential Lab Routine Mixed hyperlipidemia Expected: 06/20/2024 (Approximate), Expires: 03/20/2025 [facility] Service Area Work Phone: Comment on above: Expected: 06/20/2024 (Approximate), Expi res: 03/20/2025 Start: 06-20-2024 End: 03-20-2025 Comprehensive metabolic 2000 panel - Serum or Plasma Comprehensive Metabolic Panel Lab Routine Mixed hyperlipidemia Expected: 06/20/2024 (Approximate), Expires: 03/20/2025 [facility] Work Phone: Comment on above: Expected: 06/20/2024 (Approximate), Expi res: 03/20/2025 Start: 06-20-2024 End: 03-20-2025 Lipid 1996 panel - Serum or Plasma Lipid Panel Lab Routine Mixed hyperlipidemia Expected: 06/20/2024 (Approximate), Expires: 03/20/2025 [facility] Work Phone: Comment on above: Expected: 06/20/2024 (Approximate), Expi res: 03/20/2025 Start: 06-20-2024 End: 03-20-2025 Parathyrin.intact [Mass/volume] in Serum or Plasma Parathyroid Hormone, Intact Lab Routine Vitamin D deficiency Expected: 06/20/2024 (Approximate), Expires: 03/20/2025 [facility] Work Phone: Comment on above: Expected: 06/20/2024 (Approximate), Expi res: 03/20/2025 Start: 06-19-2024 End: 06-19-2024 Patient encounter procedure 06/19/2024 8:40 AM EST Office Visit [facility] [address] [place] [phone] Kylah Connell, [employer] [address] [place] [address] [facility] Start: 05-22-2024 End: 05-22-2024 Patient encounter procedure [facility] Start: 05-03-2024 End: 05-03-2024 25-hydroxyvitamin D3 [Mass/volume] in Serum or Plasma Vitamin D 25-Hydroxy,Total (for eval of Vitamin D levels) Lab Routine Vitamin D deficiency Vitamin B12 deficiency Mixed hyperlipidemia Iron deficiency anemia, unspecified iron deficiency anemia type Expected: 05/03/2024 (Approximate), Expires: 05/03/2024 [facility] Work Phone: Comment on above: Expected: 05/03/2024 (Approximate), Expi res: 05/03/2024 Start: 05-03-2024 End: 05-03-2024 CBC W Auto Differential panel - Blood CBC and Auto Differential Lab Routine Vitamin D deficiency Vitamin B12 deficiency Mixed hyperlipidemia Iron deficiency anemia, unspecified iron deficiency anemia type Expected: 05/03/2024 (Approximate), Expires: 05/03/2024 [facility] Service Area Work Phone: Comment on above: Expected: 05/03/2024 (Approximate), Expi res: 05/03/2024 Start: 05-03-2024 End: 05-03-2024 Cobalamin (Vitamin B12) [Mass/volume] in Serum or Plasma Vitamin B12 Lab Routine Vitamin D deficiency Vitamin B12 deficiency Mixed hyperlipidemia Iron deficiency anemia, unspecified iron deficiency anemia type Expected: 05/03/2024 (Approximate), Expires: 05/03/2024 [facility] Work Phone: Comment on above: Expected: 05/03/2024 (Approximate), Expi res: 05/03/2024 Start: 05-03-2024 End: 05-03-2024 Comprehensive metabolic 2000 panel - Serum or Plasma Comprehensive Metabolic Panel Lab Routine Vitamin D deficiency Vitamin B12 deficiency Mixed hyperlipidemia Iron deficiency anemia, unspecified iron deficiency anemia type Expected: 05/03/2024 (Approximate), Expires: 05/03/2024 [facility] Work Phone: Comment on above: Expected: 05/03/2024 (Approximate), Expi res: 05/03/2024 Start: 05-03-2024 End: 05-03-2024 Ferritin [Mass/volume] in Serum or Plasma Ferritin Lab Routine Vitamin D deficiency Vitamin B12 deficiency Mixed hyperlipidemia Iron deficiency anemia, unspecified iron deficiency anemia type Expected: 05/03/2024 (Approximate), Expires: 05/03/2024 [facility] Work Phone: Comment on above: Expected: 05/03/2024 (Approximate), Expi res: 05/03/2024 Start: 05-03-2024 End: 05-03-2024 Hemoglobin A1c/Hemoglobin.total in Blood Hemoglobin A1C Lab Routine Vitamin D deficiency Vitamin B12 deficiency Mixed hyperlipidemia Iron deficiency anemia, unspecified iron deficiency anemia type Expected: 05/03/2024 (Approximate), Expires: 05/03/2024 [facility] Work Phone: Comment on above: Expected: 05/03/2024 (Approximate), Expi res: 05/03/2024 Start: 05-03-2024 End: 05-03-2024 Iron and Iron binding capacity panel - Serum or Plasma Iron and TIBC Lab Routine Vitamin D deficiency Vitamin B12 deficiency Mixed hyperlipidemia Iron deficiency anemia, unspecified iron deficiency anemia type Expected: 05/03/2024 (Approximate), Expires: 05/03/2024 [facility] Work Phone: Comment on above: Expected: 05/03/2024 (Approximate), Expi res: 05/03/2024 Start: 05-03-2024 End: 05-03-2024 Lipid 1996 panel - Serum or Plasma Lipid Panel Lab Routine Vitamin D deficiency Vitamin B12 deficiency Mixed hyperlipidemia Iron deficiency anemia, unspecified iron deficiency anemia type Expected: 05/03/2024 (Approximate), Expires: 05/03/2024 [facility] Work Phone: Comment on above: Expected: 05/03/2024 (Approximate), Expi res: 05/03/2024 Start: 05-03-2024 End: 05-03-2024 Parathyrin.intact [Mass/volume] in Serum or Plasma Parathyroid Hormone, Intact Lab Routine Vitamin D deficiency Vitamin B12 deficiency Mixed hyperlipidemia Iron deficiency anemia, unspecified iron deficiency anemia type Expected: 05/03/2024 (Approximate), Expires: 05/03/2024 [facility] Work Phone: Comment on above: Expected: 05/03/2024 (Approximate), Expi res: 05/03/2024 Start: 05-03-2024 End: 05-03-2024 TSH with reflex to Free T4 if abnormal TSH with reflex to Free T4 if abnormal Lab Routine Vitamin D deficiency Vitamin B12 deficiency Mixed hyperlipidemia Iron deficiency anemia, unspecified iron deficiency anemia type Expected: 05/03/2024 (Approximate), Expires: 05/03/2024 [facility] Work Phone: Comment on above: Expected: 05/03/2024 (Approximate), Expi res: 05/03/2024 Start: 04-24-2024 End: 04-24-2024 Patient encounter procedure 04/24/2024 1:45 PM EDT Office Visit [facility] [address] [place] [address] Rolando Rosario PA-C [address] [place] [address] [facility] Start: 03-25-2024 COVID-19 VACCINE ( season) COVID-19 VACCINE ( season) [facility] Start: 03-25-2024 COVID-19 VACCINE ( season) COVID-19 VACCINE ( season) [facility] Start: 03-25-2024 COVID-19 VACCINE ( season) COVID-19 VACCINE ( season) [facility] Start: 03-25-2024 Influenza vaccination INFLUENZA VACCINE (#1) [facility] Start: 12-05-2023 End: 12-05-2023 Patient encounter procedure 12/05/2023 8:30 AM EDT Office Visit [facility] [address] [place] [phone] Vangie Joseph MD [address] [place] [address] [facility] [address] [place] [id number] [facility] Start: 08-30-2023 End: 08-30-2023 Patient encounter procedure 08/30/2023 10:30 AM EST Office Visit [facility] [address] [place] [phone] Vangie Joseph MD [address] [place] [address] [facility] [address] [place] [id number] [facility] Start: 06-22-2023 End: 06-22-2023 Nutrition therapy 06/22/2023 3:30 PM EST Nutrition [facility] [address] [place] [phone] Kylah Willard, SAMANTHA [facility] Start: 05-03-2023 End: 05-03-2023 Patient encounter procedure 05/03/2023 3:00 PM EDT Office Visit [facility] [address] [place] [phone] Kylah Connell, [employer] [address] [place] [address] [facility] Start: 04-21-2023 End: 04-21-2024 25-hydroxyvitamin D3 [Mass/volume] in Serum or Plasma Vitamin D 25-Hydroxy,Total (for eval of Vitamin D levels) Lab Routine Acne, unspecified acne type Borderline abnormal thyroid function test Vitamin B12 deficiency Vitamin D deficiency Iron deficiency anemia, unspecified iron deficiency anemia type Abnormal fasting glucose Mixed hyperlipidemia Weight gain Expected: 04/21/2023 (Approximate), Expires: 04/21/2024 [facility] Work Phone: Comment on above: Expected: 04/21/2023 (Approximate), Expi res: 04/21/2024 Start: 04-21-2023 End: 04-21-2024 Androstenedione [Mass/volume] in Serum or Plasma Androstenedione Lab Routine Acne, unspecified acne type Borderline abnormal thyroid function test Vitamin B12 deficiency Vitamin D deficiency Iron deficiency anemia, unspecified iron deficiency anemia type Abnormal fasting glucose Mixed hyperlipidemia Weight gain Expected: 04/21/2023 (Approximate), Expires: 04/21/2024 [facility] Work Phone: Comment on above: Expected: 04/21/2023 (Approximate), Expi res: 04/21/2024 Start: 04-21-2023 End: 04-21-2024 CBC W Auto Differential panel - Blood CBC and Auto Differential Lab Routine Acne, unspecified acne type Borderline abnormal thyroid function test Vitamin B12 deficiency Vitamin D deficiency Iron deficiency anemia, unspecified iron deficiency anemia type Abnormal fasting glucose Mixed hyperlipidemia Weight gain Expected: 04/21/2023 (Approximate), Expires: 04/21/2024 [facility] Service Area Work Phone: Comment on above: Expected: 04/21/2023 (Approximate), Expi res: 04/21/2024 Start: 04-21-2023 End: 04-21-2024 Cobalamin (Vitamin B12) [Mass/volume] in Serum or Plasma Vitamin B12 Lab Routine Acne, unspecified acne type Borderline abnormal thyroid function test Vitamin B12 deficiency Vitamin D deficiency Iron deficiency anemia, unspecified iron deficiency anemia type Abnormal fasting glucose Mixed hyperlipidemia Weight gain Expected: 04/21/2023 (Approximate), Expires: 04/21/2024 [facility] Work Phone: Comment on above: Expected: 04/21/2023 (Approximate), Expi res: 04/21/2024 Start: 04-21-2023 End: 04-21-2024 Comprehensive metabolic 2000 panel - Serum or Plasma Comprehensive Metabolic Panel Lab Routine Acne, unspecified acne type Borderline abnormal thyroid function test Vitamin B12 deficiency Vitamin D deficiency Iron deficiency anemia, unspecified iron deficiency anemia type Abnormal fasting glucose Mixed hyperlipidemia Weight gain Expected: 04/21/2023 (Approximate), Expires: 04/21/2024 [facility] Work Phone: Comment on above: Expected: 04/21/2023 (Approximate), Expi res: 04/21/2024 Start: 04-21-2023 End: 04-21-2024 Cortisol [Mass/volume] in Serum or Plasma Cortisol Lab Routine Acne, unspecified acne type Borderline abnormal thyroid function test Vitamin B12 deficiency Vitamin D deficiency Iron deficiency anemia, unspecified iron deficiency anemia type Abnormal fasting glucose Mixed hyperlipidemia Weight gain Expected: 04/21/2023 (Approximate), Expires: 04/21/2024 [facility] Work Phone: Comment on above: Expected: 04/21/2023 (Approximate), Expi res: 04/21/2024 Start: 04-21-2023 End: 04-21-2024 Dehydroepiandrosterone (DHEA) [Mass/volume] in Serum or Plasma DHEA Lab Routine Acne, unspecified acne type Borderline abnormal thyroid function test Vitamin B12 deficiency Vitamin D deficiency Iron deficiency anemia, unspecified iron deficiency anemia type Abnormal fasting glucose Mixed hyperlipidemia Weight gain Expected: 04/21/2023 (Approximate), Expires: 04/21/2024 [facility] Work Phone: Comment on above: Expected: 04/21/2023 (Approximate), Expi res: 04/21/2024 Start: 04-21-2023 End: 04-21-2024 Estrogen [Mass/volume] in Serum or Plasma Estrogens, Total Lab Routine Acne, unspecified acne type Borderline abnormal thyroid function test Vitamin B12 deficiency Vitamin D deficiency Iron deficiency anemia, unspecified iron deficiency anemia type Abnormal fasting glucose Mixed hyperlipidemia Weight gain Expected: 04/21/2023 (Approximate), Expires: 04/21/2024 [facility] Work Phone: Comment on above: Expected: 04/21/2023 (Approximate), Expi res: 04/21/2024 Start: 04-21-2023 End: 04-21-2024 Ferritin [Mass/volume] in Serum or Plasma Ferritin Lab Routine Acne, unspecified acne type Borderline abnormal thyroid function test Vitamin B12 deficiency Vitamin D deficiency Iron deficiency anemia, unspecified iron deficiency anemia type Abnormal fasting glucose Mixed hyperlipidemia Weight gain Expected: 04/21/2023 (Approximate), Expires: 04/21/2024 [facility] Work Phone: Comment on above: Expected: 04/21/2023 (Approximate), Expi res: 04/21/2024 Start: 04-21-2023 End: 04-21-2024 Folate [Mass/volume] in Serum or Plasma Folate Lab Routine Acne, unspecified acne type Borderline abnormal thyroid function test Vitamin B12 deficiency Vitamin D deficiency Iron deficiency anemia, unspecified iron deficiency anemia type Abnormal fasting glucose Mixed hyperlipidemia Weight gain Expected: 04/21/2023 (Approximate), Expires: 04/21/2024 [facility] Work Phone: Comment on above: Expected: 04/21/2023 (Approximate), Expi res: 04/21/2024 Start: 04-21-2023 End: 04-21-2024 Follitropin [Units/volume] in Serum or Plasma Follicle Stimulating Hormone Lab Routine Acne, unspecified acne type Borderline abnormal thyroid function test Vitamin B12 deficiency Vitamin D deficiency Iron deficiency anemia, unspecified iron deficiency anemia type Abnormal fasting glucose Mixed hyperlipidemia Weight gain Expected: 04/21/2023 (Approximate), Expires: 04/21/2024 [facility] Work Phone: Comment on above: Expected: 04/21/2023 (Approximate), Expi res: 04/21/2024 Start: 04-21-2023 End: 04-21-2024 Hemoglobin A1c/Hemoglobin.total in Blood Hemoglobin A1C Lab Routine Acne, unspecified acne type Borderline abnormal thyroid function test Vitamin B12 deficiency Vitamin D deficiency Iron deficiency anemia, unspecified iron deficiency anemia type Abnormal fasting glucose Mixed hyperlipidemia Weight gain Expected: 04/21/2023 (Approximate), Expires: 04/21/2024 [facility] Work Phone: Comment on above: Expected: 04/21/2023 (Approximate), Expi res: 04/21/2024 Start: 04-21-2023 End: 04-21-2024 Iron and Iron binding capacity panel - Serum or Plasma Iron and TIBC Lab Routine Acne, unspecified acne type Borderline abnormal thyroid function test Vitamin B12 deficiency Vitamin D deficiency Iron deficiency anemia, unspecified iron deficiency anemia type Abnormal fasting glucose Mixed hyperlipidemia Weight gain Expected: 04/21/2023 (Approximate), Expires: 04/21/2024 [facility] Work Phone: Comment on above: Expected: 04/21/2023 (Approximate), Expi res: 04/21/2024 Start: 04-21-2023 End: 04-21-2024 Lipid 1996 panel - Serum or Plasma Lipid Panel Lab Routine Acne, unspecified acne type Borderline abnormal thyroid function test Vitamin B12 deficiency Vitamin D deficiency Iron deficiency anemia, unspecified iron deficiency anemia type Abnormal fasting glucose Mixed hyperlipidemia Weight gain Expected: 04/21/2023 (Approximate), Expires: 04/21/2024 [facility] Work Phone: Comment on above: Expected: 04/21/2023 (Approximate), Expi res: 04/21/2024 Start: 04-21-2023 End: 04-21-2024 Lutropin [Units/volume] in Serum or Plasma Luteinizing Hormone Lab Routine Acne, unspecified acne type Borderline abnormal thyroid function test Vitamin B12 deficiency Vitamin D deficiency Iron deficiency anemia, unspecified iron deficiency anemia type Abnormal fasting glucose Mixed hyperlipidemia Weight gain Expected: 04/21/2023 (Approximate), Expires: 04/21/2024 [facility] Work Phone: Comment on above: Expected: 04/21/2023 (Approximate), Expi res: 04/21/2024 Start: 04-21-2023 End: 04-21-2024 Parathyrin.intact [Mass/volume] in Serum or Plasma Parathyroid Hormone, Intact Lab Routine Acne, unspecified acne type Borderline abnormal thyroid function test Vitamin B12 deficiency Vitamin D deficiency Iron deficiency anemia, unspecified iron deficiency anemia type Abnormal fasting glucose Mixed hyperlipidemia Weight gain Expected: 04/21/2023 (Approximate), Expires: 04/21/2024 [facility] Work Phone: Comment on above: Expected: 04/21/2023 (Approximate), Expi res: 04/21/2024 Start: 04-21-2023 End: 04-21-2024 Progesterone [Mass/volume] in Serum or Plasma Progesterone Lab Routine Acne, unspecified acne type Borderline abnormal thyroid function test Vitamin B12 deficiency Vitamin D deficiency Iron deficiency anemia, unspecified iron deficiency anemia type Abnormal fasting glucose Mixed hyperlipidemia Weight gain Expected: 04/21/2023 (Approximate), Expires: 04/21/2024 [facility] Work Phone: Comment on above: Expected: 04/21/2023 (Approximate), Expi res: 04/21/2024 Start: 04-21-2023 End: 04-21-2024 Prolactin [Mass/volume] in Serum or Plasma Prolactin Lab Routine Acne, unspecified acne type Borderline abnormal thyroid function test Vitamin B12 deficiency Vitamin D deficiency Iron deficiency anemia, unspecified iron deficiency anemia type Abnormal fasting glucose Mixed hyperlipidemia Weight gain Expected: 04/21/2023 (Approximate), Expires: 04/21/2024 [facility] Work Phone: Comment on above: Expected: 04/21/2023 (Approximate), Expi res: 04/21/2024 Start: 04-21-2023 End: 04-21-2024 Somatotropin [Mass/volume] in Serum or Plasma Growth Hormone Lab Routine Acne, unspecified acne type Borderline abnormal thyroid function test Vitamin B12 deficiency Vitamin D deficiency Iron deficiency anemia, unspecified iron deficiency anemia type Abnormal fasting glucose Mixed hyperlipidemia Weight gain Expected: 04/21/2023 (Approximate), Expires: 04/21/2024 [facility] Work Phone: Comment on above: Expected: 04/21/2023 (Approximate), Expi res: 04/21/2024 Start: 04-21-2023 End: 04-21-2024 Testosterone,Free and Total Testosterone,Free and Total Lab Routine Acne, unspecified acne type Borderline abnormal thyroid function test Vitamin B12 deficiency Vitamin D deficiency Iron deficiency anemia, unspecified iron deficiency anemia type Abnormal fasting glucose Mixed hyperlipidemia Weight gain Expected: 04/21/2023 (Approximate), Expires: 04/21/2024 [facility] Work Phone: Comment on above: Expected: 04/21/2023 (Approximate), Expi res: 04/21/2024 Start: 04-21-2023 End: 04-21-2024 Thyrotropin [Units/volume] in Serum or Plasma Thyroid Stimulating Hormone Lab Routine Acne, unspecified acne type Borderline abnormal thyroid function test Vitamin B12 deficiency Vitamin D deficiency Iron deficiency anemia, unspecified iron deficiency anemia type Abnormal fasting glucose Mixed hyperlipidemia Weight gain Expected: 04/21/2023 (Approximate), Expires: 04/21/2024 [facility] Work Phone: Comment on above: Expected: 04/21/2023 (Approximate), Expi res: 04/21/2024 Start: 04-21-2023 End: 04-21-2024 Thyroxine (T4) free [Mass/volume] in Serum or Plasma Thyroxine, Free Lab Routine Acne, unspecified acne type Borderline abnormal thyroid function test Vitamin B12 deficiency Vitamin D deficiency Iron deficiency anemia, unspecified iron deficiency anemia type Abnormal fasting glucose Mixed hyperlipidemia Weight gain Expected: 04/21/2023 (Approximate), Expires: 04/21/2024 [facility] Work Phone: Comment on above: Expected: 04/21/2023 (Approximate), Expi res: 04/21/2024 Start: 04-21-2023 End: 04-21-2024 Triiodothyronine (T3) Free [Mass/volume] in Serum or Plasma Triiodothyronine, Free Lab Routine Acne, unspecified acne type Borderline abnormal thyroid function test Vitamin B12 deficiency Vitamin D deficiency Iron deficiency anemia, unspecified iron deficiency anemia type Abnormal fasting glucose Mixed hyperlipidemia Weight gain Expected: 04/21/2023 (Approximate), Expires: 04/21/2024 [facility] Work Phone: Comment on above: Expected: 04/21/2023 (Approximate), Expi res: 04/21/2024 Start: 03-25-2023 COVID-19 Vaccine ( season) COVID-19 Vaccine () [facility] Start: 03-25-2023 Influenza vaccination [facility] Start: 03-15-2023 FUV, Provider: Kylah Crawford, Status: Pen, Time: 7:40 AM FUV, Provider: Kylah Crawford, Status: Pen, Time: 7:40 AM -[facility] Work Phone: Start: 03-15-2023 FUV, Provider: Kylah Connell, Status: Pen, Time: 7:40 AM FUV, Provider: Kylah Connell, Status: Pen, Time: 7:40 AM [employer] Work Phone: Start: 03-15-2023 Patient encounter procedure Outpatient [facility]3] Start: 15-Mar-2023 7:40 Kylah Connell Intent [facility]3] Start: 02-19-2023 Screening for Chlamydia trachomatis Chlamydia and Gonorrhea Screening [facility] Start: 01-12-2023 Patient encounter procedure ANNUAL, Provider: Vangie Joseph, Status: Art, Time: 8:30 AM [employer] Work Phone: Start: 11-09-2022 Depression screening using PHQ-9 (Patient Health Questionnaire 9) score [facility] Start: 11-02-2022 Patient encounter procedure [facility] Start: 10-30-2022 History and physical examination, annual for health maintenance Wellness Visit [facility] Start: 09-17-2022 PPV, Provider: Vangie Joseph, Status: Pen, Time: 2:15 PM PPV, Provider: Vangie Joseph, Status: Pen, Time: 2:15 PM [employer] Work Phone: Start: 08-27-2022 Patient encounter procedure [facility] Start: 08-23-2022 EPVOB, Provider: Vangie Joseph, Status: Pen, Time: 10:00 AM EPVOB, Provider: Vangie Joseph, Status: Pen, Time: 10:00 AM [facility] [address] Work Phone: Start: 08-23-2022 Patient encounter procedure [facility] Start: 08-21-2022 End: 08-21-2022 Placental Record [Baby A] Placental Record [Baby A] Date: 21-Aug-2022 [facility] Start: 08-20-2022 EPVOB, Provider: Vangie Joseph, Status: Pen, Time: 10:30 AM EPVOB, Provider: Vangie Joseph, Status: Pen, Time: 10:30 AM [facility] [address] Work Phone: Start: 08-13-2022 EPVOB, Provider: Vangie Joseph, Status: Pen, Time: 8:30 AM EPVOB, Provider: Vangie Joseph, Status: Pen, Time: 8:30 AM [facility] [address] Work Phone: Start: 07-30-2022 EPVOB, Provider: Vangie Joseph, Status: Pen, Time: 9:30 AM EPVOB, Provider: Vangie Joseph, Status: Pen, Time: 9:30 AM [facility] [address] Work Phone: Start: 07-09-2022 EPVOB, Provider: Vangie Joseph, Status: Pen, Time: 9:30 AM EPVOB, Provider: Vangie Joseph, Status: Pen, Time: 9:30 AM [facility] [address] Work Phone: Start: 06-25-2022 EPVOB, Provider: Vangie Joseph, Status: Pen, Time: 10:15 AM EPVOB, Provider: Vangie Joseph, Status: Pen, Time: 10:15 AM [facility] [address] [place] Work Phone: Start: 06-11-2022 EPVOB, Provider: Vangie Joseph, Status: Pen, Time: 8:45 AM EPVOB, Provider: Vangie Joseph, Status: Pen, Time: 8:45 AM [facility] [address] [place] Work Phone: Start: 06-04-2022 FUV, Provider: Vangie Joseph, Status: Pen, Time: 9:00 AM FUV, Provider: Vangie Joseph, Status: Pen, Time: 9:00 AM [facility] Work [facility]: Start: 05-14-2022 EPVOB, Provider: Vangie Joseph, Status: Pen, Time: 9:00 AM EPVOB, Provider: Vangie Joseph, Status: Pen, Time: 9:00 AM [facility] Work Phone: Start: 04-16-2022 EPVOB, Provider: Vangie Joseph, Status: Pen, Time: 10:00 AM EPVOB, Provider: Vangie Joseph, Status: Pen, Time: 10:00 AM [facility] Work [facility]: Start: 03-19-2022 EPVOB, Provider: Vangie Joseph, Status: Pen, Time: 8:30 AM EPVOB, Provider: Vangie Joseph, Status: Pen, Time: 8:30 AM [facility] Work [facility]: Start: 02-19-2022 EPVOB, Provider: Vangie Joseph, Status: Pen, Time: 8:45 AM EPVOB, Provider: Vangie Joseph, Status: Pen, Time: 8:45 AM [facility] Work [facility]: Start: 02-18-2022 FUV, Provider: Kylah Crawford, Status: Pen, Time: 8:40 AM FUV, Provider: Kylah Crawford, Status: Pen, Time: 8:40 AM [facility] Work Phone: Start: 12-01-2021 EPVOB, Provider: Vangie Joseph, Status: Pen, Time: 9:00 AM EPVOB, Provider: Vangie Joseph, Status: Pen, Time: 9:00 AM [facility] Work [facility]: Start: 10-30-2021 Patient encounter procedure ANNUAL, Provider: Vangie Joseph, Status: Pen, Time: 9:15 AM [facility] [employer] Work Phone: Start: 10-20-2021 FUV, Provider: Kylah Crawford, Status: Pen, Time: 9:00 AM FUV, Provider: Kylah Crawford, Status: Pen, Time: 9:00 AM [facility] Work Phone: Start: 09-16-2021 Patient encounter procedure ANNUAL, Provider: Vangie Joseph, Status: Pen, Time: 10:30 AM [facility] Work Phone: Start: 05-06-2021 FUV, Provider: Kylah Crawford, Status: Pen, Time: 9:40 AM FUV, Provider: Kylah Crawford, Status: Pen, Time: 9:40 AM [facility] Work Phone: Start: 02-06-2021 FUV, Provider: Vangie Joseph, Status: Pen, Time: 9:00 AM FUV, Provider: Vangie Joseph, Status: Pen, Time: 9:00 AM [place] [id number] [employer] Work Phone: Start: 02-03-2021 FUV, Provider: Kylah Crawford, Status: Pen, Time: 9:00 AM FUV, Provider: Kylah Crawford, Status: Pen, Time: 9:00 AM [facility] Work Phone: Start: 01-31-2021 Screening for Chlamydia trachomatis Chlamydia Screening [facility] Start: 01-15-2021 COVID-19 Vaccine (3 - Moderna series) COVID-19 Vaccine (3 - Moderna series) [facility] Start: 10-08-2020 Ultrasound Pelvis Transabdominal With Transvaginal [place] [id number] [employer] Work Phone: Start: 2020 Screening for malignant neoplasm of cervix [facility] Start: 2017 Hepatitis C screening Hepatitis C Screening [facility] Start: 2015 Screening for Chlamydia trachomatis CHLAMYDIA SCREEN [facility] Start: 2014 HIV screening [facility] Start: 1999 Hepatitis C screening HEPATITIS C VIRUS SCREENING [facility] Start: 1999 Screening for Chlamydia trachomatis GONORRHEA SCREEN [facility] Start: 1999 Yearly Adult Physical Yearly Adult Physical [facility] [address] Work Phone: Cyanocobalamin 1 000 MCG/ML Injection Solution Ordered: 11-Dec-2019 Held [facility] Work Phone: NEGATED: Highlighted row has been ruled out! Planned Goals not documented [facility] [address] [place] Work Phone: Immunizations Immunization Date Immunization Notes Care Provider Elvi sebastian 04-25-2024 Hepatitis B vaccine (recombinant), CpG adjuvanted Raygan Ciballi PA-C Work Phone: [facility] 04-16-2024 tuberculin skin test ; purified protein derivative solution, intradermal Raygan Ciballi PA-C Work Phone: [facility] 04-06-2024 influenza, seasonal, injectable, preservative free Raygan Ciballi PA-C Work Phone: [facility] 04-06-2024 tuberculin skin test ; purified protein derivative solution, intradermal Raygan Ciballi PA-C Work Phone: [facility] 08-24-2022 tetanus toxoid, redu jessica diphtheria toxoid, and acellular pertussis vaccine, adsorbed Ubaldo Cope Other Phone: [facility] 11-20-2020 Moderna COVID-19 Vac cine 100 MCG/0.5ML Intramuscular Suspension Kylah Crawford Work Phone: [facility] Comment on above: Series: 10-23-2020 Moderna COVID-19 Vac cine 100 MCG/0.5ML Intramuscular Suspension Kylah Crawford Work Phone: [facility] Comment on above: Series: 04-01-2017 Human Papillomavirus 9-valent vaccine Kylah Crawford Work Phone: [facility] Work Phone: 04-01-2017 meningococcal B vacc ine, recombinant, OMV, adjuvanted Kylah Crawford Work Phone: [facility] Work Phone: 04-01-2017 meningococcal B, unspecified formulation Kylah Connell [employer] Work Phone: [facility] Work Phone: 04-01-2017 meningococcal polysaccharide (groups A, C, Y and W-135) diphtheria toxoid conjugate vaccine (MCV4P) Kylah Crawford Work Phone: [facility] Work Phone: 09-08-2016 tetanus toxoid, redu jessica diphtheria toxoid, and acellular pertussis vaccine, adsorbed Kylah Crawford Work Phone: [facility] Work Phone: 10-11-2014 HPV, unspecified formulation Kylah Crawford Work Phone: [facility] Work Phone: 10-11-2014 human papilloma viru s vaccine, quadrivalent Kylah Connell [employer] Work Phone: [facility] Work Phone: 08-08-2014 HPV, unspecified formulation Kylah Crawford Work Phone: [facility] Work Phone: 08-08-2014 human papilloma viru s vaccine, quadrivalent Kylah Connell [employer] Work Phone: [facility] Work Phone: 03-12-2011 meningococcal polysaccharide (groups A, C, Y and W-135) diphtheria toxoid conjugate vaccine (MCV4P) Kylah Crawford Work Phone: [facility] Work Phone: 03-12-2011 tetanus toxoid, redu jessica diphtheria toxoid, and acellular pertussis vaccine, adsorbed Kylah Crawford Work Phone: [facility] Work Phone: 03-12-2011 varicella virus vaccine Kylah Crawford Work Phone: [facility] Work Phone: 05-19-2009 influenza virus vacc ine, split virus (incl. purified surface antigen) Kylah Connell [employer] Work Phone: [facility] Work Phone: 05-19-2009 influenza virus vacc ine, whole virus Kylah Crawford Work Phone: [facility] Work Phone: 05-19-2009 influenza, seasonal, injectable Kylah Connell [employer] Work Phone: [facility] Work Phone: 05-19-2009 influenza virus vacc ine, unspecified formulation Kylah Connell [employer] Work Phone: [facility] Work Phone: 06-03-2008 influenza virus vacc ine, unspecified formulation Kylah Connell [employer] Work Phone: [facility] Work Phone: 06-03-2008 influenza, seasonal, injectable Kylah Crawford Work Phone: [facility] Work Phone: 09-26-2003 diphtheria, tetanus toxoids and acellular pertussis vaccine Kylah Connell [employer] Work Phone: [facility] Work Phone: 09-26-2003 diphtheria, tetanus toxoids and acellular pertussis vaccine, unspecified formulation Kylah Crawford Work Phone: [facility] Work Phone: 09-26-2003 measles, mumps and rubella virus vaccine Kylah Crawford Work Phone: [facility] Work Phone: 09-26-2003 poliovirus vaccine, inactivated Kylah Crawford Work Phone: [facility] Work Phone: 09-26-2003 varicella virus vaccine Kylah Crawford Work Phone: [facility] Work Phone: 06-28-2001 diphtheria, tetanus toxoids and acellular pertussis vaccine Kylah Connlel [employer] Work Phone: [facility] Work Phone: 06-28-2001 diphtheria, tetanus toxoids and acellular pertussis vaccine, unspecified formulation Kylah Noe Crawford Work Phone: [facility] Work Phone: 06-28-2001 haemophilus influenz ae type b conjugate and Hepatitis B vaccine Kylah Noe Crawford Work Phone: [facility] Work Phone: 06-28-2001 haemophilus influenz ae type b vaccine, PRP-T conjugate Kylah Connell [employer] Work Phone: [facility] Work Phone: 06-28-2001 hepatitis B vaccine, pediatric or pediatric/adolescent dosage Kylah Connell [employer] Work Phone: [facility] Work Phone: 06-28-2001 measles, mumps and rubella virus vaccine Kylah Crawford Work Phone: [facility] Work Phone: 05-11-2000 diphtheria, tetanus toxoids and acellular pertussis vaccine Kylah Connell [employer] Work Phone: [facility] Work Phone: 05-11-2000 diphtheria, tetanus toxoids and acellular pertussis vaccine, unspecified formulation Kylah Orrkins Work Phone: [facility] Work Phone: 05-11-2000 poliovirus vaccine, inactivated Kylah Crawford Work Phone: [facility] Work Phone: 1999 diphtheria, tetanus toxoids and acellular pertussis vaccine Kylah Connell [employer] Work Phone: [facility] Work Phone: 1999 diphtheria, tetanus toxoids and acellular pertussis vaccine, unspecified formulation Kylah Crawford Work Phone: [facility] Work Phone: 1999 haemophilus influenz ae type b conjugate and Hepatitis B vaccine Kylah Kusum Crawford Work Phone: [facility] Work Phone: 1999 haemophilus influenz ae type b vaccine, PRP-T conjugate Kylah Connell [employer] Work Phone: [facility] Work Phone: 1999 hepatitis B vaccine, pediatric or pediatric/adolescent dosage Kylah Connell [employer] Work Phone: [facility] Work Phone: 1999 poliovirus vaccine, inactivated Kylah Crawford Work Phone: [facility] Work Phone: 1999 diphtheria, tetanus toxoids and acellular pertussis vaccine Kylah Connell [employer] Work Phone: [facility] Work Phone: 1999 diphtheria, tetanus toxoids and acellular pertussis vaccine, unspecified formulation Kylah Crawford Work Phone: [facility] Work Phone: 1999 poliovirus vaccine, inactivated Kylah Crawford Work Phone: [facility] Work Phone: 1999 diphtheria, tetanus toxoids and acellular pertussis vaccine, unspecified formulation Kylah Noe Crawford Work Phone: [facility] Work Phone: 1999 haemophilus influenz ae type b conjugate and Hepatitis B vaccine Kylah Crawford Work Phone: [facility] Work Phone: 1999 haemophilus influenz ae type b vaccine, PRP-T conjugate Kylah Ko [employer] Work Phone: [facility] Work Phone: 1999 hepatitis B vaccine, pediatric or pediatric/adolescent dosage Kylah Ko [employer] Work Phone: [facility] Work Phone: 1999 poliovirus vaccine, inactivated Kylah Noe Crawford Work Phone: [facility] Work Phone: Payers Date Payer Category Payer Self-pay 2024 [employer] [id number] 2024 Unknown [id number] 2020 Medicaid [employer] MED[employer] [id number] 2020-Present [phone] [address] [place] [address] [id number] 2020 Medicaid (Managed Care) 1.2. [id number] 2020 Unknown [id number] 2017 Unknown [id number] 2017 Unknown 1999 Unknown [id number] 2.16.840.1.225763.3.579.2. 1069 1999 Unknown [id number] 2.16.840.1.834143.3.579.2. 1069 1999 Unknown [id number] 2.16.840.1.841227.3.579.2. 1069 1999 Unknown [id number] 2.16.840.1.532410.3.579.2. 1069 1999 Unknown [id number] 2.16.840.1.207297.3.579.2. 1069 1999 Unknown [id number] 2.16.840.1.880105.3.579.2. 1069 1999 Unknown [id number] 2.16.840.1.275125.3.579.2. 356 1999 Unknown [id number] 2.16.840.1.655183.3.579.2. 356 1999 Unknown [id number] 2.16.840.1.368605.3.579.2. 356 1999 Unknown [id number] 2.16.840.1.393999.3.579.2. 356 1999 Unknown [id number] 2.16.840.1.779246.3.579.2. 356 1999 Unknown [id number] 2.16.840.1.374465.3.579.2. 356 1999 Unknown [id number] 2.16.840.1.103532.3.579.2. 356 1999 Unknown [id number] 2.16.840.1.144233.3.579.2. 356 1999 Unknown [id number] 2.16.840.1.939645.3.579.2. 356 1999 Unknown [id number] 2.16.840.1.873136.3.579.2. 356 1999 Unknown [id number] 2.16.840.1.810655.3.579.2. 356 1999 Unknown [id number] 2.16.840.1.542501.3.579.2. 356 1999 Unknown [id number] 2.16.840.1.361021.3.579.2. 356 1999 Unknown [id number] 2.16.840.1.741632.3.579.2. 356 1999 Unknown [id number] 2.16.840.1.343347.3.579.2. 903 1999 Unknown [id number] 2.16.840.1.273880.3.579.2. 1245 1999 Unknown [id number] 2.16.840.1.553490.3.579.2. 1245 1999 Unknown [id number] 2.16.840.1.951117.3.579.2. 983 1999 Unknown [id number] 2.16.840.1.646118.3.579.2. 983 1999 Unknown [id number] 2.16.840.1.948339.3.579.2. 983 1999 Unknown [id number] 2.16.840.1.406602.3.579.2. 983 1999 Unknown [id number] 2.16.840.1.883891.3.579.2. 983 1999 Unknown [id number] 2.16.840.1.211269.3.579.2. 903 1999 Unknown [id number] 2.16.840.1.479262.3.579.2. 903 1999 Unknown [id number] 2.16.840.1.346131.3.579.2. 1243 1999 Unknown [id number] 2.16.840.1.404007.3.579.2. 1244 1999 Unknown [id number] 2.16.840.1.014460.3.579.2. 1244 1999 Unknown [id number] 2.16.840.1.880895.3.579.2. 1244 1999 Unknown [id number] 2.16.840.1.622500.3.579.2. 1244 [facility] ANTHEM BL UE/PREF/HMO/PPO [id number]. [id number] Unknown [id number] 2.16.840.1.382510.3.579.2. 462 Unknown [id number] 2.16.840.1.688732.3.579.2. 462 Social History Date Type Detail Facility Assertion Unknown if ever smoked Women [address] Work Phone: Start: 04-21-2023 End: 11-06-2024 Sexually active Sexually active [facility] Work Phone: Tobacco smoking consumption unknown [facility] Start: 10-17-2022 End: 07-20-2024 Tobacco smoking status NHIS Never smoked tobacco [facility] Work Phone: Start: 10-17-2022 End: 07-20-2024 Tobacco use and exposure Smokeless tobacco non-user [facility] Work Phone: Start: 04-21-2023 End: 09-19-2024 Alcohol intake Lifetime non-drinker (finding) [facility] Work Phone: Start: 04-21-2023 End: 11-06-2024 Tobacco use panel [facility] Work Phone: Start: 2000 [facility] Start: 04-11-2023 End: 09-19-2024 Exposure to SARS-CoV-2 (event) Not sure [facility] Start: 11-09-2021 Gender identity Identifies as female gender (finding) [facility] Start: 11-09-2021 Sexual orientation Heterosexual (fin ding) [facility] Start: 03-10-2024 End: 08-14-2024 Exposure to SARS-CoV-2 (event) Unable to assess [facility] Work Phone: Start: 07-20-2024 Alcoholic beverage intake Current drinker of alcohol (finding) [facility] Start: 07-20-2024 Alcohol Comment occasional [facility] Start: 07-31-2024 End: 11-06-2024 Alcoholic beverage intake Ex-drinker (finding) [facility] Start: 2000 Sex Assigned At Female W [facility] NEGATED: Highlighted row - - -[facility] Work Phone: Functional Status Date Assessment Result Facility Functional observable [facility] NEGATED: Highlighted row Functional performance Functional status health issues are not documented Disease [place] [address] [employer] Work Phone: Mental Status Date Assessment Result Facility 08-21-2022 Cognitive functi ons [id number] [facility] NEGATED: Highlighted row Cognitive function [Interpretation] Cognitive status health issues are not documented Disease [place] [address] [place] Work Phone: Clinical Notes 03-23-2021 to 11-06-2024 Danielle Garvin CNP - 11/06/2024 10:02 AM Shravan Araiza MD - 09/19/2024 9:15 AM ESTAssessment & Plan Note - Raul Doty MD - 08/16/2024 4:49 PM ESTPatient Instructions<item> Note Date & Type Note Facility 11-06-2024 Note Karen Wadsworth 24 y.o. 2000 female Changes since last visit: Office follow-up for constipation and abdominal pain and bloating. Has been using MiraLAX and stool softeners daily as well as taking fiber Gummies twice a day. She did try the lactulose but it caused significant abdominal cramping and was unable to tolerate it. She reports now she is moving her bowels once a week but continues to have worsening abdominal cramping within the 2 days before she moves her bowels as well as persistent abdominal bloating. Continues to feel like she is not emptying completely when she does move her bowels. Denies any blood in the stool or unintentional weight loss. She remains on Wegovy for weight loss and denies any significant side effects from that. Past Medical History: Past Medical History: Diagnosis Date Abnormal vaginal Pap smear Acid reflux Anemia Anxiety disorder HTN (hypertension) Surgical History & Procedures: Past Surgical History: Procedure Laterality Date COLPOSCOPY 07/25/2021 Social History: Social History[1] Current Medications: Current Medications[2] Review of Systems Constitutional: Negative for fatigue and fever. Respiratory: Negative for choking and shortness of breath. Gastrointestinal: Positive for abdominal distention (Bloating), abdominal pain (Cramping) and constipation. Negative for blood in stool and diarrhea. Skin: Negative for color change and pallor. Neurological: Negative for dizziness and weakness. Physical Exam Constitutional: General: She is not in acute distress. Cardiovascular: Rate and Rhythm: Normal rate and regular rhythm. Heart sounds: No murmur heard. Pulmonary: Effort: Pulmonary effort is normal. No respiratory distress. Breath sounds: Normal breath sounds. No wheezing. Abdominal: General: Abdomen is flat. Bowel sounds are normal. There is no distension. Palpations: Abdomen is soft. Tenderness: There is no abdominal tenderness. Neurological: Mental Status: She is alert. No visits with results within 30 Day(s) from this visit. Latest known visit with results is: No results found for any previous visit. Assessment & Plan: Symptoms favoring IBS with constipation, has tried stool softeners MiraLAX, lactulose and fiber supplement with only mild improvement of constipation symptoms in the last couple months. Linzess 145 mcg p.o. daily 15 minutes before breakfast #30 prescription provided Call with symptom update in 2 weeks we will follow-up in 2 months, call with concerns Danielle Garvin, JOSEFINA Please note: Portions of this chart may have been created with [employer] voice recognition software. Occasional wrong-word or sound-like substitutions may have occurred due to inherent limitations of the voice recognition software. Please read the chart carefully and recognize, using context, where the substitutions have occurred. [1] Social History Socioeconomic History Marital status: Tobacco Use Smoking status: Never Smokeless tobacco: Never Vaping Use Vaping status: Never Used Substance and Sexual Activity Alcohol use: Not Currently Comment: occasional Drug use: Never Sexual activity: Yes Social History Narrative Merged History Encounter [2] Current Outpatient Medications Medication Sig Dispense Refill benzoyl peroxide 10 % Clsr Apply topically Uses as face wash home . busPIRone (BUSPAR) 5 MG tablet Take 1 (one) tablet (5 mg total) by mouth 3 (three) times a day as needed . calcium carbonate-vit D3-min 600 mg-10 mcg (400 unit) Tab Take 1 tablet by mouth every 12 (twelve) hours . ergocalciferol (ERGOCALCIFEROL) 1,250 mcg (50,000 unit) capsule Take 1 (one) capsule (50,000 Units total) by mouth twice weekly Per pt . ferrous sulfate 325 (65 FE) MG tablet Take 1 (one) tablet (325 mg total) by mouth 3 (three) times a day . ibuprofen (ADVIL,MOTRIN) 200 MG tablet Take 2 (two) tablets (400 mg total) by mouth every 8 (eight) hours as needed . omeprazole (PRILOSEC) 40 MG capsule Take 1 (one) capsule (40 mg total) by mouth every morning before breakfast . linaCLOtide (Linzess) 145 mcg cap Take 1 (one) capsule (145 mcg total) by mouth every morning before breakfast . 30 capsule 0 Wegovy 0.25 mg/0.5 mL Pen INJECT 0.25 MG UNDER THE SKIN ONCE A WEEK. (Patient not taking: Reported on 11/06/2024) No current facility-administered medications for this visit. AUTHENTICATED BY DANIELLE GARVIN, ON 11/06/2024 10:09:10 [facility] 11-06-2024 History of Present illness Narrative Karen Wadsworth 24 y.o. 2000 female Changes since last visit: Office follow-up for constipation and abdominal pain and bloating. Has been using MiraLAX and stool softeners daily as well as taking fiber Gummies twice a day. She did try the lactulose but it caused significant abdominal cramping and was unable to tolerate it. She reports now she is moving her bowels once a week but continues to have worsening abdominal cramping within the 2 days before she moves her bowels as well as persistent abdominal bloating. Continues to feel like she is not emptying completely when she does move her bowels. Denies any blood in the stool or unintentional weight loss. She remains on Wegovy for weight loss and denies any significant side effects from that. Past Medical History: Past Medical History: Diagnosis Date Abnormal vaginal Pap smear Acid reflux Anemia Anxiety disorder HTN (hypertension) Surgical History & Procedures: Past Surgical History: Procedure Laterality Date COLPOSCOPY 07/25/2021 Social History: Social History[1] Current Medications: Current Medications[2] Review of Systems Constitutional: Negative for fatigue and fever. Respiratory: Negative for choking and shortness of breath. Gastrointestinal: Positive for abdominal distention (Bloating), abdominal pain (Cramping) and constipation. Negative for blood in stool and diarrhea. Skin: Negative for color change and pallor. Neurological: Negative for dizziness and weakness. Physical Exam Constitutional: General: She is not in acute distress. Cardiovascular: Rate and Rhythm: Normal rate and regular rhythm. Heart sounds: No murmur heard. Pulmonary: Effort: Pulmonary effort is normal. No respiratory distress. Breath sounds: Normal breath sounds. No wheezing. Abdominal: General: Abdomen is flat. Bowel sounds are normal. There is no distension. Palpations: Abdomen is soft. Tenderness: There is no abdominal tenderness. Neurological: Mental Status: She is alert. No visits with results within 30 Day(s) from this visit. Latest known visit with results is: No results found for any previous visit. Assessment & Plan: Symptoms favoring IBS with constipation, has tried stool softeners MiraLAX, lactulose and fiber supplement with only mild improvement of constipation symptoms in the last couple months. Linzess 145 mcg p.o. daily 15 minutes before breakfast #30 prescription provided Call with symptom update in 2 weeks we will follow-up in 2 months, call with concerns Danielle Garvin CNP Please note: Portions of this chart may have been created with [employer] voice recognition software. Occasional wrong-word or sound-like substitutions may have occurred due to inherent limitations of the voice recognition software. Please read the chart carefully and recognize, using context, where the substitutions have occurred. [1] Social History Socioeconomic History Marital status: Tobacco Use Smoking status: Never Smokeless tobacco: Never Vaping Use Vaping status: Never Used Substance and Sexual Activity Alcohol use: Not Currently Comment: occasional Drug use: Never Sexual activity: Yes Social History Narrative Merged History Encounter [2] Current Outpatient Medications Medication Sig Dispense Refill benzoyl peroxide 10 % Clsr Apply topically Uses as face wash home . busPIRone (BUSPAR) 5 MG tablet Take 1 (one) tablet (5 mg total) by mouth 3 (three) times a day as needed . calcium carbonate-vit D3-min 600 mg-10 mcg (400 unit) Tab Take 1 tablet by mouth every 12 (twelve) hours . ergocalciferol (ERGOCALCIFEROL) 1,250 mcg (50,000 unit) capsule Take 1 (one) capsule (50,000 Units total) by mouth twice weekly Per pt . ferrous sulfate 325 (65 FE) MG tablet Take 1 (one) tablet (325 mg total) by mouth 3 (three) times a day . ibuprofen (ADVIL,MOTRIN) 200 MG tablet Take 2 (two) tablets (400 mg total) by mouth every 8 (eight) hours as needed . omeprazole (PRILOSEC) 40 MG capsule Take 1 (one) capsule (40 mg total) by mouth every morning before breakfast . linaCLOtide (Linzess) 145 mcg cap Take 1 (one) capsule (145 mcg total) by mouth every morning before breakfast . 30 capsule 0 Wegovy 0.25 mg/0.5 mL Pen INJECT 0.25 MG UNDER THE SKIN ONCE A WEEK. (Patient not taking: Reported on 11/06/2024) No current facility-administered medications for this visit. documented in this encounter [facility] 09-19-2024 History of Present illness Narrative Subjective Patient ID: Karen Wadsworth is a 24 y.o. female who presents for Follow-up (Fu labs today). FEELS FINE, NO COMPLANT Labs Review of Systems Constitutional: Negative. Negative for chills and fever. HENT: Negative. Negative for congestion. Eyes: Negative. Negative for discharge. Respiratory: Negative. Negative for cough, shortness of breath and wheezing. Cardiovascular: Negative. Negative for chest pain, palpitations and leg swelling. Gastrointestinal: Negative. Negative for abdominal distention, abdominal pain, constipation, diarrhea, nausea and vomiting. Endocrine: Negative. Genitourinary: Negative. Negative for dysuria and urgency. Musculoskeletal: Negative. Negative for back pain, joint swelling and neck stiffness. Skin: Negative. Negative for rash. Allergic/Immunologic: Negative. Negative for immunocompromised state. Neurological: Negative. Negative for light-headedness, numbness and headaches. Hematological: Negative. Negative for adenopathy. Psychiatric/Behavioral: Negative. Negative for agitation, behavioral problems and confusion. All other systems reviewed and are negative. Objective Physical Exam Vitals reviewed. Constitutional: General: She is not in acute distress. Appearance: Normal appearance. HENT: Head: Normocephalic and atraumatic. Nose: Nose normal. Eyes: Conjunctiva/sclera: Conjunctivae normal. Pupils: Pupils are equal, round, and reactive to light. Neck: Vascular: No carotid bruit. Cardiovascular: Rate and Rhythm: Normal rate and regular rhythm. Pulses: Normal pulses. Heart sounds: No gallop. Pulmonary: Effort: Pulmonary effort is normal. No respiratory distress. Breath sounds: Normal breath sounds. No wheezing. Abdominal: General: Bowel sounds are normal. Palpations: Abdomen is soft. Tenderness: There is no abdominal tenderness. Musculoskeletal: General: Normal range of motion. Cervical back: Normal range of motion. No rigidity. Lymphadenopathy: Cervical: No cervical adenopathy. Skin: General: Skin is warm. Findings: No rash. Neurological: General: No focal deficit present. Mental Status: She is alert and oriented to person, place, and time. Psychiatric: Mood and Affect: Mood normal. Behavior: Behavior normal. BP 139/81 (BP Location: Right arm, Patient Position: Sitting) Pulse 81 Ht 1.676 m (5' 6) Wt 89.8 kg (198 lb) BMI 31.96 kg/m Hemoglobin A1C Date/Time Value Ref Range Status 03/19/2024 12:52 PM 4.8 see below % Final Assessment/Plan Problem List Items Addressed This Visit Iron deficiency anemia - Primary Relevant Medications ferrous sulfate tablet Other Relevant Orders Ferritin CBC and Auto Differential Comprehensive Metabolic Panel Vitamin B12 deficiency Relevant Orders Vitamin B12 Comprehensive Metabolic Panel Vitamin D deficiency Relevant Medications cholecalciferol (Vitamin D3) 50 MCG (1999) tablet Other Relevant Orders Vitamin D 25-Hydroxy,Total (for eval of Vitamin D levels) Comprehensive Metabolic Panel HTN addressed as follow: MONITOR BP GOAL BP LOWER THAN 130/80 LOW SALT EXERCISE DAILY Labs reviewed with pt Fu 6 mo bw \ documented in this encounter [facility] Work Phone: 08-16-2024 Evaluation + Plan note Associated Problem(s): Closed fracture of distal end of left radius Assessment: 2 days status post day 08/14/2024 fall onto a palmar flexed distal radius. X-rays at [facility] showed possibility of a nondisplaced distal radius fracture along the volar lip of the lunate fossa. Plan: She came in with a wrist splint which is well-fitting. Continue to wear this full-time except for rare circumstance where she is washing her hand. Follow-up in 1 week for reevaluation with new x-rays. She did not require further pain medications. [facility] Work Phone: 08-16-2024 Miscellaneous Notes Associated Problem(s): Closed fracture of distal end of left radius Assessment: 2 days status post day 08/14/2024 fall onto a palmar flexed distal radius. X-rays at [facility] showed possibility of a nondisplaced distal radius fracture along the volar lip of the lunate fossa. Plan: She came in with a wrist splint which is well-fitting. Continue to wear this full-time except for rare circumstance where she is washing her hand. Follow-up in 1 week for reevaluation with new x-rays. She did not require further pain medications. documented in this encounter [facility] Work Phone: 08-16-2024 History of Present illness Narrative Assessment/Plan Encounter Diagnoses: No diagnosis found. Closed fracture of distal end of left radius Assessment: 2 days status post day 08/14/2024 fall onto a palmar flexed distal radius. X-rays at [facility] showed possibility of a nondisplaced distal radius fracture along the volar lip of the lunate fossa. Plan: She came in with a wrist splint which is well-fitting. Continue to wear this full-time except for rare circumstance where she is washing her hand. Follow-up in 1 week for reevaluation with new x-rays. She did not require further pain medications. Subjective Patient ID: Karen Wadsworth is a 23 y.o. female. Chief Complaint: New Patient Visit of the Left Forearm (RADIUS FRACTURE/DOI 08-14-24/X-RAYS 08-14-24) Last Surgery: No surgery found Last Surgery Date: No surgery found HPI 23-year-old who has 6 children in a blended family so most of them are young. Some are still in diapers. She slipped on the ice and fell backward onto a palmar flexed hand and wrist. X-rays at [facility] suggest a nondisplaced volar lip fracture of the radius at the lunate fossa. She was splinted. OBJECTIVE: ORTHO EXAM Left wrist/hand: Skin healthy and intact Mild diffuse swelling Volar flexion, dorsiflexion, pronation/supination limited by pain. She does get full pronation and supination but she has pain at the extremes. Volar flexion to 30 degrees and dorsiflexion to 30 degrees limited by pain. Radial and Ulnar Deviation f were 10 and 10 degrees bilaterally. Mild tenderness to palpation over distal radius Minimal tenderness to palpation over distal ulna or TFCC Minimal tenderness to palpation over the scaphoid She was neurovascularly intact distally except for some very minimal decrease sensation in the tip of her thumb which she states comes and goes. Neurovascular exam normal distally IMAGE RESULTS: XR wrist left 3+ views, XR forearm left 2 views Narrative: Interpreted By: Yajaira Acevedo, STUDY: Left wrist, 3 views. Left forearm, two views INDICATION: Signs/Symptoms:fall with pain. COMPARISON: None. ACCESSION NUMBER(S): [id number]; [id number] ORDERING CLINICIAN: MINESH WILKINSON FINDINGS: Subtle lucency observed of the lunate fossa of the distal radius, on the oblique view of wrist series equivocal for a subtle nondisplaced fracture and further evaluation recommended with CT. No additional fractures. No significant degenerative changes. Soft tissues are within normal limits. Impression: 1. Subtle lucency observed of the lunate fossa of the distal radius, on the oblique view of wrist series equivocal for a subtle nondisplaced fracture and further evaluation recommended with CT. MACRO: None. Signed by: Yajaira Acevedo 08/14/2024 10:27 AM Dictation workstation: [id number] ULTRASOUND None Procedures No orders of the defined types were placed in this encounter. documented in this encounter [facility] Work Phone: 07-31-2024 History of Present illness Narrative Regarding Weight Gain: Karen Wadsworth is a 23 y.o. y.o. female who presents today with the complaint of obesity. She states that she has had gradual weight gain and would like to have assistance with weight loss. She was completed 3 dose of 0.25 mg. She does report some nausea mostly in the morning. Denies any other side effects abdominal pain vomiting, diarrhea. She does have baseline constipation. She did start seeing a stationary fireman and taking miralax and another stool softener. This are helping so far. h does report good appetite control. She is very optimistic about this medicine. She has also been working on weight loss by: Diet changes: She is eating 2 times a day. With Wegovy she is not hungry in the morning. She is still eating some type of breakfast bar in the morning. Lunch is typically chicken lettuce wrap or cheese burger without bun. Dinner is variable but she is eating mostly a protein and sides. She is doing keto diet with her partner at home. Water is at goal. Exercise: She is walking mostly for her exercise. She is doing 3 times a week of structured walking for exercise. Otherwise pretty active throughout her normal daily routine. Behavior change/strategies to overcome barriers: increase in structured exercise She has used prescription medication for weight loss in the past. Including: Phentermine, Topiramate, Wegovy She denies heart disease She does have: see problem list Past Medical History Includes Her Wt Readings from Last 3 Encounters: 07/31/24 92.6 kg (204 lb 3.2 oz) 06/07/24 95.3 kg (210 lb) 05/22/24 96.5 kg (212 lb 12.8 oz) and current Body mass index is 31.98 kg/m . Reviewed today. REVIEW OF SYSTEMS: GENERAL: Negative for malaise, significant weight loss and fever HEAD: Negative for headache, swelling. NECK: Negative for lumps, goiter, pain and significant neck swelling RESPIRATORY: Negative for cough, wheezing or shortness of breath. CARDIOVASCULAR: Negative for chest pain, leg swelling or palpitations. GI: Negative for abdominal discomfort, blood in stools or black stools or change in bowel habit SKIN: Negative for lesions, rash, and itching. PSYCH: Negative for sleep disturbance, mood disorder and recent psychosocial stressors. PHYSICAL EXAM: Visit Vitals BP (!) 127/102 (BP Location: Left arm, BP Position: Sitting) Pulse 94 Ht 1.702 m (5' 7) Wt 92.6 kg (204 lb 3.2 oz) BMI 31.98 kg/m General appearance: obese, NAD Neuro: AOx3 Head: EOMI; no swelling or lesions of scalp or face ENT: no lumps or lymphadenopathy, thyroid normal to palpation; oropharynx clear, no swelling or erythema Skin: warm, no erythema or rashes Lungs: clear to percussion and auscultation Heart: regular rhythm and S1, S2 normal Abdomen: soft, non-tender, no masses, no organomegaly Extremities: Normal exam of the extremities. No swelling or pain. Psych: no hurried speech, no flight of ideas, normal affect PLAN Here today for medically managed weight loss therapy. 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 We have discussed with patient that all health optimization treatment is voluntary. Risks and benefits have been discussed of medically managed weight loss treatments. Patient elects to start/continue managed weight loss therapy and Wegovy. Jones was seen today for follow-up. Diagnoses and all orders for this visit: Obesity (BMI 30.0-34.9) - Sample of 0.25 mg given. - Refill sent for 0.5 mg - Labs will be done by PCP, will review when completed. - Discussed side effects to monitor and to report if occurs. She is interested in continuing to Wegovy in some way if insurance will not continue to cover - Discussed positive lifestyle changes - Follow up in one month At least 20 minutes was spent with patient face to face performing exam, discussing progress, diet, exercise, education and plan of care for the following month. Additional time was spent review of chart and documentation of today's visit. Rolando Rosario PA-C Bariatric Surgery documented in this encounter [facility] 07-20-2024 Note Karen Wadsworth 23 y.o. 2000 female Reason for Consult: Constipation and abdominal pain HPI: 23-year-old female with no significant past medical history with issues with constipation since 2020. She initially noticed problems with constipation towards the end of her and has had continued problems with constipation since then. She also endorses abdominal bloating, abdominal pain mainly in the right lower quadrant and stomachaches also. She drinks a lot of water and has incorporated more fiber into her diet with fiber bars etc. Stools are described as a 1-2 on the [place] stool scale and she may move her bowels every 3 to 5 days. Pain typically will resolve once she moves her bowels but she does continuously feel bloated and abdominal discomfort will worsen the further along she goes without moving her bowels before she will take a laxativesuch as MiraLAX or another gentle laxative. She has also tried abdominal massaging. She has never tried a stool softener consistently or taking a fiber supplement. She does take an iron supplement but not consistently and has not taken in the last couple months. She recently started on Wegovy for weight loss about a week ago and has noticed some nausea but denies any vomiting or worsening constipation symptoms. She denies any blood in the stool rectal pain burning or itching she does notice occasional hemorrhoids. She has never had a colonoscopy and denies any family history of inflammatory bowel disease. Past Medical History: History reviewed. No pertinent past medical history. Surgical History & Procedures: History reviewed. No pertinent surgical history. Social History: Social History Socioeconomic History Marital status: Tobacco Use Smoking status: Never Smokeless tobacco: Never Vaping Use Vaping status: Never Used Substance and Sexual Activity Alcohol use: Yes Comment: occasional Drug use: Never Sexual activity: Yes Family History Problem Relation Age of Onset No Known Problems Mother No Known Problems Father No Known Problems Sister No Known Problems Brother No Known Problems Maternal Aunt No Known Problems Maternal Uncle No Known Problems Paternal Aunt No Known Problems Paternal Uncle No Known Problems Maternal Grandmother No Known Problems Maternal Grandfather No Known Problems Paternal Grandmother No Known Problems Paternal Grandfather Current Medications: Current Outpatient Medications Medication Sig Dispense Refill benzoyl peroxide 10 % Clsr Apply topically Uses as face wash home . busPIRone (BUSPAR) 5 MG tablet Take 1 (one) tablet (5 mg total) by mouth 3 (three) times a day as needed . calcium carbonate-vit D3-min 600 mg-10 mcg (400 unit) Tab Take 1 tablet by mouth every 12 (twelve) hours . ergocalciferol (ERGOCALCIFEROL) 1,250 mcg (50,000 unit) capsule Take 1 (one) capsule (50,000 Units total) by mouth twice weekly Per pt . ferrous sulfate 325 (65 FE) MG tablet Take 1 (one) tablet (325 mg total) by mouth 3 (three) times a day . omeprazole (PRILOSEC) 40 MG capsule Take 1 (one) capsule (40 mg total) by mouth every morning before breakfast . docusate sodium (COLACE) 100 MG capsule Take 1 (one) capsule (100 mg total) by mouth 2 (two) times a day for 10 days . 20 capsule 0 ibuprofen (ADVIL,MOTRIN) 200 MG tablet Take 2 (two) tablets (400 mg total) by mouth every 8 (eight) hours as needed . lactulose (CHRONULAC) 20 gram/30 mL Soln Take 15 mL (10 g total) by mouth daily . 30 mL 3 Wegovy 0.25 mg/0.5 mL Pen INJECT 0.25 MG UNDER THE SKIN ONCE A WEEK. No current facility-administered medications for this visit. Review of Systems Constitutional: Negative for appetite change, fatigue, fever and unexpected weight change. HENT: Negative for mouth sores, trouble swallowing and voice change. Eyes: Negative for redness. Respiratory: Negative for cough, choking and shortness of breath. Cardiovascular: Negative for chest pain and palpitations. Gastrointestinal: Positive for abdominal pain (Right lower quadrant, and generalized), constipation (Stools 1-2 on BSS, every 3 to 5 days) and nausea (Since starting Wegovy). Negative for blood in stool, diarrhea and vomiting. Endocrine: Negative. Genitourinary: Negative for difficulty urinating. Musculoskeletal: Negative for arthralgias and joint swelling. Skin: Negative for color change and pallor. Allergic/Immunologic: Negative. Neurological: Negative for dizziness, syncope and light-headedness. Hematological: Negative. Psychiatric/Behavioral: Negative. Physical Exam Constitutional: General: She is not in acute distress. HENT: Head: Normocephalic and atraumatic. Right Ear: External ear normal. Left Ear: External ear normal. Nose: Nose normal. Mouth/Throat: Mouth: Mucous membranes are moist. Pharynx: No posterior oropharyngeal erythema. Eyes: General: No scleral icterus. Pupils: Pupils are equal, round, (more content not included)... [facility] 07-20-2024 History of Present illness Narrative Karen Wadsworth 23 y.o. 2000 female Reason for Consult: Constipation and abdominal pain HPI: 23-year-old female with no significant past medical history with issues with constipation since 2020. She initially noticed problems with constipation towards the end of her and has had continued problems with constipation since then. She also endorses abdominal bloating, abdominal pain mainly in the right lower quadrant and stomachaches also. She drinks a lot of water and has incorporated more fiber into her diet with fiber bars etc. Stools are described as a 1-2 on the [place] stool scale and she may move her bowels every 3 to 5 days. Pain typically will resolve once she moves her bowels but she does continuously feel bloated and abdominal discomfort will worsen the further along she goes without moving her bowels before she will take a laxative such as MiraLAX or another gentle laxative. She has also tried abdominal massaging. She has never tried a stool softener consistently or taking a fiber supplement. She does take an iron supplement but not consistently and has not taken in the last couple months. She recently started on Wegovy for weight loss about a week ago and has noticed some nausea but denies any vomiting or worsening constipation symptoms. She denies any blood in the stool rectal pain burning or itching she does notice occasional hemorrhoids. She has never had a colonoscopy and denies any family history of inflammatory bowel disease. Past Medical History: History reviewed. No pertinent past medical history. Surgical History & Procedures: History reviewed. No pertinent surgical history. Social History: Social History Socioeconomic History Marital status: Tobacco Use Smoking status: Never Smokeless tobacco: Never Vaping Use Vaping status: Never Used Substance and Sexual Activity Alcohol use: Yes Comment: occasional Drug use: Never Sexual activity: Yes Family History Problem Relation Age of Onset No Known Problems Mother No Known Problems Father No Known Problems Sister No Known Problems Brother No Known Problems Maternal Aunt No Known Problems Maternal Uncle No Known Problems Paternal Aunt No Known Problems Paternal Uncle No Known Problems Maternal Grandmother No Known Problems Maternal Grandfather No Known Problems Paternal Grandmother No Known Problems Paternal Grandfather Current Medications: Current Outpatient Medications Medication Sig Dispense Refill benzoyl peroxide 10 % Clsr Apply topically Uses as face wash home . busPIRone (BUSPAR) 5 MG tablet Take 1 (one) tablet (5 mg total) by mouth 3 (three) times a day as needed . calcium carbonate-vit D3-min 600 mg-10 mcg (400 unit) Tab Take 1 tablet by mouth every 12 (twelve) hours . ergocalciferol (ERGOCALCIFEROL) 1,250 mcg (50,000 unit) capsule Take 1 (one) capsule (50,000 Units total) by mouth twice weekly Per pt . ferrous sulfate 325 (65 FE) MG tablet Take 1 (one) tablet (325 mg total) by mouth 3 (three) times a day . omeprazole (PRILOSEC) 40 MG capsule Take 1 (one) capsule (40 mg total) by mouth every morning before breakfast . docusate sodium (COLACE) 100 MG capsule Take 1 (one) capsule (100 mg total) by mouth 2 (two) times a day for 10 days . 20 capsule 0 ibuprofen (ADVIL,MOTRIN) 200 MG tablet Take 2 (two) tablets (400 mg total) by mouth every 8 (eight) hours as needed . lactulose (CHRONULAC) 20 gram/30 mL Soln Take 15 mL (10 g total) by mouth daily . 30 mL 3 Wegovy 0.25 mg/0.5 mL Pen INJECT 0.25 MG UNDER THE SKIN ONCE A WEEK. No current facility-administered medications for this visit. Review of Systems Constitutional: Negative for appetite change, fatigue, fever and unexpected weight change. HENT: Negative for mouth sores, trouble swallowing and voice change. Eyes: Negative for redness. Respiratory: Negative for cough, choking and shortness of breath. Cardiovascular: Negative for chest pain and palpitations. Gastrointestinal: Positive for abdominal pain (Right lower quadrant, and generalized), constipation (Stools 1-2 on BSS, every 3 to 5 days) and nausea (Since starting Wegovy). Negative for blood in stool, diarrhea and vomiting. Endocrine: Negative. Genitourinary: Negative for difficulty urinating. Musculoskeletal: Negative for arthralgias and joint swelling. Skin: Negative for color change and pallor. Allergic/Immunologic: Negative. Neurological: Negative for dizziness, syncope and light-headedness. Hematological: Negative. Psychiatric/Behavioral: Negative. Physical Exam Constitutional: General: She is not in acute distress. HENT: Head: Normocephalic and atraumatic. Right Ear: External ear normal. Left Ear: External ear normal. Nose: Nose normal. Mouth/Throat: Mouth: Mucous membranes are moist. Pharynx: No posterior oropharyngeal erythema. Eyes: General: No scleral icterus. Pupils: Pupils are equal, round, and reactive to light. Cardiovascular: Rate and Rhythm: Normal rate and regular rhythm. Heart sounds: No murmur heard. No gallop. Pulmonary: Effort: Pulmonary effort is normal. No respiratory distress. Breath sounds: Normal breath sounds. No wheezing. Abdominal: General: Bowel sounds are normal. There is no distension. Palpations: Abdomen is soft. There is no mass. Tenderness: There is abdominal tenderness (Generalized). Musculoskeletal: General: No deformity. Normal range of motion. Cervical back: Normal range of motion and neck supple. Skin: General: Skin is warm and dry. Coloration: Skin is not jaundiced or pale. Neurological: General: No focal deficit present. Mental Status: She is alert and oriented to person, place, and time. Psychiatric: Mood and Affect: Mood normal. Behavior: Behavior normal. No visits with results within 30 Day(s) from this visit. Latest known visit with results is: No results found for any previous visit. Assessment & Plan: Chronic constipation- Abdominal pain and bloating- Abdominal pain typically will resolve with moving bowels and worsen his length of time in between moving her bowels Abdominal bloating is persistent, denies any blood in the stool or unintentional weight loss Started Wegovy for weight loss 1 week ago, newer onset nausea since denies any vomiting Has tried MiraLAX and gentle laxatives and increase dietary fiber Start taking stool softeners daily and use MiraLAX daily for no bowel movement, hold for loose stools or diarrhea Will trial lactulose--prescription sent to pharmacy Call with 2-week symptom update after trialing above, if no improvement in symptoms with the above regimen will consider starting Linzess or Trulance Follow-up in the office in 6 to 8 weeks, call with concerns Danielle Garvin CNP Please note: Portions of this chart may have been created with [employer] voice recognition software. Occasional wrong-word or sound-like substitutions may have occurred due to inherent limitations of the voice recognition software. Please read the chart carefully and recognize, using context, where the substitutions have occurred. documented in this encounter [facility] 07-20-2024 Instructions Danielle Garvin CNP - 07/20/2024 10:43 AM EST Constipation- -Increase/ensure plenty of water intake -Increase/ maintain activity, daily exercise -High fiber diet, fiber supplement (metamucil, benefiber, etc) 20-30 Grams a day -Stool softeners and/or miralax daily--as stools become easier to pass, more frequent, stop miralax and then just stool softeners as needed Hemorrhoids- - Increase water intake - Increase fiber intake to 20 to 35 g daily. Encouraged to increase fiber intake through natural sources and start supplementation with psyllium fiber. - Avoid straining. Consider squatting. Should not strain in attempt to have a bowel movement for more than a couple of minutes. - Continue stool softener. Discontinue if diarrhea. - Sitz baths 3 times a day and after bowel movements. - Avoid dry toilet paper. Use wipes or bidet - Apply Vaseline or other ointment to perianal skin -Increase activity Call with symptom update in 2 weeks documented in this encounter [facility] 06-07-2024 History of Present illness Narrative Regarding Weight Gain: Karen Wadsworth is a 23 y.o. y.o. female who presents today with the complaint of obesity. She states that she has had gradual weight gain and would like to have assistance with weight loss. She stopped taking phentermine 06/01/24 due to headaches. She states that since stopping her headaches have resolved. She is still apphrensive about Wellbutrin/Naltrexone combo. She is worried about becoming more anxious and not tolerating it well, she states she can sometimes have anxiety about starting new medicines that may worsen her anxiety. She is interested in Wegovy. Denies history of pancreatitis, denies history of medullary thyroid carcinoma, denies history of MEN2 syndrome, denies gastroparesis. She has also been working on weight loss by: Diet changes: She is maintaining about 1300 calories. She is mostly eating salads with protein, steak, eggs, protein shakes, and chicken wraps with low carb wrap for dinner. She is drinking 64 oz or more of what. She is tracking her calorie intake on an irwin. She is noticing more hungry in the evenings. Exercise: She was lacking more time for exercise this month, she has a new clinical schedule. This is done now and she plans to continue with the gym. She is going mostly cardio and added some gentle weight training. She is starting cycling classes once a week. Behavior change/strategies to overcome barriers: Lack of time and busy schedule with schooling. She has used prescription medication for weight loss in the past. Including: phentermine, topiramate She denies heart disease She does have: see problem list Past Medical History Includes Her Wt Readings from Last 3 Encounters: 06/07/24 95.3 kg (210 lb) 05/22/24 96.5 kg (212 lb 12.8 oz) 04/24/24 94.5 kg (208 lb 6.4 oz) and current Body mass index is 32.89 kg/m . Reviewed today. REVIEW OF SYSTEMS: GENERAL: Negative for malaise, significant weight loss and fever HEAD: Negative for headache, swelling. NECK: Negative for lumps, goiter, pain and significant neck swelling RESPIRATORY: Negative for cough, wheezing or shortness of breath. CARDIOVASCULAR: Negative for chest pain, leg swelling or palpitations. GI: Negative for abdominal discomfort, blood in stools or black stools or change in bowel habit SKIN: Negative for lesions, rash, and itching. PSYCH: Negative for sleep disturbance, mood disorder and recent psychosocial stressors. PHYSICAL EXAM: Visit Vitals BP 142/90 (BP Location: Left arm, BP Position: Sitting) Pulse 83 Ht 1.702 m (5' 7) Wt 95.3 kg (210 lb) SpO2 98% BMI 32.89 kg/m General appearance: obese, NAD Neuro: AOx3 Head: EOMI; no swelling or lesions of scalp or face ENT: no lumps or lymphadenopathy, thyroid normal to palpation; oropharynx clear, no swelling or erythema Skin: warm, no erythema or rashes Lungs: clear to percussion and auscultation Heart: regular rhythm and S1, S2 normal Abdomen: soft, non-tender, no masses, no organomegaly Extremities: Normal exam of the extremities. No swelling or pain. Psych: no hurried speech, no flight of ideas, normal affect PLAN Here today for medically managed weight loss therapy. 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 We have discussed with patient that all health optimization treatment is voluntary. Risks and benefits have been discussed of medically managed weight loss treatments. Patient elects to start/continue managed weight loss therapy and Wegovy. Karen was seen today for follow-up. Diagnoses and all orders for this visit: Obesity (BMI 30.0-34.9) - Semaglutide-Weight Management (Wegovy) 0.25 MG/0.5ML Solution Auto-injector; Inject 0.25 mg under the skin once a week. - Wegovy ordered, will work on prior auth - Continue positive lifestyle changes - Discussed administering of injection and side effects to monitor - Patient is open to discussing Wellbutrin naltrexone use if Wegovy not covered by insurance - Follow up in one month At least 20 minutes was spent with patient face to face performing exam, discussing progress, diet, exercise, education and plan of care for the following month. Additional time was spent review of chart and documentation of today's visit. Rolando Rosario PA-C Bariatric Surgery documented in this encounter [facility] 05-22-2024 History of Present illness Narrative Regarding Weight Gain: Karen Wadsworth is a 23 y.o. y.o. female who presents today with the complaint of obesity. She states that she has had gradual weight gain and would like to have assistance with weight loss. She has completed month one of topiramate. She stopped taking the medicine about 1 week ago due to no appetite suppression and making her be very drowsy. She is interested in trying phentermine at a lower dose. She states that her insurance is changing, effective Tuesday and is interested in injections. Also talked about Wellbutrin/naltrexone. Patient is concerned about potential side effects with this combo. She has also been working on weight loss by: Diet changes: She was on vacation this month, she did change her eating habits mildly during this time. Breakfast is 3 eggs with chicken (4 oz), lunch is steak rice green peppers and onions hot sauce, dinner is chicken tenderloins and sweet potato fries. She is staying in her calorie deficit at 1400 calories. She has stopped drinking pop. She is drinking mostly water and zero sugar tea. Exercise: She is doing 45 min - 1 hour of walking with an incline on the treadmill or a slow jog. She does some weight lifting as well. Behavior change/strategies to overcome barriers: per report of patient's lifestyle changes she is making appropriate lifestyle changes with lack of weight loss. She has used prescription medication for weight loss in the past. Including: topiramate, phentermine She denies heart disease She does have: see problem list Past Medical History Includes Her Wt Readings from Last 3 Encounters: 05/22/24 96.5 kg (212 lb 12.8 oz) 04/24/24 94.5 kg (208 lb 6.4 oz) 03/27/24 99.8 kg (220 lb) and current Body mass index is 33.33 kg/m . Reviewed today. REVIEW OF SYSTEMS: GENERAL: Negative for malaise, significant weight loss and fever HEAD: Negative for headache, swelling. NECK: Negative for lumps, goiter, pain and significant neck swelling RESPIRATORY: Negative for cough, wheezing or shortness of breath. CARDIOVASCULAR: Negative for chest pain, leg swelling or palpitations. GI: Negative for abdominal discomfort, blood in stools or black stools or change in bowel habit SKIN: Negative for lesions, rash, and itching. PSYCH: Negative for sleep disturbance, mood disorder and recent psychosocial stressors. PHYSICAL EXAM: Visit Vitals BP (!) 125/94 (BP Location: Left arm, BP Position: Sitting) Pulse 87 Ht 1.702 m (5' 7) Wt 96.5 kg (212 lb 12.8 oz) SpO2 99% BMI 33.33 kg/m General appearance: obese, NAD Neuro: AOx3 Head: EOMI; no swelling or lesions of scalp or face ENT: no lumps or lymphadenopathy, thyroid normal to palpation; oropharynx clear, no swelling or erythema Skin: warm, no erythema or rashes Lungs: clear to percussion and auscultation Heart: regular rhythm and S1, S2 normal Abdomen: soft, non-tender, no masses, no organomegaly Extremities: Normal exam of the extremities. No swelling or pain. Psych: no hurried speech, no flight of ideas, normal affect PLAN Here today for medically managed weight loss therapy. 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 We have discussed with patient that all health optimization treatment is voluntary. Risks and benefits have been discussed of medically managed weight loss treatments. Patient elects to start/continue managed weight loss therapy and Phentermine. Karen was seen today for obesity and follow-up. Diagnoses and all orders for this visit: Obesity (BMI 30.0-34.9) - Phentermine HCl 8 MG tablet; Take 1 tablet by mouth every morning before breakfast. - Restart phentermine 8 mg tablet once daily. Patient will monitor any occurrence of heart palpitations. Is patient experiences this she will stop medication and report symptoms to the office. Patient verbalizes understanding. OARRS reviewed. - Discussed phentermine being a short term treatment for obesity treatment. - Discussed side effects to monitor - Discussed positive lifestyle changes - Follow up in one month At least 20 minutes was spent with patient face to face performing exam, discussing progress, diet, exercise, education and plan of care for the following month. Additional time was spent review of chart and documentation of today's visit. Rolando Rosario PA-C Bariatric Surgery documented in this encounter [facility] 04-24-2024 History of Present illness Narrative Regarding Weight Gain: Karen Noriega is a 23 y.o. y.o. female who presents today with the complaint of obesity. She states that she has had gradual weight gain and would like to have assistance with weight loss. She is having headaches, jaw clenching, trouble taking deep breath, and sometime during workoing out heart rate is getting into the 180s. She does have a history of costochondritis that feels the same as her shortness of breath. These things only happened 2 times this month and felt good more days than not. Her appetite suppression is very good on phentermine. She has lost 12 lbs. She has also been working on weight loss by: Diet changes: she is eating 3 times a day and choosing good choices. She is meeting her protein. She is meeting her water goals. She is eating good portion sizes. Exercise: She is exercising 2-3 times a week. She is walking for 20 minutes and elliptical for 5 minutes. She has the high heart rate while on the elliptical. Behavior change/strategies to overcome barriers: increase days of exercise She has used prescription medication for weight loss in the past. Including: phentermine She denies heart disease She does have: see problem list Past Medical History Includes Her Wt Readings from Last 3 Encounters: 04/24/24 94.5 kg (208 lb 6.4 oz) 03/27/24 99.8 kg (220 lb) and current Body mass index is 32.64 kg/m . Reviewed today. REVIEW OF SYSTEMS: GENERAL: Negative for malaise, significant weight loss and fever HEAD: Negative for headache, swelling. NECK: Negative for lumps, goiter, pain and significant neck swelling RESPIRATORY: Negative for cough, wheezing or shortness of breath. CARDIOVASCULAR: Negative for chest pain, leg swelling or palpitations. GI: Negative for abdominal discomfort, blood in stools or black stools or change in bowel habit SKIN: Negative for lesions, rash, and itching. PSYCH: Negative for sleep disturbance, mood disorder and recent psychosocial stressors. PHYSICAL EXAM: Visit Vitals BP 130/88 (BP Location: Left arm, BP Position: Sitting) Pulse 82 Ht 1.702 m (5' 7) Wt 94.5 kg (208 lb 6.4 oz) SpO2 100% BMI 32.64 kg/m General appearance: obese, NAD Neuro: AOx3 Head: EOMI; no swelling or lesions of scalp or face ENT: no lumps or lymphadenopathy, thyroid normal to palpation; oropharynx clear, no swelling or erythema Skin: warm, no erythema or rashes Lungs: clear to percussion and auscultation Heart: regular rhythm and S1, S2 normal Abdomen: soft, non-tender, no masses, no organomegaly Extremities: Normal exam of the extremities. No swelling or pain. Psych: no hurried speech, no flight of ideas, normal affect PLAN Here today for medically managed weight loss therapy. 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 We have discussed with patient that all health optimization treatment is voluntary. Risks and benefits have been discussed of medically managed weight loss treatments. Patient elects to start/continue managed weight loss therapy and Topiramate. Diagnoses and all orders for this visit: Obesity (BMI 30.0-34.9) - Discontinue: phentermine 30 MG capsule; Take 1 capsule by mouth daily. - Topiramate 25 MG tablet; Take 1 tablet by mouth daily. - Discontinue phentermine due to side effects listed above. - Start Topiramate 25 mg once daily at bedtime. - Discussed side effects to monitor - Discussed positive lifestyle changes - See nutrition as scheduled - Follow up in one month At least 20 minutes was spent with patient face to face performing exam, discussing progress, diet, exercise, education and plan of care for the following month. Additional time was spent review of chart and documentation of today's visit. Rolando Rosario PA-C Bariatric Surgery documented in this encounter [facility] 04-05-2024 History of Present illness Narrative Subjective Patient ID: Karen Noriega is a 23 y.o. female who presents for Follow-up (FORM FOR PHLEBOTOMY ). 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 SHE STILL NEEDS TO GET A TB DONE. NO FURTHER COMPLAINTS ANXIETY/DEPRESSION- STABLE Visit Vitals Ht 1.702 m (5' 7) Wt 99.3 kg (219 lb) BMI 34.30 kg/m OB Status Having periods Smoking Status Never BSA 2.17 m Review of Systems Constitutional: Negative for chills, fatigue, fever and unexpected weight change. HENT: Negative for congestion, ear pain, sore throat and trouble swallowing. Eyes: Negative for photophobia, pain, redness and visual disturbance. Respiratory: Negative for apnea, cough, choking, chest tightness, shortness of breath and wheezing. Cardiovascular: Negative for chest pain, palpitations and leg swelling. Gastrointestinal: Negative for abdominal distention, abdominal pain, blood in stool, constipation, diarrhea, nausea and vomiting. Genitourinary: Negative for difficulty urinating, dysuria, flank pain, frequency, hematuria and urgency. Musculoskeletal: Negative for arthralgias, back pain, gait problem, joint swelling, myalgias and neck pain. Skin: Negative for rash and wound. Neurological: Negative for dizziness, seizures, syncope, facial asymmetry, speech difficulty, weakness, numbness and headaches. Psychiatric/Behavioral: Negative for confusion, sleep disturbance and suicidal ideas. The patient is not nervous/anxious. Objective Physical Exam Neurological: Mental Status: She is alert and oriented to person, place, and time. Psychiatric: Mood and Affect: Mood normal. Behavior: Behavior normal. Thought Content: Thought content normal. Judgment: Judgment normal. Assessment/Plan Problem List Items Addressed This Visit Anxiety Depression, major, single episode, mild (CMS-HCC) - Primary SHE WILL BE DROPPING OFF FORM ONCE SHE HAS HER TB DONE. I WILL COMPLETE AT THAT TIME PLEASE MONITOR CLOSELY FOR ANY UNTOWARD SIDE EFFECTS OR COMPLICATIONS OF MEDICATIONS. PATIENT IS STRONGLY ADVISED TO BE COMPLIANT WITH RECOMMENDATIONS. QUESTIONS AND CONCERNS WERE ADDRESSED. INSTRUCTED TO CALL, RETURN SOONER, OR GO TO THE ER, IF SYMPTOMS PERSIST OR WORSEN. THEY VOICED UNDERSTANDING AND DENIES FURTHER QUESTIONS AT THIS TIME. TIME CODE 1. PREPARATION FOR PATIENT'S VISIT (REVIEWING CHART, CURRENT MEDICAL RECORDS, OUTSIDE HEALTH PROVIDER RECORDS, PREVIOUS HISTORY, EXAM, TEST, PROCEDURE, AND MEDICATIONS) 2. FACE TO FACE ENCOUNTER OBTAINING HISTORY FROM THE PATIENT/FAMILY/CAREGIVERS; PERFORMING EVALUATION AND EXAMINATION; ORDERING TESTS OR PROCEDURES; REFERRING AND COMMUNICATING WITH OTHER HEALTHCARE PROVIDERS; COUNSELING AND EDUCATION OF THE PATIENT/FAMILY/CAREGIVERS; INDEPENDENTLY INTERPRETING RESULTS (TESTS, LABS, PROCEDURES, IMAGING) AND COMMUNICATING AND EXPLAINING RESULTS TO THE PATIENT/FAMILY/CAREGIVERS 3. COORDINATION OF CARE; PREPARING AND PRINTING DISCHARGE INSTRUCTIONS AND ANY EDUCATIONAL MATERIAL FOR THE PATIENT/FAMILY/CAREGIVERS. DOCUMENTING CLINICAL INFORMATION IN THE ELECTRONIC MEDICAL RECORD 4. REVIEWING OARRS NEEDED MDM 1) COMPLEXITY: 1 ACUTE ILLNESS, 1 STABLE CHRONIC CONDITION, OR 2 MINOR PROBLEMS ADDRESSED 2)DATA: TESTS INTERPRETED AND OR ORDERED, TOOK INDEPENDENT HISTORY OR RECORDS REVIEWED 3)RISK: LOW RISK DUE TO NATURE OF MEDICAL CONDITIONS/COMORBIDITY OR MEDICATIONS ORDERED OR SURGICAL OR PROCEDURE REFERRAL Follow up as before documented in this encounter [facility] Work Phone: 03-27-2024 History of Present illness Narrative Chief Complaint Patient presents with New Patient [facility] Patient here for Medical Weight Loss PILOT STATION: Karen Noriega is a 23 y.o. y.o. female who presents today with the complaint of obesity. She states that she has had gradual weight gain and would like to have assistance with weight loss. She has been diet and exercising for 2 months. She has been walking everyday for this time, one hour every day for about [id number] steps a day. She has lost 2 lbs. She is eating in a calorie deficit of 1400 calories. She has seen a head of measurement & insights at [facility] times. She has not tried any prescribed medicine for weight loss. Goal of Medical Weight Loss: Her goal weight is 170 Do you ever eat excessive amounts of food in a short period of time?: Yes On average, how often do you do this?: occasional, mostly when bored Do you feel remorse or distressed over this eating pattern?: Yes Behavior change/strategies to overcome barriers: frequent snacking and lack of time for exercise Has the patient been on a weight loss regimen of a low-calorie diet with reduced caloric intake of about 30% fewer calories, increased physical activity with maintenance of 150 minutes weekly, and behavioral modifications for a minimum of 6 months (24 weeks) prior to initiating therapy with the requested medication? yes How many weeks has the patient made these lifestyle changes? 2 months Did the patient achieve a weight loss of 1 pound or more per week while on the weight loss regimen prior to initiating therapy with requested medication? no Has the patient achieved and maintained a weight loss of at least 5% from baseline (prior to initiation of the requested medication)? no How much weight did the patient lose on the weight loss regimen? 2-5 lbs Is the patient currently on and will continue with a weight loss regimen of a low-calorie diet, increased physical activity, and behavioral modifications? yes Will the patient be using the requested medication in combination with another targeted weight loss agent for the requested diagnosis? no Has the patient tried a targeted weight loss agent in the past 12 months? no Will the patient be using the requested medication with another GLP-1 receptor agonist agent? no Does the patient have a history of pancreatitis? no Does the patient have a personal or family history of medullary thyroid carcinoma or Multiple Endocrine Neoplasia syndrome type 2? no Does the patient have severe gastrointestinal disease (including but not limited to gastroparesis)? no Does the patient have a history of suicide attempt or have active suicidal ideation? no Does the prescriber anticipate that the patient will be successful with weight loss therapy with the requested agent? yes Is the patient newly starting therapy with requested agent? yes She has not used prescription medication for weight loss in the past. She denies heart disease She does have: see problem list REVIEW OF SYSTEMS: GENERAL: Negative for malaise, significant weight loss and fever HEAD: Negative for headache, swelling. NECK: Negative for lumps, goiter, pain and significant neck swelling RESPIRATORY: Negative for cough, wheezing or shortness of breath. CARDIOVASCULAR: Negative for chest pain, leg swelling or palpitations. GI: Negative for abdominal discomfort, blood in stools or black stools or change in bowel habits : No history of dysuria, frequency or incontinence MUSCULOSKELETAL: Negative for joint pain or swelling, back pain or muscle pain. SKIN: Negative for lesions, rash, and itching. PSYCH: Negative for sleep disturbance, mood disorder and recent psychosocial stressors. ENDOCRINE: Negative for cold or heat intolerance, polyuria, polydipsia and goiter. PHYSICAL EXAM: Visit Vitals BP 122/84 (BP Location: Right arm, BP Position: Sitting) Pulse 86 Resp 16 Ht 1.702 m (5' 7) Wt 99.8 kg (220 lb) SpO2 99% BMI 34.46 kg/m General appearance: obese, NAD Neuro: AOx3 Head: EOMI; no swelling or lesions of scalp or face ENT: no lumps or lymphadenopathy, thyroid normal to palpation; oropharynx clear, no swelling or erythema Skin: warm, no erythema or rashes Lungs: clear to percussion and auscultation Heart: regular rhythm and S1, S2 normal Abdomen: soft, non-tender, no masses, no organomegaly Extremities: Normal exam of the extremities. No swelling or pain. Psych: no hurried speech, no flight of ideas, normal affect Past Medical History Includes Her Wt Readings from Last 3 Encounters: 03/27/24 99.8 kg (220 lb) and current Body mass index is 34.46 kg/m . Assessment/Plan Karen was seen today for new patient. Diagnoses and all orders for this visit: Obesity (BMI 30-39.9) Here today for medically managed weight loss therapy. 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 We have discussed with patient that all health optimization treatment is voluntary. Risks and benefits have been discussed of medically managed weight loss treatments. Patient elects to start managed weight loss therapy and Phentermine. - Start phentermine one half tablet for one week. Increase to full tablet if tolerating. OARRS reviewed. - Discussed side effects to monitor including hypertension, heart palpitations, and sleep disturbance. - discussed positive lifestyle changes - Continue seeing [facility] - Follow up in one month At least 30 minutes was spent with patient face to face performing exam, discussing progress, diet, exercise, education and plan of care for the following month. Additional time was spent review of chart and documentation of today's visit. Rolando Cox PA-C Bariatric and General Surgery documented in this encounter [facility] 03-20-2024 History of Present illness Narrative Subjective Patient ID: Karen Noriega is a 23 y.o. female who presents for Follow-up (WELLNESS WITH LABS). VIRTUAL APPOINTMENT BEING PERFORMED HPI: Presents today for [facility]. NO NEW COMPLAINTS LIPIDS- FORGOT TO FAST. WILL RECHECK VIT D- STOP WEEKLY D2 AND START DAILY D3 IRON- LOW. HAS NOT BEEN TAKING MEDS IN ABOUT 1 MONTH. INSTRUCTED TO RESTART. THYROID- STABLE Visit Vitals Ht 1.702 m (5' 7) Wt 99.3 kg (219 lb) BMI 34.30 kg/m OB Status Having periods Smoking Status Never BSA 2.17 m Review of Systems Constitutional: Negative for chills, fatigue, fever and unexpected weight change. HENT: Negative for congestion, ear pain, sore throat and trouble swallowing. Eyes: Negative for photophobia, pain, redness and visual disturbance. Respiratory: Negative for apnea, cough, choking, chest tightness, shortness of breath and wheezing. Cardiovascular: Negative for chest pain, palpitations and leg swelling. Gastrointestinal: Negative for abdominal distention, abdominal pain, blood in stool, constipation, diarrhea, nausea and vomiting. Genitourinary: Negative for difficulty urinating, dysuria, flank pain, frequency, hematuria and urgency. Musculoskeletal: Negative for arthralgias, back pain, gait problem, joint swelling, myalgias and neck pain. Skin: Negative for rash and wound. Neurological: Negative for dizziness, seizures, syncope, facial asymmetry, speech difficulty, weakness, numbness and headaches. Psychiatric/Behavioral: Negative for confusion, sleep disturbance and suicidal ideas. The patient is not nervous/anxious. Objective Component Latest Ref Rn 03/19/2024 WBC 4.4 - 11.3 x10*3/uL 5.2 nRBC 0.0 - 0.0 /100 WBCs 0.0 RBC 4.00 - 5.20 x10*6/uL 4.71 HEMOGLOBIN 12.0 - 16.0 g/dL 12.9 HEMATOCRIT 36.0 - 46.0 % 39.0 MCV 80 - 100 fL 83 MCH 26.0 - 34.0 pg 27.4 MCHC 32.0 - 36.0 g/dL 33.1 RED CELL DISTRIBUTION WIDTH 11.5 - 14.5 % 13.7 Platelets 150 - 450 x10*3/uL 248 Neutrophils % 40.0 - 80.0 % 56.2 Immature Granulocytes %, Automated 0.0 - 0.9 % 0.0 Lymphocytes % 13.0 - 44.0 % 30.6 Monocytes % 2.0 - 10.0 % 8.7 Eosinophils % 0.0 - 6.0 % 3.9 Basophils % 0.0 - 2.0 % 0.6 Neutrophils Absolute 1.20 - 7.70 x10*3/uL 2.92 Immature Granulocytes Absolute, Automated 0.00 - 0.70 x10*3/uL 0.00 Lymphocytes Absolute 1.20 - 4.80 x10*3/uL 1.59 Monocytes Absolute 0.10 - 1.00 x10*3/uL 0.45 Eosinophils Absolute 0.00 - 0.70 x10*3/uL 0.20 Basophils Absolute 0.00 - 0.10 x10*3/uL 0.03 GLUCOSE 74 - 99 mg/dL 89 SODIUM 136 - 145 mmol/L 139 POTASSIUM 3.5 - 5.3 mmol/L 4.1 CHLORIDE 98 - 107 mmol/L 108 (H) Bicarbonate 21 - 32 mmol/L 25 Anion Gap 10 - 20 mmol/L 10 Blood Urea Nitrogen 6 - 23 mg/dL 17 Creatinine 0.50 - 1.05 mg/dL 0.62 EGFR >60 mL/min/1.73m*2 >90 Calcium 8.6 - 10.3 mg/dL 9.1 Albumin 3.4 - 5.0 g/dL 4.4 Alkaline Phosphatase 33 - 110 U/L 54 Total Protein 6.4 - 8.2 g/dL 6.8 AST 9 - 39 U/L 14 Bilirubin Total 0.0 - 1.2 mg/dL 0.3 ALT 7 - 45 U/L 13 CHOLESTEROL 0 - 199 mg/dL 169 HDL CHOLESTEROL mg/dL 35.0 Cholesterol/HDL Ratio 4.8 LDL Calculated <=119 mg/dL 74 VLDL 0 - 40 mg/dL 60 (H) TRIGLYCERIDES 0 - 149 mg/dL 302 (H) Non HDL Cholesterol 0 - 149 mg/dL 134 IRON 35 - 150 ug/dL 37 UIBC 110 - 370 ug/dL 344 TIBC 240 - 445 ug/dL 381 % Saturation 25 - 45 % 10 (L) Hemoglobin A1C see below % 4.8 Estimated Average Glucose Not Established mg/dL 91 CORTISOL 2.5 - 20.0 ug/dL 7.1 Thyroid Stimulating Hormone 0.44 - 3.98 mIU/L 0.79 Triiodothyronine, Free 2.3 - 4.2 pg/mL 3.4 Thyroxine, Free 0.61 - 1.12 ng/dL 0.90 Vitamin D, 25-Hydroxy, Total 30 - 100 ng/mL 17 (L) Vitamin B12 211 - 911 pg/mL 208 (L) Parathyroid Hormone, Intact 18.5 - 88.0 pg/mL 81.4 FERRITIN 8 - 150 ng/mL 25 FOLATE >5.0 ng/mL 10.4 Legend: (H) High (L) Low Physical Exam Neurological: Mental Status: She is alert and oriented to person, place, and time. Psychiatric: Mood and Affect: Mood normal. Behavior: Behavior normal. Thought Content: Thought content normal. Judgment: Judgment normal. Assessment/Plan Problem List Items Addressed This Visit Iron deficiency anemia Relevant Medications ferrous sulfate, 325 mg ferrous sulfate, tablet Mixed hyperlipidemia Relevant Orders CBC and Auto Differential Comprehensive Metabolic Panel Lipid Panel Vitamin D deficiency - Primary Relevant Medications cholecalciferol (Vitamin D3) 50 MCG (2000 UT) tablet Other Relevant Orders Vitamin D 25-Hydroxy,Total (for eval of Vitamin D levels) Parathyroid Hormone, Intact WE DISCUSSED MOST COMMON SIDE EFFECTS OF PRESCRIBED MEDICATIONS. INDICATIONS, RISK, COMPLICATIONS, AND ALTERNATIVES OF MEDICATION/THERAPEUTICS WERE EXPLAINED AND DISCUSSED. PLEASE MONITOR CLOSELY FOR ANY UNTOWARD SIDE EFFECTS OR COMPLICATIONS OF MEDICATIONS. PATIENT IS STRONGLY ADVISED TO BE COMPLIANT WITH RECOMMENDATIONS. QUESTIONS AND CONCERNS WERE ADDRESSED. INSTRUCTED TO CALL, RETURN SOONER, OR GO TO THE ER, IF SYMPTOMS PERSIST OR WORSEN. THEY VOICED UNDERSTANDING AND DENIES FURTHER QUESTIONS AT THIS TIME. TIME CODE 1. PREPARATION FOR PATIENT'S VISIT (REVIEWING CHART, CURRENT MEDICAL RECORDS, OUTSIDE HEALTH PROVIDER RECORDS, PREVIOUS HISTORY, EXAM, TEST, PROCEDURE, AND MEDICATIONS) 2. FACE TO FACE ENCOUNTER OBTAINING HISTORY FROM THE PATIENT/FAMILY/CAREGIVERS; PERFORMING EVALUATION AND EXAMINATION; ORDERING TESTS OR PROCEDURES; REFERRING AND COMMUNICATING WITH OTHER HEALTHCARE PROVIDERS; COUNSELING AND EDUCATION OF THE PATIENT/FAMILY/CAREGIVERS; INDEPENDENTLY INTERPRETING RESULTS (TESTS, LABS, PROCEDURES, IMAGING) AND COMMUNICATING AND EXPLAINING RESULTS TO THE PATIENT/FAMILY/CAREGIVERS 3. COORDINATION OF CARE; PREPARING AND PRINTING DISCHARGE INSTRUCTIONS AND ANY EDUCATIONAL MATERIAL FOR THE PATIENT/FAMILY/CAREGIVERS. DOCUMENTING CLINICAL INFORMATION IN THE ELECTRONIC MEDICAL RECORD 4. REVIEWING OARRS NEEDED MDM 1) COMPLEXITY: MORE THAN 1 STABLE CHRONIC CONDITION ADDRESSED OR 1 ACUTE ILLNESS ADDRESSED 2)DATA: TESTS INTERPRETED AND OR ORDERED, TOOK INDEPENDENT HISTORY OR RECORDS REVIEWED 3)RISK: MODERATE RISK DUE TO NATURE OF MEDICAL CONDITIONS/COMORBIDITY OR MEDICATIONS ORDERED OR SURGICAL OR PROCEDURE REFERRAL 3 MONTHS WITH LABS documented in this encounter [facility] Work Phone: 08-23-2023 History of Present illness Narrative Subjective Patient ID: Karen Noriega is a 22 y.o. female who presents for Abdominal Pain (X 1 week). HPI: Presents today for C/O EPIGASTRIC PAIN X 1 WEEK modifying factors consists of HAS SOME ACID REFLUX. HAS BEEN SEEING DIETITIAN IN [facility] MONTHLY FOR WEIGHT LOSS HELP associated symptoms consist of PAIN IN THE MORNING IS A STABBING ACHY FEELING. NAUSEA. ABD BLOATING. NO DIARRHEA OR CONSTIPATION prior treatment consists of medication OTC TYLENOL Visit Vitals BP 116/76 (BP Location: Right arm, Patient Position: Sitting) Pulse 82 Ht 1.702 m (5' 7) Wt 95.3 kg (210 lb) BMI 32.89 kg/m OB Status Having periods Smoking Status Never BSA 2.12 m Review of Systems Constitutional: Negative for chills, fatigue, fever and unexpected weight change. HENT: Negative for congestion, ear pain, sore throat and trouble swallowing. Eyes: Negative for photophobia, pain, redness and visual disturbance. Respiratory: Negative for apnea, cough, choking, chest tightness, shortness of breath and wheezing. Cardiovascular: Negative for chest pain, palpitations and leg swelling. Gastrointestinal: Positive for abdominal pain and nausea. Negative for abdominal distention, blood in stool, constipation, diarrhea and vomiting. Genitourinary: Negative for difficulty urinating, dysuria, flank pain, frequency, hematuria and urgency. Musculoskeletal: Negative for arthralgias, back pain, gait problem, joint swelling, myalgias and neck pain. Skin: Negative for rash and wound. Neurological: Negative for dizziness, seizures, syncope, facial asymmetry, speech difficulty, weakness and numbness. Psychiatric/Behavioral: Negative for confusion, sleep disturbance and suicidal ideas. The patient is not nervous/anxious. Objective Physical Exam Constitutional: Appearance: Normal appearance. She is normal weight. HENT: Head: Normocephalic. Eyes: Extraocular Movements: Extraocular movements intact. Conjunctiva/sclera: Conjunctivae normal. Pupils: Pupils are equal, round, and reactive to light. Cardiovascular: Rate and Rhythm: Normal rate and regular rhythm. Pulses: Normal pulses. Heart sounds: Normal heart sounds. Pulmonary: Effort: Pulmonary effort is normal. Breath sounds: Normal breath sounds. Abdominal: General: Bowel sounds are normal. Tenderness: There is abdominal tenderness (EPIGASTRIC PAIN). Musculoskeletal: General: Normal range of motion. Cervical back: Normal range of motion. Skin: General: Skin is warm and dry. Neurological: General: No focal deficit present. Mental Status: She is alert and oriented to person, place, and time. Psychiatric: Mood and Affect: Mood normal. Behavior: Behavior normal. Thought Content: Thought content normal. Judgment: Judgment normal. Assessment/Plan Problem List Items Addressed This Visit Gastroesophageal reflux disease - Primary Relevant Medications omeprazole (PriLOSEC) [address] capsule Other Visit Diagnoses Epigastric abdominal tenderness with rebound tenderness Relevant Medications sucralfate (Carafate) 1 gram tablet START OMEPRAZOLE DAILY AND CARAFATE. IF SYMPTOMS REMAINS AFTER 2 WEEKS, CALL SO AN ABD US CAN BE ORDERED. WE DISCUSSED MOST COMMON SIDE EFFECTS OF PRESCRIBED MEDICATIONS. INDICATIONS, RISK, COMPLICATIONS, AND ALTERNATIVES OF MEDICATION/THERAPEUTICS WERE EXPLAINED AND DISCUSSED. PLEASE MONITOR CLOSELY FOR ANY UNTOWARD SIDE EFFECTS OR COMPLICATIONS OF MEDICATIONS. PATIENT IS STRONGLY ADVISED TO BE COMPLIANT WITH RECOMMENDATIONS. QUESTIONS AND CONCERNS WERE ADDRESSED. INSTRUCTED TO CALL, RETURN SOONER, OR GO TO THE ER, IF SYMPTOMS PERSIST OR WORSEN. THEY VOICED UNDERSTANDING AND DENIES FURTHER QUESTIONS AT THIS TIME. TIME CODE 1. PREPARATION FOR PATIENT'S VISIT (REVIEWING CHART, CURRENT MEDICAL RECORDS, OUTSIDE HEALTH PROVIDER RECORDS, PREVIOUS HISTORY, EXAM, TEST, PROCEDURE, AND MEDICATIONS) 2. FACE TO FACE ENCOUNTER OBTAINING HISTORY FROM THE PATIENT/FAMILY/CAREGIVERS; PERFORMING EVALUATION AND EXAMINATION; ORDERING TESTS OR PROCEDURES; REFERRING AND COMMUNICATING WITH OTHER HEALTHCARE PROVIDERS; COUNSELING AND EDUCATION OF THE PATIENT/FAMILY/CAREGIVERS; INDEPENDENTLY INTERPRETING RESULTS (TESTS, LABS, PROCEDURES, IMAGING) AND COMMUNICATING AND EXPLAINING RESULTS TO THE PATIENT/FAMILY/CAREGIVERS 3. COORDINATION OF CARE; PREPARING AND PRINTING DISCHARGE INSTRUCTIONS AND ANY EDUCATIONAL MATERIAL FOR THE PATIENT/FAMILY/CAREGIVERS. DOCUMENTING CLINICAL INFORMATION IN THE ELECTRONIC MEDICAL RECORD 4. REVIEWING OARRS NEEDED MDM 1) COMPLEXITY: MORE THAN 1 STABLE CHRONIC CONDITION ADDRESSED OR 1 ACUTE ILLNESS ADDRESSED 2)DATA: TESTS INTERPRETED AND OR ORDERED, TOOK INDEPENDENT HISTORY OR RECORDS REVIEWED 3)RISK: MODERATE RISK DUE TO NATURE OF MEDICAL CONDITIONS/COMORBIDITY OR MEDICATIONS ORDERED OR SURGICAL OR PROCEDURE REFERRAL APRIL WITH LABS PREVIOUSLY ORDERED documented in this encounter [facility] Work Phone: 05-20-2023 History of Present illness Narrative Patient Name: Karen Noriega Patient : 2000 Primary Care Provider: Kylah Crawford CNP Referred By: Kylah Connell CNP Referral Diagnosis: Obesity Start Time: 835 End Time: 935 Nutrition Diagnosis: Food and nutrition related knowledge deficit related to lack of exposure to nutrition information as evidenced by patient interview Nutrition Goals: I will follow plate method to plan out my meals. I will exercise at [employer] 1 hour in the morning daily. I will cut back soda to 1 can every other day. Follow Up: Follow up appointment scheduled by patient Assessment: Pt currently eating 2 meals with snacks. Has made some diet changes starting 3 weeks ago with the reduction of pop from 5-6 cans/day to 1-2/day. She has cut back on pasta and eating salads more often. Pt doing very well with positive changes but notes she has not lost any weight with her work scale showing 3# wt gain. Pt with full workup for hormone and deficiencies. Noted imbalance of macronutrients at meals with pt reporting some meals holding her over better then others. Discussed meal planning and balance today. Diet does appear low in nonstarchy vegetables and limited variety. Reason for Visit: wt management Support Person Present: none Other Social Support: mom Language or Literacy Factors: none Height: 67 Current Weight: 202# BMI: 31.6 BMI Classification: Obese Class I (30.0-34.9) Weight History: 180# after in 07/2022. Pt reports in the last 3 months has gained around 20#. Wt Readings from Last 10 Encounters: No data found for Wt Changes: Cut back on pasta, salads for lunch more often or grilled chicken and rice Diet History/Recall: lunch and dinner daily with snacks Food Purchase/Prep:self/kids-5 kids/fiance Wake: 6-6:30 Work- 9am Breakfast: snack at 10 canaloupe or mayra bar with coffee - 1 starbucks or cookie donuts- macchiato coffee Lunch: 12-1 [place]- shredded chicken with peppers and rice with sauce, chips and salsa, water, cantaloupe Dinner: grilled chicken sandwich- bun, green tea- Loren Snacks: fruit and mayra bars Daily Fluids: water, coffee, Green tea, pop- 5-6 can/day down to 1-2 Meals Away From Home: 3 weeks diet changes- gained 2 pounds PMHx: anxiety, hyperlipidemia, vit d and B12 deficiency, anemia No past medical history on file. 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 Estimated Nutritional Needs: Calorie Needs: 1650kcal/day (miff st jeor X 1.3-500) Intervention/Education Provided: meal and snack planning, healthy drinks, exercise, fiber Patient/Family Education: Learner: patient Readiness: action - ready to set action plan and implement Method: explanation and handout Response: needs reinforcement Education Materials Provided: meal and snack planning, sample meal ideas, goal sheet Monitoring/Evaluation: Weight, Food Record/Recall, Meal Planning, Physical Activity, Medication Management, Goal Assessment This note has been communicated to referring healthcare provider. IFRAH Kothari RDN Office documented in this encounter [facility] 04-21-2023 History of Present illness Narrative Subjective Patient ID: Karen Noriega is a 22 y.o. female who presents for Follow-up (Pt has not completed labs at this time) and Acne. HPI: Presents today for C/O WEIGHT GAIN SINCE GIVING A FEW MONTHS AGO modifying factors consists of SHE STATES NO MATTER WHAT SHE DOES, SHE CONTINUES TO GAIN. HER OBGYN RECOMMENDED HORMONE TESTING associated symptoms consist of ACNE prior treatment consists of medication DIET, EXERCISE. Visit Vitals BP 129/85 (BP Location: Right arm, Patient Position: Sitting) Pulse 93 Ht 1.676 m (5' 6) Wt 92.5 kg (204 lb) LMP (LMP Unknown) SpO2 95% BMI 32.93 kg/m OB Status Having periods Smoking Status Never BSA 2.08 m Review of Systems Constitutional: Positive for unexpected weight change. Negative for chills, fatigue and fever. HENT: Negative for congestion, ear pain, sore throat and trouble swallowing. Eyes: Negative for photophobia, pain, redness and visual disturbance. Respiratory: Negative for apnea, cough, choking, chest tightness, shortness of breath and wheezing. Cardiovascular: Negative for chest pain, palpitations and leg swelling. Gastrointestinal: Negative for abdominal distention, abdominal pain, blood in stool, constipation, diarrhea, nausea and vomiting. Genitourinary: Negative for difficulty urinating, dysuria, flank pain, frequency, hematuria and urgency. Musculoskeletal: Negative for arthralgias, back pain, gait problem, joint swelling, myalgias and neck pain. Skin: Negative for rash and wound. ACNE Neurological: Negative for dizziness, seizures, syncope, facial asymmetry, speech difficulty, weakness, numbness and headaches. Psychiatric/Behavioral: Negative for confusion, sleep disturbance and suicidal ideas. The patient is not nervous/anxious. Objective Physical Exam Constitutional: Appearance: Normal appearance. She is normal weight. HENT: Head: Normocephalic. Eyes: Extraocular Movements: Extraocular movements intact. Conjunctiva/sclera: Conjunctivae normal. Pupils: Pupils are equal, round, and reactive to light. Cardiovascular: Rate and Rhythm: Normal rate and regular rhythm. Pulses: Normal pulses. Heart sounds: Normal heart sounds. Pulmonary: Effort: Pulmonary effort is normal. Breath sounds: Normal breath sounds. Musculoskeletal: General: Normal range of motion. Cervical back: Normal range of motion. Skin: General: Skin is warm and dry. Comments: ACNE TO FACE Neurological: General: No focal deficit present. Mental Status: She is alert and oriented to person, place, and time. Psychiatric: Mood and Affect: Mood normal. Behavior: Behavior normal. Thought Content: Thought content normal. Judgment: Judgment normal. Assessment/Plan Problem List Items Addressed This Visit Abnormal fasting glucose Relevant Orders CBC and Auto Differential Cortisol Iron and TIBC Luteinizing Hormone Follicle Stimulating Hormone Estrogens, Total Vitamin D 25-Hydroxy,Total (for eval of Vitamin D levels) Vitamin B12 Thyroid Stimulating Hormone Thyroxine, Free Triiodothyronine, Free Parathyroid Hormone, Intact Hemoglobin A1C Comprehensive Metabolic Panel Lipid Panel Ferritin Folate Testosterone,Free and Total Prolactin Progesterone Growth Hormone Androstenedione DHEA Acne - Primary Relevant Medications benzoyl peroxide (Benzac AC) 10 % external wash Other Relevant Orders CBC and Auto Differential Cortisol Iron and TIBC Luteinizing Hormone Follicle Stimulating Hormone Estrogens, Total Vitamin D 25-Hydroxy,Total (for eval of Vitamin D levels) Vitamin B12 Thyroid Stimulating Hormone Thyroxine, Free Triiodothyronine, Free Parathyroid Hormone, Intact Hemoglobin A1C Comprehensive Metabolic Panel Lipid Panel Ferritin Folate Testosterone,Free and Total Prolactin Progesterone Growth Hormone Androstenedione DHEA Borderline abnormal thyroid function test Relevant Orders CBC and Auto Differential Cortisol Iron and TIBC Luteinizing Hormone Follicle Stimulating Hormone Estrogens, Total Vitamin D 25-Hydroxy,Total (for eval of Vitamin D levels) Vitamin B12 Thyroid Stimulating Hormone Thyroxine, Free Triiodothyronine, Free Parathyroid Hormone, Intact Hemoglobin A1C Comprehensive Metabolic Panel Lipid Panel Ferritin Folate Testosterone,Free and Total Prolactin Progesterone Growth Hormone Androstenedione DHEA Iron deficiency anemia Relevant Orders CBC and Auto Differential Cortisol Iron and TIBC Luteinizing Hormone Follicle Stimulating Hormone Estrogens, Total Vitamin D 25-Hydroxy,Total (for eval of Vitamin D levels) Vitamin B12 Thyroid Stimulating Hormone Thyroxine, Free Triiodothyronine, Free Parathyroid Hormone, Intact Hemoglobin A1C Comprehensive Metabolic Panel Lipid Panel Ferritin Folate Testosterone,Free and Total Prolactin Progesterone Growth Hormone Androstenedione DHEA Mixed hyperlipidemia Relevant Orders CBC and Auto Differential Cortisol Iron and TIBC Luteinizing Hormone Follicle Stimulating Hormone Estrogens, Total Vitamin D 25-Hydroxy,Total (for eval of Vitamin D levels) Vitamin B12 Thyroid Stimulating Hormone Thyroxine, Free Triiodothyronine, Free Parathyroid Hormone, Intact Hemoglobin A1C Comprehensive Metabolic Panel Lipid Panel Ferritin Folate Testosterone,Free and Total Prolactin Progesterone Growth Hormone Androstenedione DHEA Vitamin B12 deficiency Relevant Orders CBC and Auto Differential Cortisol Iron and TIBC Luteinizing Hormone Follicle Stimulating Hormone Estrogens, Total Vitamin D 25-Hydroxy,Total (for eval of Vitamin D levels) Vitamin B12 Thyroid Stimulating Hormone Thyroxine, Free Triiodothyronine, Free Parathyroid Hormone, Intact Hemoglobin A1C Comprehensive Metabolic Panel Lipid Panel Ferritin Folate Testosterone,Free and Total Prolactin Progesterone Growth Hormone Androstenedione DHEA Vitamin D deficiency Relevant Orders CBC and Auto Differential Cortisol Iron and TIBC Luteinizing Hormone Follicle Stimulating Hormone Estrogens, Total Vitamin D 25-Hydroxy,Total (for eval of Vitamin D levels) Vitamin B12 Thyroid Stimulating Hormone Thyroxine, Free Triiodothyronine, Free Parathyroid Hormone, Intact Hemoglobin A1C Comprehensive Metabolic Panel Lipid Panel Ferritin Folate Testosterone,Free and Total Prolactin Progesterone Growth Hormone Androstenedione DHEA Weight gain Relevant Orders CBC and Auto Differential Cortisol Iron and TIBC Luteinizing Hormone Follicle Stimulating Hormone Estrogens, Total Vitamin D 25-Hydroxy,Total (for eval of Vitamin D levels) Vitamin B12 Thyroid Stimulating Hormone Thyroxine, Free Triiodothyronine, Free Parathyroid Hormone, Intact Hemoglobin A1C Comprehensive Metabolic Panel Lipid Panel Ferritin Folate Testosterone,Free and Total Prolactin Progesterone Growth Hormone Androstenedione DHEA Class 1 obesity without serious comorbidity with body mass index (BMI) of 32.0 to 32.9 in adult WE DISCUSSED MOST COMMON SIDE EFFECTS OF PRESCRIBED MEDICATIONS. INDICATIONS, RISK, COMPLICATIONS, AND ALTERNATIVES OF MEDICATION/THERAPEUTICS WERE EXPLAINED AND DISCUSSED. PLEASE MONITOR CLOSELY FOR ANY UNTOWARD SIDE EFFECTS OR COMPLICATIONS OF MEDICATIONS. PATIENT IS STRONGLY ADVISED TO BE COMPLIANT WITH RECOMMENDATIONS. QUESTIONS AND CONCERNS WERE ADDRESSED. INSTRUCTED TO CALL, RETURN SOONER, OR GO TO THE ER, IF SYMPTOMS PERSIST OR WORSEN. THEY VOICED UNDERSTANDING AND DENIES FURTHER QUESTIONS AT THIS TIME. TIME CODE 1. PREPARATION FOR PATIENT'S VISIT (REVIEWING CHART, CURRENT MEDICAL RECORDS, OUTSIDE HEALTH PROVIDER RECORDS, PREVIOUS HISTORY, EXAM, TEST, PROCEDURE, AND MEDICATIONS) 2. FACE TO FACE ENCOUNTER OBTAINING HISTORY FROM THE PATIENT/FAMILY/CAREGIVERS; PERFORMING EVALUATION AND EXAMINATION; ORDERING TESTS OR PROCEDURES; REFERRING AND COMMUNICATING WITH OTHER HEALTHCARE PROVIDERS; COUNSELING AND EDUCATION OF THE PATIENT/FAMILY/CAREGIVERS; INDEPENDENTLY INTERPRETING RESULTS (TESTS, LABS, PROCEDURES, IMAGING) AND COMMUNICATING AND EXPLAINING RESULTS TO THE PATIENT/FAMILY/CAREGIVERS 3. COORDINATION OF CARE; PREPARING AND PRINTING DISCHARGE INSTRUCTIONS AND ANY EDUCATIONAL MATERIAL FOR THE PATIENT/FAMILY/CAREGIVERS. DOCUMENTING CLINICAL INFORMATION IN THE ELECTRONIC MEDICAL RECORD 4. REVIEWING OARRS NEEDED. MDM 1) COMPLEXITY: MORE THAN 1 STABLE CHRONIC CONDITION ADDRESSED OR 1 ACUTE ILLNESS ADDRESSED 2)DATA: TESTS INTERPRETED AND OR ORDERED, TOOK INDEPENDENT HISTORY OR RECORDS REVIEWED 3)RISK: MODERATE RISK DUE TO NATURE OF MEDICAL CONDITIONS/COMORBIDITY OR MEDICATIONS ORDERED OR SURGICAL OR PROCEDURE REFERRAL 2 WEEKS WITH FASTING LABS documented in this encounter [facility] Work Phone: 08-24-2022 Note Send Summary: Note Recipients: Discharge: Summary: Admission Date: .20-Aug-2022 23:05:00 Discharge Date: 24-Aug-2022 Attending Physician at Discharge: Jhoana Erickson Admission Reason: sPEC Final Discharge Diagnoses: Procedures: Condition at Discharge: Satisfactory Disposition at Discharge: .Home Vital Signs: T PRBPMAPSpO2 [id number]% Date/Time08/24 11: 11: 11: 11: 11: 11:32 Range(36C - 37C ) (74 - 92 ) (16 - 20 ) (124 - 162 )/ (77 - 109 ) (98 - 124 ) (96% - 98% ) Highest temp of 37 C was recorded at 08/23 8:11 Date: Weight/Scale Type:Height: 21-Aug-2022 00:1485.9 kg / uilqdpht153.4 cm Physical Exam: resting quietly. Feels well, pleasant. States staying inpatient any longer is making her anxious. Does not take anything for anxiety. Denies any rowley, cp, sob, ruq pain or vision changes. Discussed bp's/meds-adding labetalol 200mg twice a day. If bp's better controlled later this evening, then d/c ok. Pt. calling for f/u with Dr. Joseph in [place] this week. abd.soft, non-tender. Fundus firm below umbilicus vag. bleeding light no calf tenderness. Now on nifed 60/60 and labetalol 200mgbid. Hospital Course: Svetlana DOA: 08/20 DOD: 08/21 , EBL 200cc 21 y/o @ 38.3wga (08/21) by 7 week scan presenting as transfer from [facility] for sPEC. Pt found to have mild range BPs in the office yesterday so was sent in for delivery. She was found to be 2/50/-3 and IOL was started with CRB and cyto x1. She then developed severe range BPs requiring IV hydral 5/10 and IV labetalol 20mg. HELLP labs neg x1, P:C 0.28. She was started on Mg and transferred to [facility] for further management. notable for: -Rh neg, s/p rhogam -Overweight, pre- BMI = 27, total GWG 22 lb, 1hr GCT = 84, last growth US (08/20): EFW 3567g (67%) -E Coli UTI x2 this , no DICKSON - H/o PPH in prior preg, T&C x 1 U OBHx: -07/2020: @ 39wga, 7#10 F -08/2016: @ 39wga, 7#8 M GynHx: ASCUS/HRHPV pos pap, denies other STIs PMHx: denies SurgHx: Meds: All: NKDA Social: denies t/e/i FHx: denies h/o defects Immunizations: Immunizations: 24-Aug-2022 Tdap: Immunizations, 24-Aug-2022 Discharge Information: and Continuing Care: Lab Results - Pending: Surgical Pathology Drawn at 21-Aug-2022 13:31:00 Radiology Results - Pending: None [place] Suicide Risk: negative Discharge Instructions: Activity: Return to normal activity as tolerated Discharge Medications: Home Medication ibuprofen 600 mg oral tablet - 1 tab(s) orally every 6 hours NIFEdipine 60 mg oral tablet, extended release - 1 tab(s) orally 2 times a day labetalol 200 mg oral tablet - 1 tab(s) orally 2 times a day PRN Medication DNR Status: Code StatusCode Status order at time of discharge: Full Code Electronic Signatures: Jhoana Erickson (CURB BUILDER-SMASH HAND) (Signed 24-Aug-2022 16:05) Authored: Send Summary, Summary Content, Immunizations, Ongoing Care, DNR Status, Note Completion Last Updated: 24-Aug-2022 16:05 by Jhoana Erickson ([employer] BU[employer]DER[employer]SM[employer] HAND) [facility] 08-24-2022 Hospital Discharge instructions Activity:Return to normal activity as tolerated.Follow Up Appointment 1:Physician/Dept/Service: OB: Analy Joseph Date/Time: 27-Aug-2022 15:15Location: [facility] [address] [address] Number: [phone]: Please bring your insurance card, photo id, a list of medication in the original bottle, any co-pays you may have, and the discharge summaryGold Form - Other Clinicians:Nursing Instructions: The [place] [employer] recommends that pacifier use is best avoided during the initiation of and used only after is well established. In some infants, early pacifier use may interfere with establishment of good practices, whereas in others it may indicate the presence of a problem that requires intervention. Use of a pacifier may cause problems with latching, and lead to decreased milk supply by missing feeding opportunities. Pacifiers may be used during painful procedures, but are not otherwise recommended while the infant is learning to breastfeed. Other Clinician Instructions: Any woman can have complications after a including a blood clot, a heart problem, hypertensive disorder/eclampsia, depression, hemorrhage, or infection. Notify all providers of your delivery date up to one year after .* Call 911 or go to nearest emergency room right away if you have: PAIN or pressure in chest; OBSTRUCTED breathing or shortness of breath; SEIZURES; THOUGHTS of hurting yourself or someone else; heart palpitations/racing; change in alertness/confusion.Call your provider if you have: BLEEDING, soaking through a pad/hour, or blood clots the size of an egg or bigger; INCISION (episiotomy stitches or site) that is not healing (increased redness, pain, drainage/pus, or separation) if you had one; RED or swollen leg/calf that is painful or warm to touch, especially in one leg more than the other; TEMPERATURE of 100.4 F or higher or chills; HEADACHE that does not get better with medicine, rest or hydration, or bad headache with vision changes like spots or flashing lights; increased swelling of face, hands or legs; severe cramps or upper right belly pain; red or swollen breast that is painful or warm to touch; an unusual, foul odor from your vaginal discharge; pain, burning, or difficulty during urination; severe constipation (more than 5 days); feelings of depression (such as depressed mood, loss of interest in enjoyable things, unable to care for yourself, trouble sleeping, lack of appetite, or feeling worthless). If you can t reach your provider or symptoms worsen, call 911 or go to nearest emergency room. *Information obtained from DEANN s: Save Your Life: Get Care for These POST- Warning Signs [facility] 08-21-2022 Note Provider Information : Maternal Delivery Information: Delivery Type: vaginal delivery Did this pt receive corticosteroids at any time during this : No Was intraamniotic infection diagnosed during this labor: no What antibiotic(s) were administered during labor and/or pre-incision: none Did this patient receive progesterone in any form to prevent premature delivery: no Rupture of Membranes: artificial Spontaneous Labor: no Induction or Scheduled : induction Is patient at delivery >/= to 37 to < 39 completed weeks of gestation: yes Vaginal Delivery Type: spontaneous Vaginal Delivery Complications: none Delivery Anesthesia: epidural Presentation/Lie: vertex Vertex Presentation: Left: occiput anterior Episiotomy & Repair: none Perineal Laceration: none Other Laceration: none Laceration Repair: no Abrasion: none QBL (mL): 200 mL Blood Products Transfused during Delivery (indicate number of units given): none Placenta: spontaneous intact Choose Baby: A Cord Characteristics: no anomalies noted Delayed Cord Clamping (equal to or greater than 30 seconds): yes Time until cord clamp: 60 seconds Day of Delivery (Baby A): 21-Aug-2022 Gestational Age at Delivery (wk.days): 38.3 Term: term 37.0 to 41.6 weeks Live : yes Vaginal Delivery Provider: Janet Lawrence Ladle Repairman: Awilda Cruz Hemorrhage Risk Screen: Hemorrhage Medium Risk Factors (T&S) (2 or more medium risks Go to High Risk section & obtain T&C)IOL with oxytocin or cervical ripening, magnesium sulfate(1) Hemorrhage High Risk Factors (T&C)history of more than one previous PPH(1) Hemorrhage Risk Assessmenthemorrhage risks reviewed and additional factors added if applicable Hemorrhage Risk Score HighPatient is at High Risk for an OB hemorrhage. Order Type & Cross. Score Calculation - IT Use Only4 Postplacental IUD: IUD Assessment and Procedure: Contraindications to postplacental IUD present on admissionnone of these exist Does patient desire postplacental IUDno Attestation: Note Completion: I am a:Resident/Fellow Attending AttestationI was present for the entire procedure Electronic Signatures: Janet Lawrence () (Signed 21-Aug-2022 12:31) Authored: Note Completion Co-Signer: Provider Information, Hemorrhage Risk, Postplacental IUD, Note Completion Awilda Cruz (Resident)) (Signed 21-Aug-2022 12:15) Authored: Provider Information, Hemorrhage Risk, Postplacental IUD, Note Completion Last Updated: 21-Aug-2022 12:31 by Janet Lawrence () References: 1. Data Referenced From History and Physical - OB 21-Aug-2022 00:30 [facility] 08-21-2022 Note HPI/OB History: Care Provider: Svetlana HPI Descriptive Info: HPI 21 y/o @ 38.3wga (08/21) by 7 week scan presenting as transfer from [facility] for sPEC. Pt found to have mild range BPs in the office yesterday so was sent in for delivery. She was found to be 2/50/-3 and IOL was started with CRB and cyto x1. She then developed severe range BPs requiring IV hydral 5/10 and IV labetalol 20mg. HELLP labs neg x1, P:C 0.28. She was started on Mg and transferred to [facility] for further management. Denies ROWLEY, CP, SOB, RUQ pain, vision changes. notable for: -Rh neg, s/p rhogam -Overweight, pre- BMI = 27, total GWG 22 lb, 1hr GCT = 84, last growth US (08/20): EFW 3567g (67%) -Ecoli UTI x2 this , no DICKSON -H/o PPH in prior , methergine & fundal massage, T&C 1 U OBHx: -07/2020: @ 39wga, 7#10 F -08/2016: @ 39wga, 7#8 M GynHx: ASCUS/HRHPV pos pap, denies other STIs PMHx: denies SurgHx: denies Meds: PNV All: NKDA Social: denies t/e/i FHx: denies h/o defects Labs: Labs: Labs: Blood Typed Date: 20-Aug-2022 Blood Type: A negative Blood Type Comments: Selected manually 'A negative' at 21-Aug-2022 00:31 Antibody Screen Results: positive Rhogam Comments: Selected manually 'A negative' at 21-Aug-2022 00:31 Chlamydia Date: 19-Feb-2022 Chlamydia Results: negative Chlamydia Comments: Selected manually 'negative' at 21-Aug-2022 00:31 Gonorrhea Date: 19-Feb-2022 Gonorrhea Results: negative Gonorrhea Comments: Selected manually 'negative' at 21-Aug-2022 00:31 Group B Strep Date: 06-Aug-2022 Strep Results: negative Group B Strep Comments: Selected manually 'negative' at 21-Aug-2022 00:31 GCT (dd-mmm-yy): 11-Jun-2022 GCT result: 84 HBsAG Date: 10-Mar-2022 HBsAG Results: negative HBsAG Comments: Selected manually 'negative' at 21-Aug-2022 00:31 Hemoglobin A1C (dd-mmm-yy): 10-Mar-2022 Hemoglobin A1C: 5 % Estimated Average Glucose: 97 HIV Date: 10-Mar-2022 HIV Results: negative HIV Comments: Selected manually 'negative' at 21-Aug-2022 00:31 Rubella Date: 10-Mar-2022 Rubella Results: immune Rubella Comments: Selected manually 'immune' at 21-Aug-2022 00:31 Syphilis ([facility]-dd-yyyy): 10-Mar-2022 Syphilis Results: negative Syphilis Comments: Selected manually 'negative' at 21-Aug-2022 00:31 Urine Spot (dd-mmm-yy): 20-Aug-2022 Total Protein/Creatinine Ratio: 0.28 Antepartum/: Antepartum/PP: Date Earliest [id number] EGA at that study (weeks)7.5 JOSEPH by [id number] Final [id number] Current EGA:38.3 Patient is > or = 35.0 wks EGAyes Determined byultrasound Date of [id number] EFW (kg)3.567 kilogram(s) EFW (lb)7 pound(s) EFW (oz)14 ounce(s) Presentationcephalic presentation verified bybedside ultrasound Vaginal BleedingNo Contractions/Abdominal PainNo Discharge/Loss of FluidNo MovementGood Hemorrhage Medium Risk Factors (T&S) (2 or more medium risks Go to High Risk section & obtain T&C)IOL with oxytocin or cervical ripening, magnesium sulfate Hemorrhage High Risk Factors (T&C)history of more than one previous PPH Hemorrhage Risk Assessmenthemorrhage risk completed on admission Hemorrhage Risk ScorePatient is at High Risk for an OB hemorrhage. Order Type & Cross. Score Calculation - IT Use Only2 TOLACno Did this patient receive progesterone in any form to prevent premature deliveryno Does patient desire postplacental IUDuncertain Social History: Social History: Smoking Statusnever smoker (1) Alcohol Usedenies(1) Drug Usedenies (1) Allergies: No Known Allergies: Medications Prior to Admission: Admission Medication Reconciliation has not been completed for this patient. Review of Systems: All Other Systems: All other systems reviewed and are negative Objective: Objective Information: T PRBPMAPSpO2 [id number]% Date/Time08/21 0: 23: 23: 23: 0:26 Range (95 - 109 ) (19 - 19 ) (140 - 140 )/ (87 - 87 ) (108 - 108 ) (97% - 98% ) Pain reported at 08/20 23:35: 2 = Mild Physical Exam by System: Constitutional: A&Ox3 Obstetric: baseline 130s, mod variability, + accels, - decels ctx every 7-8 min BSUS cephalic Eyes: pupils equal, sclerae clear Head/Neck: NCAT Respiratory/Thorax: normal respiratory effort Cardiovascular: WWP Genitourinary: normal external female genitalia, no lesions Musculoskeletal: grossly normal ROM Extremities: no edema Psychological: appropriate affect Skin: no rashes or lesions Recent Lab Results: Results: CBC: 08/20/2022 10:59 \ Hgb / \ 11.4 L / WBC Plt 9.8 207 / Hct \ / 34.0 L \ RBC: 3.94 L MCV: 86 Neutrophil %: 74.1 CMP: 08/20/2022 10:59 NA+ Cl- BUN / 134 L 104 12 / Gluc (more content not included)... [facility] 08-21-2022 History of Present illness Narrative Patient presents for blood pressure check [place] [facility]. She voices no complaints and is doing well. Is currently on Procardia and labetalol. [employer] Work Phone: 08-20-2022 Note HPI/OB History: Care Provider: Dr. Joseph HPI Descriptive Info: HPI The patient is a 21-year-old 3 para 2-0-0-2 who presented to the office today for routine visit. Patient EDC is 09/01/2022 and is currently at 38 weeks and 2 days gestation. Patient reports that this has been completely uncomplicated. Patient reports she has had no issues with high blood pressure in the . Patient reports her sister did develop preeclampsia in her . Patient reports good movement no bleeding no abnormal discharge. She reports a mild headache which she gets occasionally but it is only about a 3 or 4 out of 10. She has not felt like it is outside the normal for her and has not taking any medications for Labs: Labs: Labs: Blood Typed Date: 20-Aug-2022 Blood Type: A negative Antibody Screen Results: positive Chlamydia Date: 19-Feb-2022 Chlamydia Results: negative Gonorrhea Date: 19-Feb-2022 Gonorrhea Results: negative Group B Strep Date: 06-Aug-2022 Strep Results: negative GCT (-): 11-Jun-2022 GCT result: 84 HBsAG Date: 10-Mar-2022 HBsAG Results: negative Hemoglobin A1C (-yy): 10-Mar-2022 Hemoglobin A1C: 5 % Estimated Average Glucose: 97 HIV Date: 10-Mar-2022 HIV Results: negative Rubella Date: 10-Mar-2022 Rubella Results: immune Rubella Comments: Result Value POSITIVE Syphilis (mmm-dd-yyyy): 10-Mar-2022 Syphilis Results: negative Urine Spot (dd-mmm-yy): 20-Aug-2022 Total Protein/Creatinine Ratio: 0.28 Antepartum/: Antepartum/PP: Final [id number] Current EGA:38.2 Patient is > or = 35.0 wks EGAyes Determined byGuruopolbette EFW (kg)3.629 kilogram(s) EFW (lb)8 pound(s) EFW (oz)0 ounce(s) Presentationcephalic presentation verified bybedside ultrasound Vaginal BleedingNo Contractions/Abdominal PainNo Discharge/Loss of FluidNo MovementGood Hemorrhage Medium Risk Factors (T&S) (2 or more medium risks Go to High Risk section & obtain T&C)IOL with oxytocin or cervical ripening Hemorrhage Risk Assessmenthemorrhage risk completed on admission Hemorrhage Risk ScorePatient is at Medium Risk for an OB hemorrhage. Order Type & Screen. 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 Objective: Objective Information: T PRBPMAPSpO2 [id number]% Date/Time08/20 16: 17: 16: 17: 17: 16:01 Range(36.7C - 36.8C ) (80 - 117 ) (16 - 20 ) (137 - 163 )/ (76 - 101 ) (103 - 122 ) (97% - 100% ) Pain reported at 08/20 16:00: 0 = None Physical Exam by System: Constitutional: Healthy-appearing in no distress Obstetric: Avid uterus nontender Head/Neck: Full range of motion Respiratory/Thorax: Clear to auscultation Cardiovascular: Regular rate and rhythm Genitourinary: Cervix 2 cm 50% -3 station vertex by ultrasound Musculoskeletal: Good mobility Psychological: Appropriately oriented with normal mood and affect NST Interpretation - Baby A: Baseline [id number] Variabilitymoderate (amplitude range 6 to 25 bpm) InterpretationReactive (2 15x15 accels) Recent Lab Results: Results: CBC: 08/20/2022 10:59 \ Hgb / \ 11.4 L / WBC Plt 9.8 207 / Hct \ / 34.0 L \ RBC: 3.94 L MCV: 86 Neutrophil %: 74.1 CMP: 08/20/2022 10:59 NA+ Cl- BUN / 134 L 104 12 / Glucose 76 K+ HCO3- Creat \ 3.9 22 0.48 L \ \ T Bili / \ 0.3 / AST x ---- x ALT 13 x ---- x 9 / Alk P \ / 86 \ Calcium : 8.2 L Anion Gap : 12 Albumin : 3.4 T Protein : 6.5 Assessment and Plan: Assessment: Patient is a 21-year-old 3 para 2 who presents to the office and was found to have -induced hypertension on prolonged observation on labor and delivery. Her preeclamptic labs came back normal. However the patient is 38-2/7 weeks gestation therefore induction of labor is now indicated. Began by putting a Ledesma bulb and will start with vaginal Cytotec. We will continue with oral Cytotec and once the Ledesma bulb comes out we will begin Pitocin. tracing reassuring Pressure has normalized down to the mildly elevated range and no longer bordering on severe we will continue to monitor Pain we will start with Stadol but can have epidural upon request GBS negative Electronic Signatures: Ca (more content not included)... [facility] 11-22-2021 Chief complaint Narrative - Reported Patient is here for colp procedure. Last pap showed ASC-US, HPV positive. This is patients first abnormal pap. LMP: 11/22/21. [employer] Work Phone: 10-23-2021 History of Present illness Narrative Patient presents stating she has not had a menstrual flow since October. She has some breast tenderness and nausea. Denies any vaginal bleeding or abdominal pain. [employer] Work Phone: 03-23-2021 History of Present illness Narrative 20-year-old presents for 3 days of yellowish discharge. Patient has a little bit of odor. Denies any discomfort. Denies any dysuria. Patient does notice her urine is little more orange red-tinged last day or so. Patient has no other acute concerns. Same sexual partner. [employer] Work Phone: Evaluation note Constitutional: Heal thy-appearing in no distressHead/Neck: Full range of motionRespiratory/Thorax: Clear to auscultationCardiovascular: Regular rate and rhythmGenitourinary: Cervix 2 cm 50% -3 station vertex by ultrasoundMusculoskeletal: Good mobilityPsychological: Appropriately oriented with normal mood and affect [facility] Evaluation note Psychological: appro priate affectNeurological: no deficitsExtremities: no erythema, edema, or tenderness to palpation of b/l calvesMusculoskeletal: MAEGastrointestinal: +BS, +flatusRespiratory/Thorax: normal respiratory effort, on room airSkin: no rashes or lesionsConstitutional: alert, oriented [facility] Evaluation note Diagnosis Acne, unspecified acne type- Primary Borderline abnormal thyroid function test Vitamin B12 deficiency Other B-complex deficiencies Vitamin D deficiency Iron deficiency anemia, unspecified iron deficiency anemia type Abnormal fasting glucose Mixed hyperlipidemia Weight gain Other symptoms concerning nutrition, metabolism, and development Class 1 obesity without serious comorbidity with body mass index (BMI) of 32.0 to 32.9 in adult, unspecified obesity type documented in this encounter [facility] Work Phone: Evaluation note* Diagnosis Anxiety- Primary Anxiety state, unspecified Vitamin D deficiency Vitamin B12 deficiency Other B-complex deficiencies Mixed hyperlipidemia Iron deficiency anemia, unspecified iron deficiency anemia type documented in this encounter [facility] Work Phone: Evaluation note* Diagnosis Class 1 obesity due to excess calories without serious comorbidity with body mass index (BMI) of 32.0 to 32.9 in adult [facility] Gastroesophageal reflux disease, unspecified whether esophagitis present- Primary Epigastric abdominal tenderness with rebound tenderness documented in this encounter [facility] Work Phone: Evaluation note* Diagnosis Pelvic pain documented in this encounter [facility] Work Phone: Evaluation note* Diagnosis Obesity (BMI 30-39.9)- Primary Obesity, unspecified [facility] Diagnosis Obesity (BMI 30.0-34.9)- Primary Obesity, unspecified [facility] Diagnosis Obesity (BMI 30.0-34.9)- Primary Obesity, unspecified [facility] Diagnosis Obesity (BMI 30.0-34.9)- Primary Obesity, unspecified [facility]* Diagnosis Vitamin D deficiency- Primary Iron deficiency anemia, unspecified iron deficiency anemia type Mixed hyperlipidemia documented in this encounter [facility] Work Phone: Evaluation note* Diagnosis Depression, major, single episode, mild (CMS-HCC)- Primary Anxiety Anxiety state, unspecified documented in this encounter [facility] Work Phone: Evaluation note* Diagnosis Chronic constipation- Primary Unspecified constipation Abdominal pain, unspecified abdominal location Hemorrhoids, unspecified hemorrhoid type [facility] Diagnosis Obesity (BMI 30.0-34.9)- Primary Obesity, unspecified documented in this encounter [facility] [address]* Diagnosis Closed fracture of distal end of left radius, unspecified fracture morphology, initial encounter- Primary documented in this encounter [facility] Work Phone: Evaluation note* Diagnosis Other closed intra-articular fracture of distal end of left radius, initial encounter- Primary documented in this encounter [facility] Work Phone: Evaluation note* Diagnosis Other closed intra-articular fracture of distal end of left radius, initial encounter- Primary Iron deficiency anemia, unspecified iron deficiency anemia type- Primary Vitamin B12 deficiency Other B-complex deficiencies Vitamin D deficiency documented in this encounter [facility] Work Phone: Evaluation note* Diagnosis Irritable bowel syndrome with constipation- Primary Irritable bowel syndrome [facility] noteNo assessment information availableWCleveland Clinic [facility] Work Phone: History of Present illness NarrativePatient request to be screened for chlamydia and gonorrhea since her partner was unfaithful. She denies any pelvic pain or vaginal discharge.[address] Work Phone: History of Present illness Narrative* Presents today for [facility] LABS. C/O CRACKLING IN LUNGS X 3 WEEKS ON/OFF modifying factors consistsof STATES H/O COSTOCHONDRITIS associated symptoms consist of NO SOB OR CP. EPISODES COMES AND GOES MULTIPLE TIMES PER DAY prior treatment consists of medication NONE * IRON- LOW. HAS BEEN OUT OF MED. REFILL FOR TID SENT. WILL RECHECK IN 4 MONTHS * VIT B12- LOW. INJECTION TODAY * VIT D- STABLE * THYROID- STABLE * ROWLEY- STABLE [facility] Work Phone: History of Present illness NarrativePresents for annual exam. She voices no complaints and is doing well. Denies any bowel or bladder problems. Denies any breast problems. She is doing well on the control pills.[address] Work Phone: History of Present illness NarrativeShe presents for colposcopy due to Pap smear showing ASCUS with positive high risk HPV.[address] Work Phone: History of Present illness Narrative* Presents today for [facility] LABS. NO NEW COMPLAINTS * IRON-IMPROVING * VIT B12- INJECTION TODAY. DR. JOSEPH, OBGYN APPROVED MONTHLY B12 INJECTIONS * IFG- HGA1C 5.0% * ROWLEY- STABLE [facility] Work Phone: History of Present illness NarrativePatient presents for checkup. She is bottlefeeding. Her had a vasectomy. She is currently on blood pressure medications due to preeclampsia. She voices no complaints and is doing well.[facility] [employer] Work Phone: History of Present illness Narrative* Kylah Connell, KALI-JOSEFINA - 05/03/2023 3:00 PM EDT Subjective Patient ID: Karen Noriega is a 22 y.o. female who presents for Follow-up (2 weeks lab results,no concerns ). VIRTUAL APPOINTMENT BEING PERFORMED DUE TO COVID-19 (CORONAVIRUS) HPI: Presents today for [facility] LABS. NO NEW COMPLAINTS B12- START MONTHLY INJECTIONS IRON- RESTART IRON. MED REFILL VIT D- LOW. RESTART CALCIUM WITH VIT D AND WEEKLY VIT D LIPIDS- STABLE ANXIETY- STABLE Visit Vitals LMP (LMP Unknown) OB Status Having periods Smoking Status Never Review of Systems Constitutional: Negative for chills, fatigue, fever and unexpected weight change. HENT: Negative for congestion, ear pain, sore throat and trouble swallowing. Eyes: Negative for photophobia, pain, redness and visual disturbance. Respiratory: Negative for apnea, cough, choking, chest tightness, shortness of breath and wheezing. Cardiovascular: Negative for chest pain, palpitations and leg swelling. Gastrointestinal: Negative for abdominal distention, abdominal pain, blood in stool, constipation, diarrhea, nausea and vomiting. Genitourinary: Negative for difficulty urinating, dysuria, flank pain, frequency, hematuria and urgency. Musculoskeletal: Negative for arthralgias, back pain, gait problem, joint swelling, myalgias and neck pain. Skin: Negative for rash and wound. Neurological: Negative for dizziness, seizures, syncope, facial asymmetry, speech difficulty, weakness, numbness and headaches. Psychiatric/Behavioral: Negative for confusion, sleep disturbance and suicidal ideas. The patient is not nervous/anxious. Objective Component Latest Ref Rng 04/23/2023 WBC 4.4 - 11.3 x10*3/uL 5.6 nRBC 0.0 - 0.0 /100 WBCs 0.0 RBC 4.00 - 5.20 x10*6/uL 4.75 HEMOGLOBIN 12.0 - 16.0 g/dL 13.0 HEMATOCRIT 36.0 - 46.0 % 39.5 MCV 80 - 100 fL 83 MCH 26.0 - 34.0 pg 27.4 MCHC 32.0 - 36.0 g/dL 32.9 RED CELL DISTRIBUTION WIDTH 11.5 - 14.5 % 13.1 Platelets 150 - 450 x10*3/uL 263 MEAN PLATELET VOLUME 7.5 - 11.5 fL 11.4 Neutrophils % 40.0 - 80.0 % 62.7 Immature Granulocytes %, Automated 0.0 - 0.9 % 0.0 Lymphocytes % 13.0 - 44.0 % 29.8 Monocytes % 2.0 - 10.0 % 5.7 Eosinophils % 0.0 - 6.0 % 1.4 Basophils % 0.0 - 2.0 % 0.4 Neutrophils Absolute 1.20 - 7.70 x10*3/uL 3.53 Immature Granulocytes Absolute, Automated 0.00 - 0.70 x10*3/uL 0.00 Lymphocytes Absolute 1.20 - 4.80 x10*3/uL 1.68 Monocytes Absolute 0.10 - 1.00 x10*3/uL 0.32 Eosinophils Absolute 0.00 - 0.70 x10*3/uL 0.08 Basophils Absolute 0.00 - 0.10 x10*3/uL 0.02 GLUCOSE 74 - 99 mg/dL 84 SODIUM 136 - 145 mmol/L 139 POTASSIUM 3.5 - 5.3 mmol/L 4.2 CHLORIDE 98 - 107 mmol/L 107 Bicarbonate 21 - 32 mmol/L 25 Anion Gap 10 - 20 mmol/L 11 Blood Urea Nitrogen 6 - 23 mg/dL 16 Creatinine 0.50 - 1.05 mg/dL 0.62 EGFR >60 mL/min/1.73m*2 >90 Calcium 8.6 - 10.3 mg/dL 9.1 Albumin 3.4 - 5.0 g/dL 4.2 Alkaline Phosphatase 33 - 110 U/L 57 Total Protein 6.4 - 8.2 g/dL 6.7 AST 9 - 39 U/L 14 Bilirubin Total 0.0 - 1.2 mg/dL 0.4 ALT 7 - 45 U/L 12 CHOLESTEROL 0 - 199 mg/dL 172 HDL CHOLESTEROL mg/dL 40.0 Cholesterol/HDL Ratio 4.3 LDL Calculated 110 - 150 mg/dL 99 (L) VLDL 0 - 40 mg/dL 33 TRIGLYCERIDES 0 - 149 mg/dL 163 (H) Non HDL Cholesterol 0 - 149 mg/dL 132 IRON 35 - 150 ug/dL 66 UIBC 110 - 370 ug/dL 343 TIBC 240 - 445 ug/dL 409 % Saturation 25 - 45 % 16 (L) Hemoglobin A1C see below % 5.0 Estimated Average Glucose Not Established mg/dL 97 Testosterone, Free 0.1 - 6.4 pg/mL 1.6 Testosterone, Total, LC-MS/MS 2 - 45 ng/dL 14 CORTISOL 2.5 - 20.0 ug/dL 6.4 LH IU/L 4.1 FOLLICLE STIMULATING HORMONE IU/L 6.3 Estrogen pg/mL 62 Vitamin D, 25-Hydroxy, Total 30 - 100 ng/mL 17 (L) Vitamin B12 211 - 911 pg/mL 282 Thyroid Stimulating Hormone 0.44 - 3.98 mIU/L 0.83 Thyroxine, Free 0.61 - 1.12 ng/dL 0.89 Triiodothyronine, Free 2.3 - 4.2 pg/mL 3.4 Parathyroid Hormone, Intact 18.5 - 88.0 pg/mL 46.8 FERRITIN 8 - 150 ng/mL 18 FOLATE >5.0 ng/mL 15.4 PROLACTIN 3.0 - 20.0 ug/L 3.7 Progesterone ng/mL 0.6 Growth Hormone 0.05 - 8.00 ng/mL 2.65 Androstenedione 0.260 - 2.140 ng/mL 0.571 DHEA 1.330 - 7.780 ng/mL 2.217 Legend: (L) Low (H) High Physical Exam Neurological: Mental Status: She is alert. Psychiatric: Mood and Affect: Mood normal. Behavior: Behavior normal. Thought Content: Thought content normal. Judgment: Judgment normal. Assessment/Plan Problem List Items Addressed This Visit Anxiety - Primary Relevant Medications busPIRone (Buspar) 5 mg tablet Iron deficiency anemia Relevant Medications ferrous sulfate 325 (65 Fe) MG tablet Mixed hyperlipidemia Vitamin B12 deficiency Vitamin D deficiency Relevant Medications ergocalciferol (Vitamin D-2) 1.25 MG (92193 UT) capsule calcium carbonate-vit D3-min 600 mg calcium- 400 unit tablet WE DISCUSSED MOST COMMON SIDE EFFECTS OF PRESCRIBED MEDICATIONS. INDICATIONS, RISK, COMPLICATIONS, AND ALTERNATIVES OF MEDICATION/THERAPEUTICS WERE EXPLAINED AND DISCUSSED. PLEASE MONITOR CLOSELY FORANY UNTOWARD SIDE EFFECTS OR COMPLICATIONS OF MEDICATIONS. PATIENT IS STRONGLY ADVISED TO BE COMPLIANT WITH RECOMMENDATIONS. QUESTIONS AND CONCERNS WERE ADDRESSED. INSTRUCTED TO CALL, RETURN SOONER, OR GO TO THE ER, IF SYMPTOMS PERSIST OR WORSEN. THEY VOICED UNDERSTANDING AND DENIES FURTHER QUESTIONS AT THIS TIME. TIME CODE 1. PREPARATION FOR PATIENT'S VISIT (REVIEWING CHART, CURRENT MEDICAL RECORDS, OUTSIDE HEALTH PROVIDER RECORDS, PREVIOUS HISTORY, EXAM, TEST, PROCEDURE, AND MEDICATIONS) 2. FACE TO FACE ENCOUNTER OBTAINING HISTORY FROM THE PATIENT/FAMILY/CAREGIVERS; PERFORMING EVALUATION AND EXAMINATION; ORDERING TESTS OR PROCEDURES; REFERRING AND COMMUNICATING WITH OTHER HEALTHCARE PROVIDERS; COUNSELING AND EDUCATION OF THE PATIENT/FAMILY/CAREGIVERS; INDEPENDENTLY INTERPRETING RESULTS (TESTS, LABS, PROCEDURES, IMAGING) AND COMMUNICATING AND EXPLAINING RESULTS TO THE PATIENT/FAMILY/CAREGIVERS 3. COORDINATION OF CARE; PREPARING AND PRINTING DISCHARGE INSTRUCTIONS AND ANY EDUCATIONAL MATERIALFOR THE PATIENT/FAMILY/CAREGIVERS. DOCUMENTING CLINICAL INFORMATION IN THE ELECTRONIC MEDICAL RECORD 4. REVIEWING OARRS NEEDED MDM 1) COMPLEXITY: MORE THAN 1 STABLE CHRONIC CONDITION ADDRESSED OR 1 ACUTE ILLNESS ADDRESSED 2)DATA: TESTS INTERPRETED AND OR ORDERED, TOOK INDEPENDENT HISTORY OR RECORDS REVIEWED 3)RISK: MODERATE RISK DUE TO NATURE OF MEDICAL CONDITIONS/COMORBIDITY OR MEDICATIONS ORDERED OR SURGICAL OR PROCEDURE REFERRAL 12 MONTHS WITH LABS documented in [facility]Un[facility] Work Phone: Hospital Discharge instructions* Attachments The following attachments cannot be sent through Care Everywhere. * Radius Fracture Discharge Instructions (Faroese) documented in this encounterUnSCC[facility] Work Phone: Reason for referral (narrative)No reason for referral information availableWCleveland Clinic Children's [facility] Work Phone: Reason for visit Narrative* Consultation (Routine) - Authorized Specialty Diagnoses / Procedures Referred By Berna vergara Referred To Contact Nutrition Diagnoses Class 1 obesity due to excess calories without serious comorbidity with body mass index (BMI) of 32.0 to 32.9 in adult Kylah Connell CNP [address] [place] [address] Nutrition Services [facility] [place] [address] Referral ID Status Reason Start Date Expiration Date V isits Requested Visits Authorized [id number] Authorized 05/19/2023 05/18/2024 3 3 [facility] Summary Purpose Family History Grandparent Name Dates Details Family history of cardiac ar rest(V17.49, Z82.49) Status:Active Family history of diabetes m ellitus(V18.0, Z83.3) Status:Active Family history of cardiac di sorder(V17.49, Z82.49) Status:Active Family history of cerebrovas cular accident (CVA)(V17.1, Z82.3) Status:Active Mother Name Dates Details Family history of cardiac ar rhythmia(V17.49, Z82.49) Status:Active Family history of hypertensi on(V17.49, Z82.49) Status:Active Sister Name Dates Details Family history of asthma(V17 .5, Z82.5) Status:Active Grandparent Name Dates Details Family history of cardiac ar rest(V17.49, Z82.49) Status:Active Family history of diabetes m ellitus(V18.0, Z83.3) Status:Active Family history of cardiac di sorder(V17.49, Z82.49) Status:Active Family history of cerebrovas cular accident (CVA)(V17.1, Z82.3) Status:Active Mother Name Dates Details Family history of cardiac ar rhythmia(V17.49, Z82.49) Status:Active Family history of hypertensi on(V17.49, Z82.49) Status:Active Sister Name Dates Details Family history of asthma(V17 .5, Z82.5) Status:Active Grandparent Name Dates Details Family history of cardiac di sorder(V17.49, Z82.49) Status:Active Family history of cerebrovas cular accident (CVA)(V17.1, Z82.3) Status:Active Family history of cardiac ar rest(V17.49, Z82.49) Status:Active Family history of diabetes m ellitus(V18.0, Z83.3) Status:Active Mother Name Dates Details Family history of cardiac ar rhythmia(V17.49, Z82.49) Status:Active Family history of hypertensi on(V17.49, Z82.49) Status:Active Sister Name Dates Details Family history of asthma(V17 .5, Z82.5) Status:Active Grandparent Name Dates Details Family history of cardiac di sorder(V17.49, Z82.49) Status:Active Family history of cerebrovas cular accident (CVA)(V17.1, Z82.3) Status:Active Family history of cardiac ar rest(V17.49, Z82.49) Status:Active Family history of diabetes m ellitus(V18.0, Z83.3) Status:Active Mother Name Dates Details Family history of cardiac ar rhythmia(V17.49, Z82.49) Status:Active Family history of hypertensi on(V17.49, Z82.49) Status:Active Sister Name Dates Details Family history of asthma(V17 .5, Z82.5) Status:Active Grandparent Name Dates Details Family history of cardiac di sorder(V17.49, Z82.49) Status:Active Family history of cerebrovas cular accident (CVA)(V17.1, Z82.3) Status:Active Family history of cardiac ar rest(V17.49, Z82.49) Status:Active Family history of diabetes m ellitus(V18.0, Z83.3) Status:Active Mother Name Dates Details Family history of cardiac ar rhythmia(V17.49, Z82.49) Status:Active Family history of hypertensi on(V17.49, Z82.49) Status:Active Sister Name Dates Details Family history of asthma(V17 .5, Z82.5) Status:Active Grandparent Name Dates Details Family history of cardiac di sorder(V17.49, Z82.49) Status:Active Family history of cerebrovas cular accident (CVA)(V17.1, Z82.3) Status:Active Family history of cardiac ar rest(V17.49, Z82.49) Status:Active Family history of diabetes m ellitus(V18.0, Z83.3) Status:Active Mother Name Dates Details Family history of cardiac ar rhythmia(V17.49, Z82.49) Status:Active Family history of hypertensi on(V17.49, Z82.49) Status:Active Sister Name Dates Details Family history of asthma(V17 .5, Z82.5) Status:Active Grandparent Name Dates Details Family history of cardiac ar rest(V17.49, Z82.49) Status:Active Family history of diabetes m ellitus(V18.0, Z83.3) Status:Active Family history of cardiac di sorder(V17.49, Z82.49) Status:Active Family history of cerebrovas cular accident (CVA)(V17.1, Z82.3) Status:Active Mother Name Dates Details Family history of cardiac ar rhythmia(V17.49, Z82.49) Status:Active Family history of hypertensi on(V17.49, Z82.49) Status:Active Sister Name Dates Details Family history of asthma(V17 .5, Z82.5) Status:Active Grandparent Name Dates Details Family history of cardiac di sorder(V17.49, Z82.49) Status:Active Family history of cerebrovas cular accident (CVA)(V17.1, Z82.3) Status:Active Family history of cardiac ar rest(V17.49, Z82.49) Status:Active Family history of diabetes m ellitus(V18.0, Z83.3) Status:Active Mother Name Dates Details Family history of cardiac ar rhythmia(V17.49, Z82.49) Status:Active Family history of hypertensi on(V17.49, Z82.49) Status:Active Sister Name Dates Details Family history of asthma(V17 .5, Z82.5) Status:Active Grandparent Name Dates Details Family history of cardiac di sorder(V17.49, Z82.49) Status:Active Family history of cerebrovas cular accident (CVA)(V17.1, Z82.3) Status:Active Family history of cardiac ar rest(V17.49, Z82.49) Status:Active Family history of diabetes m ellitus(V18.0, Z83.3) Status:Active Mother Name Dates Details Family history of cardiac ar rhythmia(V17.49, Z82.49) Status:Active Family history of hypertensi on(V17.49, Z82.49) Status:Active Sister Name Dates Details Family history of asthma(V17 .5, Z82.5) Status:Active Grandparent Name Dates Details Family history of cardiac di sorder(V17.49, Z82.49) Status:Active Family history of cerebrovas cular accident (CVA)(V17.1, Z82.3) Status:Active Family history of cardiac ar rest(V17.49, Z82.49) Status:Active Family history of diabetes m ellitus(V18.0, Z83.3) Status:Active Mother Name Dates Details Family history of cardiac ar rhythmia(V17.49, Z82.49) Status:Active Family history of hypertensi on(V17.49, Z82.49) Status:Active Sister Name Dates Details Family history of asthma(V17 .5, Z82.5) Status:Active Grandparent Name Dates Details Family history of cardiac ar rest(V17.49, Z82.49) Status:Active Family history of diabetes m ellitus(V18.0, Z83.3) Status:Active Family history of cardiac di sorder(V17.49, Z82.49) Status:Active Family history of cerebrovas cular accident (CVA)(V17.1, Z82.3) Status:Active Mother Name Dates Details Family history of cardiac ar rhythmia(V17.49, Z82.49) Status:Active Family history of hypertensi on(V17.49, Z82.49) Status:Active Sister Name Dates Details Family history of asthma(V17 .5, Z82.5) Status:Active Grandparent Name Dates Details Family history of cardiac ar rest(V17.49, Z82.49) Status:Active Family history of diabetes m ellitus(V18.0, Z83.3) Status:Active Family history of cardiac di sorder(V17.49, Z82.49) Status:Active Family history of cerebrovas cular accident (CVA)(V17.1, Z82.3) Status:Active Mother Name Dates Details Family history of cardiac ar rhythmia(V17.49, Z82.49) Status:Active Family history of hypertensi on(V17.49, Z82.49) Status:Active Sister Name Dates Details Family history of asthma(V17 .5, Z82.5) Status:Active Grandparent Name Dates Details Family history of cardiac di sorder(V17.49, Z82.49) Status:Active Family history of cerebrovas cular accident (CVA)(V17.1, Z82.3) Status:Active Family history of cardiac ar rest(V17.49, Z82.49) Status:Active Family history of diabetes m ellitus(V18.0, Z83.3) Status:Active Mother Name Dates Details Family history of cardiac ar rhythmia(V17.49, Z82.49) Status:Active Family history of hypertensi on(V17.49, Z82.49) Status:Active Sister Name Dates Details Family history of asthma(V17 .5, Z82.5) Status:Active Unknown Family Member Name Dates Details Family history of cardiac di sorder: Grandparent(V17.49, Z82.49) Status:Active Family history of cerebrovas cular accident (CVA): Grandparent(V17.1, Z82.3) Status:Active Family history of cardiac ar rhythmia: Mother(V17.49, Z82.49) Status:Active Family history of hypertensi on: Mother(V17.49, Z82.49) Status:Active Family history of asthma: Si ster(V17.5, Z82.5) Status:Active Family history of cardiac ar rest: Grandparent(V17.49, Z82.49) Status:Active Family history of diabetes m ellitus: Grandparent(V18.0, Z83.3) Status:Active Unknown Family Member Name Dates Details Family history of cardiac di sorder: Grandparent(V17.49, Z82.49) Status:Active Family history of cerebrovas cular accident (CVA): Grandparent(V17.1, Z82.3) Status:Active Family history of cardiac ar rhythmia: Mother(V17.49, Z82.49) Status:Active Family history of hypertensi on: Mother(V17.49, Z82.49) Status:Active Family history of asthma: Si ster(V17.5, Z82.5) Status:Active Family history of cardiac ar rest: Grandparent(V17.49, Z82.49) Status:Active Family history of diabetes m ellitus: Grandparent(V18.0, Z83.3) Status:Active Unknown Family Member Name Dates Details Family history of cardiac di sorder: Grandparent(V17.49, Z82.49) Status:Active Family history of cerebrovas cular accident (CVA): Grandparent(V17.1, Z82.3) Status:Active Family history of cardiac ar rhythmia: Mother(V17.49, Z82.49) Status:Active Family history of hypertensi on: Mother(V17.49, Z82.49) Status:Active Family history of asthma: Si ster(V17.5, Z82.5) Status:Active Family history of cardiac ar rest: Grandparent(V17.49, Z82.49) Status:Active Family history of diabetes m ellitus: Grandparent(V18.0, Z83.3) Status:Active Unknown Family Member Name Dates Details Family history of cardiac di sorder: Grandparent(V17.49, Z82.49) Status:Active Family history of cerebrovas cular accident (CVA): Grandparent(V17.1, Z82.3) Status:Active Family history of cardiac ar rhythmia: Mother(V17.49, Z82.49) Status:Active Family history of hypertensi on: Mother(V17.49, Z82.49) Status:Active Family history of asthma: Si ster(V17.5, Z82.5) Status:Active Family history of cardiac ar rest: Grandparent(V17.49, Z82.49) Status:Active Family history of diabetes m ellitus: Grandparent(V18.0, Z83.3) Status:Active Unknown Family Member Name Dates Details Family history of cardiac di sorder: Grandparent(V17.49, Z82.49) Status:Active Family history of cerebrovas cular accident (CVA): Grandparent(V17.1, Z82.3) Status:Active Family history of cardiac ar rhythmia: Mother(V17.49, Z82.49) Status:Active Family history of hypertensi on: Mother(V17.49, Z82.49) Status:Active Family history of asthma: Si ster(V17.5, Z82.5) Status:Active Family history of cardiac ar rest: Grandparent(V17.49, Z82.49) Status:Active Family history of diabetes m ellitus: Grandparent(V18.0, Z83.3) Status:Active Unknown Family Member Name Dates Details Family history of cardiac di sorder: Grandparent(V17.49, Z82.49) Status:Active Family history of cerebrovas cular accident (CVA): Grandparent(V17.1, Z82.3) Status:Active Family history of cardiac ar rhythmia: Mother(V17.49, Z82.49) Status:Active Family history of hypertensi on: Mother(V17.49, Z82.49) Status:Active Family history of asthma: Si ster(V17.5, Z82.5) Status:Active Family history of cardiac ar rest: Grandparent(V17.49, Z82.49) Status:Active Family history of diabetes m ellitus: Grandparent(V18.0, Z83.3) Status:Active Unknown Family Member Name Dates Details Family history of cardiac di sorder: Grandparent(V17.49, Z82.49) Status:Active Family history of cerebrovas cular accident (CVA): Grandparent(V17.1, Z82.3) Status:Active Family history of cardiac ar rhythmia: Mother(V17.49, Z82.49) Status:Active Family history of hypertensi on: Mother(V17.49, Z82.49) Status:Active Family history of asthma: Si ster(V17.5, Z82.5) Status:Active Family history of cardiac ar rest: Grandparent(V17.49, Z82.49) Status:Active Family history of diabetes m ellitus: Grandparent(V18.0, Z83.3) Status:Active Unknown Family Member Name Dates Details Family history of cardiac di sorder: Grandparent(V17.49, Z82.49) Status:Active Family history of cerebrovas cular accident (CVA): Grandparent(V17.1, Z82.3) Status:Active Family history of cardiac ar rhythmia: Mother(V17.49, Z82.49) Status:Active Family history of hypertensi on: Mother(V17.49, Z82.49) Status:Active Family history of asthma: Si ster(V17.5, Z82.5) Status:Active Family history of cardiac ar rest: Grandparent(V17.49, Z82.49) Status:Active Family history of diabetes m ellitus: Grandparent(V18.0, Z83.3) Status:Active Unknown Family Member Name Dates Details Family history of cardiac di sorder: Grandparent(V17.49, Z82.49) Status:Active Family history of cerebrovas cular accident (CVA): Grandparent(V17.1, Z82.3) Status:Active Family history of cardiac ar rhythmia: Mother(V17.49, Z82.49) Status:Active Family history of hypertensi on: Mother(V17.49, Z82.49) Status:Active Family history of asthma: Si ster(V17.5, Z82.5) Status:Active Family history of cardiac ar rest: Grandparent(V17.49, Z82.49) Status:Active Family history of diabetes m ellitus: Grandparent(V18.0, Z83.3) Status:Active Unknown Family Member Name Dates Details Family history of cardiac di sorder: Grandparent(V17.49, Z82.49) Status:Active Family history of cerebrovas cular accident (CVA): Grandparent(V17.1, Z82.3) Status:Active Family history of cardiac ar rhythmia: Mother(V17.49, Z82.49) Status:Active Family history of hypertensi on: Mother(V17.49, Z82.49) Status:Active Family history of asthma: Si ster(V17.5, Z82.5) Status:Active Family history of cardiac ar rest: Grandparent(V17.49, Z82.49) Status:Active Family history of diabetes m ellitus: Grandparent(V18.0, Z83.3) Status:Active Unknown Family Member Name Dates Details Family history of cardiac di sorder: Grandparent(V17.49, Z82.49) Status:Active Family history of cerebrovas cular accident (CVA): Grandparent(V17.1, Z82.3) Status:Active Family history of cardiac ar rhythmia: Mother(V17.49, Z82.49) Status:Active Family history of hypertensi on: Mother(V17.49, Z82.49) Status:Active Family history of asthma: Si ster(V17.5, Z82.5) Status:Active Family history of cardiac ar rest: Grandparent(V17.49, Z82.49) Status:Active Family history of diabetes m ellitus: Grandparent(V18.0, Z83.3) Status:Active Unknown Family Member Name Dates Details Family history of cardiac di sorder: Grandparent(V17.49, Z82.49) Status:Active Family history of cerebrovas cular accident (CVA): Grandparent(V17.1, Z82.3) Status:Active Family history of cardiac ar rhythmia: Mother(V17.49, Z82.49) Status:Active Family history of hypertensi on: Mother(V17.49, Z82.49) Status:Active Family history of asthma: Si ster(V17.5, Z82.5) Status:Active Family history of cardiac ar rest: Grandparent(V17.49, Z82.49) Status:Active Family history of diabetes m ellitus: Grandparent(V18.0, Z83.3) Status:Active Unknown Family Member Name Dates Details Family history of cardiac di sorder: Grandparent(V17.49, Z82.49) Status:Active Family history of cerebrovas cular accident (CVA): Grandparent(V17.1, Z82.3) Status:Active Family history of cardiac ar rhythmia: Mother(V17.49, Z82.49) Status:Active Family history of hypertensi on: Mother(V17.49, Z82.49) Status:Active Family history of asthma: Si ster(V17.5, Z82.5) Status:Active Family history of cardiac ar rest: Grandparent(V17.49, Z82.49) Status:Active Family history of diabetes m ellitus: Grandparent(V18.0, Z83.3) Status:Active Unknown Family Member Name Dates Details Family history of cardiac di sorder: Grandparent(V17.49, Z82.49) Status:Active Family history of cerebrovas cular accident (CVA): Grandparent(V17.1, Z82.3) Status:Active Family history of cardiac ar rhythmia: Mother(V17.49, Z82.49) Status:Active Family history of hypertensi on: Mother(V17.49, Z82.49) Status:Active Family history of asthma: Si ster(V17.5, Z82.5) Status:Active Family history of cardiac ar rest: Grandparent(V17.49, Z82.49) Status:Active Family history of diabetes m ellitus: Grandparent(V18.0, Z83.3) Status:Active Unknown Family Member Name Dates Details Family history of cardiac di sorder: Grandparent(V17.49, Z82.49) Status:Active Family history of cerebrovas cular accident (CVA): Grandparent(V17.1, Z82.3) Status:Active Family history of cardiac ar rhythmia: Mother(V17.49, Z82.49) Status:Active Family history of hypertensi on: Mother(V17.49, Z82.49) Status:Active Family history of asthma: Si ster(V17.5, Z82.5) Status:Active Family history of cardiac ar rest: Grandparent(V17.49, Z82.49) Status:Active Family history of diabetes m ellitus: Grandparent(V18.0, Z83.3) Status:Active Unknown Family Member Name Dates Details Family history of cardiac di sorder: Grandparent(V17.49, Z82.49) Status:Active Family history of cerebrovas cular accident (CVA): Grandparent(V17.1, Z82.3) Status:Active Family history of cardiac ar rhythmia: Mother(V17.49, Z82.49) Status:Active Family history of hypertensi on: Mother(V17.49, Z82.49) Status:Active Family history of asthma: Si ster(V17.5, Z82.5) Status:Active Family history of cardiac ar rest: Grandparent(V17.49, Z82.49) Status:Active Family history of diabetes m ellitus: Grandparent(V18.0, Z83.3) Status:Active Unknown Family Member Name Dates Details Family history of cardiac di sorder: Grandparent(V17.49, Z82.49) Status:Active Family history of cerebrovas cular accident (CVA): Grandparent(V17.1, Z82.3) Status:Active Family history of cardiac ar rhythmia: Mother(V17.49, Z82.49) Status:Active Family history of hypertensi on: Mother(V17.49, Z82.49) Status:Active Family history of asthma: Si ster(V17.5, Z82.5) Status:Active Family history of cardiac ar rest: Grandparent(V17.49, Z82.49) Status:Active Family history of diabetes m ellitus: Grandparent(V18.0, Z83.3) Status:Active Unknown Family Member Name Dates Details Family history of cardiac di sorder: Grandparent(V17.49, Z82.49) Status:Active Family history of cerebrovas cular accident (CVA): Grandparent(V17.1, Z82.3) Status:Active Family history of cardiac ar rhythmia: Mother(V17.49, Z82.49) Status:Active Family history of hypertensi on: Mother(V17.49, Z82.49) Status:Active Family history of asthma: Si ster(V17.5, Z82.5) Status:Active Family history of cardiac ar rest: Grandparent(V17.49, Z82.49) Status:Active Family history of diabetes m ellitus: Grandparent(V18.0, Z83.3) Status:Active Unknown Family Member Name Dates Details Family history of cardiac di sorder: Grandparent(V17.49, Z82.49) Status:Active Family history of cerebrovas cular accident (CVA): Grandparent(V17.1, Z82.3) Status:Active Family history of cardiac ar rhythmia: Mother(V17.49, Z82.49) Status:Active Family history of hypertensi on: Mother(V17.49, Z82.49) Status:Active Family history of asthma: Si ster(V17.5, Z82.5) Status:Active Family history of cardiac ar rest: Grandparent(V17.49, Z82.49) Status:Active Family history of diabetes m ellitus: Grandparent(V18.0, Z83.3) Status:Active Unknown Family Member Name Dates Details Family history of cardiac di sorder: Grandparent(V17.49, Z82.49) Status:Active Family history of cerebrovas cular accident (CVA): Grandparent(V17.1, Z82.3) Status:Active Family history of cardiac ar rhythmia: Mother(V17.49, Z82.49) Status:Active Family history of hypertensi on: Mother(V17.49, Z82.49) Status:Active Family history of asthma: Si ster(V17.5, Z82.5) Status:Active Family history of cardiac ar rest: Grandparent(V17.49, Z82.49) Status:Active Family history of diabetes m ellitus: Grandparent(V18.0, Z83.3) Status:Active Unknown Family Member Name Dates Details Family history of cardiac di sorder: Grandparent(V17.49, Z82.49) Status:Active Family history of cerebrovas cular accident (CVA): Grandparent(V17.1, Z82.3) Status:Active Family history of cardiac ar rhythmia: Mother(V17.49, Z82.49) Status:Active Family history of hypertensi on: Mother(V17.49, Z82.49) Status:Active Family history of asthma: Si ster(V17.5, Z82.5) Status:Active Family history of cardiac ar rest: Grandparent(V17.49, Z82.49) Status:Active Family history of diabetes m ellitus: Grandparent(V18.0, Z83.3) Status:Active Unknown Family Member Name Dates Details Family history of cardiac di sorder: Grandparent(V17.49, Z82.49) Status:Active Family history of cerebrovas cular accident (CVA): Grandparent(V17.1, Z82.3) Status:Active Family history of cardiac ar rhythmia: Mother(V17.49, Z82.49) Status:Active Family history of hypertensi on: Mother(V17.49, Z82.49) Status:Active Family history of asthma: Si ster(V17.5, Z82.5) Status:Active Family history of cardiac ar rest: Grandparent(V17.49, Z82.49) Status:Active Family history of diabetes m ellitus: Grandparent(V18.0, Z83.3) Status:Active Unknown Family Member Name Dates Details Family history of cardiac di sorder: Grandparent(V17.49, Z82.49) Status:Active Family history of cerebrovas cular accident (CVA): Grandparent(V17.1, Z82.3) Status:Active Family history of cardiac ar rhythmia: Mother(V17.49, Z82.49) Status:Active Family history of hypertensi on: Mother(V17.49, Z82.49) Status:Active Family history of asthma: Si ster(V17.5, Z82.5) Status:Active Family history of cardiac ar rest: Grandparent(V17.49, Z82.49) Status:Active Family history of diabetes m ellitus: Grandparent(V18.0, Z83.3) Status:Active Unknown Family Member Name Dates Details Family history of cardiac di sorder: Grandparent(V17.49, Z82.49) Status:Active Family history of cerebrovas cular accident (CVA): Grandparent(V17.1, Z82.3) Status:Active Family history of cardiac ar rhythmia: Mother(V17.49, Z82.49) Status:Active Family history of hypertensi on: Mother(V17.49, Z82.49) Status:Active Family history of asthma: Si ster(V17.5, Z82.5) Status:Active Family history of cardiac ar rest: Grandparent(V17.49, Z82.49) Status:Active Family history of diabetes m ellitus: Grandparent(V18.0, Z83.3) Status:Active Unknown Family Member Name Dates Details Family history of cardiac di sorder: Grandparent(V17.49, Z82.49) Status:Active Family history of cerebrovas cular accident (CVA): Grandparent(V17.1, Z82.3) Status:Active Family history of cardiac ar rhythmia: Mother(V17.49, Z82.49) Status:Active Family history of hypertensi on: Mother(V17.49, Z82.49) Status:Active Family history of asthma: Si ster(V17.5, Z82.5) Status:Active Family history of cardiac ar rest: Grandparent(V17.49, Z82.49) Status:Active Family history of diabetes m ellitus: Grandparent(V18.0, Z83.3) Status:Active Unknown Family Member Name Dates Details Family history of cardiac di sorder: Grandparent(V17.49, Z82.49) Status:Active Family history of cerebrovas cular accident (CVA): Grandparent(V17.1, Z82.3) Status:Active Family history of cardiac ar rhythmia: Mother(V17.49, Z82.49) Status:Active Family history of hypertensi on: Mother(V17.49, Z82.49) Status:Active Family history of asthma: Si ster(V17.5, Z82.5) Status:Active Family history of cardiac ar rest: Grandparent(V17.49, Z82.49) Status:Active Family history of diabetes m ellitus: Grandparent(V18.0, Z83.3) Status:Active Unknown Family Member Name Dates Details Family history of cardiac di sorder: Grandparent(V17.49, Z82.49) Status:Active Family history of cerebrovas cular accident (CVA): Grandparent(V17.1, Z82.3) Status:Active Family history of cardiac ar rhythmia: Mother(V17.49, Z82.49) Status:Active Family history of hypertensi on: Mother(V17.49, Z82.49) Status:Active Family history of asthma: Si ster(V17.5, Z82.5) Status:Active Family history of cardiac ar rest: Grandparent(V17.49, Z82.49) Status:Active Family history of diabetes m ellitus: Grandparent(V18.0, Z83.3) Status:Active Unknown Family Member Name Dates Details Family history of cardiac di sorder: Grandparent(V17.49, Z82.49) Status:Active Family history of cerebrovas cular accident (CVA): Grandparent(V17.1, Z82.3) Status:Active Family history of cardiac ar rhythmia: Mother(V17.49, Z82.49) Status:Active Family history of hypertensi on: Mother(V17.49, Z82.49) Status:Active Family history of asthma: Si ster(V17.5, Z82.5) Status:Active Family history of cardiac ar rest: Grandparent(V17.49, Z82.49) Status:Active Family history of diabetes m ellitus: Grandparent(V18.0, Z83.3) Status:Active Unknown Family Member Name Dates Details Family history of cardiac di sorder: Grandparent(V17.49, Z82.49) Status:Active Family history of cerebrovas cular accident (CVA): Grandparent(V17.1, Z82.3) Status:Active Family history of cardiac ar rhythmia: Mother(V17.49, Z82.49) Status:Active Family history of hypertensi on: Mother(V17.49, Z82.49) Status:Active Family history of asthma: Si ster(V17.5, Z82.5) Status:Active Family history of cardiac ar rest: Grandparent(V17.49, Z82.49) Status:Active Family history of diabetes m ellitus: Grandparent(V18.0, Z83.3) Status:Active Unknown Family Member Name Dates Details Family history of cardiac di sorder: Grandparent(V17.49, Z82.49) Status:Active Family history of cerebrovas cular accident (CVA): Grandparent(V17.1, Z82.3) Status:Active Family history of cardiac ar rhythmia: Mother(V17.49, Z82.49) Status:Active Family history of hypertensi on: Mother(V17.49, Z82.49) Status:Active Family history of asthma: Si ster(V17.5, Z82.5) Status:Active Family history of cardiac ar rest: Grandparent(V17.49, Z82.49) Status:Active Family history of diabetes m ellitus: Grandparent(V18.0, Z83.3) Status:Active Unknown Family Member Name Dates Details Family history of cardiac di sorder: Grandparent(V17.49, Z82.49) Status:Active Family history of cerebrovas cular accident (CVA): Grandparent(V17.1, Z82.3) Status:Active Family history of cardiac ar rhythmia: Mother(V17.49, Z82.49) Status:Active Family history of hypertensi on: Mother(V17.49, Z82.49) Status:Active Family history of asthma: Si ster(V17.5, Z82.5) Status:Active Family history of cardiac ar rest: Grandparent(V17.49, Z82.49) Status:Active Family history of diabetes m ellitus: Grandparent(V18.0, Z83.3) Status:Active Unknown Family Member Name Dates Details Family history of cardiac di sorder: Grandparent(V17.49, Z82.49) Status:Active Family history of cerebrovas cular accident (CVA): Grandparent(V17.1, Z82.3) Status:Active Family history of cardiac ar rhythmia: Mother(V17.49, Z82.49) Status:Active Family history of hypertensi on: Mother(V17.49, Z82.49) Status:Active Family history of asthma: Si ster(V17.5, Z82.5) Status:Active Family history of cardiac ar rest: Grandparent(V17.49, Z82.49) Status:Active Family history of diabetes m ellitus: Grandparent(V18.0, Z83.3) Status:Active Unknown Family Member Name Dates Details Family history of cardiac di sorder: Grandparent(V17.49, Z82.49) Status:Active Family history of cerebrovas cular accident (CVA): Grandparent(V17.1, Z82.3) Status:Active Family history of cardiac ar rhythmia: Mother(V17.49, Z82.49) Status:Active Family history of hypertensi on: Mother(V17.49, Z82.49) Status:Active Family history of asthma: Si ster(V17.5, Z82.5) Status:Active Family history of cardiac ar rest: Grandparent(V17.49, Z82.49) Status:Active Family history of diabetes m ellitus: Grandparent(V18.0, Z83.3) Status:Active Unknown Family Member Name Dates Details Family history of diabetes m ellitus: Grandparent(V18.0, Z83.3) Status:Active Family history of cardiac ar rest: Grandparent(V17.49, Z82.49) Status:Active Family history of asthma: Si ster(V17.5, Z82.5) Status:Active Family history of hypertensi on: Mother(V17.49, Z82.49) Status:Active Family history of cardiac ar rhythmia: Mother(V17.49, Z82.49) Status:Active Family history of cerebrovas cular accident (CVA): Grandparent(V17.1, Z82.3) Status:Active Family history of cardiac di sorder: Grandparent(V17.49, Z82.49) Status:Active Unknown Family Member Name Dates Details Family history of cardiac di sorder: Grandparent(V17.49, Z82.49) Status:Active Family history of cerebrovas cular accident (CVA): Grandparent(V17.1, Z82.3) Status:Active Family history of cardiac ar rhythmia: Mother(V17.49, Z82.49) Status:Active Family history of hypertensi on: Mother(V17.49, Z82.49) Status:Active Family history of asthma: Si ster(V17.5, Z82.5) Status:Active Family history of cardiac ar rest: Grandparent(V17.49, Z82.49) Status:Active Family history of diabetes m ellitus: Grandparent(V18.0, Z83.3) Status:Active Unknown Family Member Name Dates Details Family history of cardiac di sorder: Grandparent(V17.49, Z82.49) Status:Active Family history of cerebrovas cular accident (CVA): Grandparent(V17.1, Z82.3) Status:Active Family history of cardiac ar rhythmia: Mother(V17.49, Z82.49) Status:Active Family history of hypertensi on: Mother(V17.49, Z82.49) Status:Active Family history of asthma: Si ster(V17.5, Z82.5) Status:Active Family history of cardiac ar rest: Grandparent(V17.49, Z82.49) Status:Active Family history of diabetes m ellitus: Grandparent(V18.0, Z83.3) Status:Active Unknown Family Member Name Dates Details Family history of cardiac di sorder: Grandparent(V17.49, Z82.49) Status:Active Family history of cerebrovas cular accident (CVA): Grandparent(V17.1, Z82.3) Status:Active Family history of cardiac ar rhythmia: Mother(V17.49, Z82.49) Status:Active Family history of hypertensi on: Mother(V17.49, Z82.49) Status:Active Family history of asthma: Si ster(V17.5, Z82.5) Status:Active Family history of cardiac ar rest: Grandparent(V17.49, Z82.49) Status:Active Family history of diabetes m ellitus: Grandparent(V18.0, Z83.3) Status:Active Advance Directives No Advanced Directives Records FoundNo Advanced Directives Records FoundNo Advanced Directives Records FoundNo Advanced Directives Records FoundNo Advanced Directives Records FoundNo Advanced Directives Records FoundNo Advanced Directives Records FoundNo Advanced Directives Records FoundNo Advanced Directives Records FoundNo Advanced Directives Records FoundNo Advanced Directives Records FoundNo Advanced Directives Records FoundNo Advanced Directives Records FoundNo Advanced Directives Records FoundNo Advanced Directives Records Found Chief Complaint PT HERE FOR B-12 INJECTION ONLY. 1ML OF B-12 GIVEN IN RIGHT DELTOID WITHOUT COMPLICATIONS. PT TOLERATED WELL.patient presents today stating she is having abnormal yellow discharge and a red tinge in her urine. Patient also c/o oder to urine and left flank pain. Patient states she has a history of chlamydia.lmp 1PT CAME INTO THE OFFICE FOR A MONTHLY B12 INJECTION. 1000MCG/ML GIVEN IM LT DELTOID. PT TOLERATED INJECTION WELL WITH NO ADVERSE REACTIONSPT CAME INTO THE OFFICE TODAY FOR A VITAMIN B12 INJECTION. 1000MCG/ML GIVEN IM LT DELTOID. PT TOLERATED INJECTION WELL WITH NO ADVERSE REACTIONSPT CAME INTO THE OFFICE TODAY FOR A B12 INJECTION. 1000MCG/ML GIVEN IM LT DELTOID. PT TOLERATED INJE CTION WELL WITH NO ADVERSE REACTIONSPatient here requesting STD testing. LMP:07/31/21.FU WITH LABS; C/O WHEN PT WAS YOUNG SHE WAS TOLD SHE HAS COSTOCHONDRITISES, PT STATES SHE HAS CRACKLING IN LUNGS FOR 3 WEEKS,* Patient is here for yearly exam. Patient does not do self breast exams regularly. LMP 10/19/21 * Pt has no questions at this time. CONTROL RENEWED * PT HERE TODAY AMENORRHEA. PT STATES SHE IS HAVING SOME NAUSEA AND BREAST TENDERNESS. PT DENIES BLEEDING, CRAMPING, AND VOMITING. PT HAS NO CONCERNS AT THIS TIME. LMP 11/15/21 * IN OFFICE HCG POSITIVE FU LABS TODAYPatient is here for blood pressure check. Patient does have some questions regarding her blood pressure medication.Patient is here for her 4 week post visit. Patient had a vaginal delivery of a male infant on 08/13/22 at 37 weeks 2 days, infant weighted 6 # 8 oz. Patient is currently bottle feeding. Patient would not like to discuss control options. Patient has not resumed sexual activity. Patient denies post depression. Patient has no other concerns at this time. Chief Complaint and Reason for Visit Chief Complaint Admit Date [facility] NEW [facility]PLOY[facility] PHYSICAL November 19 12:41pm Additional Source Comments INFORMATION SOURCE (unrecogn ized section and content) DATE CREATED AUTHOR 01/16/2018 [facility] DATE CREATED AUTHOR AUTHOR'S ORGANIZ ATION 04/14/2019 [facility] DATE CREATED AUTHOR AUTHOR'S ORGANIZ ATION 08/31/2022 [facility] DATE CREATED AUTHOR AUTHOR'S ORGANIZ ATION 09/18/2022 [facility] DATE CREATED AUTHOR AUTHOR'S ORGANIZ ATION 05/06/2023 [facility] DATE CREATED AUTHOR AUTHOR'S ORGANIZ ATION 05/24/2023 [facility] DATE CREATED AUTHOR AUTHOR'S ORGANIZ ATION 03/20/2024 [facility] DATE CREATED AUTHOR AUTHOR'S ORGANIZ ATION 06/10/2024 [facility] DATE CREATED AUTHOR AUTHOR'S ORGANIZ ATION 07/17/2024 [facility] DATE CREATED AUTHOR AUTHOR'S ORGANIZ ATION 08/06/2024 [facility] DATE CREATED AUTHOR AUTHOR'S ORGANIZ ATION 09/19/2024 [facility] DATE CREATED AUTHOR AUTHOR'S ORGANIZ ATION 11/08/2024 [facility] DATE CREATED AUTHOR AUTHOR'S ORGANIZ ATION 01/09/2025 [facility] DATE CREATED AUTHOR AUTHOR'S ORGANIZ ATION 03/18/2025 [facility] DATE CREATED AUTHOR AUTHOR'S THA ROSALES 03/18/2025 [facility] <item><item> Privacy Markings (unrecogniz ed section and content) Section Author: Maricruz Mccormick PROHIBITION ON REDISCLOSURE OF CONFIDENTIAL INFORMATION This notice accompanies a disclosure of information concerning a client made to you with the consent of such client. Section Author: Maricruz Mccormick PROHIBITION ON REDISCLOSURE OF CONFIDENTIAL INFORMATION This notice accompanies a disclosure of information concerning a client made to you with the consent of such client. Reason for Visit (unrecogniz ed section and content) Reason Comments Follow-up Pt has not completed labs at this time Acne Reason Comments Follow-up 2 weeks lab results, no concerns Reason Comments Abdominal Pain X 1 week Specialty Diagnoses / Procedures Referred By Berna vergara Referred To Contact Radiology Diagnoses Pelvic pain Procedures US pelvis US PELVIS TRANSABDOMINAL WITH TRANSVAGINAL US pelvis transvaginal Kylah Connell, CURB BUILDER-SMASH HAND [address] [place] [address] [address] Referral ID Status Reason Start Date Expiration Date Visits Requested Visits Authorized [id number] Pending Review Perform Procedure 09/28/2023 09/27/2024 1 1 Reason Comments New Patient MWL Reason Comments Weight Management Session mwl Reason Comments Obesity Follow-up Reason Comments Follow-up MWL follow up Reason Comments Follow-up LABS Reason Comments Follow-up FORM FOR PHLEBOTOMY Reason Comments Follow-up MWL Patient currentl y taking wegovy Reason Comments Fall Slipped and fell on her steps arm was back behind her when she fell on it. Rates pain 04/03 aching Reason Comments New Patient Visit RADIUS FRACTUREDOI X-RAYS 08-14-24 Reason Comments Follow-up Fu labs today Care Teams (unrecognized sec tion and content) Licensed Psychologist Manager Relationship Specialty Start Date End Date Kylah Connell, [employer] [address] [place] [address] PCP - General 03/27/19 Kylah Connell, [employer] BUILDER[employer]SMASH HAND [address] [place] [address] PCP - [facility] PCP 07/25/21 Kylah Connell, CUR[employer] BUILDER[employer]SM[employer] HAND [address] [place] [address] PCP - [facility] Medicaid PCP 10/23/22 Licensed Psychologist Manager Relationship Specialty Start Date End Date Kylah Connell, [employer]DER[employer] [address] [place] [address] PCP - General 03/27/19 Kylah Connell, CUR[employer] BUILDER[employer]SMASH HAND [address] [place] [address] [facility] 07/25/21 Kylah Connell, CUR[employer] BUILDER-SMASH HAND [address] [place] [address] PCP - [facility] Medicaid PCP 10/23/22 Licensed Psychologist Manager Relationship Specialty Start Date End Date Kylah Crawford, SMASH HAND [address] [place] [address] PCP - General Nurse Practitioner 11/09/21 Licensed Psychologist Manager Relationship Specialty Start Date End Date Kylah Connell, [employer] BU[employer]DER[employer]SM[employer] [address] [place] [address] PCP - General 03/27/19 Kylah Connell, CURB BUILDER[employer]SMASH HAND [address] [place] [address] PCP - [facility] PCP 07/25/21 Kylah Connell, CUR[employer] BUILDER[employer]SMASH HAND [address] [place] [address] PCP - [facility] Medicaid PCP 10/23/22 Licensed Psychologist Manager Relationship Specialty Start Date End Date Kylah Connell, CUR[employer] BUILDER[employer]SM[employer] HAND [address] [place] [address] PCP - General 03/27/19 Kylah Connell, CUR[employer] BUILDER[employer]SM[employer] HAND [address] [place] [address] [facility] PCP 07/25/21 Kylah Connell, [employer] BUILDER[employer]SM[employer] HAND [address] [place] [address] PCP - [facility] Medicaid PCP 10/23/22 Licensed Psychologist Manager Relationship Specialty Start Date End Date Kylah Connell, SMASH HAND [address] [place] [address] PCP - General Nurse Practitioner - Family 06/07/24 Licensed Psychologist Manager Relationship Specialty Start Date End Date Kylah Connell, [employer] BU[employer]DER[employer] [address] [place] [address] PCP - General 03/27/19 Kylah Connell, CUR[employer] BUILDER[employer]SM[employer] HAND [address] [facility] [place] [address] PCP - [facility] PCP 07/25/21 Kylah Connell, [employer] BUILDER[employer]SM[employer] HAND [address] [place] [address] PCP - [facility] Medicaid PCP 10/23/22 Licensed Psychologist Manager Relationship Specialty Start Date End Date Kylah Crawford, SMASH HAND [address] [place] [address] PCP - General Nurse Practitioner 11/09/21 Licensed Psychologist Manager Relationship Specialty Start Date End Date Kylah Connell, SMASH HAND [address] [place] [address] PCP - General Nurse Practitioner - Family 06/07/24 Licensed Psychologist Manager Relationship Specialty Start Date End Date Kylah Connell, CUR[employer] BUILDER-SMASH HAND [address] [place] [address] PCP - General 03/27/19 Kylah Connell, CURB BUILDER[employer]SMASH HAND [address] [place] [address] [facility] - [facility] P[facility] 07/25/21 Kylah Connell, CURB BUILDER[employer]SMASH HAND [address] [place] [address] PCP - [facility] Medicaid PCP 10/23/22 Licensed Psychologist Manager Relationship Specialty Start Date End Date Kylah Connell, CURB BUILDER[employer]SMASH HAND [address] [place] [address] PCP - General 03/27/19 Kylah Connell, CURB BUILDER-SMASH HAND [address] [place] [address] [facility] - [facility] 07/25/21 Kylah Connell, CURB BUILDER-SMASH HAND [address] [place] [address] PCP - [facility] Medicaid PCP 10/23/22 Licensed Psychologist Manager Relationship Specialty Start Date End Date Kylah Connell, CURB BUILDER[employer]SMASH HAND [address] [place] [address] PCP - General 03/27/19 Kylah Connell, CURB BUILDER-SMASH HAND [address] [place] [address] PCP - [facility] PCP 07/25/21 Kylah Connell, CURB BUILDER-SMASH HAND [address] [place] [address] PCP - [facility] Medicaid PCP 10/23/22 Licensed Psychologist Manager Relationship Specialty Start Date End Date Kylah Crawford, SMASH HAND [address] [place] [address] PCP - General Nurse Practitioner 11/09/21 Team Status: Active Member Role/Relationship Status Dates Dr. Richard Araiza MD Primary Care Provider Activ e Team Status: Active Member Role/Relationship Status Dates Employee Health Attending Provider Active Start: November 19, 2024 Team Status: Active Member Role/Relationship Status Dates Health Risk Assessment Attending Provider Active Start: November 19, 2024 Health Risk Assessment Referring Provider Active Start: November 19, 2024 Team Status: Inactive Member Role/Relationship Status Dates Dr. Richard Araiza MD Primary Care Provider Activ e Start: March 13, 2025 End: March 13, 2025 Dr. Richard Araiza MD Attending Provider Active Start: March 13, 2025 End: March 13, 2025 Dr. Richard Araiza MD Referring Provider Active Start: March 13, 2025 End: March 13, 2025 Goals (unrecognized section and content) Goals may be documented in a n alternate section FOR RECORDS PERTAINING TO PATIENTS WHO ARE OR HAVE BEEN ENROLLED IN A CHEMICAL DEPENDENCY/SUBSTANCEABUSE PROGRAM, SOME INFORMATION MAY BE OMITTED. This clinical summary was aggregated from multiple sources. Caution should be exercised in using it in the provision of clinical care. This summary normalizes information from multiple sources, and as a consequence, information in this document may materially change the coding, format and clinical context of patient data. In addition, data may be omitted in some cases. CLINICAL DECISIONS SHOULD BE BASED ON THE PRIMARY CLINICAL RECORDS. [email or web address] provides no warranty or guarantee of the accuracy or completeness of information in this document.
[2025-03-20 10:37] LABS: PTHIN 35 pg/mL (11-61)
== END | disposition home or self-care (01) ==
LOC: MTLAB 07:14
PROVIDERS: PCP Internal Medicine; Referring Provider Nurse Practitioner Family; Visit Provider Nurse Practitioner Family
DX: E55.9 Vitamin D deficiency, unspecified (principal)
CPT/HCPCS: 36415; 83970